=== PATIENT | male | born 1965 | race Caucasian/White ===

== ENCOUNTER 2021-07-19 23:22 | Inpatient (IN) | payer MEDICARE, MEDICAID, SELFPAY ==
--- NOTE | ~2021-07-19 | XR_ITS ---
XR chest 1V portable DATE: 07/23/2021 05:45 INDICATION: Acute respiratory failure TECHNIQUE: Portable AP chest on 07/23/2021 at 0501 hours COMPARISON: 07/22/2021 portable AP chest at 0512 hours FINDINGS: ET tube tip in satisfactory position approximately 3 cm above svitlana. NG tube in gastric fu ndus. Pacemaker lead from inferior vena cava overlies right ventricle. Left internal jugular central venous catheter tip overlies the left brachiocephalic vein near the iris ction with the superior vena cava. No evidence of pneumothorax. There are mild patchy infiltrates and/or atelectasis in the lower lung zones primarily. No pleural effusion or pulmonary vascular congestion is detected. Vascular stent overlies the left subclavian artery. IMPRESSION: ET and NG tubes in satisfactory position Mild patchy infiltrates and/or atelectasis in the lower lung zones primarily; little interval change Reviewed, dictated and finalized at location A. IMPRESSION: ET and NG tubes in satisfactory position Mild patchy infiltrates and/or atelectasis in the lower lung zones primarily; l ittle interval change
--- NOTE | ~2021-07-19 | XR_ITS ---
EXAMINATION: XR abdomen obstructive series DATE: 07/22/2021 10:42 INDICATION: Abnormal distention TECHNIQUE: Supine and upright views of the abdomen. FINDINGS: 07/20/2021 The visualized lung parenchyma is normal.. There is a nonobstructive bowel gas pattern. Moderate colo iggy fecal loading. Gas and stool are seen throughout the colon to the level of the rectum. There is no free air. There is a cardiac lead extending from the right pelvis. IMPRESSION: 1. No acute abdominal abnormality. Reviewed, dictated and finalized at location A.
--- NOTE | ~2021-07-19 | CT_ITS ---
EXAMINATION: CT brain wo con DATE: 07/20/2021 04:39 INDICATION: Altered mental status TECHNIQUE: Computed tomography (CT) of the head was performed without intravenous contrast. Sagittal and coronal reconstructions were performed. The mA was adjusted according to patient size. Iterative reconstruction technique was employed. The dose-length product was 605.33 mGy-cm. COMPARISON: None FINDINGS: No acute intracranial hemorrhage, acute infarction or abnormal extra axial fluid collection. Ventricl es are normal and symmetric. No mass/mass effect. Mild mucosal thickening the bilateral ethmoid sinus es. Changes of bilateral intraocular lens replacement. The orbits and mastoid air cells are normal. Intracranial calcified cerebral atherosclerosis is noted. IMPRESSION: 1. Normal brain. No acute intracranial process. Reviewed, dictated and finalized at location A.
--- NOTE | ~2021-07-19 | XR_ITS ---
XR chest 1V portable 07/21/2021 05:35 Indication: Acute respiratory failure Procedure: AP portable chest Comparison: Comparison to multiple prior studies sequentially, with oldest reviewed study dated 07/03. Findings: Borderline heart size. Endotracheal tube 5 cm above the svitlana. NG tube in the stomach. Imp roving bilateral airspace disease. Possible small left effusion. No pneumothorax. Left IJ central apurva e tip in the brachiocephalic vein. Impression: 1: Improving patchy bilateral airspace disease which may represent resolving pneumonia or edema. Reviewed, dictated and finalized at location A. Impression: 1: Improving patchy bilateral airspace disease which may represent resolving pn eumonia or edema.
--- NOTE | ~2021-07-19 | XR_ITS ---
XR chest 1V portable 07/22/2021 05:45 Indication: Acute respiratory failure Procedure: AP portable chest Comparison: Comparison to multiple prior studies sequentially, with oldest reviewed study dated 01/2018. Findings: Left IJ central line tip in the SVC. NG tube in the stomach. Endotracheal tube tip approxim ately 4 cm above the svitlana. Persistent bilateral airspace disease which may represent pneumonia or e sarahy. No significant effusion. No pneumothorax. Impression: 1: Persistent diffuse bilateral airspace disease, pneumonia versus edema. No significant change. Reviewed, dictated and finalized at location A. Impression: 1: Persistent diffuse bilateral airspace disease, pneumonia versus edema. No si gnificant change.
--- NOTE | ~2021-07-19 | XR_ITS ---
XR chest 1V portable DATE: 07/25/2021 05:31 INDICATION: Acute respiratory failure TECHNIQUE: Portable AP chest on 07/25/2021 at 0524 hours COMPARISON: 07/24/2021 portable AP chest at 0511 hours 07/2021 portable AP chest 08/08/2021 portable AP chest 07/21/2021 portable AP chest FINDINGS: ET tube in satisfactory position 3.5 cm above svitlana. NG tube in gastric fundus. Left internal jugular central venous catheter tip overlies proximal superior vena cava. Heart size is within normal range. Vascular stent overlies left subclavian artery. There are persistent mild patchy infiltrates involving the mid and lower lung zones. IMPRESSION: Persistent relatively stable mild patchy bilateral mid and lower lung infiltrates Reviewed, dictated and finalized at location A. IMPRESSION: Persistent relatively stable mild patchy bilateral mid and lower sierra ng infiltrates
--- NOTE | ~2021-07-19 | XR_ITS ---
EXAMINATION: XR abdomen NG/feed tube insert DATE: 07/20/2021 05:52 INDICATION: Nasogastric tube placement TECHNIQUE: A supine view of the abdomen and lower chest was obtained for evaluation of feeding tube placement. COMPARISON: None. FINDINGS: Nasogastric tube tip in proximal side port in the body of the stomach. Endotracheal tube tip 2.5 cm a eben the svitlana. Left internal jugular central venous port catheter with distal tip at the left brach iocephalic vein. Mild streaky discoid atelectasis/scarring at left lung base and the lateral right mi dlung zone. No dilated gas-filled bowel in the visualized upper abdomen. IMPRESSION: 1. Nasogastric tube tip in the stomach. Reviewed, dictated and finalized at location A.
--- NOTE | ~2021-07-19 | CT_ITS ---
EXAMINATION: CT diagnostic chest wo con EXAM DATE: 08/01/2021 14:34 INDICATION: right lung mass . TECHNIQUE: Spiral CT of the chest without contrast. Axial, coronal and sagittal images of the chest were reviewed. Coronal maximum intensity pixel images of chest reviewed. The dose-length product ( DLP) for this examination was 583.39 mGy-cm. The exposure was tailored according to patient size (au to mA exposure control), and iterative reconstruction (ASIR) was used as additional dose reduction te chnique. Correlation is made to chest x-ray from yesterday. FINDINGS: Scattered bibasilar subsegmental atelectasis, likely accounts for the x-ray findings. No s uspicion of superimposed pneumonia or underlying cancer. Trace pericardial and bilateral pleural flu id. There is small amount of endotracheal debris. There is no mediastinal, hilar or axillary lymphadenopathy. There is no pneumothorax. Heart beto l in size. There is moderate coronary arterial calcification, arterial sclerosis. Upper abdomen is unremarkable. There is thoracic spondylosis without osteoblastic or osteolytic lesions identified. Mild gynecomastia. IMPRESSION: 1. Scattered bibasilar atelectasis. 2. No suspicion of cancer or pneumonia. 3. Trace effusions. Reviewed, dictated and finalized at location A.
--- NOTE | ~2021-07-19 | CT_ITS ---
EXAMINATION: CT brain wo con DATE: 07/26/2021 08:22 INDICATION: Altered mental state TECHNIQUE: Computed tomography (CT) of the head was performed without intravenous contrast. The mA wa s adjusted according to patient size. Iterative reconstruction technique was employed. Exam dose: 60 5.33 mGy-cm total exam DLP. COMPARISON: 07/20/2021 CT brain FINDINGS: Bilateral carotid siphon internal carotid artery calcifications. No intracranial mass lesion or hemorrhage or cerebrovascular accident. No midline shift or mass effec t effect. No subdural or epidural hematoma. No orbital mass lesion. No fracture or bone destruction of the cranial vault. Mild mucosal thickening of right maxillary and bilateral sphenoid sinuses. The mastoid air cells are normally developed and aerated. IMPRESSION: Cerebral atherosclerosis No acute intracranial finding Reviewed, dictated and finalized at Location A. Reviewed, dictated and finalized at location A.
--- NOTE | ~2021-07-19 | XR_ITS ---
XR chest 1V portable DATE: 07/29/2021 08:58 INDICATION: Hypoxia TECHNIQUE: Portable AP chest on 07/29/2021 at 0827 hours COMPARISON: 07/25/2021 portable AP chest at 0524 hours FINDINGS: Endotracheal tube and nasogastric tube have been removed since 07/25/2021. Left internal jugular central venous catheter remains, distal tip at proximal superior vena cava. There is opacification of the lower third of the right thorax which may be due to moderately large ri ght pleural effusion and/or middle lobe and probable right lower lung atelectasis. There is mild patc hy infiltrate or atelectasis in the left lung base. A vascular stent is noted overlying the left subclavian vessels. Diffuse osteopenia. IMPRESSION: Interval opacification of lower third of right thorax and loss of right cardiac margin, c onsistent with middle lobe atelectasis and/or consolidation, possible pleural effusion, likely associ ated right lower lung atelectasis Patchy left basilar infiltrate or atelectasis Reviewed, dictated and finalized at location A. IMPRESSION: Interval opacification of lower third of right thorax and loss of r ight cardiac margin, consistent with middle lobe atelectasis and/or consolidati on, possible pleural effusion, likely associated right lower lung atelectasis Patchy left basilar infiltrate or atelectasis
--- NOTE | ~2021-07-19 | US_ITS ---
US abdomen limited INDICATION: Elevated liver function tests. PROCEDURE: Realtime right upper abdominal ultrasound. COMPARISON: No prior studies for comparison. FINDINGS: The pancreas is normal without focal mass or pancreatic ductal dilation. Liver echotexture is normal without focal mass or intrahepatic biliary dilatation. There is normal directional flow i n the portal vein. Gallbladder wall is thickened measuring 5 mm. There is gallbladder sludge. Common bile duct measures mm. No sonographic Madden's sign. IMPRESSION: 1: Gallbladder sludge with gallbladder wall thickening. Consider a calculus cholecystitis in the appr opriate clinical setting. Reviewed, dictated and finalized at location A. IMPRESSION: 1: Gallbladder sludge with gallbladder wall thickening. Consider a calculus cho lecystitis in the appropriate clinical setting.
--- NOTE | ~2021-07-19 | XR_ITS ---
EXAMINATION: XR chest 1V portable EXAM DATE: 07/30/2021 08:03 INDICATION: Atelectasis. TECHNIQUE: Portable AP frontal chest x-ray was obtained. Comparison is made to prior examination from 07/29/2021, 07/25/2021. FINDINGS: Persistent silhouetting of the right hemidiaphragm and blunting of the costophrenic recess, right middle lobe and at least partial right lower lobe collapse. There is indistinct left-sided reticulation which could be pneumonia or edema without confluent conso lidation. Probable small right pleural effusion. No pneumothorax. Cardiomediastinal silhouette is nor mal. There is a left IJ venous line. IMPRESSION: 1. Persistent right middle lobe and possible right lower lobe collapse. 2. Left-sided indistinct reticulation which could be pneumonia or edema. Reviewed, dictated and finalized at location A.
--- NOTE | ~2021-07-19 | XR_ITS ---
XR chest 1V portable DATE: 07/24/2021 05:39 INDICATION: Acute respiratory failure TECHNIQUE: Portable AP chest on 07/24/2021 at 0511 hours COMPARISON: Portable AP chest on 07/23/2021 at 0501 hours FINDINGS: ET tube 5 x 5 cm above svitlana; ideal range is 2-5 cm. NG tube in gastric fundus. Left internal jugular central venous catheter tip overlies proximal superior vena cava. No evidence o f pneumothorax. There is a vascular stent overlying the left subclavian artery. Heart size is within normal range. There are rather diffuse interstitial infiltrates primarily in the mid and lower lung zones, with kenzie e patchy consolidation in the left lower lobe. No pleural effusion or pneumothorax. IMPRESSION: No significant change of bilateral pulmonary infiltrates Reviewed, dictated and finalized at location A.
--- NOTE | ~2021-07-19 | XR_ITS ---
EXAMINATION: XR chest ET placement DATE: 07/20/2021 03:13 INDICATION: Endotracheal tube placement TECHNIQUE: frontal view of the chest was obtained. COMPARISON: Chest radiograph dated 07/20/2021 FINDINGS: Endotracheal tube tip 4.7 cm above the svitlana. Left internal jugular central venous catheter with dis noel tip at the left brachiocephalic vein. Left subclavian vascular stenting, unclear whether arterial or venous. Mild linear discoid atelectasis at the lateral right midlung zone. No other airspace opacities, pulmo nary edema, pleural effusion or pneumothorax. The cardiomediastinal silhouette is normal. Mild mid to upper thoracic levocurvature. IMPRESSION: 1. Endotracheal tube tip 4.7 cm above the svitlana. 2. Mild discoid atelectasis at the lateral right midlung zone. Reviewed, dictated and finalized at location A.
--- NOTE | ~2021-07-19 | XR_ITS ---
EXAMINATION: XR abdomen obstructive series DATE: 07/23/2021 11:55 INDICATION: High residuals TECHNIQUE: Frontal supine and upright views of the abdomen were obtained. COMPARISON: 07/22/2021 FINDINGS: Is a gastric tube tip in proximal side port in the body of the stomach. Moderate amount of gas and st ool scattered throughout the colon. No dilated loops of gas-filled small bowel to suggest obstruction . No free intraperitoneal gas. Visualized lung bases are clear. Heart size is normal. IMPRESSION: 1. No free intraperitoneal gas or dilated gas-filled loops of bowel to suggest obstruction. Reviewed, dictated and finalized at location B.
--- NOTE | ~2021-07-19 | XR_ITS ---
EXAMINATION: XR chest 1V portable EXAM DATE: 08/01/2021 05:57 INDICATION: Resp failure. TECHNIQUE: Portable AP frontal chest x-ray was obtained. Comparison is made to prior examination from 07/31/2021, 07/30/2021, 07/29/2021. FINDINGS: Right lower and middle lobes remain inflated compared to 07/30. There is more focal right i nfrahilar rounded opacity along with linear opacities radiating from the hilum. No pneumothorax or pl eural effusion. Cardiomediastinal silhouette is normal. There are no osseous abnormalities identified . Compared to prior study, the more rounded opacity is more well-defined today. Continued follow-up to resolution to exclude underlying cancer. IMPRESSION: Right infrahilar airspace disease could be atelectasis and/or pneumonia. Underlying cance r not excludable. Reviewed, dictated and finalized at location A. IMPRESSION: Right infrahilar airspace disease could be atelectasis and/or pneum onia. Underlying cancer not excludable.
--- NOTE | ~2021-07-19 | XR_ITS ---
EXAMINATION: XR chest port-a-cath/central DATE: 07/20/2021 01:44 INDICATION: Central line placement. TECHNIQUE: frontal view of the chest was obtained. COMPARISON: Chest radiograph dated 07/03/2018 FINDINGS: Left internal jugular central venous catheter with distal tip at the left brachiocephalic vein. Mild opacity at the lateral right midlung zone. No other airspace opacities, pulmonary edema, pleural effu ayden or pneumothorax. The cardiomediastinal silhouette is normal. Mild mid thoracic levocurvature. IMPRESSION: 1. Left internal jugular central venous catheter tip in the left brachiocephalic vein. 2. Mild opacity lateral right midlung zone which could represent atelectasis or pneumonia. Reviewed, dictated and finalized at location A. IMPRESSION: 1. Left internal jugular central venous catheter tip in the left brachiocephali c vein. 2. Mild opacity lateral right midlung zone which could represent atelectasis or pneumonia.
--- NOTE | ~2021-07-19 | XR_ITS ---
EXAMINATION: XR chest 1V portable EXAM DATE: 07/31/2021 05:42 INDICATION: Respiratory failure. TECHNIQUE: Portable AP frontal chest x-ray was obtained. Comparison is made to prior examination from 07/30/2021. FINDINGS: There is a left IJ venous line, tip projecting over the upper aspect of the SVC. There has been interval reexpansion of the right middle and lower lobes with some residual atelectasis present. Patient could have had mucous plugging causing this. No pneumothorax or pleural effusion. Cardiomedi astinal silhouette is normal. There is mild to moderate thoracic scoliosis. IMPRESSION: 1. Interval partial reexpansion of the right middle, lower lobes. 2. Pneumonia not excludable. Reviewed, dictated and finalized at location A.
[2021-07-19 23:27] VITALS: BP 153/125; PULSE 87; RESP 18; TEMP 36.2; O2SAT 100
[2021-07-20] VITALS (53 sets, daily range): BP systolic 62–156; BP diastolic 21–123; PULSE 20–149; RESP 14–22; TEMP 36.2–37.4; O2SAT 94–100; BMI 41.8
--- NOTE | 2021-07-20 | ECHO_ITS ---
Patient Info Name: Tonio Barajas Age: 55 years : 1965 Gender: Male Ht: 70 in Wt: 291 lbs BSA: 2.61 m2 HR: 81 bpm BP: 91 / 79 mmHg Technical Quality: Fair Exam Date: 07/20/2021 12:07 PM Exam Location: [facility] Pulmonary Exam Room: ICU6 Patient Status: Inpatient Admit Date: 07/20/2021 Staff Ordering Physician: Daniel Domingo DO Mounting Inspector: Elizabeth Bowles RDCS Attending Provider: Uyen Angelo MD Referring Physician: Jose L MICHAEL; Exam Type: CA echo doppler color flow Study Info Indications - ESRD CARDIAC ARREST Complete two-dimensional, color flow and Doppler transthoracic echocardiogram is performed. Summary 1. Complete two-dimensional, color flow and Doppler transthoracic echocardiogram is performed. 2. Left ventricular chamber dimension is normal. 3. Left ventricular systolic function is hyperdynamic, estimated at >70%. 4. The left ventricular diastolic function is grade I diastolic dysfunction. 5. E/e' 15 is elevated. 6. There is moderate aortic valve sclerosis. 7. There is mild aortic valve stenosis with a peak velocity of 315 cm/s, mean gradient of 22 mmHg, and aortic valve area of 1.6 cm2. 8. There is mild aortic valve regurgitation. Left Ventricle E/e' 15 is elevated. Left ventricular chamber dimension is normal. Left ventricular systolic function is hyperdynamic, estimated at >70%. The left ventricular diastolic function is grade I diastolic dysfunction. Right Ventricle Right ventricular chamber dimension is normal. Right ventricular systolic function is normal. Left Atria Left atrial chamber dimension is normal. Right Atria Right atrial chamber dimension is normal. Aortic Valve The aortic valve is trileaflet. There is moderate aortic valve sclerosis. There is mild aortic valve stenosis with a peak velocity of 315 cm/s, mean gradient of 22 mmHg, and aortic valve area of 1.6 cm2. There is mild aortic valve regurgitation. Pulmonic Valve There is no pulmonic regurgitation. Mitral Valve There is no mitral valve stenosis. There is no mitral valve regurgitation. Tricuspid Valve There is no tricuspid valve regurgitation. Pericardium/Pleural There is no pericardial effusion. Inferior Vena Cava Inferior vena cava is not well visualized. Aorta The aortic root size at the sinus of Valsalva is normal. Left Ventricular Outflow Tract Name Value Normal LVOT 2D LVOT Diameter 2.2 cm LVOT Doppler LVOT Peak Gradient 6 mmHg LVOT Mean Gradient 4 mmHg LVOT VTI 21 cm LVOT VTI/AV VTI Ratio 0.4 LVOT Stroke Volume 82 ml LVOT CO 21.8 l/min LVOT CI 8.3 l/min/m2 Mitral Valve Name Value Normal MV Doppler
--- NOTE | 2021-07-20 00:11 | ECG_ITS ---
Measurements Intervals [place] Rate: 22 P: 78 MN: 241 QRS: -60 QRSD: 165 T: 35 QT: 615 QTc: 377 Interpretive Statements SINUS TACHYCARDIA WITH SLOW VENTRICULAR RESPONSE DUE TO 5:1 AV BLOCK RIGHT BUNDLE BRANCH BLOCK LEFT ANTERIOR FASCICULAR BLOCK LEFT VENTRICULAR HYPERTROPHY AND ST-T CHANGE WIDENED P WAVES AND PEAKED T WAVES- CONSIDR HYPERKALEMIA BASELINE ARTIFACT- II, III, AVF, V3-V6 ABNORMAL ECG Electronically Signed On 07-20-2021 6:26:58 CDT by Daniel Domingo D.O.
--- NOTE | 2021-07-20 00:42 | ED.GENADULT ---
HPI - General Adult General Chief complaint: Unspecified Stated complaint: sick case-numb leg Time Seen by Provider: 07/20/21 00:04 Source: patient History of Present Illness HPI narrative: Patient with a history of chronic kidney disease dialysis dependent as well as a spot on his spine. Presents with generally not feeling well. Patient was not feeling well for the past couple days took a nap today and ever since then has been waking up intermittently with nausea and dry heaves. Symptoms were not resolving so he came to the ER for evaluation. He reports when he called the ambulance he was unable to walk and is concerned about the spot on his spine is causing him to be paralyzed. He has previously had MRI and evaluation by spine surgeon. Reports a history of bladder incontinence as he is unable to make it to the restroom that has been present for a long time . Denies any bowel incontinence reports a history of polyneuropathy and he is always numb in his lower extremities. He denies fevers, chills, chest pain. Does report right-sided abdominal pain is crampy, intermittent, no clear aggravating or alleviating factors, no radiation Related Data Home Medications Medication Instructions Recorded Confirmed Unable to Obtain Home Medications 07/19/21 07/19/21 Allergies Allergy/AdvReac Type Severity Reaction Status Date / Time No Known Allergies Allergy Verified 07/19/21 23:38 Review of Systems Review of Systems: CONSTITUTIONAL: Denies fever, chills, or sweats. EYES: Denies visual changes, redness, or discharge. ENT: Denies rhinorrhea, congestion, sore throat, or otalgia. CARDIOVASCULAR: Denies chest pain, palpitations, or edema. RESPIRATORY: Denies cough or dyspnea. GASTROINTESTINAL: Reports right-sided abdominal pain, nausea, vomiting GENITOURINARY: Denies dysuria or hematuria. SKIN: Denies rash or itching. MUSCULOSKELETAL: Denies joint pain, or myalgia. NEUROLOGIC: Denies headache, numbness, dizziness PSYCHIATRIC: Denies anxiety or depression. Exam Narrative: GENERAL: Well-appearing, well-nourished, and in no acute distress. HEAD: Normocephalic, atraumatic. EYES: PERRLA and EOMI. ENT: Nares clear, no rhinorrhea or epistaxis. Mucous membranes moist. NECK: Supple. No masses. No JVD CHEST: Clear to auscultation. No respiratory distress. No wheezes rales or rhonchi HEART: Regular rate and rhythm. No murmur heard. Normal peripheral pulses. ABDOMEN: Minimal pain with deep palpation soft, nondistended, normal active bowel sounds. EXTREMITIES: Normal range of motion. No edema. SKIN: Warm, dry, no rash. NEURO: No focal deficits. O5 out of 5 strength with dorsi and plantar flexion in the bilateral lower extremities alert and oriented x3. PSYCH: Normal mood and affect. Course Vital Signs Vital signs: Vital Signs Temperature 36.2 C L 07/19/21 23:27 Pulse Rate 87 07/19/21 23:27 Respiratory Rate 18 07/19/21 23:27 Blood Pressure 153/125 H 07/19/21 23:27 Pulse Oximetry 100 07/19/21 23:27 Temperature 36.2 C L 07/19/21 23:27 Pulse Rate 95 07/20/21 05:00 Respiratory Rate 18 07/20/21 04:27 Blood Pressure 100/38 L 07/20/21 04:10 Pulse Oximetry 97 07/20/21 05:00 Procedures Central Line Placement Right IJ: Central Line Date: 07/20/21 Central Line Time: 01:20 Discussed w/ the patient/family/POA,the placement of a central venous catheter, including its clinical necessity/indication & associated potential risks, benifits and alternatives.: Yes The patient/family/POA understand(s) and acknowledge(s) the need to proceed with central venous catheter insertion as an important element of the patient's clinical management.: Yes Performed Emergently - Given emergent patient condition, temporal constraints may have precluded informed consent.: Yes Time Out Performed: No Patient Placed on Monitor/Pulse Ox: Yes Max. Sterile Barrier Technique: Caps and hand hygiene
--- NOTE | 2021-07-20 00:52 | PC.NURSE ---
EDP at bedside.
[2021-07-20] MEDS: ATROPINE SULFATE 1 MG/10 ML SYRINGE IV PUSH ×2 (01:23→02:17)
[2021-07-20] MEDS: ONDANSETRON INJ 4 MG/2 ML VIAL IV PUSH (01:27)
[2021-07-20] MEDS: LIDOCAINE HCL 1% LOCAL INJ 20 ML VIAL (01:29)
[2021-07-20] MEDS: DEXTROSE 5%/0.9% SOD CHL 1,000 ML 100 ML (01:32)
[2021-07-20] MEDS: CALCIUM CHLORIDE 1,000 MG/10 ML SYRINGE 1000 MG IV PUSH (01:33)
[2021-07-20] MEDS: METOCLOPRAMIDE HCL INJ 10 MG/2 ML VIAL (01:41)
[2021-07-20 01:52] LABS: Hematocrit 43.4 % (42.0-52.0); Hemoglobin 14.1 g/dL (14.0-18.0); Mean Corpuscular HGB Conc 32.5 g/dl (32-36); Mean Corpuscular Hemoglobin 35.7 pg (26-34); Mean Corpuscular Volume 109.9 fl (80-100); Mean Platelet Volume 10.7 fl (7.4-10.4); Platelet Count Result 262 k/mm3 (150-375); Red Blood Count 3.95 M/mm3 (4.6-6.20); Red Cell Distribution Width 14.6 % (11.5-14.5); White Blood Count 35.7 K/mm3 (4.5-10.0)
[2021-07-20] MEDS: ATROPINE SULFATE 1 MG/ML VIAL IV PUSH (01:57)
[2021-07-20 02:07] LABS: Band Neutrophils Percent 7 % (0-6); Lymphocytes Absolute Manual 5.71 K/mm3 (1.1-4.5); Monocytes Absolute Manual 4.28 K/mm3 (0.1-0.90); Monocytes Percent Manual 12 % (3-9); Neutrophils Percent Manual 65 % (46-73); Total Cells Counted 100
[2021-07-20 02:08] LABS: Platelet Estimate Adequate (Adequate)
[2021-07-20 02:10] LABS: Add Urine Microscopic? YES; Appearance Urine Cloudy (Clear); Bilirubin Urine Negative (Negative); Blood Urine 1+ (Negative); Color Urine Yellow (Yellow); Glucose Urine UA 1+ mg/dL (Negative); Ketones Urine Negative (Negative); Leukocyte Esterase Ur 3+ LEU/UL (Negative); Nitrate Urine Negative (Negative); Protein Urine 2+ mg/dL (Negative); RBC Urine 21-50 /hpf (0-2); Squamous Epithelial Cell Urine Rare /hpf (Few); Urobilinogen Urine Negative mg/dL (<2.0); WBC Urine >75 /hpf
[2021-07-20 02:16] LABS: Alveolar/Arterial O2 Gradient 50.3 mmHg; Base Excess ABG -5.2 mEq/l (+/-2.0); Device ROOM AIR; Fractional Inspired Oxygen 21 %; HCO3 ABG 17.4 mEq/l (22.0-26.0); Oxygen Saturation ABG 94.2 % (95.0-100.0); PCO2 ABG 26.9 mmHg (35.0-45.0); PO2 ABG 67.2 mmHg (80.0-100.0); Site Drawn RIGHT BRACHIAL; pH ABG 7.428 (7.350-7.450)
[2021-07-20 02:16] LABS: Alanine Aminotransferase 128 U/L (4-50); Albumin Level 4.5 g/dL (3.5-5.1); Alkaline Phosphatase 92 U/L (38-126); Anion Gap 16 mmol/L (8-16); Aspartate Amino Transferase 187 U/L (17-59); Bilirubin,Total 0.8 mg/dL (0.2-1.3); Blood Urea Nitrogen 43 mg/dL (9-20); Calcium 12.1 mg/dL (8.4-10.2); Carbon Dioxide 21 mmol/L (22-30); Chloride 99 mmol/L (98-107); Estimated CRCL calculation 11 ml/min; Estimated Glomerular Filt Rate 6; Glucose 152 mg/dL (65-110); Lipase 290 U/L (23-300); Potassium 7.6 mmol/L (3.4-5.0); Sodium 136 mmol/L (137-145)
[2021-07-20 02:18] LABS: Lactic Acid Reflex 6.3 mmol/L (0.7-2.1)
[2021-07-20] MEDS: SODIUM BICARBONATE 8.4% 50 MEQ/50 ML SYRINGE IV PUSH (02:28)
[2021-07-20] MEDS: INSULIN HUMAN REGULAR (*BKC) 100 UNITS/ML 10 UNITS IV PUSH (02:30)
[2021-07-20] MEDS: PROMETHAZINE HCL 25 MG/ML AMPUL IM (02:37)
[2021-07-20] MEDS: ALBUTEROL SULFATE NEB 2.5 MG/0.5 ML INH 5 MG INHALATION (02:42)
[2021-07-20] MEDS: DOPamine 400 MG/D5W 250 ML 400 MG/250 ML BAG 12.39 MG IV CONT (02:46)
[2021-07-20] MEDS: RAPID SEQUENCE INTUBATION KIT 1 EACH (02:55)
[2021-07-20 03:24] LABS: Glucose Point of Care 116 mg/dl (65-105)
[2021-07-20] MEDS: PROPOFOL IV EMULSION 100 ML 3.97 MG IV CONT (03:25)
[2021-07-20 03:42] LABS: INR 1.2; Prothrombin Time 15.4 Seconds (11.1-14.7)
[2021-07-20 03:53] LABS: Alveolar/Arterial O2 Gradient 287.8 mmHg; Base Excess ABG -4.2 mEq/l (+/-2.0); Fractional Inspired Oxygen 60 %; HCO3 ABG 19.7 mEq/l (22.0-26.0); Oxygen Content ABG 19.6 %vol (16.0-22.0); Oxygen Saturation ABG 97.8 % (95.0-100.0); Oxyhemoglobin 95.1 % THb (90.0-100.0); PCO2 ABG 32.8 mmHg (35.0-45.0); PO2 ABG 103.9 mmHg (80.0-100.0); PO2 FiO2 Ratio Arterial Blood 1.73 %; Site Drawn RIGHT BRACHIAL; Total Hemoglobin 14.6 g/dL (12.0-18.0); pH ABG 7.396 (7.350-7.450)
[2021-07-20 03:54] LABS: Arterial Blood Gas PEEP 5 cmH2O; Arterial Blood Gas Tidal Volume 500 ml; Arterial Blood Gas Vent Mode CMV; Arterial Blood Gas Ventilator rate 12 /MIN; Device VENTILATOR
--- NOTE | 2021-07-20 04:11 | PC.NURSE ---
RN to updated pt. family members. one member states So he is not stable enough to go to [facility]? RN informed pt. beds have limited space available along with the risk of being transported over there. Pt. family member states When I was transfered to [facility] ICU they had beds for me, That is bullshit. Other family member states That was a different time.
--- NOTE | 2021-07-20 04:27 | PC.NURSE ---
This RN transported pt from CT to ICU with assistance from respiratory and instructional design technologist Keyla. When walking onto the unit, pts central line tubing got wrapped around IV pole. Eligio RN came over to pt and discontinued all medication drips running in to central line, stating it would be easier this way. In addition to disconnecting tubing, the pacing pads were removed upon arriving to room. Eligio GEE and a second LEGAL INTER[employer] took ED monitor and set it on floor to move pt over to stretcher. This RN and instructional design technologist Keyla assisted in repositioning pt and left pt in care of ICU.
[2021-07-20 04:50] LABS: Reflex Lactic Acid Yes or No Add Lactic
--- NOTE | 2021-07-20 04:54 | PC.NURSE ---
call or contact centre coach Keyla Hartley witnessed Male ICU Charge Nurse aggressively unhook all IV Meds as soon as we walked through the ICU Door. Then as Missy GEE and I got into the ICU Room, the Male ICU Charge Nurse aggressively removed all Pacer Leads and Window Display Designer Leads. ICU Charge had me pull all wires off bed and they were put on the floor. Patient was then moved to the bed. Missy GEE and I stayed to remove clothes and adjust patient in bed. Missy GEE and I were released and went back to ED. Moments later a Code Blue was called in the ICU and was confirmed to be Mr. Barajas.- Keyla Hartley
[2021-07-20] MEDS: LORazepam INJ (*CRX) 2 MG/ML VIAL IV PUSH (05:10)
--- NOTE | 2021-07-20 05:14 | PM.IMHP ---
H&P: HPI History of Present Illness Date/Time: 07/20/21 05:14 Chief Complaint: Nausea and vomiting Narrative: This is a 55-year-old male with past medical history significant for end-stage renal disease on hemodialysis, patient usually gets his care somewhere else. He presented to emergency room via EMS stating that he had not been feeling well he dialyzes Wednesdays and Fridays he spent most of the day today in bed and was having nausea and dry heaving fell very weak. Upon arrival to the emergency room patient with complaints that he was feeling unwell. He progressively decompensated while in the emergency room had heart rate go down to the 20 a triple-lumen was placed as well as an intraosseous line patient received some atropine on pacer pads were placed on. Labs returned a potassium of 7.6 and Nephrology was immediately called for emergent dialysis. Patient's mental status continued to decline and required intubation for airway protection currently on ventilator support. Upon arrival to intensive care unit patient went in to bradycardia and asystole requiring a round of epinephrine and chest compressions with achievement of ROSC. Pacer pads on, rhythm is paced. Review of Systems Review of Systems: ROS unobtainable: Yes unobtainable due to medical condition (Patient is on ventilator support) Meds Home Medications and Allergies Home Medications Medication Instructions Recorded Confirmed Type Unable to Obtain Home Medications 07/19/21 07/19/21 History Allergies Allergy/AdvReac Type Severity Reaction Status Date / Time No Known Allergies Allergy Verified 07/19/21 23:38 Vital Signs Vital Signs - 24 hr 07/19/21 23:27 07/20/21 00:04 07/20/21 00:45 Temperature 97.2 F L Pulse Rate 87 80 25 L Respiratory Rate 18 16 16 Blood Pressure 153/125 H 151/66 H Pulse Oximetry 100 97 07/20/21 01:54 07/20/21 02:28 07/20/21 02:42 Temperature Pulse Rate 23 L 62 53 L Respiratory Rate 15 21 H 19 Blood Pressure 79/62 L 114/94 H Pulse Oximetry 95 07/20/21 02:46 07/20/21 02:49 07/20/21 02:55 Temperature Pulse Rate 58 L 60 60 Respiratory Rate 16 21 H Blood Pressure 114/93 H Pulse Oximetry 100 07/20/21 03:08 07/20/21 03:17 07/20/21 03:25 Temperature Pulse Rate 60 60 60 Respiratory Rate 16 16 17 Blood Pressure 119/95 H Pulse Oximetry 100 100 07/20/21 03:32 Temperature Pulse Rate 60 Respiratory Rate 18 Blood Pressure 106/56 L Pulse Oximetry 99 Exam Narrative: Patient is in bed on ventilator support unresponsive. Const: General: comfortable, no acute distress, well developed, ill appearing chronically and other (Under sedation) Nutritional Appearance: average body habitus Orientation/consciousness: Other orientation findings (Under sedation) Other: Patient on ventilator support HENMT: Head: normal to inspection, normocephalic and atraumatic Face and sinus: normal facial exam and other (Endotracheal tube in mouth) Eyes: General: appearance normal, both eyes and all related structures Pupils: Equal, round and reactive pupils present Neck: Neck: full ROM, no lymphadenopathy and no JVD Thyroid: thyroid normal Lymphatic: no lymphadenopathy noted Resp: Effort & Inspection: other (On ventilator support) Auscultation: clear to auscultation bilaterally Cardio: Jugular venous distension: no JVD Rate: bradycardic and other Rhythm: other (Paced rhythm) Heart sounds: S1 normal heart sound present and S2 normal heart sound present GI: Inspection: normal to inspection GI Palp: Yes Soft to palpation, No Guarding due to palpation present (GI) and Yes No hepatosplenomegaly present : General: Yes deferred Urinary Catheter: Urinary Catheter: patent and draining Skin: General skin exam: lichenification and pallor Rashes: no rashes Wounds: no wounds Neuro: General: other (Under sedation) Cranial nerves: Yes Equal, round and reactive pupils present Cognition (Neuro):
[2021-07-20] MEDS: NOREPINEPHRINE 8 MG/D5W 250 ML 8 MG/250 ML BAG 18.75 MG IV CONT (05:20)
--- NOTE | 2021-07-20 05:24 | PC.NURSE ---
0045: This RN entered pts room to start IV for medications and obtain ordered EKG. Pt upright and A&Ox4 on stretcher, with cool/clammy skin and c/o nausea. Pt denies other s/s at this time. Pt then vomited large amount green emesis. Pts HR on monitor 25 bpm. Pulse palpated to be accurate. ERICAP Marco notified and at bedside. EKG obtained, crash cart at bedside with defibrillator pads in place. 0101: Verbal consent for central line obtained. EDP at bedside for insertion. 0116: Pt alert and able to follow commands. Attempts to place central line unsuccessful. Verbal consent for IO placement obtained. 0122: IO placed in left lower extremity at this time by Brigid GEE. 0123: 1mg atropine administered. 0127: 4mg zofran administered. Pt A&Ox4 at this time with c/o dizziness and nausea. 0129: Central line paced in left EJ by DAGO Lara. 0133: Calcium Chloride given at this time. X-ray at bedside for central line placement verification. 0136: Per VORB by DAGO Lara, central line okay to use. 0141: Reglan administered and 1L D5 NS at 100 mls/hr initiated. Multiple attempts made by this RN and by ED charger to obtain BP on pts lower arm, thigh, and calf using appropriate cuff. Unsuccessful. 0151: Capellan catheter placed. Pt alert and upright on stretcher with c/o fatigue and lower lack pain. Pt denied other s/s at this time. 0157: 1mg atropine administered. 0217: 1mg atropine administered. Pt continues to maintain mental status with c/o nausea and fatigue. 0224: Pt paced at this time to 60 bpm at 30 ma. 0227: Pt states he feels dizzy, but reports he feels a little better . 0228: Sodium bicarbonate administered. Other medications administered at this time (see MAR) 0249: Pt A&Ox1 with slurred speech. Pt reaching for things that cannot be seen by this RN, pulling at monitor wires. EDP notified, at bedside. 0257: Verbal consent for intubation attempted to be obtained by EDP, unsuccessful. Implied consent utilized. Respiratory at bedside. Pt intubated by DAGO Lara. 30 Etomidate given IVP and 100 Succinylcholine IVP as sedative, achieved without difficulty. Positive color change with equal chest rise and fall. Size 7, 25 marked at lip. Bilateral soft wrist restraints initiated at this time. Pt lifting arms, reaching at monitor wires. 0302: X-ray at bedside for ET tube placement verification. 0332: Family at bedside, updated on pt condition by this RN, transformer molder, and EDP Marco. Pt belongings sent with daughter. Clover GEE attempted to place OG/NG x2, attempts unsuccessful. 0416: Report called to MACHINE ETCHERHilario. States it is okay to send pt to unit without NG/OG in place. Pt taken to CT via stretcher on monitor and ED respiratory at bedside. 0427: Pt taken to ICU via stretcher on monitor, paced per EDP orders. (see additional note)
[2021-07-20 05:46] LABS: Lactic Acid 5.4 mmol/L (0.7-2.1)
--- NOTE | 2021-07-20 05:48 | ADMGEN ---
This patient, Tonio Barajas, was admitted to Intensive Care Unit-6. Patient/family oriented to hospital policies and general routines including ID bracelet, bed and alarms, visiting hours, pain management, procedures, bathroom and other care routines, personal items, smoking policy, room service/diet, and visiting hours. Information on how to activate the Rapid Response Team has been discussed. Patient/Family are encouraged to report perceived risks to care and to ask questions if they do not understand what they are told or what they should do. pt with pacer pads in place not pacing. pacer pads came off during transition to bed when monitor leads and pacer leads placed heart rate 20 no pulse code started paced set to 60 bpm with 30ma
[2021-07-20 05:51] LABS: Anion Gap 16 mmol/L (8-16); Blood Urea Nitrogen 47 mg/dL (9-20); Calcium 9.6 mg/dL (8.4-10.2); Carbon Dioxide 28 mmol/L (22-30); Chloride 98 mmol/L (98-107); Estimated CRCL calculation 11 ml/min; Estimated Glomerular Filt Rate 6; Glucose 146 mg/dL (65-110); Potassium 4.9 mmol/L (3.4-5.0); Sodium 142 mmol/L (137-145)
[2021-07-20 05:56] LABS: Troponin I 0.032 ng/mL (0.000-0.034)
[2021-07-20 05:59] LABS: Alveolar/Arterial O2 Gradient 247.9 mmHg; Carboxyhemoglobin 0.6 % THb (0-2.0); Fractional Inspired Oxygen 60 %; HCO3 ABG 22.1 mEq/l (22.0-26.0); Methemoglobin ABG 0.1 %THb (0-1.5); Oxygen Content ABG 19.3 %vol (16.0-22.0); Oxygen Saturation ABG 98.6 % (95.0-100.0); PCO2 ABG 39.7 mmHg (35.0-45.0); PO2 ABG 136.2 mmHg (80.0-100.0); PO2 FiO2 Ratio Arterial Blood 2.27 %; Reduced Hemoglobin 2.3 %THb (0-5.0); pH ABG 7.363 (7.350-7.450)
[2021-07-20 06:00] LABS: Arterial Blood Gas PEEP 5 cmH2O; Arterial Blood Gas Vent Mode CMV; Arterial Blood Gas Ventilator rate 12 /MIN; Device VENTILATOR; Site Drawn RIGHT BRACHIAL
[2021-07-20 06:01] LABS: Arterial Blood Gas Tidal Volume 500 ml
[2021-07-20 06:39] LABS: Hepatitis B Surface Antigen Negative (Negative)
[2021-07-20 07:19] LABS: Hepatitis B Surface Anti Res Positive
--- NOTE | 2021-07-20 08:09 | PM.CNCAR ---
Assessment and Plan Assessment and plan (1) Hyperkalemia: Code(s): E87.5 - Hyperkalemia Status: Acute Assessment and Plan: Currently on hemodialysis. (2) Cardiac arrest: Code(s): I46.9 - Cardiac arrest, cause unspecified Status: Acute Assessment and Plan: Due to hyperkalemia, sepsis. ROSC with CPR and Epinephrine. Obtain echo. (3) End-stage renal disease on hemodialysis: Code(s): N18.6 - End stage renal disease; Z99.2 - Dependence on renal dialysis Status: Acute (4) Acute respiratory failure with hypoxia: Code(s): J96.01 - Acute respiratory failure with hypoxia Status: Acute Assessment and Plan: Due to hyperkalemia, sepsis. (5) Acute UTI: Code(s): N39.0 - Urinary tract infection, site not specified Status: Acute Assessment and Plan: On antibiotics per hospitalist. (6) Bradycardia: Code(s): R00.1 - Bradycardia, unspecified Status: Acute Assessment and Plan: HR currently up to 90 bpm. Due to hyperkalemia. Transcutaneous pacer on standby. Wean off Levophed as tolerated for BP and HR. History of Present Illness History of Present Illness Consult date/time: 07/20/21 08:09 Reason for consult: Bradycardia. This is a 55-year-old male presented to ED via EMS with nausea. He has a history of end-stage renal disease on hemodialysis, dyslipidemia, hypertension. Reports all day yesterday he had nausea and dry heaves and felt very weak. In ED he progressively decompensated with heart rate go down to the 20 bpm and hyperkalemia was suspected. Atropine was given but HR did not respond, transcutaneous pacer placed and did capture and his HR recovered. Patient was given calcium bicarbonate, insulin, glucose, a triple-lumen was placed. Labs returned a potassium of 7.6 and Nephrology was immediately called for emergent dialysis. Patient's mental status continued to decline and required intubation for airway protection currently on ventilator support. Upon arrival to intensive care unit patient went in to bradycardia and asystole requiring a round of epinephrine and chest compressions with achievement of ROSC. Currently patient is being dialyzed, on ventilator. Was on Dopamine drip, but now he is on Levophed drip. EKG showed sinus tachycardia with 5:1 conduction with V rate 20 bpm. Troponin 0 x 2 sets. Cr 9.3/GFR 11. WBC 35. Reason For Visit: hyperkalemia Review of Systems Review of Systems: ROS unobtainable: Yes unobtainable due to endotracheal tube and unobtainable due to medical condition [facility] Social History Social History Smoking packs per day: 1 Smoking cigarettes per day: 20.0 Years smoked: 30 Smoking pack-years: 30.00 Smoking status: Current every day smoker Alcohol intake: former Substance use: never Spiritual care concerns: No Meds Home Medications and Allergies Home Medications Medication Instructions Recorded Confirmed Type B complex-vitamin C-folic acid 1 tablet PO DAILY 07/20/21 07/20/21 History [Hue-Nano] allopurinol 100 mg PO DAILY 07/20/21 07/20/21 History calcium acetate(phosphat bind) 667 mg PO DAILY 07/20/21 07/20/21 History ergocalciferol (vitamin D2) 1,250 mcg PO DAILY 07/20/21 07/20/21 History gabapentin 200 mg PO BID 07/20/21 07/20/21 History metoprolol tartrate 25 mg PO BID 07/20/21 07/20/21 History simvastatin 40 mg PO DAILY 07/20/21 07/20/21 History sodium bicarbonate 650 mg PO BID 07/20/21 07/20/21 History tramadol 50 mg PO Q8H PRN 07/20/21 07/20/21 History Allergies Allergy/AdvReac Type Severity Reaction Status Date / Time No Known Allergies Allergy Verified 07/19/21 23:38 Vital Signs Vital Signs - 24 hr 07/19/21 23:27 07/20/21 00:04 07/20/21 00:45 Temperature 97.2 F L Pulse Rate 87 80 25 L Respiratory Rate 18 16 16 Blood Pressure 153/125 H 151/66 H Pulse Oximetry 100 97 07/20/21 01:5
--- NOTE | 2021-07-20 09:01 | WPDCNINT ---
Assessment and Plan Assessment and plan (1) Shock: Code(s): R57.9 - Shock, unspecified Status: Acute Assessment and Plan: Shock could be multifactorial, infection, cardiac arrest, hypovolemia from fluid removed post dialysis -currently on Levophed through central line and left IJ -maintain mean arterial pressures greater than 65 mmHg -cultures have been obtained -UA reflective of UTI, -started on ceftriaxone, Levaquin and vancomycin on 07/20/2021. Discontinue Levaquin -elevated lactic acid, will repeat lactic acid (2) Acute respiratory failure with hypoxia: Code(s): J96.01 - Acute respiratory failure with hypoxia Status: Acute Assessment and Plan: Acute respiratory failure likely related to altered mental status due to bradycardia and airway protection -patient currently on CMV mode, peep of 5 and 60% FiO2 with good O2 sats, wean FiO2 maintain O2 sats greater than 92% -chest x-ray showed mild discoid atelectasis at the lateral right mid lung zone -ABGs reviewed, -propofol for sedation (3) Cardiac arrest: Code(s): I46.9 - Cardiac arrest, cause unspecified Status: Acute Assessment and Plan: Brief cardiac arrest after he you had bradycardia and went into asystole with ROSC with 1 round of epinephrine -could be related to hyperkalemia, bradyarrhythmia, septic shock -cardiology following the patient -will obtain echocardiogram -troponins negative x2 (4) Hyperkalemia: Code(s): E87.5 - Hyperkalemia Status: Acute Assessment and Plan: Hyperkalemia resolved before dialysis after being treated in the ER with albuterol nebulizer, insulin and D50, sodium bicarbonate and calcium -patient being dialyzed at this time will repeat post dialysis labs (5) End-stage renal disease on hemodialysis: Code(s): N18.6 - End stage renal disease; Z99.2 - Dependence on renal dialysis Status: Acute Assessment and Plan: History of end-stage renal disease on dialysis, Mondays, Wednesdays, Fridays -unknown if he had dialysis on Friday -completed dialysis with removal of 2000 mL of fluid this morning on 07/20/2021: Will obtain post dialysis labs. -nephrology following the patient -dialysis per Nephrology (6) Acute UTI: Code(s): N39.0 - Urinary tract infection, site not specified Status: Acute Assessment and Plan: UA reflective of a UTI, patient started on ceftriaxone (7) Leukocytosis (leucocytosis): Qualifiers: Leukocytosis type: unspecified Qualified Code(s): D72.829 - Elevated white blood cell count, unspecified Code(s): D72.829 - Elevated white blood cell count, unspecified Status: Acute Assessment and Plan: Leukocytosis likely related to stress response, septic shock, infection Patient on antibiotics as above, continue to monitor (8) DVT prophylaxis: Code(s): Z29.9 - Encounter for prophylactic measures, unspecified Status: Acute Assessment and Plan: DVT prophylaxis: Heparin subQ has been added Additional Plan Stress ulcer prophylaxis: Protonix Nutrition: Will start tube feeds Code status: Full code Critical care time spent: 48 minutes This dictation may have been done utilizing a voice recognition system. Attempts have been made to correct errors. However, there may be uncorrected grammatical, spelling, and recognition errors present. Due to a high probability of clinically significant, life threatening deterioration, the patient required my highest level of preparedness to intervene emergently and I personally spent this critical care time directly and personally managing the patient. This critical care time included obtaining a history; examining the patient; pulse oximetry; ordering and review of studies; arranging urgent treatment with development of a management plan; evaluation of patient's response to treatment; frequent reassessment; and discussions with other providers. It
[2021-07-20 10:41] LABS: Basophils Absolute Auto 0.1 K/mm3 (0.0-0.1); Basophils Percent Auto 0.6 % (0.2-1.2); Hematocrit 42.4 % (42.0-52.0); Immature Granulocyte Absolute 0.42 K/mm3 (0.00-0.031); Immature Granulocyte Percent A 1.7 % (0-0.5); Lymphocytes Absolute Auto 3.09 K/mm3 (0.9-3.2); Lymphocytes Percent Auto 12.3 % (18.3-44.2); Mean Corpuscular Hemoglobin 35.4 pg (26-34); Mean Corpuscular Volume 107.3 fl (80-100); Mean Platelet Volume 10.5 fl (7.4-10.4); Monocytes Absolute Auto 1.1 K/mm3 (0.1-0.6); Monocytes Percent Auto 4.5 % (2.6-8.5); Neutrophils Absolute Auto 20.3 K/mm3 (1.3-6.7); Neutrophils Percent Auto 80.9 % (45.5-73.1); Platelet Count Result 218 k/mm3 (150-375); Red Blood Count 3.95 M/mm3 (4.6-6.20); Red Cell Distribution Width 14.5 % (11.5-14.5); White Blood Count 25.1 K/mm3 (4.5-10.0)
[2021-07-20] MEDS: PANTOPRAZOLE SODIUM IV 40 MG VIAL IV PUSH (10:45)
[2021-07-20 10:56] LABS: Lactic Acid Reflex 3.6 mmol/L (0.7-2.1)
[2021-07-20 10:57] LABS: Magnesium 1.6 mg/dL (1.6-2.3); Phosphorus 4.2 mg/dL (2.5-4.5)
[2021-07-20 11:11] LABS: Albumin Level 4.4 g/dL (3.5-5.1); Alkaline Phosphatase 109 U/L (38-126); Anion Gap 12 mmol/L (8-16); Bilirubin,Total 0.8 mg/dL (0.2-1.3); Blood Urea Nitrogen 23 mg/dL (9-20); Calcium 9.4 mg/dL (8.4-10.2); Carbon Dioxide 32 mmol/L (22-30); Chloride 95 mmol/L (98-107); Estimated CRCL calculation 18 ml/min; Estimated Glomerular Filt Rate 10; Glucose 120 mg/dL (65-110); Potassium 3.9 mmol/L (3.4-5.0); Sodium 139 mmol/L (137-145)
[2021-07-20 11:20] LABS: Alanine Aminotransferase 774 U/L (4-50); Aspartate Amino Transferase 1039 U/L (17-59)
--- NOTE | 2021-07-20 12:35 | PC.NURSE ---
Updated daughter, Stefany, on plan of care and patient condition.
[2021-07-20] MEDS: PROPOFOL IV EMULSION 100 ML 11.9 MG IV CONT (13:06)
--- NOTE | 2021-07-20 13:41 | PC.NURSE ---
Addendum entered by Jose David Plasencia RN 07/20/21 18:43: plus silver band watch. Original Note: Valuables placed in ICU#6 locked closet. Wallet with 2 [employer] cards, 2 [employer] bank cards, [employer] Credit card, Drivers License, $13 guerin (1- $5 bill, 8-$1 bills) and [employer] with two keys and a fuentes fob.
[2021-07-20] MEDS: HEPARIN SODIUM 5,000 UNITS/ML VIAL 5000 UNITS SUB-Q ×2 (14:20→21:42)
[2021-07-20] MEDS: NOREPINEPHRINE 8 MG/D5W 250 ML 8 MG/250 ML BAG 26.25 MG IV CONT (15:34)
--- NOTE | 2021-07-20 17:27 | PM.CNNEP ---
Assessment and Plan Additional Plan # ESRD on HD MWF - we will continue to electrolytes and arrange hemodialysis treatment if needed donor did bases. Otherwise will continue him on hemodialysis treatment Friday. Patient has left upper extremity AV fistula. # hyperkalemia critically high. Most likely caused cardiac arrest. Potassium was treated in the emergency room in 10 with the dialysis treatment it has been corrected. We will continue to monitor potassium level. # hypertension. Blood pressure has been stable will continue to monitor closely and continue current medications. # acute respiratory failure status post cardiac arrest. Patient is on the ventilator and sedated. Management per ICU critical care team. # sepsis most likely secondary UTI. Patient is on Rocephin 1 g 24 hours. # GI prophylaxis on Protonix IV. # DVT prophylaxis on heparin 5000 units subcutaneously q.8 hours. Sina Mancia MD Nephrology History of Present Illness Reason for Consult Consult date: 07/20/21 Chief Complaint Chief complaint: hyperkalemia History of Present Illness Narrative: Narrative: This is a 55-year-old male with past medical history significant for end-stage renal disease on hemodialysis MWF. He presented to emergency room via EMS stating that he had not been feeling well he dialyzes Wednesdays and Fridays he spent most of the day today in bed and was having nausea and dry heaving felt very weak. Upon arrival to the emergency room, patient with complaints that he was feeling unwell. He progressively decompensated while in the emergency room had heart rate go down to the 20's a triple-lumen was placed as well as an intraosseous line patient received some atropine on pacer pads were placed on. Labs returned a potassium of 7.6 and Nephrology was immediately called for emergent dialysis. Patient's mental status continued to decline and required intubation for airway protection currently on ventilator support. Upon arrival to intensive care unit patient went in to bradycardia and asystole requiring a round of epinephrine and chest compressions with achievement of ROSC. Pacer pads on, rhythm is paced. Patient got emergent hemodialysis and potassium was corrected with the dialysis treatment. Review of Systems Review of Systems: Unable to obtain ROS. Patient is intubated and sedated. [facility] Social History Social History Smoking packs per day: 1 Smoking cigarettes per day: 20.0 Years smoked: 30 Smoking pack-years: 30.00 Smoking status: Current every day smoker Alcohol intake: former Substance use: never Spiritual care concerns: No Meds Home Medications and Allergies Home Medications Medication Instructions Recorded Confirmed Type B complex-vitamin C-folic acid 1 tablet PO DAILY 07/20/21 07/20/21 History [Hue-Nano] allopurinol 100 mg PO DAILY 07/20/21 07/20/21 History calcium acetate(phosphat bind) 667 mg PO DAILY 07/20/21 07/20/21 History ergocalciferol (vitamin D2) 1,250 mcg PO DAILY 07/20/21 07/20/21 History gabapentin 200 mg PO BID 07/20/21 07/20/21 History metoprolol tartrate 25 mg PO BID 07/20/21 07/20/21 History simvastatin 40 mg PO DAILY 07/20/21 07/20/21 History sodium bicarbonate 650 mg PO BID 07/20/21 07/20/21 History tramadol 50 mg PO Q8H PRN 07/20/21 07/20/21 History Allergies Allergy/AdvReac Type Severity Reaction Status Date / Time No Known Allergies Allergy Verified 07/19/21 23:38 Vital Signs Vital Signs - 24 hr 07/19/21 23:27 07/20/21 00:04 07/20/21 00:45 Temperature 36.2 C L Pulse Rate 87 80 25 L Respiratory Rate 18 16 16 Blood Pressure 153/125 H 151/66 H Pulse Oximetry 100 97 07/20/21 01:54 07/20/21 02:18 07/20/21 02:28 Temperature Pulse Rate 23 L 60 62 Respiratory Rate 15 22 H 21 H Blood Pressure 79/62 L 111/97 H 114/94 H Pulse Oximetry 95 94 07/20/21 02:42 1
--- NOTE | 2021-07-20 17:55 | PM.IMPN ---
Progress Note: A&P Assessment and Plan (1) Cardiac arrest: Code(s): I46.9 - Cardiac arrest, cause unspecified Status: Acute (2) Shock: Code(s): R57.9 - Shock, unspecified Status: Acute (3) Bradycardia: Code(s): R00.1 - Bradycardia, unspecified Status: Acute (4) Acute respiratory failure with hypoxia: Code(s): J96.01 - Acute respiratory failure with hypoxia Status: Acute (5) Hyperkalemia: Code(s): E87.5 - Hyperkalemia Status: Acute (6) Acute UTI: Code(s): N39.0 - Urinary tract infection, site not specified Status: Acute (7) End-stage renal disease on hemodialysis: Code(s): N18.6 - End stage renal disease; Z99.2 - Dependence on renal dialysis Status: Acute (8) Leukocytosis (leucocytosis): Qualifiers: Leukocytosis type: unspecified Qualified Code(s): D72.829 - Elevated white blood cell count, unspecified Code(s): D72.829 - Elevated white blood cell count, unspecified Status: Acute (9) DVT prophylaxis: Code(s): Z29.9 - Encounter for prophylactic measures, unspecified Status: Acute Additional Plan Patient has been admitted to the ICU. He remains intubated. Remains on IV antibiotics. Cultures are pending. [place] the bradycardia related to the hyperkalemia. Remains on Levophed. Dopamine has been weaned off. Heparin for DVT prophylaxis. Protonix for gastric prophylaxis. Continue current care plan. Appreciate pizza chef input. Appreciate cardiology and Nephrology input. Subjective Date/time seen: 07/20/21 17:55 Interval history: 55yo male with ESRD here for n/v and found to have hyperkalemia, shock with respiratory failure. Patietn intubated and sedated. he had emergency dialysis and potasium normal now. Review of Systems Review of Systems: ROS unobtainable: Yes unobtainable due to endotracheal tube Exam Narrative: AF 99.1 108/63 88 14 100% MV 500, PEEP 5, 40% FiO2. Gen - intubated, sedated HEENT - NGT secured. ETT secured. Chest - clear anteriorly CV - RRR S1/S2; Tele showing NSR Abd - Soft, obese Ext - thrill and bruit in the LUE. feet are cold to touch. Neuro - sedated Skin - dry, scaly skin bilateral LE, minor tines right groun infection Objective Data Vital Signs Vital Signs: Vital Signs - 24 hr 07/19/21 23:27 07/20/21 00:04 07/20/21 00:45 Temperature 97.2 F L Pulse Rate 87 80 25 L Respiratory Rate 18 16 16 Blood Pressure 153/125 H 151/66 H Pulse Oximetry 100 97 07/20/21 01:54 07/20/21 02:18 07/20/21 02:28 Temperature Pulse Rate 23 L 60 62 Respiratory Rate 15 22 H 21 H Blood Pressure 79/62 L 111/97 H 114/94 H Pulse Oximetry 95 94 07/20/21 02:42 07/20/21 02:46 07/20/21 02:49 Temperature Pulse Rate 53 L 58 L 60 Respiratory Rate 19 16 Blood Pressure 114/93 H Pulse Oximetry 100 07/20/21 02:55 07/20/21 03:00 07/20/21 03:08 Temperature Pulse Rate 60 60 60 Respiratory Rate 21 H 16 Blood Pressure Pulse Oximetry 100 100 07/20/21 03:17 07/20/21 03:25 07/20/21 03:32 Temperature Pulse Rate 60 60 60 Respiratory Rate 16 17 18 Blood Pressure 119/95 H 106/56 L Pulse Oximetry 100 99 07/20/21 04:10 07/20/21 04:27 07/20/21 04:51 Temperature Pulse Rate 60 60 20 L Respiratory Rate 18 Blood Pressure 100/38 L Pulse Oximetry 97 97 07/20/21 05:00 07/20/21 05:15 07/20/21 05:20 Temperature Pulse Rate 88 74 148 H Respiratory Rate 14 14 Blood Pressure 134/45 L 87/43 L 87/43 L Pulse Oximetry 98 99 07/20/21 05:30 07/20/21 05:45 07/20/21 06:00 Temperature 98.7 F 97.2 F L Pulse Rate 148 H 60 116 H Respiratory Rate 16 16 15 Blood Pressure 83/21 L 88/31 L 142/70 H Pulse Oximetry 100 99 99 07/20/21 06:15 07/20/21 06:30 07/20/21 06:45 Temperature Pulse Rate 96 87 91 Respiratory Rate 14 16 Blood Pressure 66/46 L 127/62 148/76 H Pulse Oximetry 99 99 07/20/21 07:15 07/20/21 07
[2021-07-20 20:22] LABS: Anion Gap 10 mmol/L (8-16); Blood Urea Nitrogen 32 mg/dL (9-20); Calcium 9.1 mg/dL (8.4-10.2); Carbon Dioxide 34 mmol/L (22-30); Chloride 91 mmol/L (98-107); Estimated CRCL calculation 15 ml/min; Estimated Glomerular Filt Rate 8; Glucose 124 mg/dL (65-110); Sodium 135 mmol/L (137-145)
[2021-07-20] MEDS: PROPOFOL IV EMULSION 100 ML 15.86 MG IV CONT (21:43)
[2021-07-20] MEDS: MIDAZOLAM 100MG/NS 100ML(*CRX) 100 MG/100 ML BAG IV CONT (22:11)
--- NOTE | 2021-07-20 23:50 | ECG_ITS ---
Measurements Intervals [place] Rate: 45 P: VT: 0 QRS: -57 QRSD: 135 T: 12 QT: 534 QTc: 463 Interpretive Statements SINUS RHYTHM WITH COMPLETE HEART BLOCK JUNCTIONAL ESCAPE RHYTHM RIGHT BUNDLE BRANCH BLOCK LEFT ANTERIOR FASCICULAR BLOCK ABNORMAL ECG Electronically Signed On 07-21-2021 8:37:07 CDT by Daniel Domingo D.O.
[2021-07-21] VITALS (42 sets, daily range): BP systolic 48–189; BP diastolic 12–89; PULSE 42–88; RESP 13–23; TEMP 36.7–37.9; O2SAT 96–100
[2021-07-21] MEDS: NOREPINEPHRINE 8 MG/D5W 250 ML 8 MG/250 ML BAG 46.88 MG IV CONT (00:18)
[2021-07-21] MEDS: FENTANYL 2,500MCG/NS250ML(*CRX 2,500 MCG/250 ML BAG IV CONT (00:55)
[2021-07-21] MEDS: VASOPRESSIN INJ 100 UNITS in DEXTROSE 5% 95 ML IV CONT (01:15)
[2021-07-21] MEDS: hetaSTARCH 6%/NACL 500 ML 250 ML IV CONT (01:44)
[2021-07-21 03:59] LABS: Basophils Absolute Auto 0.1 K/mm3 (0.0-0.1); Basophils Percent Auto 0.5 % (0.2-1.2); Hematocrit 37.6 % (42.0-52.0); Hemoglobin 12.6 g/dL (14.0-18.0); Immature Granulocyte Percent A 1.9 % (0-0.5); Lymphocytes Absolute Auto 1.88 K/mm3 (0.9-3.2); Lymphocytes Percent Auto 8.7 % (18.3-44.2); Mean Corpuscular HGB Conc 33.5 g/dl (32-36); Mean Corpuscular Hemoglobin 35.2 pg (26-34); Monocytes Absolute Auto 1.2 K/mm3 (0.1-0.6); Monocytes Percent Auto 5.7 % (2.6-8.5); Neutrophils Percent Auto 83.2 % (45.5-73.1); Nucleated Red Blood Cells Absolute Auto 0.1 K/mm3 (0.0-0.012); Nucleated Red Blood Cells Perc 0.2 % (0.0-0.2); Platelet Count Result 198 k/mm3 (150-375); Red Blood Count 3.58 M/mm3 (4.6-6.20); Red Cell Distribution Width 14.4 % (11.5-14.5); White Blood Count 21.6 K/mm3 (4.5-10.0)
--- NOTE | 2021-07-21 04:09 | WPDMODSED ---
Moderate Sedation Note-Pt Data Patient Data Diagnosis: Shock, complete heart block Present Complaint: Shock, complete heart block Procedure to be performed/Plan: Insertion of a temporary transvenous pacemaker Allergies Allergy/AdvReac Type Severity Reaction Status Date / Time No Known Allergies Allergy Verified 07/19/21 23:38 Home Medications Medication Instructions Recorded Confirmed Type B complex-vitamin C-folic acid 1 tablet PO DAILY 07/20/21 07/20/21 History [Hue-Nano] allopurinol 100 mg PO DAILY 07/20/21 07/20/21 History calcium acetate(phosphat bind) 667 mg PO DAILY 07/20/21 07/20/21 History ergocalciferol (vitamin D2) 1,250 mcg PO DAILY 07/20/21 07/20/21 History gabapentin 200 mg PO BID 07/20/21 07/20/21 History metoprolol tartrate 25 mg PO BID 07/20/21 07/20/21 History simvastatin 40 mg PO DAILY 07/20/21 07/20/21 History sodium bicarbonate 650 mg PO BID 07/20/21 07/20/21 History tramadol 50 mg PO Q8H PRN 07/20/21 07/20/21 History Current Medications: Active Medications Dextrose (Dextrose 50% 25 Gm/50 Ml Syringe) 12.5 gm IV PUSH PRN PRN; Protocol PRN Reason: Hypoglycemia Glucagon (Glucagon For Inj 1 Mg Vial) 1 mg IM PRN PRN; Protocol PRN Reason: Hypoglycemia Glucose (Glucose Oral Gel 15 Gm Of Glucse In 37.5 Gm Tube) 15 gm PO PRN PRN; Protocol PRN Reason: Hypoglycemia Heparin Sodium (Porcine) (Heparin Sodium 5,000 Units/Ml Vial) 5,000 units SUB-Q Q8HR [facility] Last Admin: 07/20/21 21:42 Dose: 5,000 units Documented by: Ceftriaxone Sodium/Dextrose (Rocephin 1 Gm/D5w 50 Ml) 1 gm in 50 mls @ 100 mls/hr IVPB Q24H [facility] Last Infusion: 07/20/21 22:10 Dose: Infused Documented by: Dopamine HCl/Dextrose (Dopamine 400 Mg/D5w 250 Ml) 400 mg in 250 mls @ 24.788 mls/hr IV CONT .Q10H6M [facility] Last Infusion: 07/21/21 01:45 Dose: 0 mcg/kg/min, 0 mls/hr Documented by: Propofol (Diprivan) 100 mls @ 0 mls/hr IV CONT .Q0M [facility] Last Infusion: 07/21/21 00:55 Dose: 0 mcg/kg/min, 0 mls/hr Documented by: Dextrose (Dextrose 5% 1,000 Ml) 1,000 mls @ 100 mls/hr IVPB PRN PRN; Protocol PRN Reason: Hypoglycemia Norepinephrine Bitartrate (Levophed 8 Mg/D5w 250 Ml) 8 mg in 250 mls @ 56.25 mls/hr IV CONT .Q4H27M [facility]; Protocol Last Titration: 07/21/21 00:20 Dose: 30 mcg/min, 56.25 mls/hr Documented by: Vancomycin HCl (Vancomycin 1,500 Mg/D5w 500 Ml) 1,500 mg in 500 mls @ 333.333 mls/hr IVPB PRN PRN PRN Reason: vancomycin protocol Midazolam HCl (Versed 100 Mg/Ns 100 Ml) 100 mg in 100 mls @ 0 mls/hr IV CONT .Q0M [facility]; Protocol Last Titration: 07/21/21 01:00 Dose: 0 mg/hr, 0 mls/hr Documented by: Fentanyl Citrate (Fentanyl 2,500 Mcg/Ns 250 Ml) 2,500 mcg in 250 mls @ 0 mls/hr IV CONT .Q0M [facility]; Protocol Last Titration: 07/21/21 01:00 Dose: 0 mcg/hr, 0 mls/hr Documented by: Vasopressin 100 units/ (Dextrose) 100 mls @ 1.2 mls/hr IV CONT .Q72H [facility]; Protocol Last Admin: 07/21/21 01:15 Dose: 0.04 units/min, 2.4 mls/hr Documented by: Ondansetron HCl (Ondansetron Inj 4 Mg/2 Ml Vial) 4 mg IV PUSH Q4H PRN PRN Reason: Nausea Pantoprazole Sodium (Pantoprazole Sodium Iv 40 Mg Vial) 40 mg IV PUSH QAM [facility] Last Admin: 07/20/21 10:45 Dose: 40 mg Documented by: Sedation/Anesthesia: No previous sedation/anesthesia problems (including family history). [facility] Past Medical History Medical History (Updated 07/21/21 @ 04:10 by Reshma Meadows MD) End stage renal disease Social History Social History Smoking packs per day: 1 Smoking cigarettes per day: 20.0 Years smoked: 30 Smoking pack-years: 30.00 Smoking status: Current every day smoker Alcohol intake: former Substance use: never Spiritual care concerns: No Mod Sed Physical Exam Physical Exam Pre Procedural Exam: Normal: Eyes, Ears, Neck, Throat, Lungs, Heart Rate, Heart Rhythm (Using external pacing pads) and Abdomen and Variation: Appearance (Very ill-appearing morbidly obese male on multiple
[2021-07-21 04:10] LABS: Lactic Acid Reflex 2.7 mmol/L (0.7-2.1)
[2021-07-21 04:13] LABS: Albumin Level 3.8 g/dL (3.5-5.1); Alkaline Phosphatase 100 U/L (38-126); Anion Gap 11 mmol/L (8-16); Bilirubin,Total 0.9 mg/dL (0.2-1.3); Blood Urea Nitrogen 37 mg/dL (9-20); Calcium 8.4 mg/dL (8.4-10.2); Carbon Dioxide 30 mmol/L (22-30); Chloride 91 mmol/L (98-107); Estimated CRCL calculation 13 ml/min; Estimated Glomerular Filt Rate 7; Glucose 201 mg/dL (65-110); Magnesium 1.6 mg/dL (1.6-2.3); Phosphorus 4.3 mg/dL (2.5-4.5); Sodium 132 mmol/L (137-145)
[2021-07-21 04:14] LABS: INR 1.4; Prothrombin Time 16.5 Seconds (11.1-14.7)
[2021-07-21 04:15] LABS: Partial Thromboplastin Time 35.4 SECONDS (22.3-36.8)
--- NOTE | 2021-07-21 04:15 | PM.CNCAR ---
Assessment and Plan Assessment and plan (1) Complete heart block: Code(s): I44.2 - Atrioventricular block, complete Status: Acute Assessment and Plan: patient presents with complete heart block, sometimes with a very bradycardic ventricular escape rhythm. This is not resolved despite normalization of potassium and improvement of acidosis. Temporary external pacing pads capture intermittently. Patient is in shock, and very unstable, requiring multiple pressors. Will place temporary transvenous pacemaker to help stabilize the patient's underlying heart rate. The patient is critically ill, unstable, and has a high risk of poor outcome. Whether the patient may require a permanent pacemaker is yet to be determined, depending on the patient's course etc.. Since he is probably septic we cannot consider a permanent pacemaker at this time (2) Cardiac arrest: Code(s): I46.9 - Cardiac arrest, cause unspecified Status: Acute (3) Shock: Code(s): R57.9 - Shock, unspecified Status: Acute Assessment and Plan: Shock, probably septic, with a component of shock due to bradycardia. (4) End stage renal disease: Code(s): N18.6 - End stage renal disease Status: Acute Assessment and Plan: had severe hyperkalemia today and dialysis today. History of Present Illness History of Present Illness Consult date/time: 07/21/21 04:15 Requesting physician: Daniel Domingo DO Consult reason: Other (Complete heart block) Reason For Visit: hyperkalemia Narrative: Tonio Fernandes is a 55 y.o. WM with end-stage renal disease who was admitted with shock, probably septic shock, and complete heart block. He has required external pacing throughout the day off and on, and through the night the external pacing is not capturing consistently. I have been asked to see the patient in consultation for my advice and opinion regarding possible temporary transvenous pacemaker. Patient was admitted with nausea and vomiting, shock and respiratory failure. heart rate would drop to the 20s in the emergency room due to complete heart block. He was intubated and has been sedated. He had transient cardiac arrest this morning in the ICU. He had emergency dialysis With normalization of his potassium. Through the night he has required intermittent transcutaneous pacing, and at times the transcutaneous pacemaker has not captured. He is in shock, on Levophed at 40 mics, dopamine at 10 mice, and vasopressin. Temporary transvenous pacing has been requested to help stabilize the patient's heart rate. Review of Systems Review of Systems: History was obtained from ICU nurses and EMR. ROS unobtainable: Yes unobtainable due to endotracheal tube, unobtainable due to medical condition and unobtainable due to mental status PMFSH Past Medical History Medical History (Updated 07/21/21 @ 05:06 by Reshma Meadows MD) End stage renal disease Social History Social History (Updated 07/21/21 @ 05:02 by Reshma Meadows MD) Social History: has a daughter, Stefany Barajas Smoking packs per day: 1 Smoking cigarettes per day: 20.0 Years smoked: 30 Smoking pack-years: 30.00 Smoking status: Current every day smoker Alcohol intake: former Substance use: never Spiritual care concerns: No Meds Home Medications and Allergies Home Medications Medication Instructions Recorded Confirmed Type B complex-vitamin C-folic acid 1 tablet PO DAILY 07/20/21 07/20/21 History [Hue-Nano] allopurinol 100 mg PO DAILY 07/20/21 07/20/21 History calcium acetate(phosphat bind) 667 mg PO DAILY 07/20/21 07/20/21 History ergocalciferol (vitamin D2) 1,250 mcg PO DAILY 07/20/21 07/20/21 History gabapentin 200 mg PO BID 07/20/21 07/20/21 History metoprolol tartrate 25 mg PO BID 07/20/21 07/20/21 History simvastatin 40 mg PO DAILY 07/20/21 07/20/21 History sodium bicarbonate 650 mg PO BID 07/20/21
[2021-07-21 04:41] LABS: Alanine Aminotransferase 1226 U/L (4-50); Aspartate Amino Transferase 1135 U/L (17-59)
--- NOTE | 2021-07-21 05:13 | PM.OP ---
Procedure Note - Brief Procedure Note - Brief Date of procedure: 07/21/21 Pre-op diagnosis: hyperkalemia complete heart block with severe bradycardia, external pacing pads not capturing consistently. Post-op diagnosis: same Procedure performed: Placement of a temporary transvenous pacemaker Description of procedure: temporary transvenous pacemaker to place through the right femoral vein with good thresholds Anesthesia: local Surgeon: Reshma Meadows MD Complications: No immediate complications Condition: critical Disposition: ICU
--- NOTE | 2021-07-21 05:14 | W.PM.PROC2 ---
Procedure Note - Detailed Date of Procedure 07/21/21 Pre-op Diagnosis complete heart block, shock Post-op Diagnosis same Procedure Performed temporary transvenous pacemaker Surgeon Reshma Meadows MD Anesthesia local Indications patient admitted with shock, status post cardiac arrest, with complete heart block, ventricular escape rhythm sometimes in the 20s, external pacing not consistently capturing. Complete heart block persists after correction of severe hyperkalemia and lactic acidosis. Findings complete heart block with intermittent ventricular capture via external pacing pads Description of Procedure patient was brought to the cathode maker emergently. After prep and drape of the right femoral area, the right femoral vein was punctured and cannulated with a 6 [place] sheath. A balloon tipped temporary pacing wire was advanced into the right ventricle. Threshold was less than 0.4 mV. The sheath was sutured in place and a sterile dressing applied. The patient left the cathode maker pacing with a ventricular pacing rate set at 80 paces per minute Estimated Blood Loss 2 Complications No immediate complications Condition critical Disposition ICU
[2021-07-21 05:47] LABS: Alveolar/Arterial O2 Gradient 459.1 mmHg; Base Excess ABG 3.6 mEq/l (+/-2.0); Carboxyhemoglobin 0.2 % THb (0-2.0); Fractional Inspired Oxygen 100 %; Methemoglobin ABG 0.3 %THb (0-1.5); Oxygen Content ABG 18.9 %vol (16.0-22.0); Oxygen Saturation ABG 99.4 % (95.0-100.0); PCO2 ABG 47.2 mmHg (35.0-45.0); PO2 ABG 206.7 mmHg (80.0-100.0); PO2 FiO2 Ratio Arterial Blood 2.07 %; Reduced Hemoglobin 1.5 %THb (0-5.0); Total Hemoglobin 13.4 g/dL (12.0-18.0); pH ABG 7.407 (7.350-7.450)
[2021-07-21 05:51] LABS: Modified Allen's Test Pass; Site Drawn LEFT RADIAL
[2021-07-21 05:52] LABS: Arterial Blood Gas Ventilator rate 12 /MIN; Device VENTILATOR
[2021-07-21 05:53] LABS: Arterial Blood Gas PEEP 5 cmH2O; Arterial Blood Gas Tidal Volume 500 ml; Arterial Blood Gas Vent Mode CMV
[2021-07-21] MEDS: HEPARIN SODIUM 5,000 UNITS/ML VIAL 5000 UNITS SUB-Q ×3 (06:18→21:00)
[2021-07-21] MEDS: NOREPINEPHRINE 8 MG/D5W 250 ML 8 MG/250 ML BAG 56.25 MG IV CONT ×2 (06:19→08:25)
[2021-07-21 06:56] LABS: Reflex Lactic Acid Yes or No Add Lactic
--- NOTE | 2021-07-21 06:59 | PC.NURSE ---
PATIENT HAD TRANSVENOUS PACEMAKER PLACED OVERNIGHT BY DR EMANUEL. THIS PATIENT WAS PACING TRANSCUTANEOUSLY WITH CAPTURING INTERMITTENTLY SINCE 1899 ON 07/20/2021. THIS PATIENT WAS ALSO HYPOTENSIVE OVERNIGHT AND ORDERS FOR ADDITIONAL VASOPRESSORS WERE GIVEN REFLECTED BY THE EMAR. BUSINESS UNIT CONTROLLER AND OTHER SPORTS COACH OR INSTRUCTOR AWARE. FAMILY NOTIFIED AND CONSENT SIGNED FOR TRANSVENOUS PACER. MANY CONVERSATIONS WERE HAD WITH BOTH THE APPLICATION SOFTWARE DEVELOPER AND RESIDENT CARE MANAGER REGARDING UPDATES ON PATIENT CONDITION THROUGHOUT THE SHIFT.
[2021-07-21] MEDS: PANTOPRAZOLE SODIUM IV 40 MG VIAL IV PUSH (08:20)
--- NOTE | 2021-07-21 08:57 | PM.PNCARD ---
Progress Note: A&P Assessment and Plan (1) Hyperkalemia: Code(s): E87.5 - Hyperkalemia Status: Acute Assessment and Plan: Resolved with hemodialysis. (2) Cardiac arrest: Code(s): I46.9 - Cardiac arrest, cause unspecified Status: Acute Assessment and Plan: Critically ill with septic shock. Had hyperkalemia and sudden cardiac arrest with ROSC with CPR and Epinephrine on day 1. Complete heart block returned and was in shock. Dr. Meadows placed transvenous pacemaker and paced at 80 bpm. Will probably need permanent pacemaker once sepsis cleared. Developed shock liver. Echo shows EF >70%, grade I diastolic dysfunction (E/e' 15), mild /AI. (3) End-stage renal disease on hemodialysis: Code(s): N18.6 - End stage renal disease; Z99.2 - Dependence on renal dialysis Status: Acute (4) Acute respiratory failure with hypoxia: Code(s): J96.01 - Acute respiratory failure with hypoxia Status: Acute Assessment and Plan: Due to hyperkalemia, sepsis. (5) Acute UTI: Code(s): N39.0 - Urinary tract infection, site not specified Status: Acute Assessment and Plan: Urosepsis. On antibiotics per hospitalist. (6) Bradycardia: Code(s): R00.1 - Bradycardia, unspecified Status: Acute Assessment and Plan: HR currently paced at 80 bpm. No longer due to hyperkalemia. Wean off Levophed as tolerated for BP and HR. Subjective Date/time seen: 07/21/21 08:57 Patient went back into complete heart block last night and had difficulty capturing with transcutaneous pacer overnight with low BP. He was on Vasopressin, Levophed and Dopamine. I had nurse call for transvenous pacer to be placed emergently. Dr. Meadows came in to place it. He is currently sedated on ventilator. Dopamine is turned off. Pacing at 80 bpm. BP 115/70 mmHg. Exam Const: Other: On ventilator, sedated Resp: Auscultation: clear to auscultation bilaterally, no crackles, no rales, no rhonchi and no wheezes Cardio: Jugular venous distension: no JVD Rate: regular rate Rhythm: regular rhythm Heart sounds: no murmurs Peripheral pulses: dorsalis pedis present GI: GI Palp: Yes Soft to palpation Extrem: Right lower extremity: no edema Left lower extremity: no edema Objective Data Vital Signs Vital Signs: Vital Signs - 24 hr 07/20/21 09:15 07/20/21 09:35 07/20/21 09:45 Temperature 98.6 F Pulse Rate 91 90 93 Respiratory Rate 20 Blood Pressure 76/53 L 99/48 L 117/95 H Pulse Oximetry 07/20/21 10:00 07/20/21 11:35 07/20/21 12:00 Temperature 98.3 F Pulse Rate 91 83 93 Respiratory Rate 18 18 Blood Pressure 112/54 L 132/88 Pulse Oximetry 99 98 99 07/20/21 12:55 07/20/21 13:06 07/20/21 13:15 Temperature Pulse Rate 88 87 87 Respiratory Rate 15 Blood Pressure 80/52 L 90/54 L Pulse Oximetry 07/20/21 14:00 07/20/21 14:33 07/20/21 15:34 Temperature Pulse Rate 85 87 92 Respiratory Rate 16 Blood Pressure 107/59 L 76/59 L Pulse Oximetry 99 99 07/20/21 16:00 07/20/21 17:25 07/20/21 18:00 Temperature 99.1 F Pulse Rate 89 88 94 Respiratory Rate 14 18 Blood Pressure 108/63 107/60 Pulse Oximetry 100 100 98 07/20/21 20:00 07/20/21 20:55 07/20/21 21:36 Temperature 99.3 F Pulse Rate 57 L 85 56 L Respiratory Rate 20 21 H Blood Pressure 136/91 H Pulse Oximetry 97 100 07/20/21 21:37 07/20/21 21:43 07/20/21 22:00 Temperature Pulse Rate 63 63 75 Respiratory Rate 19 19 21 H Blood Pressure 139/123 H Pulse Oximetry 97 07/20/21 22:11 07/21/21 00:00 07/21/21 00:16 Temperature 100.3 F H Pulse Rate 84 45 L 47 L Respiratory Rate 22 H 21 H Blood Pressure 96/40 L Pulse Oximetry 97 97 07/21/21 00:18 07/21/21 00:55 07/21/21 01:00 Temperature Pulse Rate 47 L 67 61 Respiratory Rate 20 21 H Blood Pressure 91/41 L Pulse Oximetry 07/21/21 01:15 07/21/21 01:30 07/21/21 02:00 Temperature
[2021-07-21 09:54] LABS: Hepatitis B Surface Antigen Negative (Negative)
[2021-07-21 10:00] LABS: HAV RESULT Negative (Negative); Hepatitis B Core IgM Result Negative (Negative)
[2021-07-21 10:12] LABS: Hepatitis C Virus Antibody Negative (Negative)
[2021-07-21 11:25] LABS: Glucose Point of Care 144 mg/dl (65-105)
--- NOTE | 2021-07-21 12:19 | WPDINTPN ---
Progress Note: A&P Assessment and Plan (1) Complete heart block: Code(s): I44.2 - Atrioventricular block, complete Status: Acute Assessment and Plan: Overnight on 07/21/2021 patient went into complete heart block and was being paced by the pacemaker pads, Cardiology was consulted who came and placed a transvenous pacemaker given patient's recent cardiac arrest on admission, bradycardia, shock -patient currently being 100% paced, -appreciate cardiology evaluation recommendation, patient may require permanent pacemaker which will be decided will patient's medical condition and improvement (2) Shock: Code(s): R57.9 - Shock, unspecified Status: Acute Assessment and Plan: Shock could be multifactorial, infection, cardiac arrest, hypovolemia from fluid removed post dialysis -currently on Levophed and vasopressin through central line and left IJ -maintain mean arterial pressures greater than 65 mmHg -cultures have been obtained -UA reflective of UTI, -started on ceftriaxone, Levaquin and vancomycin on 07/20/2021. Discontinue Levaquin -lactic acid trending down (3) Acute respiratory failure with hypoxia: Code(s): J96.01 - Acute respiratory failure with hypoxia Status: Acute Assessment and Plan: Acute respiratory failure likely related to altered mental status due to bradycardia and airway protection -patient currently on CMV mode, peep of 5 and 100% FiO2 with good O2 sats, wean FiO2 maintain O2 sats greater than 92% -chest x-ray showed mild discoid atelectasis at the lateral right mid lung zone -ABGs reviewed, -propofol for sedation (4) Cardiac arrest: Code(s): I46.9 - Cardiac arrest, cause unspecified Status: Acute Assessment and Plan: Brief cardiac arrest after he you had bradycardia and went into asystole with ROSC with 1 round of epinephrine -could be related to hyperkalemia, bradyarrhythmia, septic shock -cardiology following the patient -will obtain echocardiogram -troponins negative x2 (5) Hyperkalemia: Code(s): E87.5 - Hyperkalemia Status: Acute Assessment and Plan: Hyperkalemia resolved before dialysis after being treated in the ER with albuterol nebulizer, insulin and D50, sodium bicarbonate and calcium -repeat potassium has been within normal limits (6) End-stage renal disease on hemodialysis: Code(s): N18.6 - End stage renal disease; Z99.2 - Dependence on renal dialysis Status: Acute Assessment and Plan: History of end-stage renal disease on dialysis, Mondays, Wednesdays, Fridays -unknown if he had dialysis on Friday -completed dialysis with removal of 2000 mL of fluid this morning on 07/20/2021: Will obtain post dialysis labs. -nephrology following the patient -dialysis per Nephrology (7) Acute UTI: Code(s): N39.0 - Urinary tract infection, site not specified Status: Acute Assessment and Plan: UA reflective of a UTI, patient started on ceftriaxone (8) Leukocytosis (leucocytosis): Qualifiers: Leukocytosis type: unspecified Qualified Code(s): D72.829 - Elevated white blood cell count, unspecified Code(s): D72.829 - Elevated white blood cell count, unspecified Status: Acute Assessment and Plan: Leukocytosis likely related to stress response, septic shock, infection Patient on antibiotics as above, continue to monitor (9) DVT prophylaxis: Code(s): Z29.9 - Encounter for prophylactic measures, unspecified Status: Acute Assessment and Plan: DVT prophylaxis: Heparin subQ has been added Additional Plan Stress ulcer prophylaxis: Protonix Nutrition: Start tube feeds at half the rate Code status: Full code Critical care time spent: 48 minutes This dictation may have been done utilizing a voice recognition system. Attempts have been made to correct errors. However, there may be uncorrected grammatical, spelling, and recognition errors pr
[2021-07-21] MEDS: NOREPINEPHRINE 8 MG/D5W 250 ML 8 MG/250 ML BAG 48.75 MG IV CONT (13:39)
[2021-07-21] MEDS: NOREPINEPHRINE 8 MG/D5W 250 ML 8 MG/250 ML BAG 31.88 MG IV CONT (20:03)
[2021-07-21] MEDS: MIDAZOLAM 100MG/NS 100ML(*CRX) 100 MG/100 ML BAG IV CONT (20:04)
[2021-07-22] VITALS (32 sets, daily range): BP systolic 92–157; BP diastolic 47–80; PULSE 72–93; RESP 9–18; TEMP 36.2–36.8; O2SAT 92–99
[2021-07-22] MEDS: FENTANYL 2,500MCG/NS250ML(*CRX 2,500 MCG/250 ML BAG 10 MCG IV CONT (03:58)
[2021-07-22] MEDS: NOREPINEPHRINE 8 MG/D5W 250 ML 8 MG/250 ML BAG 31.88 MG IV CONT (04:04)
[2021-07-22 05:11] LABS: Alveolar/Arterial O2 Gradient 133.9 mmHg; Base Excess ABG 2.8 mEq/l (+/-2.0); Carboxyhemoglobin 0.5 % THb (0-2.0); Fractional Inspired Oxygen 40 %; Methemoglobin ABG 0.1 %THb (0-1.5); Oxygen Content ABG 16.8 %vol (16.0-22.0); Oxygen Saturation ABG 95.4 % (95.0-100.0); Oxyhemoglobin 93.9 % THb (90.0-100.0); PCO2 ABG 58.7 mmHg (35.0-45.0); PO2 ABG 83.8 mmHg (80.0-100.0); Reduced Hemoglobin 5.5 %THb (0-5.0); Total Hemoglobin 12.7 g/dL (12.0-18.0); pH ABG 7.327 (7.350-7.450)
[2021-07-22 05:13] LABS: Device VENTILATOR; Modified Allen's Test Pass; Site Drawn RIGHT RADIAL
[2021-07-22 05:14] LABS: Arterial Blood Gas PEEP 5 cmH2O; Arterial Blood Gas Vent Mode CMV; Arterial Blood Gas Ventilator rate 12 /MIN
[2021-07-22 05:15] LABS: Arterial Blood Gas Tidal Volume 500 ml
[2021-07-22] MEDS: HEPARIN SODIUM 5,000 UNITS/ML VIAL 5000 UNITS SUB-Q ×3 (05:22→21:03)
[2021-07-22 05:53] LABS: Hematocrit 35.2 % (42.0-52.0); Hemoglobin 11.6 g/dL (14.0-18.0); Mean Corpuscular Hemoglobin 34.9 pg (26-34); Mean Platelet Volume 10.9 fl (7.4-10.4); Platelet Count Result 151 k/mm3 (150-375); Red Blood Count 3.32 M/mm3 (4.6-6.20); Red Cell Distribution Width 14.3 % (11.5-14.5); White Blood Count 16.1 K/mm3 (4.5-10.0)
[2021-07-22 06:13] LABS: Albumin Level 3.7 g/dL (3.5-5.1); Alkaline Phosphatase 97 U/L (38-126); Anion Gap 14 mmol/L (8-16); Aspartate Amino Transferase 343 U/L (17-59); Blood Urea Nitrogen 49 mg/dL (9-20); Calcium 8.8 mg/dL (8.4-10.2); Carbon Dioxide 28 mmol/L (22-30); Chloride 90 mmol/L (98-107); Estimated CRCL calculation 11 ml/min; Estimated Glomerular Filt Rate 6; Glucose 142 mg/dL (65-110); Magnesium 1.7 mg/dL (1.6-2.3); Phosphorus 7.4 mg/dL (2.5-4.5); Potassium 5.2 mmol/L (3.4-5.0); Sodium 132 mmol/L (137-145)
[2021-07-22 07:28] LABS: Alanine Aminotransferase 940 U/L (4-50)
[2021-07-22] MEDS: PANTOPRAZOLE SODIUM IV 40 MG VIAL IV PUSH (07:59)
--- NOTE | 2021-07-22 09:23 | PM.PNCARD ---
Progress Note: A&P Assessment and Plan (1) Hyperkalemia: Code(s): E87.5 - Hyperkalemia Status: Acute Assessment and Plan: Resolved with hemodialysis. (2) Cardiac arrest: Code(s): I46.9 - Cardiac arrest, cause unspecified Status: Acute Assessment and Plan: Critically ill with septic shock. Had hyperkalemia and sudden cardiac arrest with ROSC with CPR and Epinephrine on day 1. Complete heart block returned and was in shock. Dr. Meadows placed transvenous pacemaker and paced at 80 bpm. Will probably need permanent pacemaker once sepsis cleared and extubated and able to communicate this with patient. Developed shock liver that is improving. Echo shows EF >70%, grade I diastolic dysfunction (E/e' 15), mild /AI. (3) End-stage renal disease on hemodialysis: Code(s): N18.6 - End stage renal disease; Z99.2 - Dependence on renal dialysis Status: Acute (4) Acute respiratory failure with hypoxia: Code(s): J96.01 - Acute respiratory failure with hypoxia Status: Acute Assessment and Plan: Due to hyperkalemia, sepsis. (5) Acute UTI: Code(s): N39.0 - Urinary tract infection, site not specified Status: Acute Assessment and Plan: Urosepsis. On antibiotics per hospitalist. (6) Bradycardia: Code(s): R00.1 - Bradycardia, unspecified Status: Acute Assessment and Plan: HR currently paced at 80 bpm. No longer due to hyperkalemia. Wean off Levophed as tolerated for BP and HR. Subjective Date/time seen: 07/22/21 09:23 Patient sedated on ventilator. Exam Const: Other: On ventilator, sedated Resp: Auscultation: clear to auscultation bilaterally, no crackles, no rales, no rhonchi and no wheezes Cardio: Jugular venous distension: no JVD Rate: regular rate Rhythm: regular rhythm Heart sounds: no murmurs Peripheral pulses: dorsalis pedis present GI: GI Palp: Yes Soft to palpation Extrem: Right lower extremity: no edema Left lower extremity: no edema Objective Data Vital Signs Vital Signs: Vital Signs - 24 hr 07/21/21 10:00 07/21/21 11:30 07/21/21 11:48 Temperature Pulse Rate 80 80 Respiratory Rate 13 Blood Pressure 107/63 100/70 Pulse Oximetry 97 98 07/21/21 12:00 07/21/21 12:45 07/21/21 13:00 Temperature 98.7 F Pulse Rate 80 80 80 Respiratory Rate 14 Blood Pressure 107/45 L 121/50 L Pulse Oximetry 98 99 07/21/21 13:02 07/21/21 13:59 07/21/21 15:01 Temperature Pulse Rate 80 80 80 Respiratory Rate 14 Blood Pressure 131/72 124/71 124/64 Pulse Oximetry 98 07/21/21 15:32 07/21/21 15:52 07/21/21 16:00 Temperature 98.1 F Pulse Rate 80 80 Respiratory Rate 14 Blood Pressure 103/89 113/72 Pulse Oximetry 98 99 07/21/21 16:39 07/21/21 17:00 07/21/21 17:13 Temperature Pulse Rate 80 80 80 Respiratory Rate Blood Pressure 106/79 119/75 Pulse Oximetry 100 07/21/21 17:48 07/21/21 18:00 07/21/21 18:46 Temperature Pulse Rate 80 80 80 Respiratory Rate 13 Blood Pressure 122/63 114/66 106/65 Pulse Oximetry 100 07/21/21 19:58 07/21/21 20:00 07/21/21 20:03 Temperature 98.2 F Pulse Rate 80 Respiratory Rate 14 Blood Pressure 129/59 L 129/59 L 129/59 L Pulse Oximetry 99 07/21/21 20:11 07/21/21 22:00 07/21/21 23:21 Temperature Pulse Rate 80 80 80 Respiratory Rate 13 Blood Pressure 124/65 Pulse Oximetry 98 96 98 07/22/21 00:00 07/22/21 02:00 07/22/21 02:14 Temperature 98.0 F Pulse Rate 80 80 80 Respiratory Rate 16 16 Blood Pressure 133/65 132/54 L Pulse Oximetry 97 98 07/22/21 03:58 07/22/21 04:00 07/22/21 04:04 Temperature Pulse Rate 80 80 80 Respiratory Rate 17 Blood Pressure 138/68 Pulse Oximetry 07/22/21 04:34 07/22/21 05:00 07/22/21 06:00 Temperature Pulse Rate 80 80 80 Respiratory Rate 12 Blood Pressure 137/69 Pulse Oximetry 97 96 07/22/21 07:15 07/22/21 08:00 07/22/21 0
--- NOTE | 2021-07-22 09:49 | WPDPN ---
Progress Note: A&P Assessment and Plan (1) Complete heart block: Code(s): I44.2 - Atrioventricular block, complete Status: Acute Assessment and Plan: Patient admitted with complete heart block, requiring a temporary pacemaker 07/21/2021. Pacer tip pad change position and was not capturing consistently, advanced, now has good pacing thresholds. Will keep the pacer rate at 40 beats per minute as a backup since he is in sinus rhythm most of the time now. Continue to follow to see if he will need a permanent pacemaker after recovery. (2) Shock: Code(s): R57.9 - Shock, unspecified Status: Acute Assessment and Plan: Septic shock, improving. Remains on ventilator for respiratory failure and on lower dose of Levophed. Subjective Date/time seen: 07/22/21 09:49 Interval history: [facility] Progress Note: Follow-up for complete heart block Date of service 07/22/2021: Patient remains intubated and sedated. His Levophed has been decreased. Telemetry shows that he had some 2-1 AV block last night around 7:00 p.m. but has been in sinus rhythm through the night and this morning heart rate in the 70s to 80s. The temporary pacemaker is not capturing consistently and the threshold has increased. Chest x-ray showed that the lead had changed position (personally reviewed). I advanced the pacemaker lead 2 cm and now the threshold is less than 0.5. Review of Systems Review of Systems: Obtained from EMR, patient's nurse, stator connector ROS unobtainable: Yes unobtainable due to endotracheal tube, unobtainable due to medical condition and unobtainable due to mental status Exam Narrative: Ill-appearing and responsive male in no distress, intubated. The temporary pacer site is with no hematoma and cleanly dressed. Const: Nutritional Appearance: obese Limitations: altered mental status Eyes: General: appearance normal, both eyes and all related structures Resp: Effort & Inspection: audible wheezes Cardio: Rate: regular rate Rhythm: regular rhythm Heart sounds: Murmur heart sound present (2/6 LEE upper sternal border) GI: GI Palp: No abdominal tenderness Extrem: General: no clubbing, cyanosis or edema Psych: Appearance: poorly kempt Objective Data Vital Signs Vital Signs: Vital Signs - 24 hr 07/21/21 10:00 07/21/21 11:30 07/21/21 11:48 Temperature Pulse Rate 80 80 Respiratory Rate 13 Blood Pressure 107/63 100/70 Pulse Oximetry 97 98 07/21/21 12:00 07/21/21 12:45 07/21/21 13:00 Temperature 98.7 F Pulse Rate 80 80 80 Respiratory Rate 14 Blood Pressure 107/45 L 121/50 L Pulse Oximetry 98 99 07/21/21 13:02 07/21/21 13:59 07/21/21 15:01 Temperature Pulse Rate 80 80 80 Respiratory Rate 14 Blood Pressure 131/72 124/71 124/64 Pulse Oximetry 98 07/21/21 15:32 07/21/21 15:52 07/21/21 16:00 Temperature 98.1 F Pulse Rate 80 80 Respiratory Rate 14 Blood Pressure 103/89 113/72 Pulse Oximetry 98 99 07/21/21 16:39 07/21/21 17:00 07/21/21 17:13 Temperature Pulse Rate 80 80 80 Respiratory Rate Blood Pressure 106/79 119/75 Pulse Oximetry 100 07/21/21 17:48 07/21/21 18:00 07/21/21 18:46 Temperature Pulse Rate 80 80 80 Respiratory Rate 13 Blood Pressure 122/63 114/66 106/65 Pulse Oximetry 100 07/21/21 19:58 07/21/21 20:00 07/21/21 20:03 Temperature 98.2 F Pulse Rate 80 Respiratory Rate 14 Blood Pressure 129/59 L 129/59 L 129/59 L Pulse Oximetry 99 07/21/21 20:11 07/21/21 22:00 07/21/21 23:21 Temperature Pulse Rate 80 80 80 Respiratory Rate 13 Blood Pressure 124/65 Pulse Oximetry 98 96 98 07/22/21 00:00 07/22/21 02:00 07/22/21 02:14 Temperature 98.0 F Pulse Rate 80 80 80 Respiratory Rate 16 16 Blood Pressure 133/65 132/54 L Pulse Oximetry 97 98 07/22/21 03:58 07/22/21 04:00 07/22/21 04:04 Temperature Pulse Rate 80 80 80 Respiratory Rate 17 Blood Pre
--- NOTE | 2021-07-22 13:10 | WPDINTPN ---
Progress Note: A&P Assessment and Plan (1) Complete heart block: Code(s): I44.2 - Atrioventricular block, complete Status: Acute Assessment and Plan: Overnight on 07/21/2021 patient went into complete heart block and was being paced by the pacemaker pads, Cardiology was consulted who came and placed a transvenous pacemaker given patient's recent cardiac arrest on admission, bradycardia, shock -Not being paced all the time, pacer rate to 40 beats per minute. Pacer tip position was adjusted advanced and now has good pacing threshold -appreciate cardiology evaluation recommendation, patient may require permanent pacemaker which will be decided will patient's medical condition and improvement (2) Shock: Code(s): R57.9 - Shock, unspecified Status: Acute Assessment and Plan: Shock could be multifactorial, infection, cardiac arrest, hypovolemia from fluid removed post dialysis -currently on Levophed and vasopressin through central line and left IJ, vasopressors are being weaned -maintain mean arterial pressures greater than 65 mmHg -cultures have been obtained -UA reflective of UTI, -started on ceftriaxone, Levaquin and vancomycin on 07/20/2021. Discontinue Levaquin -lactic acid normalized -LFTs trending down likely related to shock liver (3) Acute respiratory failure with hypoxia: Code(s): J96.01 - Acute respiratory failure with hypoxia Status: Acute Assessment and Plan: Acute respiratory failure likely related to altered mental status due to bradycardia and airway protection -patient currently on CMV mode, peep of 5 and 100% FiO2 with good O2 sats, wean FiO2 maintain O2 sats greater than 92% -chest x-ray: Persistent diffuse bilateral airspace disease, pneumonia versus edema. No significant change -ABGs reviewed, vent adjusted -propofol for sedation (4) Cardiac arrest: Code(s): I46.9 - Cardiac arrest, cause unspecified Status: Acute Assessment and Plan: Brief cardiac arrest after he you had bradycardia and went into asystole with ROSC with 1 round of epinephrine -could be related to hyperkalemia, bradyarrhythmia, septic shock -cardiology following the patient - echocardiogram pending -troponins negative x2 (5) Hyperkalemia: Code(s): E87.5 - Hyperkalemia Status: Acute Assessment and Plan: Hyperkalemia resolved before dialysis after being treated in the ER with albuterol nebulizer, insulin and D50, sodium bicarbonate and calcium - potassium 5.2, will treat with insulin D50, Kayexalate, bicarb (6) End-stage renal disease on hemodialysis: Code(s): N18.6 - End stage renal disease; Z99.2 - Dependence on renal dialysis Status: Acute Assessment and Plan: History of end-stage renal disease on dialysis, Mondays, Wednesdays, Fridays -unknown if he had dialysis on Friday -completed dialysis with removal of 2000 mL of fluid this morning on 07/20/2021: Will obtain post dialysis labs. -nephrology following the patient -dialysis per Nephrology (7) Acute UTI: Code(s): N39.0 - Urinary tract infection, site not specified Status: Acute Assessment and Plan: UA reflective of a UTI, patient started on ceftriaxone (8) Leukocytosis (leucocytosis): Qualifiers: Leukocytosis type: unspecified Qualified Code(s): D72.829 - Elevated white blood cell count, unspecified Code(s): D72.829 - Elevated white blood cell count, unspecified Status: Acute Assessment and Plan: Leukocytosis likely related to stress response, septic shock, infection Patient on antibiotics as above, continue to monitor -bring down (9) DVT prophylaxis: Code(s): Z29.9 - Encounter for prophylactic measures, unspecified Status: Acute Assessment and Plan: DVT prophylaxis: Heparin subQ has been added Additional Plan Stress ulcer prophylaxis: Protonix Nutrition: Start tube feeds at half the rate Code status: Full
--- NOTE | 2021-07-22 14:00 | PM.IMPN ---
Progress Note: A&P Assessment and Plan (1) Complete heart block: Code(s): I44.2 - Atrioventricular block, complete Status: Acute Assessment and Plan: Overnight on 07/21/2021 patient went into complete heart block and was being paced by the pacemaker pads. Cardiology was consulted who placed a transvenous pacemaker given patient's recent cardiac arrest on admission, bradycardia, shock -Not being paced all the time, pacer rate to 40 beats per minute. Pacer tip position was adjusted advanced and now has good pacing threshold. -appreciate cardiology evaluation recommendation, patient may require permanent pacemaker which will be decided will patient's medical condition and improvement. (2) Shock: Code(s): R57.9 - Shock, unspecified Status: Acute Assessment and Plan: Shock could be multifactorial, infection, cardiac arrest, hypovolemia from fluid removed post dialysis -currently on Levophed and vasopressin. Wean pressors if tolerated. Continue to monitor hemodynamics closely. Follow cultures. -started on ceftriaxone, Levaquin and vancomycin on 07/20/2021. D Levaquin has been discontinued later. -lactic acid normalized (3) Acute respiratory failure with hypoxia: Code(s): J96.01 - Acute respiratory failure with hypoxia Status: Acute Assessment and Plan: Acute respiratory failure likely related to altered mental status due to bradycardia and airway compromise -patient currently on CMV mode, peep of 5 and 100% FiO2 with good O2 sats, wean FiO2 maintain O2 sats greater than 92%. SBT trial in a.m. for potential extubation if his hemodynamics are stable and off pressors. -chest x-ray: Persistent diffuse bilateral airspace disease, pneumonia versus edema. No significant change -follow chest x-ray and ABG. Currently sedated with fentanyl and Versed. Daily sedation vacation trial P (4) Cardiac arrest: Code(s): I46.9 - Cardiac arrest, cause unspecified Status: Acute Assessment and Plan: Brief cardiac arrest after he you had bradycardia and went into asystole with ROSC with 1 round of epinephrine -could be related to hyperkalemia, bradyarrhythmia, septic shock -cardiology following the patient. May need pacemaker down the road once he is stable. - echocardiogram pending -troponins negative x2 (5) Hyperkalemia: Code(s): E87.5 - Hyperkalemia Status: Acute Assessment and Plan: Hyperkalemia resolved before dialysis after being treated in the ER with albuterol nebulizer, insulin and D50, sodium bicarbonate and calcium. -repeat potassium has been within normal limits. (6) End-stage renal disease on hemodialysis: Code(s): N18.6 - End stage renal disease; Z99.2 - Dependence on renal dialysis Status: Acute Assessment and Plan: History of end-stage renal disease on dialysis, Mondays, Wednesdays, Fridays -unknown if he had dialysis on Friday -nephrology following the patient. Continue dialysis as per nephrology service. (7) Acute UTI: Code(s): N39.0 - Urinary tract infection, site not specified Status: Acute Assessment and Plan: UA reflective of a UTI. patient started on ceftriaxone (8) Leukocytosis (leucocytosis): Qualifiers: Leukocytosis type: unspecified Qualified Code(s): D72.829 - Elevated white blood cell count, unspecified Code(s): D72.829 - Elevated white blood cell count, unspecified Status: Acute Assessment and Plan: Leukocytosis likely related to stress response, septic shock, infection Patient on antibiotics as above, continue to monitor (9) DVT prophylaxis: Code(s): Z29.9 - Encounter for prophylactic measures, unspecified Status: Acute Assessment and Plan: DVT prophylaxis: Heparin subQ has been added Additional Plan Stress ulcer prophylaxis: Protonix Nutrition: Start tube feeds at half the rate Code stat
[2021-07-22] MEDS: ALBUTEROL SULFATE NEB 2.5 MG/0.5 ML INH 10 MG INHALATION (14:43)
[2021-07-22] MEDS: DEXTROSE 50% 25 GM/50 ML SYRINGE IV PUSH (14:44)
[2021-07-22] MEDS: SODIUM POLYSTYRENE SULFONONATE 15 GM/60 ML BTL 30 GM PO (14:44)
[2021-07-22] MEDS: INSULIN HUMAN REGULAR (*BKC) 100 UNITS/ML 10 UNITS IV PUSH (14:44)
[2021-07-22] MEDS: SODIUM BICARBONATE 8.4% 50 MEQ/50 ML SYRINGE IV PUSH (14:44)
[2021-07-22 15:35] LABS: Glucose Point of Care 97 mg/dl (65-105)
[2021-07-22 15:35] LABS: Glucose Point of Care 80 mg/dl (65-105)
[2021-07-22 16:24] LABS: Anion Gap 10 mmol/L (8-16); Blood Urea Nitrogen 54 mg/dL (9-20); Calcium 8.8 mg/dL (8.4-10.2); Carbon Dioxide 33 mmol/L (22-30); Chloride 90 mmol/L (98-107); Estimated CRCL calculation 11 ml/min; Estimated Glomerular Filt Rate 5; Glucose 110 mg/dL (65-110); Potassium 4.3 mmol/L (3.4-5.0); Sodium 133 mmol/L (137-145)
--- NOTE | 2021-07-22 18:24 | PM.PNNEP ---
Progress Note: A&P Assessment and Plan (1) End stage renal disease: Code(s): N18.6 - End stage renal disease Status: Acute Assessment and Plan: # ESRD on HD MWF - we will continue to monitor electrolytes and arrange hemodialysis treatment if needed on urgent basis. Otherwise will continue him on hemodialysis treatment Friday. Patient has left upper extremity AV fistula. Plan to arrange HD in AM. Possibly, after HD , Patient will be extubated, # hyperkalemia critically high. corrected. Most likely caused cardiac arrest. Potassium was treated in the emergency room in 10 with the dialysis treatment it has been corrected. We will continue to monitor potassium level. # hypertension. Blood pressure has been stable will continue to monitor closely and continue current medications. off pressors. # acute respiratory failure status post cardiac arrest. Patient is on the ventilator and sedated. Management per ICU critical care team. # sepsis most likely secondary UTI. Patient is on Rocephin 1 g 24 hours. # GI prophylaxis on Protonix IV. # DVT prophylaxis on heparin 5000 units subcutaneously q.8 hours. Sina Mancia MD Nephrology Subjective Date/time seen: 07/22/21 18:24 Patient is seen and examined. Patient is still on the vent but off pressors. Stable on the vent. No acute events overnight. Interval history: General: Patient is lying in the bed comfortably not in acute distress. on the vent HEENT: no scleral icterus, atraumatic, normocephalic. Neck: Supple, no JVD, no thyromegaly. Lungs: Diminished air entry. No rhonchi, no wheezing. Heart: Regular rate and rhythm, S1-S2 audible Abdomen: Soft, positive bowel sounds, no rebound or rigidity, no abdominal distention. Extremities: No extremity edema. Pulses palpable in upper lower extremities. QUANTITATIVE MANAGER: unable to assess. Skin: No rash, dry Objective Data Vital Signs Vital Signs: Vital Signs - 24 hr 07/21/21 18:46 07/21/21 19:58 07/21/21 20:00 Temperature 36.8 C Pulse Rate 80 80 Respiratory Rate 14 Blood Pressure 106/65 129/59 L 129/59 L Pulse Oximetry 99 07/21/21 20:03 07/21/21 20:11 07/21/21 22:00 Temperature Pulse Rate 80 80 Respiratory Rate 13 Blood Pressure 129/59 L 124/65 Pulse Oximetry 98 96 07/21/21 23:21 07/22/21 00:00 07/22/21 02:00 Temperature 36.7 C Pulse Rate 80 80 80 Respiratory Rate 16 16 Blood Pressure 133/65 132/54 L Pulse Oximetry 98 97 07/22/21 02:14 07/22/21 03:58 07/22/21 04:00 Temperature Pulse Rate 80 80 80 Respiratory Rate 17 Blood Pressure Pulse Oximetry 98 07/22/21 04:04 07/22/21 04:34 07/22/21 05:00 Temperature Pulse Rate 80 80 80 Respiratory Rate 12 Blood Pressure 138/68 137/69 Pulse Oximetry 97 96 07/22/21 06:00 07/22/21 07:15 07/22/21 08:00 Temperature 36.8 C Pulse Rate 80 74 76 Respiratory Rate 14 Blood Pressure 157/80 H 117/47 L Pulse Oximetry 96 07/22/21 08:30 07/22/21 08:57 07/22/21 09:36 Temperature Pulse Rate 76 75 Respiratory Rate Blood Pressure 131/66 111/57 L Pulse Oximetry 94 07/22/21 10:00 07/22/21 11:30 07/22/21 11:33 Temperature Pulse Rate 72 Respiratory Rate 14 Blood Pressure 115/59 L 110/62 Pulse Oximetry 96 99 07/22/21 12:00 07/22/21 12:03 07/22/21 13:00 Temperature Pulse Rate 74 74 Respiratory Rate 14 Blood Pressure 102/56 L 114/63 Pulse Oximetry 95 97 07/22/21 14:00 07/22/21 14:44 07/22/21 14:51 Temperature Pulse Rate 80 80 85 Respiratory Rate 14 18 Blood Pressure 116/60 Pulse Oximetry 95 93 07/22/21 15:28 07/22/21 16:00 07/22/21 17:37 Temperature 36.3 C L Pulse Rate 92 93 87 Respiratory Rate 14 14 Blood Pressure 103/57 L Pulse Oximetry 92 94 Intake/Output Intake/Output: Intake & Output 07/19/21 07/20/21 07/21/21 07/22/21 23:59 23:59 23:59 23:59 Intake Total 1190 2510 860 Output Total 4446 955
[2021-07-22] MEDS: MIDAZOLAM 100MG/NS 100ML(*CRX) 100 MG/100 ML BAG IV CONT (20:09)
[2021-07-23] VITALS (38 sets, daily range): BP systolic 84–118; BP diastolic 44–98; PULSE 71–88; RESP 11–18; TEMP 35.5–36.9; O2SAT 91–100
[2021-07-23] MEDS: FENTANYL 2,500MCG/NS250ML(*CRX 2,500 MCG/250 ML BAG 10 MCG IV CONT (04:45)
[2021-07-23] MEDS: HEPARIN SODIUM 5,000 UNITS/ML VIAL 5000 UNITS SUB-Q ×3 (05:00→21:06)
[2021-07-23 05:34] LABS: Hematocrit 32.5 % (42.0-52.0); Hemoglobin 10.8 g/dL (14.0-18.0); Immature Platelet Fraction Pct 6.7 % (0.9-11.2); Mean Corpuscular HGB Conc 33.2 g/dl (32-36); Mean Corpuscular Hemoglobin 35.9 pg (26-34); Mean Platelet Volume 10.4 fl (7.4-10.4); Platelet Count Result 137 k/mm3 (150-375); Red Blood Count 3.01 M/mm3 (4.6-6.20); Red Cell Distribution Width 14.4 % (11.5-14.5); White Blood Count 8.3 K/mm3 (4.5-10.0)
[2021-07-23 05:46] LABS: Lactic Acid Reflex 0.8 mmol/L (0.7-2.1)
[2021-07-23 05:47] LABS: Alanine Aminotransferase 573 U/L (4-50); Albumin Level 3.3 g/dL (3.5-5.1); Alkaline Phosphatase 94 U/L (38-126); Anion Gap 10 mmol/L (8-16); Aspartate Amino Transferase 123 U/L (17-59); Bilirubin,Total 0.6 mg/dL (0.2-1.3); Blood Urea Nitrogen 59 mg/dL (9-20); Carbon Dioxide 32 mmol/L (22-30); Chloride 90 mmol/L (98-107); Estimated CRCL calculation 9 ml/min; Estimated Glomerular Filt Rate 5; Glucose 107 mg/dL (65-110); Magnesium 1.9 mg/dL (1.6-2.3); Phosphorus 8.5 mg/dL (2.5-4.5); Potassium 4.7 mmol/L (3.4-5.0); Sodium 132 mmol/L (137-145)
--- NOTE | 2021-07-23 06:51 | PM.PNCARD ---
Progress Note: A&P Assessment and Plan (1) Hyperkalemia: Code(s): E87.5 - Hyperkalemia Status: Acute Assessment and Plan: Resolved with hemodialysis. (2) Cardiac arrest: Code(s): I46.9 - Cardiac arrest, cause unspecified Status: Acute Assessment and Plan: Critically ill with septic shock. Had hyperkalemia and sudden cardiac arrest with ROSC with CPR and Epinephrine on day 1. Complete heart block returned and was in shock. Dr. Meadows placed transvenous pacemaker. Pacing rate decreased to 40 bpm as he is sinus at 76 bpm currently. Will assess need for permanent pacemaker once sepsis cleared and extubated and able to communicate this with patient. Developed shock liver that is improving. Echo shows EF >70%, grade I diastolic dysfunction (E/e' 15), mild /AI. (3) End-stage renal disease on hemodialysis: Code(s): N18.6 - End stage renal disease; Z99.2 - Dependence on renal dialysis Status: Acute (4) Acute respiratory failure with hypoxia: Code(s): J96.01 - Acute respiratory failure with hypoxia Status: Acute Assessment and Plan: Due to hyperkalemia, sepsis. (5) Acute UTI: Code(s): N39.0 - Urinary tract infection, site not specified Status: Acute Assessment and Plan: Urosepsis. On antibiotics per hospitalist. (6) Bradycardia: Code(s): R00.1 - Bradycardia, unspecified Status: Acute Assessment and Plan: Currently in sinus rhythm at 76 bpm. On Levophed drip at 6 mcg with BP 89/60 mmHg. Wean off Levophed as tolerated. Subjective Date/time seen: 07/23/21 06:51 On ventilator and sedated. Exam Const: Other: On ventilator, sedated Resp: Auscultation: clear to auscultation bilaterally, no crackles, no rales, no rhonchi and no wheezes Cardio: Jugular venous distension: no JVD Rate: regular rate Rhythm: regular rhythm Heart sounds: no murmurs Peripheral pulses: dorsalis pedis present GI: GI Palp: Yes Soft to palpation Extrem: Right lower extremity: no edema Left lower extremity: no edema Objective Data Vital Signs Vital Signs: Vital Signs - 24 hr 07/22/21 07:15 07/22/21 08:00 07/22/21 08:30 Temperature 98.2 F Pulse Rate 74 76 76 Respiratory Rate 14 Blood Pressure 157/80 H 117/47 L 131/66 Pulse Oximetry 96 07/22/21 08:57 07/22/21 09:36 07/22/21 10:00 Temperature Pulse Rate 75 72 Respiratory Rate 14 Blood Pressure 111/57 L 115/59 L Pulse Oximetry 94 96 07/22/21 11:30 07/22/21 11:33 07/22/21 12:00 Temperature Pulse Rate 74 Respiratory Rate 14 Blood Pressure 110/62 102/56 L Pulse Oximetry 99 95 07/22/21 12:03 07/22/21 13:00 07/22/21 14:00 Temperature Pulse Rate 74 80 Respiratory Rate 14 Blood Pressure 114/63 116/60 Pulse Oximetry 97 95 07/22/21 14:44 07/22/21 14:51 07/22/21 15:28 Temperature Pulse Rate 80 85 92 Respiratory Rate 18 14 Blood Pressure Pulse Oximetry 93 07/22/21 16:00 07/22/21 17:37 07/22/21 18:00 Temperature 97.4 F L Pulse Rate 93 87 88 Respiratory Rate 14 14 Blood Pressure 103/57 L 102/55 L Pulse Oximetry 92 94 96 07/22/21 20:00 07/22/21 20:09 07/22/21 20:31 Temperature 97.2 F L Pulse Rate 82 82 82 Respiratory Rate 12 15 Blood Pressure 94/56 L Pulse Oximetry 97 94 07/22/21 22:00 07/22/21 23:27 07/23/21 00:00 Temperature Pulse Rate 83 85 88 Respiratory Rate 9 L 16 Blood Pressure 92/49 L 118/66 Pulse Oximetry 94 95 100 07/23/21 02:00 07/23/21 02:22 07/23/21 04:00 Temperature 98.3 F Pulse Rate 83 81 79 Respiratory Rate 13 13 Blood Pressure 103/47 L 87/48 L Pulse Oximetry 100 96 96 07/23/21 04:01 07/23/21 04:45 07/23/21 05:13 Temperature Pulse Rate 76 77 Respiratory Rate 12 Blood Pressure 87/48 L Pulse Oximetry 98 07/23/21 06:00 Temperature Pulse Rate 77 Respiratory Rate Blood Pressure Pulse Oximetry Intake/Output Intake/Output: Intake
[2021-07-23] MEDS: PANTOPRAZOLE SODIUM IV 40 MG VIAL IV PUSH (10:22)
--- NOTE | 2021-07-23 10:49 | PM.PNCARD ---
Progress Note: A&P Assessment and Plan (1) Complete heart block: Code(s): I44.2 - Atrioventricular block, complete Status: Acute Assessment and Plan: Patient admitted with complete heart block, requiring a temporary pacemaker 07/21/2021. Pacer tip pad change position and was not capturing consistently, advanced, now has good pacing thresholds. Will keep the pacer rate at 40 beats per minute as a backup since he is in sinus rhythm most of the time now. Continue to follow to see if he will need a permanent pacemaker after recovery. No changes for invasive cardiology. Will keep temporary wire in another 24 hours. Will DC tomorrow if no pacing seen. (2) Shock: Code(s): R57.9 - Shock, unspecified Status: Acute Assessment and Plan: Septic shock, improving. Remains on ventilator for respiratory failure and on lower dose of Levophed. Subjective Date/time seen: 07/23/21 10:49 Interval history: [facility] Progress Note: Follow-up for complete heart block Date of service 07/22/2021: Patient remains intubated and sedated. His Levophed has been decreased. Telemetry shows that he had some 2-1 AV block last night around 7:00 p.m. but has been in sinus rhythm through the night and this morning heart rate in the 70s to 80s. The temporary pacemaker is not capturing consistently and the threshold has increased. Chest x-ray showed that the lead had changed position (personally reviewed). I advanced the pacemaker lead 2 cm and now the threshold is less than 0.5. Date of service 07/23/2021: No pacing noted overnight. Still intubated and sedated. No arrhythmia Review of Systems Review of Systems: ROS unobtainable: Yes unobtainable due to endotracheal tube, unobtainable due to medical condition and unobtainable due to mental status Exam Narrative: Ill-appearing and responsive male in no distress, intubated. The temporary pacer site is with no hematoma and cleanly dressed. Const: Nutritional Appearance: obese Limitations: altered mental status HENMT: General nose exam: no epistaxis Eyes: General: appearance normal, both eyes and all related structures Sclera: sclerae normal Neck: Thyroid: thyroid normal Resp: Effort & Inspection: audible wheezes Auscultation: rales Other: Intubated Cardio: Rate: regular rate Rhythm: regular rhythm Heart sounds: Murmur heart sound present (2/6 LEE upper sternal border) GI: Inspection: non-distended : Male General Exam: Yes normal external exam Skin: General skin exam: No normal color Other: scaly skin, poorly groomed Neuro: Cognition (Neuro): normal cognition Extrem: General: no clubbing, cyanosis or edema and no edema Psych: Appearance: poorly kempt Mental Status: mental status grossly abnormal Objective Data Vital Signs Vital Signs: Vital Signs - 24 hr 07/22/21 11:30 07/22/21 11:33 07/22/21 12:00 Temperature Pulse Rate 74 Respiratory Rate 14 Blood Pressure 110/62 102/56 L Pulse Oximetry 99 95 07/22/21 12:03 07/22/21 13:00 07/22/21 14:00 Temperature Pulse Rate 74 80 Respiratory Rate 14 Blood Pressure 114/63 116/60 Pulse Oximetry 97 95 07/22/21 14:44 07/22/21 14:51 07/22/21 15:28 Temperature Pulse Rate 80 85 92 Respiratory Rate 18 14 Blood Pressure Pulse Oximetry 93 07/22/21 16:00 07/22/21 17:37 07/22/21 18:00 Temperature 36.3 C L Pulse Rate 93 87 88 Respiratory Rate 14 14 Blood Pressure 103/57 L 102/55 L Pulse Oximetry 92 94 96 07/22/21 20:00 07/22/21 20:09 07/22/21 20:31 Temperature 36.2 C L Pulse Rate 82 82 82 Respiratory Rate 12 15 Blood Pressure 94/56 L Pulse Oximetry 97 94 07/22/21 22:00 07/22/21 23:27 07/23/21 00:00 Temperature Pulse Rate 83 85 88 Respiratory Rate 9 L 16 Blood Pressure 92/49 L 118/66 Pulse Oximetry 94 95 100 07/23/21 02:00 07/23/21 02:22 07/23/21 04:00 Temperature 36.8 C Pulse Rate 83 81 79
--- NOTE | 2021-07-23 11:00 | PCDIET ---
ICU Rounding Note: Nepro infusing at 10mL/hr due to elevated residuals (~400mL range). Discussed during rounds. MD ordered to advance feedings gradually, as tolerated. Last recorded weight is 134.5kg which is increased from last review. +I/O. Bowel Motility: Last documented BM on 07/22/21 x 1. Labs Reviewed: RBC (3.01), Hgb (10.8), Hct (32.5), BUN (59), Cr (11.2), Na (132), Alb (3.3), PO4 (8.5) Meds Noted: Rocephin, Fentanyl, Protonix, Versed, Levophed, Vancomycin, Vasopressin. Additional Notes: Patient had 2L UF on 07/21/21. No documented skin breakdown. Following daily in ICU rounds. Assessing/reassessing every Friday/Friday.
[2021-07-23] MEDS: NOREPINEPHRINE 8 MG/D5W 250 ML 8 MG/250 ML BAG 15 MG IV CONT (11:29)
--- NOTE | 2021-07-23 12:31 | WPDINTPN ---
Progress Note: A&P Assessment and Plan (1) Complete heart block: Code(s): I44.2 - Atrioventricular block, complete Status: Acute Assessment and Plan: Overnight on 07/21/2021 patient went into complete heart block and was being paced by the pacemaker pads, Cardiology was consulted who came and placed a transvenous pacemaker given patient's recent cardiac arrest on admission, bradycardia, shock -07/22/2021: Not being paced all the time, pacer rate to 40 beats per minute. Pacer tip position was adjusted advanced and now has good pacing threshold -appreciate cardiology evaluation recommendation, patient may require permanent pacemaker which will be decided will patient's medical condition and improvement -07/23/2021: Not being paced in the last 24 hours no he has the temporary pacemaker. Backup rate is at 40 beats per minute. Clean sinus rhythm rate controlled. Discussed with Cardiology, will keep temporary pacemaker for another 24 hours and if no pacing is seen, transvenous pacemaker will be removed (2) Shock: Code(s): R57.9 - Shock, unspecified Status: Acute Assessment and Plan: Shock could be multifactorial, infection, cardiac arrest, hypovolemia from fluid removed post dialysis -currently on Levophed and vasopressin through central line and left IJ, vasopressors are being weaned -maintain mean arterial pressures greater than 65 mmHg -cultures have been obtained -UA reflective of UTI, -started on ceftriaxone, vancomycin on 07/20/2021. -lactic acid normalized -LFTs trending down likely related to shock liver (3) Acute respiratory failure with hypoxia: Code(s): J96.01 - Acute respiratory failure with hypoxia Status: Acute Assessment and Plan: Acute respiratory failure likely related to altered mental status due to bradycardia and airway protection -patient currently on CMV mode, peep of 5 and 100% FiO2 with good O2 sats, wean FiO2 maintain O2 sats greater than 92% -chest x-ray: Persistent diffuse bilateral airspace disease, pneumonia versus edema. No significant change -ABGs reviewed, vent adjusted -fentanyl and Versed for sedation -patient to be dialyzed today with removal of fluids, will evaluate for extubation in a.m. since patient is going to be laying flat as he has the pacerr wires (4) Cardiac arrest: Code(s): I46.9 - Cardiac arrest, cause unspecified Status: Acute Assessment and Plan: Brief cardiac arrest after he you had bradycardia and went into asystole with ROSC with 1 round of epinephrine -could be related to hyperkalemia, bradyarrhythmia, septic shock -cardiology following the patient - echocardiogram pending -troponins negative x2 (5) Hyperkalemia: Code(s): E87.5 - Hyperkalemia Status: Acute Assessment and Plan: Hyperkalemia resolved before dialysis after being treated in the ER with albuterol nebulizer, insulin and D50, sodium bicarbonate and calcium - potassium 5.2, will treat with insulin D50, Kayexalate, bicarb (6) End-stage renal disease on hemodialysis: Code(s): N18.6 - End stage renal disease; Z99.2 - Dependence on renal dialysis Status: Acute Assessment and Plan: History of end-stage renal disease on dialysis, Mondays, Wednesdays, Fridays -unknown if he had dialysis on Friday -completed dialysis with removal of 2000 mL of fluid this morning on 07/20/2021: Will obtain post dialysis labs. -nephrology following the patient -dialysis per Nephrology (7) Acute UTI: Code(s): N39.0 - Urinary tract infection, site not specified Status: Acute Assessment and Plan: UA reflective of a UTI, patient started on ceftriaxone (8) Leukocytosis (leucocytosis): Qualifiers: Leukocytosis type: unspecified Qualified Code(s): D72.829 - Elevated white blood cell count, unspecified Code(s): D72.829 - Elevated white blood cell count, unspecified Status: Acute Assessment and Plan
--- NOTE | 2021-07-23 15:36 | PM.PNNEP ---
Progress Note: A&P Assessment and Plan (1) End-stage renal disease on hemodialysis: Code(s): N18.6 - End stage renal disease; Z99.2 - Dependence on renal dialysis Status: Acute Assessment and Plan: # ESRD on HD MWF - we will continue to monitor electrolytes and arrange hemodialysis treatment if needed on urgent basis. Otherwise will continue him on hemodialysis treatment Friday. Patient has left upper extremity AV fistula. Plan for hemodialysis today see orders # hyperkalemia critically high. corrected. Most likely caused cardiac arrest. Potassium was treated in the emergency room in 10 with the dialysis treatment it has been corrected. We will continue to monitor potassium level. Potassium level is better today at 4.7 # hypotension: Will not tolerate fluid removal. Chest x -ray: Mild patchy infiltrates and/or atelectasis in the lower lung zones primarily; little interval change continue to follow. Hopefully extubation soon # acute respiratory failure status post cardiac arrest. Patient is on the ventilator and sedated. Management per ICU critical care team. # sepsis most likely secondary UTI. Patient is on Rocephin 1 g 24 hours. Blood and urine cultures negative # GI prophylaxis on Protonix IV. # DVT prophylaxis on heparin 5000 units subcutaneously q.8 hours. Subjective Date/time seen: patient is seen and examined, intubated, winces a bit when stimulated with the name and with tactile stimulation. Exam Const: Nutritional Appearance: obese HENMT: Head: no acral cyanosis Ears: external ears normal Eyes: Direct Ophthalmoscopy: other Other: Limited exam due to patient's condition Neck: Other: JVD is not seen, patient is intubated Chest: Other: Decreased breath sounds, and Neurology obvious Cardio: Jugular venous distension: no JVD Heart sounds: S1 normal heart sound present and S2 normal heart sound present GI: Other: Soft obese nontender abdomen Skin: Other: Normal turgor, no obvious rashes Extrem: Other: Unable to examine, barely responds Objective Data Vital Signs Vital Signs: Vital Signs - 24 hr 07/22/21 16:00 07/22/21 17:37 07/22/21 18:00 Temperature 36.3 C L Pulse Rate 93 87 88 Respiratory Rate 14 14 Blood Pressure 103/57 L 102/55 L Pulse Oximetry 92 94 96 07/22/21 20:00 07/22/21 20:09 07/22/21 20:31 Temperature 36.2 C L Pulse Rate 82 82 82 Respiratory Rate 12 15 Blood Pressure 94/56 L Pulse Oximetry 97 94 07/22/21 22:00 07/22/21 23:27 07/23/21 00:00 Temperature Pulse Rate 83 85 88 Respiratory Rate 9 L 16 Blood Pressure 92/49 L 118/66 Pulse Oximetry 94 95 100 07/23/21 02:00 07/23/21 02:22 07/23/21 04:00 Temperature 36.8 C Pulse Rate 83 81 79 Respiratory Rate 13 13 Blood Pressure 103/47 L 87/48 L Pulse Oximetry 100 96 96 07/23/21 04:01 07/23/21 04:45 07/23/21 05:13 Temperature Pulse Rate 76 77 Respiratory Rate 12 Blood Pressure 87/48 L Pulse Oximetry 98 07/23/21 06:00 07/23/21 08:29 07/23/21 10:22 Temperature Pulse Rate 78 75 76 Respiratory Rate 12 Blood Pressure 97/51 L 90/48 L Pulse Oximetry 97 98 07/23/21 10:25 07/23/21 11:07 07/23/21 11:29 Temperature Pulse Rate 75 74 73 Respiratory Rate 11 L Blood Pressure 84/44 L Pulse Oximetry 95 07/23/21 13:31 07/23/21 14:37 Temperature Pulse Rate 72 74 Respiratory Rate Blood Pressure 92/45 L Pulse Oximetry 93 Intake/Output Intake/Output: Intake & Output 07/20/21 07/21/21 07/22/21 07/23/21 23:59 23:59 23:59 23:59 Intake Total 1194 2350 1010 745 Output Total 2525 550 350 50 Balance -1331 1800 660 695 Meds/Results Medications: Active Medications Generic Name Dose Route Start Last Admin Trade Name Freq PRN Reason Stop Dose Admin Dextrose 12.5 gm 07/20/21 03:38 Dextrose 50% 25 Gm/50 Ml Syringe IV PUSH PRN PRN Hypoglycemia Protocol Glucagon 1 mg 07/20/21 03:
[2021-07-23] MEDS: MIDAZOLAM 100MG/NS 100ML(*CRX) 100 MG/100 ML BAG IV CONT (19:01)
--- NOTE | 2021-07-23 20:11 | PM.IMPN ---
Progress Note: A&P Assessment and Plan (1) Complete heart block: Code(s): I44.2 - Atrioventricular block, complete Status: Acute Assessment and Plan: Patient went into complete heart block on 07/21 requiring a transvenous pacemaker to be placed. Backup rate set at 40bpm. Not being paced at this time. (2) Shock: Code(s): R57.9 - Shock, unspecified Status: Acute Assessment and Plan: Patient has developed shock with etiology unclear. Consider infectious etiology vs cardiac arrest/cardiogenic vs. hypovolemia from fluid removed post dialysis vs multifactorial. BCx NGTD; UCx negative. Patient remains on Levophed and vasopressin. Continue IV abx for now. Wean pressors as toerlated. (3) Acute respiratory failure with hypoxia: Code(s): J96.01 - Acute respiratory failure with hypoxia Status: Acute Assessment and Plan: Patient presented to the ED for not feeling well but decompensated quickly requiring intubation for airway protection. CXR on admission (07/20) showing mild opacity lateral right midlung zone. Acute respiratory failure related to acute decompensation with altered mental status from bradycardia. Patient remains intubated and sedated. Appreciate intensvist input. (4) Cardiac arrest: Code(s): I46.9 - Cardiac arrest, cause unspecified Status: Acute Assessment and Plan: Patient had a brief cardiac arrest due to bradycardia that transitioned into asystole with ROSC with 1 round of epinephrine felt related to the hyperkalemia. Echo 07/20 showing EF>70%, Grade I diastolic dysfunction and mild /AI. Appreciate Cardiology input (5) Hyperkalemia: Code(s): E87.5 - Hyperkalemia Status: Acute Assessment and Plan: Patient presents with hyperkalemia (7.6). EKG showing sinus tachycardia with slow ventricular response in a 5:1 AV block, Rt BBB, LAFB, widened P waves and peaked T waves. Potassium normalized in the ED after being treated with appropriate medications. He did received HD later that day as well. (6) End-stage renal disease on hemodialysis: Code(s): N18.6 - End stage renal disease; Z99.2 - Dependence on renal dialysis Status: Acute Assessment and Plan: Patient ESRD on HD M//. He has had HD 07/20 and 07/23. Nephrology consulted and appreciate their input (7) Acute UTI: Code(s): N39.0 - Urinary tract infection, site not specified Status: Acute Assessment and Plan: UA noted and concerning for UTI but UCx negative. Patient remains on ceftriaxone (8) Leukocytosis (leucocytosis): Qualifiers: Leukocytosis type: unspecified Qualified Code(s): D72.829 - Elevated white blood cell count, unspecified Code(s): D72.829 - Elevated white blood cell count, unspecified Status: Acute Assessment and Plan: WBC 35.7K on admission. Leukocytosis likely related to heart block/cardiac arrest, septic shock, and/or infection. Patient's WBC trending down and now normal today. (9) DVT prophylaxis: Code(s): Z29.9 - Encounter for prophylactic measures, unspecified Status: Acute Assessment and Plan: Heparin subQ Subjective Date/time seen: 07/23/21 20:11 Interval history: 55yo male with ESRD here for n/v and found to have hyperkalemia, shock with respiratory failure. Resuming care. Chart reviewed. Patient intubated and sedated. He is about to undergo HD this afternoon. He is having high residual. Temporary pacer in place but HR maintained in the 70's and pacer not had to pace patient. Review of Systems Review of Systems: ROS unobtainable: Yes unobtainable due to endotracheal tube Exam Narrative: AF 98.0 102/51 86 14 92% PEEP 5, 30% FiO2. Gen - intubated, sedated Neck - left IJ TLC HEENT - NGT and ETT secured. Chest - lungs clear anteriorly CV - RRR S1/S2; Tele showing PVCs Abd - Soft, obese Ext - thrill and bruit in the LUE. 2+ DP
[2021-07-23 22:11] LABS: Vancomycin Random 7.6 ug/mL (10-20)
[2021-07-24] VITALS (26 sets, daily range): BP systolic 97–152; BP diastolic 55–81; PULSE 68–98; RESP 11–20; TEMP 36.4–36.9; O2SAT 91–99
[2021-07-24] MEDS: NOREPINEPHRINE 8 MG/D5W 250 ML 8 MG/250 ML BAG 15 MG IV CONT (01:42)
[2021-07-24 04:02] LABS: Basophils Percent Auto 0.5 % (0.2-1.2); Eosinophils Absolute Auto 0.2 K/mm3 (0-0.3); Eosinophils Percent Auto 2.1 % (0-4.4); Hemoglobin 10.6 g/dL (14.0-18.0); Immature Granulocyte Absolute 0.18 K/mm3 (0.00-0.031); Lymphocytes Absolute Auto 0.75 K/mm3 (0.9-3.2); Lymphocytes Percent Auto 8.5 % (18.3-44.2); Mean Corpuscular HGB Conc 32.1 g/dl (32-36); Mean Corpuscular Hemoglobin 35.3 pg (26-34); Mean Platelet Volume 10.5 fl (7.4-10.4); Monocytes Absolute Auto 0.9 K/mm3 (0.1-0.6); Monocytes Percent Auto 10.3 % (2.6-8.5); Neutrophils Absolute Auto 6.8 K/mm3 (1.3-6.7); Neutrophils Percent Auto 76.6 % (45.5-73.1); Nucleated Red Blood Cells Perc 0.2 % (0.0-0.2); Platelet Count Result 144 k/mm3 (150-375); Red Cell Distribution Width 14.5 % (11.5-14.5); White Blood Count 8.9 K/mm3 (4.5-10.0)
[2021-07-24 04:13] LABS: Lactic Acid Reflex 0.8 mmol/L (0.7-2.1)
[2021-07-24 04:17] LABS: Alanine Aminotransferase 394 U/L (4-50); Albumin Level 3.3 g/dL (3.5-5.1); Alkaline Phosphatase 110 U/L (38-126); Anion Gap 10 mmol/L (8-16); Aspartate Amino Transferase 63 U/L (17-59); Bilirubin,Total 0.7 mg/dL (0.2-1.3); Blood Urea Nitrogen 33 mg/dL (9-20); Calcium 9.5 mg/dL (8.4-10.2); Carbon Dioxide 27 mmol/L (22-30); Chloride 98 mmol/L (98-107); Estimated CRCL calculation 15 ml/min; Estimated Glomerular Filt Rate 8; Glucose 130 mg/dL (65-110); Magnesium 1.9 mg/dL (1.6-2.3); Phosphorus 5.2 mg/dL (2.5-4.5); Potassium 4.2 mmol/L (3.4-5.0); Sodium 135 mmol/L (137-145)
[2021-07-24 05:19] LABS: Alveolar/Arterial O2 Gradient 299.9 mmHg; Base Excess ABG 1.8 mEq/l (+/-2.0); Carboxyhemoglobin 0.3 % THb (0-2.0); Fractional Inspired Oxygen 60 %; HCO3 ABG 27.7 mEq/l (22.0-26.0); Methemoglobin ABG 0.3 %THb (0-1.5); Oxygen Saturation ABG 94.5 % (95.0-100.0); Oxyhemoglobin 93.4 % THb (90.0-100.0); PCO2 ABG 48.5 mmHg (35.0-45.0); PO2 ABG 74.6 mmHg (80.0-100.0); PO2 FiO2 Ratio Arterial Blood 1.24 %; Total Hemoglobin 12.9 g/dL (12.0-18.0); pH ABG 7.374 (7.350-7.450)
[2021-07-24 05:22] LABS: Arterial Blood Gas PEEP 5 cmH2O; Arterial Blood Gas Tidal Volume 500 ml; Arterial Blood Gas Vent Mode CMV; Arterial Blood Gas Ventilator rate 14 /MIN; Device VENTILATOR; Modified Allen's Test Pass; Site Drawn RIGHT RADIAL
[2021-07-24] MEDS: FENTANYL 2,500MCG/NS250ML(*CRX 2,500 MCG/250 ML BAG 10 MCG IV CONT (07:02)
[2021-07-24] MEDS: HEPARIN SODIUM 5,000 UNITS/ML VIAL 5000 UNITS SUB-Q ×3 (07:02→20:12)
--- NOTE | 2021-07-24 07:44 | PM.PNCARD ---
Progress Note: A&P Assessment and Plan (1) Hyperkalemia: Code(s): E87.5 - Hyperkalemia Status: Acute Assessment and Plan: Resolved with hemodialysis. (2) Cardiac arrest: Code(s): I46.9 - Cardiac arrest, cause unspecified Status: Acute Assessment and Plan: Critically ill with septic shock. Had hyperkalemia and sudden cardiac arrest with ROSC with CPR and Epinephrine on day 1. Complete heart block returned and was in shock. Dr. Meadows placed transvenous pacemaker. Pacing rate decreased to 40 bpm as he is sinus at 70's bpm currently. He is on Levophed 5 mcg, which helps support his HR also. Would hold off on discontinuing transvenous pacer until Levophed is off for 24 hours and no longer requiring pacing during that time. Will assess need for permanent pacemaker once sepsis cleared and extubated and able to communicate this with patient. Developed shock liver that is improving. Echo shows EF >70%, grade I diastolic dysfunction (E/e' 15), mild /AI. (3) End-stage renal disease on hemodialysis: Code(s): N18.6 - End stage renal disease; Z99.2 - Dependence on renal dialysis Status: Acute (4) Acute respiratory failure with hypoxia: Code(s): J96.01 - Acute respiratory failure with hypoxia Status: Acute Assessment and Plan: Due to hyperkalemia, sepsis. (5) Acute UTI: Code(s): N39.0 - Urinary tract infection, site not specified Status: Acute Assessment and Plan: Urosepsis. On antibiotics per hospitalist. (6) Bradycardia: Code(s): R00.1 - Bradycardia, unspecified Status: Acute Assessment and Plan: Currently in sinus rhythm at 70's bpm. On Levophed drip at 5 mcg with BP 105/70 mmHg. Wean off Levophed as tolerated. Subjective Date/time seen: 07/24/21 07:44 On ventilator, sedated. Exam Const: Other: On ventilator, sedated Resp: Auscultation: clear to auscultation bilaterally, no crackles, no rales, no rhonchi and no wheezes Cardio: Jugular venous distension: no JVD Rate: regular rate Rhythm: regular rhythm Heart sounds: no murmurs Peripheral pulses: dorsalis pedis present GI: GI Palp: Yes Soft to palpation Extrem: Right lower extremity: no edema Left lower extremity: no edema Objective Data Vital Signs Vital Signs: Vital Signs - 24 hr 07/23/21 08:00 07/23/21 08:29 07/23/21 10:00 Temperature 98.4 F Pulse Rate 75 75 75 Respiratory Rate 18 18 Blood Pressure 95/51 L 107/56 L Pulse Oximetry 92 98 93 07/23/21 10:22 07/23/21 10:25 07/23/21 11:07 Temperature Pulse Rate 76 75 74 Respiratory Rate 11 L Blood Pressure 90/48 L Pulse Oximetry 95 07/23/21 11:29 07/23/21 12:00 07/23/21 13:31 Temperature 98.4 F Pulse Rate 73 73 72 Respiratory Rate 18 Blood Pressure 84/44 L 101/49 L 92/45 L Pulse Oximetry 95 07/23/21 14:00 07/23/21 14:37 07/23/21 16:00 Temperature 98 F Pulse Rate 72 74 71 Respiratory Rate 18 18 Blood Pressure 107/56 L 104/55 L Pulse Oximetry 93 93 95 07/23/21 16:15 07/23/21 16:30 07/23/21 17:00 Temperature 98.0 F Pulse Rate 76 75 76 Respiratory Rate 14 Blood Pressure 102/56 L 114/61 110/52 L Pulse Oximetry 07/23/21 17:09 07/23/21 17:15 07/23/21 17:45 Temperature Pulse Rate 75 75 79 Respiratory Rate 12 Blood Pressure 104/51 L 100/52 L Pulse Oximetry 91 07/23/21 17:46 07/23/21 18:00 07/23/21 18:30 Temperature Pulse Rate 77 81 82 Respiratory Rate 12 Blood Pressure 100/52 L 99/48 L 94/49 L Pulse Oximetry 92 07/23/21 19:00 07/23/21 19:01 07/23/21 19:30 Temperature Pulse Rate 82 80 82 Respiratory Rate 14 Blood Pressure 98/51 L 101/98 H Pulse Oximetry 07/23/21 19:45 07/23/21 20:00 07/23/21 20:15 Temperature 98.2 F 97.6 F Pulse Rate 86 85 83 Respiratory Rate 12 17 Blood Pressure 102/51 L 99/52 L 110/51 L Pulse Oximetry 93 07/23/21 20:20 07/23/21 22:00 07/23/21 23:13 Temperature P
--- NOTE | 2021-07-24 09:16 | WPDINTPN ---
Progress Note: A&P Assessment and Plan (1) Complete heart block: Code(s): I44.2 - Atrioventricular block, complete Status: Acute Assessment and Plan: Overnight on 07/21/2021 patient went into complete heart block and was being paced by the pacemaker pads, Cardiology was consulted who came and placed a transvenous pacemaker given patient's recent cardiac arrest on admission, bradycardia, shock -07/24/2021: Discussed with Cardiology. since patient has not required any pacing for last few days, transvenous pacemaker was removed by Cardiology (2) Shock: Code(s): R57.9 - Shock, unspecified Status: Acute Assessment and Plan: Shock could be multifactorial, infection, cardiac arrest, hypovolemia from fluid removed post dialysis -currently on Levophed. off of vasopressin -maintain mean arterial pressures greater than 65 mmHg -cultures or negatives in now -UA reflective of UTI, - currently on ceftriaxone, vancomycin on 07/20/2021. -lactic acid normalized -LFTs trending down likely related to shock liver (3) Acute respiratory failure with hypoxia: Code(s): J96.01 - Acute respiratory failure with hypoxia Status: Acute Assessment and Plan: Acute respiratory failure likely related to altered mental status due to bradycardia and airway protection -patient currently on CMV mode, peep of 5 and 40% FiO2 with good O2 sats, -chest x-ray: Persistent diffuse bilateral airspace disease, pneumonia versus edema. No significant change -ABGs reviewed, vent adjusted -fentanyl and Versed for sedation - patient was dialyzed yesterday and 3 L of fluids were removed - will plan sedation vacation and weaning trial today if patient following commands of sedation (4) Cardiac arrest: Code(s): I46.9 - Cardiac arrest, cause unspecified Status: Acute Assessment and Plan: Brief cardiac arrest after he you had bradycardia and went into asystole with ROSC with 1 round of epinephrine -could be related to hyperkalemia, bradyarrhythmia, septic shock -cardiology following the patient - echocardiogram pending -troponins negative x2 (5) Hyperkalemia: Code(s): E87.5 - Hyperkalemia Status: Acute Assessment and Plan: Hyperkalemia resolved before dialysis after being treated in the ER with albuterol nebulizer, insulin and D50, sodium bicarbonate and calcium - potassium 5.2, will treat with insulin D50, Kayexalate, bicarb (6) End-stage renal disease on hemodialysis: Code(s): N18.6 - End stage renal disease; Z99.2 - Dependence on renal dialysis Status: Acute Assessment and Plan: History of end-stage renal disease on dialysis, Mondays, Wednesdays, Fridays - he received dialysis yesterday. Continue dialysis per Nephrology -nephrology following the patient (7) Acute UTI: Code(s): N39.0 - Urinary tract infection, site not specified Status: Acute Assessment and Plan: UA reflective of a UTI, patient is on ceftriaxone (8) DVT prophylaxis: Code(s): Z29.9 - Encounter for prophylactic measures, unspecified Status: Acute Assessment and Plan: DVT prophylaxis: Heparin subQ Additional Plan Stress ulcer prophylaxis: Protonix Nutrition: Patient not tolerating tube feeds, obstructive series but no free intraperitoneal gas or dilated gas-filled loops or bowels to suggest obstruction, continue tube feeds. Add Reglan Code status: Full code Critical care time spent: 30 minutes This dictation may have been done utilizing a voice recognition system. Attempts have been made to correct errors. However, there may be uncorrected grammatical, spelling, and recognition errors present. Due to a high probability of clinically significant, life threatening deterioration, the patient required my highest level of preparedness to intervene emergently and I personally spent this critical care time directly and personally managing the patient. Th
--- NOTE | 2021-07-24 09:28 | PM.PNCARD ---
Progress Note: A&P Assessment and Plan (1) Complete heart block: Code(s): I44.2 - Atrioventricular block, complete Status: Acute Assessment and Plan: Patient admitted with complete heart block, requiring a temporary pacemaker 07/21/2021. At this point he has had the temporary pacemaker in for several days. No pacing is seen also for several days. At this point I think it is reasonable to DC the temporary wire which I will do. No changes for invasive cardiology. Will defer general cardiology care to Dr. Domingo (2) Shock: Code(s): R57.9 - Shock, unspecified Status: Acute Assessment and Plan: Septic shock, improving. Remains on ventilator for respiratory failure and on lower dose of Levophed. Subjective Date/time seen: 07/24/21 09:28 Interval history: [facility] Card[facility] Progress Note: Follow-up for complete heart block Date of service 07/22/2021: Patient remains intubated and sedated. His Levophed has been decreased. Telemetry shows that he had some 2-1 AV block last night around 7:00 p.m. but has been in sinus rhythm through the night and this morning heart rate in the 70s to 80s. The temporary pacemaker is not capturing consistently and the threshold has increased. Chest x-ray showed that the lead had changed position (personally reviewed). I advanced the pacemaker lead 2 cm and now the threshold is less than 0.5. Date of service 07/23/2021: No pacing noted overnight. Still intubated and sedated. No arrhythmia Date of service 07/24/2021: Withdrawal to pain. Still intubated sedated. Still no pacing seen. Review of Systems Review of Systems: ROS unobtainable: Yes unobtainable due to endotracheal tube, unobtainable due to medical condition and unobtainable due to mental status Exam Narrative: Ill-appearing and responsive male in no distress, intubated. The temporary pacer site is with no hematoma and cleanly dressed. Const: Nutritional Appearance: obese Limitations: altered mental status HENMT: General nose exam: no epistaxis Eyes: General: appearance normal, both eyes and all related structures Sclera: sclerae normal Resp: Auscultation: diminished lung sounds Other: Intubated Cardio: Rate: regular rate Rhythm: regular rhythm Heart sounds: Murmur heart sound present (2/6 LEE upper sternal border) GI: Inspection: non-distended : Male General Exam: Yes normal external exam Skin: General skin exam: No normal color Other: scaly skin, poorly groomed Neuro: Cognition (Neuro): normal cognition Extrem: General: no clubbing, cyanosis or edema and no edema Psych: Appearance: poorly kempt Mental Status: mental status grossly abnormal Objective Data Vital Signs Vital Signs: Vital Signs - 24 hr 07/23/21 10:00 07/23/21 10:22 07/23/21 10:25 Temperature Pulse Rate 75 76 75 Respiratory Rate 18 11 L Blood Pressure 107/56 L 90/48 L Pulse Oximetry 93 07/23/21 11:07 07/23/21 11:29 07/23/21 12:00 Temperature 36.9 C Pulse Rate 74 73 73 Respiratory Rate 18 Blood Pressure 84/44 L 101/49 L Pulse Oximetry 95 95 07/23/21 13:31 07/23/21 14:00 07/23/21 14:37 Temperature Pulse Rate 72 72 74 Respiratory Rate 18 Blood Pressure 92/45 L 107/56 L Pulse Oximetry 93 93 07/23/21 16:00 07/23/21 16:15 07/23/21 16:30 Temperature 36.6 C 36.7 C Pulse Rate 71 76 75 Respiratory Rate 18 14 Blood Pressure 104/55 L 102/56 L 114/61 Pulse Oximetry 95 07/23/21 17:00 07/23/21 17:09 07/23/21 17:15 Temperature Pulse Rate 76 75 75 Respiratory Rate Blood Pressure 110/52 L 104/51 L Pulse Oximetry 91 07/23/21 17:45 07/23/21 17:46 07/23/21 18:00 Temperature Pulse Rate 79 77 81 Respiratory Rate 12 12 Blood Pressure 100/52 L 100/52 L 99/48 L Pulse Oximetry 92 07/23/21 18:30 07/23/21 19:00 07/23/21 19:01 Temperature Pulse Rate 82 82 80 Respiratory Rate 14 Blood Pressure 94/49 L 98/51 L Pulse Oxime
[2021-07-24] MEDS: PANTOPRAZOLE SODIUM IV 40 MG VIAL IV PUSH (09:39)
[2021-07-24] MEDS: METOCLOPRAMIDE HCL 10 MG/10 ML SOLN UDC PO ×2 (09:39→23:44)
[2021-07-24] MEDS: NEOMYCIN/POLYMYXIN/BACITRACIN OINTMENT PACKET 1 PACKET (11:00)
--- NOTE | 2021-07-24 11:34 | PCDIET ---
Nutrition Follow-Up Complete: Nutrition Diagnosis: Inadequate oral intake related to oral intubation as evidenced by NPO status. Nutrition Goal: Patient to meet estimated nutritional needs. Goal in progress. Nepro infusing at 10mL/hr with 30mL water flush every 4 hours. MD added Reglan today. Plan for breathing trial. If unable to extubate, recommend advancing Nepro to goal of 50mL/hr. Last recorded weight is 134.5 kg which is increased from last review, despite -I/O. Patient had 3L UF on 07/23/21. Bowel Motility: Last documented BM on 07/22/21 x 1. Gastric residuals 250mL and below. Labs Reviewed: RBC (3.00), Hgb (10.6), Hct (33.0), Glu (130), BUN (33), Cr (7.10), Na (135), Alb (3.3), PO4 (5.2) Meds Noted: Rocephin, Fentanyl, Reglan, Versed, Levophed, Protonix, Vancomycin Additional Notes: No documented skin breakdown. Will continue to monitor with same goal. Nutrition Monitoring and Evaluation: Follow up every Friday/Friday.
[2021-07-24 13:46] LABS: Alveolar/Arterial O2 Gradient 138.5 mmHg; Base Excess ABG 0.6 mEq/l (+/-2.0); Fractional Inspired Oxygen 36 %; HCO3 ABG 25.9 mEq/l (22.0-26.0); Oxygen Content ABG 17.3 %vol (16.0-22.0); Oxygen Saturation ABG 93.1 % (95.0-100.0); PCO2 ABG 44.1 mmHg (35.0-45.0); PO2 FiO2 Ratio Arterial Blood 1.86 %; Total Hemoglobin 13.4 g/dL (12.0-18.0); pH ABG 7.387 (7.350-7.450)
[2021-07-24 13:47] LABS: Device VENTILATOR; Site Drawn RIGHT RADIAL
[2021-07-24 13:49] LABS: Arterial Blood Gas Vent Mode SPONTANEOUS
[2021-07-24 13:50] LABS: Arterial Blood Gas PEEP 5 cmH2O; Arterial Blood Gas Pressure Support 5 cmH2O
--- NOTE | 2021-07-24 16:40 | PC.NURSE ---
Updated daughter Stefany, on plan of care and patient condition.
--- NOTE | 2021-07-24 18:11 | PM.IMPN ---
Progress Note: A&P Assessment and Plan (1) Complete heart block: Code(s): I44.2 - Atrioventricular block, complete Status: Acute Assessment and Plan: Patient went into complete heart block on 07/21 requiring a transvenous pacemaker to be placed. Backup rate set at 40bpm. Remained stable and not requiring pacer so this was removed. Continue to monitor on tele. (2) Shock: Code(s): R57.9 - Shock, unspecified Status: Acute Assessment and Plan: Patient has developed shock with etiology unclear. Consider infectious etiology vs cardiac arrest/cardiogenic vs. hypovolemia from fluid removed post dialysis vs multifactorial. BCx NGTD; UCx negative. Patient being weaned off pressors. Continue IV abx. (3) Acute respiratory failure with hypoxia: Code(s): J96.01 - Acute respiratory failure with hypoxia Status: Acute Assessment and Plan: Patient presented to the ED for not feeling well but decompensated quickly requiring intubation for airway protection. CXR on admission (07/20) showing mild opacity lateral right midlung zone. Acute respiratory failure related to acute decompensation with altered mental status from bradycardia. Patient remains intubated and sedated. Appreciate intensvist input. (4) Cardiac arrest: Code(s): I46.9 - Cardiac arrest, cause unspecified Status: Acute Assessment and Plan: Patient had a brief cardiac arrest due to bradycardia that transitioned into asystole with ROSC with 1 round of epinephrine felt related to the hyperkalemia. Echo 07/20 showing EF>70%, Grade I diastolic dysfunction and mild /AI. Appreciate Cardiology input (5) Hyperkalemia: Code(s): E87.5 - Hyperkalemia Status: Acute Assessment and Plan: Patient presents with hyperkalemia (7.6). EKG showing sinus tachycardia with slow ventricular response in a 5:1 AV block, Rt BBB, LAFB, widened P waves and peaked T waves. Potassium normalized in the ED after being treated with appropriate medications. He did received HD later that day as well. Potassium remaining normal (6) End-stage renal disease on hemodialysis: Code(s): N18.6 - End stage renal disease; Z99.2 - Dependence on renal dialysis Status: Acute Assessment and Plan: Patient ESRD on HD M//. He has had HD 07/20 and 07/23. Nephrology consulted and appreciate their input (7) Acute UTI: Code(s): N39.0 - Urinary tract infection, site not specified Status: Acute Assessment and Plan: UA noted and concerning for UTI but UCx negative. Patient remains on ceftriaxone (8) Leukocytosis (leucocytosis): Qualifiers: Leukocytosis type: unspecified Qualified Code(s): D72.829 - Elevated white blood cell count, unspecified Code(s): D72.829 - Elevated white blood cell count, unspecified Status: Acute Assessment and Plan: WBC 35.7K on admission. Leukocytosis likely related to heart block/cardiac arrest, septic shock, and/or infection. Patient's WBC trending down and now normal. (9) DVT prophylaxis: Code(s): Z29.9 - Encounter for prophylactic measures, unspecified Status: Acute Assessment and Plan: Heparin subQ Subjective Date/time seen: 07/24/21 18:11 Interval history: 55yo male with ESRD here for n/v and found to have hyperkalemia, shock with respiratory failure. Patient intubated and sedated. Temporary pacer has been removed. Levophed attempting to be weaned off. Review of Systems Review of Systems: ROS unobtainable: Yes unobtainable due to endotracheal tube Exam Narrative: AF 98.3 152/65 95 16 98% mv Gen - intubated, sedated HEENT - NGT and ETT secured. Neck - left IJ TLC Chest - coarse BS anteriorly CV - RRR S1/S2; Tele showing probably artifact and not NSVT Abd - Soft, obese Ext - thrill and bruit in the LUE. right groin dressing clean, dry and intact. trace edema Neuro - sedated Skin - d
--- NOTE | 2021-07-24 20:19 | PC.NURSE ---
Unclear if 1800 metoclopramide given. Pt not on tube feedings. will administer midnight dose as ordered.
[2021-07-24 20:44] LABS: Glucose Point of Care 79 mg/dl (65-105)
[2021-07-24 22:08] LABS: Glucose Point of Care 84 mg/dl (65-105)
[2021-07-25] VITALS (40 sets, daily range): BP systolic 87–138; BP diastolic 48–73; PULSE 82–103; RESP 12–21; TEMP 35.5–37; O2SAT 93–98
--- NOTE | 2021-07-25 03:20 | PC.NURSE ---
Pt moved to new bed per ceiling lift due to surface malfunction .
[2021-07-25 03:50] LABS: Glucose Point of Care 93 mg/dl (65-105)
[2021-07-25] MEDS: HEPARIN SODIUM 5,000 UNITS/ML VIAL 5000 UNITS SUB-Q ×3 (05:15→22:11)
[2021-07-25] MEDS: METOCLOPRAMIDE HCL 10 MG/10 ML SOLN UDC PO ×3 (05:15→18:01)
[2021-07-25 05:17] LABS: Hematocrit 32.8 % (42.0-52.0); Hemoglobin 10.8 g/dL (14.0-18.0); Mean Corpuscular HGB Conc 32.9 g/dl (32-36); Mean Corpuscular Hemoglobin 35.4 pg (26-34); Mean Corpuscular Volume 107.5 fl (80-100); Mean Platelet Volume 10.2 fl (7.4-10.4); Platelet Count Result 133 k/mm3 (150-375); Red Blood Count 3.05 M/mm3 (4.6-6.20); Red Cell Distribution Width 14.4 % (11.5-14.5); White Blood Count 10.2 K/mm3 (4.5-10.0)
[2021-07-25 05:32] LABS: Lactic Acid Reflex 0.8 mmol/L (0.7-2.1)
[2021-07-25 05:32] LABS: Alveolar/Arterial O2 Gradient 90.6 mmHg; Base Excess ABG -0.5 mEq/l (+/-2.0); Carboxyhemoglobin 0.1 % THb (0-2.0); Fractional Inspired Oxygen 30 %; HCO3 ABG 23.3 mEq/l (22.0-26.0); Methemoglobin ABG 0.1 %THb (0-1.5); Oxygen Content ABG 15.9 %vol (16.0-22.0); Oxygen Saturation ABG 96.5 % (95.0-100.0); Oxyhemoglobin 95.2 % THb (90.0-100.0); PCO2 ABG 35.1 mmHg (35.0-45.0); PO2 ABG 82.1 mmHg (80.0-100.0); PO2 FiO2 Ratio Arterial Blood 2.74 %; Reduced Hemoglobin 4.6 %THb (0-5.0); Total Hemoglobin 11.8 g/dL (12.0-18.0); pH ABG 7.439 (7.350-7.450)
[2021-07-25 05:34] LABS: Arterial Blood Gas PEEP 5 cmH2O; Arterial Blood Gas Vent Mode SPONTANEOUS; Device VENTILATOR; Modified Allen's Test Pass; Site Drawn RIGHT RADIAL
[2021-07-25 05:35] LABS: Arterial Blood Gas Pressure Support 5 cmH2O
[2021-07-25 05:43] LABS: Alanine Aminotransferase 268 U/L (4-50); Albumin Level 3.6 g/dL (3.5-5.1); Alkaline Phosphatase 138 U/L (38-126); Anion Gap 13 mmol/L (8-16); Aspartate Amino Transferase 49 U/L (17-59); Bilirubin,Total 0.8 mg/dL (0.2-1.3); Blood Urea Nitrogen 50 mg/dL (9-20); Calcium 9.7 mg/dL (8.4-10.2); Carbon Dioxide 26 mmol/L (22-30); Chloride 97 mmol/L (98-107); Estimated CRCL calculation 12 ml/min; Estimated Glomerular Filt Rate 6; Glucose 110 mg/dL (65-110); Phosphorus 6.8 mg/dL (2.5-4.5); Potassium 4.8 mmol/L (3.4-5.0); Sodium 136 mmol/L (137-145)
--- NOTE | 2021-07-25 07:47 | PM.PNCARD ---
Progress Note: A&P Assessment and Plan (1) Hyperkalemia: Code(s): E87.5 - Hyperkalemia Status: Acute Assessment and Plan: Resolved with hemodialysis. (2) Cardiac arrest: Code(s): I46.9 - Cardiac arrest, cause unspecified Status: Acute Assessment and Plan: Was critically ill with septic shock. Had hyperkalemia and sudden cardiac arrest with ROSC with CPR and Epinephrine on day 1. Complete heart block returned and was in shock. Dr. Meadows emergently placed transvenous pacemaker. Pacing leads removed on 07/24/21 as he was not requiring any pacing for over 24 hours. No longer on Levophed drip and BP 125/70 mmHg and HR 76 bpm. Will assess need for permanent pacemaker once sepsis cleared and extubated and able to communicate this with patient. Developed shock liver that is resolving. Echo shows EF >70%, grade I diastolic dysfunction (E/e' 15), mild /AI. (3) End-stage renal disease on hemodialysis: Code(s): N18.6 - End stage renal disease; Z99.2 - Dependence on renal dialysis Status: Acute (4) Acute respiratory failure with hypoxia: Code(s): J96.01 - Acute respiratory failure with hypoxia Status: Acute Assessment and Plan: Due to hyperkalemia, sepsis, bradycardia. Potential extubation later today. (5) Acute UTI: Code(s): N39.0 - Urinary tract infection, site not specified Status: Acute Assessment and Plan: Urosepsis. On antibiotics per hospitalist. (6) Bradycardia: Code(s): R00.1 - Bradycardia, unspecified Status: Acute Assessment and Plan: Currently in sinus rhythm at 70's bpm. Off levophed drip. Subjective Date/time seen: 07/25/21 07:47 He is on ventilator, off sedation. Exam Const: Other: On ventilator. Resp: Auscultation: clear to auscultation bilaterally, no crackles, no rales, no rhonchi and no wheezes Cardio: Jugular venous distension: no JVD Rate: regular rate Rhythm: regular rhythm Heart sounds: no murmurs Peripheral pulses: dorsalis pedis present GI: GI Palp: Yes Soft to palpation Extrem: Right lower extremity: no edema Left lower extremity: no edema Objective Data Vital Signs Vital Signs: Vital Signs - 24 hr 07/24/21 08:00 07/24/21 09:48 07/24/21 10:00 Temperature 98.1 F Pulse Rate 73 68 70 Respiratory Rate 16 14 Blood Pressure 120/61 114/56 L Pulse Oximetry 96 96 96 07/24/21 11:10 07/24/21 11:42 07/24/21 12:00 Temperature 97.8 F Pulse Rate 98 76 72 Respiratory Rate 14 14 Blood Pressure 130/60 Pulse Oximetry 92 91 07/24/21 14:00 07/24/21 15:15 07/24/21 16:00 Temperature 98.3 F Pulse Rate 82 78 90 Respiratory Rate 11 L 20 Blood Pressure 135/61 130/79 Pulse Oximetry 93 94 96 07/24/21 18:00 07/24/21 18:27 07/24/21 19:45 Temperature 97.6 F Pulse Rate 95 97 94 Respiratory Rate 16 20 Blood Pressure 152/65 H 123/64 Pulse Oximetry 98 95 99 07/24/21 20:00 07/24/21 20:15 07/24/21 22:00 Temperature Pulse Rate 93 93 90 Respiratory Rate 12 Blood Pressure 137/81 Pulse Oximetry 99 99 07/24/21 22:24 07/24/21 23:15 07/25/21 00:00 Temperature 98.4 F Pulse Rate 88 93 92 Respiratory Rate 12 Blood Pressure 117/55 L 138/59 L Pulse Oximetry 95 95 07/25/21 01:12 07/25/21 01:45 07/25/21 02:00 Temperature Pulse Rate 95 92 96 Respiratory Rate 16 Blood Pressure 125/60 123/62 Pulse Oximetry 96 96 07/25/21 03:21 07/25/21 03:24 07/25/21 03:25 Temperature Pulse Rate 100 100 100 Respiratory Rate 15 15 Blood Pressure 138/73 Pulse Oximetry 07/25/21 04:00 07/25/21 05:14 07/25/21 06:00 Temperature 98.6 F Pulse Rate 94 98 94 Respiratory Rate 14 13 Blood Pressure 123/66 133/67 Pulse Oximetry 96 96 95 Intake/Output Intake/Output: Intake & Output 07/22/21 07/23/21 07/24/21 07/25/21 23:59 23:59 23:59 23:59 Intake Total 1010 1321 1062 564 Output Total 350 3325 400 200 Balance 660 -2003 506
[2021-07-25] MEDS: PANTOPRAZOLE SODIUM IV 40 MG VIAL IV PUSH (09:36)
--- NOTE | 2021-07-25 09:36 | WPDINTPN ---
Progress Note: A&P Assessment and Plan (1) Complete heart block: Code(s): I44.2 - Atrioventricular block, complete Status: Acute Assessment and Plan: Overnight on 07/21/2021 patient went into complete heart block and was being paced by the pacemaker pads, Cardiology was consulted who came and placed a transvenous pacemaker given patient's recent cardiac arrest on admission, bradycardia, shock -07/24/2021: transvenous pacemaker was removed by Cardiology Monitor (2) Shock: Code(s): R57.9 - Shock, unspecified Status: Acute Assessment and Plan: Shock could be multifactorial, infection, cardiac arrest, hypovolemia from fluid removed post dialysis -vasopressors have been weaned off -maintain mean arterial pressures greater than 65 mmHg -cultures or negatives in now -UA reflective of UTI, - currently on ceftriaxone, will discontinue vancomycin -lactic acid normalized -LFTs trending down likely related to shock liver (3) Acute respiratory failure with hypoxia: Code(s): J96.01 - Acute respiratory failure with hypoxia Status: Acute Assessment and Plan: Acute respiratory failure likely related to altered mental status due to bradycardia and airway protection -patient was placed on pressure support ventilation of 5/5 yesterday and had adequate RSBI and ABG per is not extubated as he was not fully awake. -plan to extubate today once patient is more awake -chest x-ray: Persistent diffuse bilateral airspace disease, pneumonia versus edema. No significant change -ABGs reviewed -Off sedation - patient was dialyzed yesterday and plan to dialyze him again today (4) Cardiac arrest: Code(s): I46.9 - Cardiac arrest, cause unspecified Status: Acute Assessment and Plan: Brief cardiac arrest after he you had bradycardia and went into asystole with ROSC with 1 round of epinephrine -could be related to hyperkalemia, bradyarrhythmia, septic shock -cardiology following the patient - echocardiogram pending -troponins negative x2 (5) Hyperkalemia: Code(s): E87.5 - Hyperkalemia Status: Acute Assessment and Plan: Hyperkalemia resolved before dialysis after being treated in the ER with albuterol nebulizer, insulin and D50, sodium bicarbonate and calcium (6) End-stage renal disease on hemodialysis: Code(s): N18.6 - End stage renal disease; Z99.2 - Dependence on renal dialysis Status: Acute Assessment and Plan: History of end-stage renal disease on dialysis, Mondays, Wednesdays, Fridays - he received dialysis yesterday in plan to dialyze today -nephrology following the patient (7) Acute UTI: Code(s): N39.0 - Urinary tract infection, site not specified Status: Acute Assessment and Plan: UA reflective of a UTI, patient is on ceftriaxone (8) DVT prophylaxis: Code(s): Z29.9 - Encounter for prophylactic measures, unspecified Status: Acute Assessment and Plan: DVT prophylaxis: Heparin subQ (9) Encephalopathy: Code(s): G93.40 - Encephalopathy, unspecified Status: Acute Assessment and Plan: Likely toxic metabolic encephalopathy as patient was on sedation earlier and has renal failure. Head CT on presentation was unremarkable Anticipate improvement after hemodialysis today. Check ammonia and TSH Additional Plan Stress ulcer prophylaxis: Protonix Nutrition: Tube feeds are currently on hold Code status: Full code Critical care time spent: 31 minutes This dictation may have been done utilizing a voice recognition system. Attempts have been made to correct errors. However, there may be uncorrected grammatical, spelling, and recognition errors present. Due to a high probability of clinically significant, life threatening deterioration, the patient required my highest level of preparedness to intervene emergently and I personally spent this critical care time directly and personally m
--- NOTE | 2021-07-25 09:39 | PM.PNNEP ---
Progress Note: A&P Assessment and Plan (1) End-stage renal disease on hemodialysis: Code(s): N18.6 - End stage renal disease; Z99.2 - Dependence on renal dialysis Status: Acute Assessment and Plan: # ESRD on HD MWF -trending down off any plans for extubation, D/w Dr Smith # hyperkalemia critically high. corrected. Most likely caused cardiac arrest. Potassium was treated in the emergency room and with the dialysis treatment it has been corrected. We will continue to monitor potassium level. # hypotension: BP is better # acute respiratory failure status post cardiac arrest. Patient is on the ventilator and sedated. Management per ICU critical care team. # sepsis most likely secondary UTI. Patient is on Rocephin 1 g 24 hours. Blood and urine cultures negative # GI prophylaxis on Protonix IV. # DVT prophylaxis on heparin 5000 units subcutaneously q.8 hours. Subjective Date/time seen: 07/25/21 09:39 Follow-up of ESRD Remains intubated Off sedation Reportedly more responsive Stirs a bit when knee with tactile stimuli Exam Const: General: no acute distress Nutritional Appearance: obese HENMT: Head: normal to inspection Eyes: Direct Ophthalmoscopy: other (keeps eyes shut) Neck: Neck: normal visual inspection Resp: Effort & Inspection: normal respiratory effort tactile fremitus present: other Other: Few coarse lung sounds Cardio: Rate: regular rate Rhythm: regular rhythm GI: Other: Seems to have some hepatomegaly Skin: General skin exam: normal color Rashes: no rashes Neuro: Other: Unable to evaluate Psych: Other: unable to evaluate Objective Data Vital Signs Vital Signs: Vital Signs - 24 hr 07/24/21 09:48 07/24/21 10:00 07/24/21 11:10 Temperature Pulse Rate 68 70 98 Respiratory Rate 14 14 Blood Pressure 114/56 L Pulse Oximetry 96 96 07/24/21 11:42 07/24/21 12:00 07/24/21 14:00 Temperature 36.6 C Pulse Rate 76 72 82 Respiratory Rate 14 11 L Blood Pressure 130/60 135/61 Pulse Oximetry 92 91 93 07/24/21 15:15 07/24/21 16:00 07/24/21 18:00 Temperature 36.8 C Pulse Rate 78 90 95 Respiratory Rate 20 16 Blood Pressure 130/79 152/65 H Pulse Oximetry 94 96 98 07/24/21 18:27 07/24/21 19:45 07/24/21 20:00 Temperature 36.4 C Pulse Rate 97 94 93 Respiratory Rate 20 Blood Pressure 123/64 Pulse Oximetry 95 99 07/24/21 20:15 07/24/21 22:00 07/24/21 22:24 Temperature Pulse Rate 93 90 88 Respiratory Rate 12 Blood Pressure 137/81 117/55 L Pulse Oximetry 99 99 07/24/21 23:15 07/25/21 00:00 07/25/21 01:12 Temperature 36.9 C Pulse Rate 93 92 95 Respiratory Rate 12 Blood Pressure 138/59 L 125/60 Pulse Oximetry 95 95 07/25/21 01:45 07/25/21 02:00 07/25/21 03:21 Temperature Pulse Rate 92 96 100 Respiratory Rate 16 15 Blood Pressure 123/62 Pulse Oximetry 96 96 07/25/21 03:24 07/25/21 03:25 07/25/21 04:00 Temperature 37.0 C Pulse Rate 100 100 94 Respiratory Rate 15 14 Blood Pressure 138/73 123/66 Pulse Oximetry 96 07/25/21 05:14 07/25/21 06:00 07/25/21 07:57 Temperature Pulse Rate 98 94 85 Respiratory Rate 13 Blood Pressure 133/67 Pulse Oximetry 96 95 96 07/25/21 08:00 Temperature 36.8 C Pulse Rate 86 Respiratory Rate 16 Blood Pressure 116/63 Pulse Oximetry 96 Intake/Output Intake/Output: Intake & Output 07/22/21 07/23/21 07/24/21 07/25/21 23:59 23:59 23:59 23:59 Intake Total 1010 1321 1062 564 Output Total 350 3325 400 200 Balance 660 2003 662 364 Meds/Results Medications: Active Medications Generic Name Dose Route Start Last Admin Trade Name Freq PRN Reason Stop Dose Admin Dextrose 12.5 gm 07/20/21 03:38 Dextrose 50% 25 Gm/50 Ml Syringe IV PUSH PRN PRN Hypoglycemia Protocol Glucagon 1 mg 07/20/21 03:38 Glucagon For Inj 1 Mg Vial IM PRN PRN Hypoglycemia Protocol Glucose 15 gm 07/20/21 03:38 Gl
[2021-07-25 10:39] LABS: Ammonia < 9 umol/L (9-30)
--- NOTE | 2021-07-25 11:41 | PCDIET ---
ICU Rounding Note: Tube feedings on hold for anticipated extubation. Recommend resuming Nepro at 20mL/hr and advancing toward goal of 50mL/hr if unable to extubate. Last recorded weight is 133.9kg which is increased from last review. Plan for dialysis today. Bowel Motility: Last documented BM on 07/22/21 x 1. Labs Reviewed: WBC (10.2), RBC (3.05), Hgb (10.8), Hct (32.8), BUN (50), Cr (9.0), Na (136), PO4 (6.8) Meds Noted: Rocephin, Protonix, Vancomycin, Fentanyl, Reglan, Versed, Levophed Additional Notes: Right groin incision documented; no pressure sores. Following daily in ICU rounds. Assessing/reassessing every Friday/Friday.
[2021-07-25] MEDS: EUCERIN CREAM 120 GM JAR 1 APPLIC TOPICAL (13:00)
--- NOTE | 2021-07-25 13:38 | PC.NURSE ---
spoke with daughter Stefany - patient condition update provided. Daughter requests to speak with carpenter general when he is available.
--- NOTE | 2021-07-25 18:15 | PM.IMPN ---
Progress Note: A&P Assessment and Plan (1) Complete heart block: Code(s): I44.2 - Atrioventricular block, complete Status: Acute Assessment and Plan: Patient went into complete heart block on 07/21 requiring a transvenous pacemaker to be placed. Backup rate set at 40bpm. Remained stable and not requiring pacer so this was removed. Continue to monitor on tele. (2) Shock: Code(s): R57.9 - Shock, unspecified Status: Acute Assessment and Plan: Patient has developed shock with etiology unclear. Consider infectious etiology vs cardiac arrest/cardiogenic vs. hypovolemia from fluid removed post dialysis vs multifactorial. BCx NGTD; UCx negative. Patient weaned off pressors 07/24. Continue IV abx. (3) Acute respiratory failure with hypoxia: Code(s): J96.01 - Acute respiratory failure with hypoxia Status: Acute Assessment and Plan: Patient presented to the ED for not feeling well but decompensated quickly requiring intubation for airway protection. CXR on admission (07/20) showing mild opacity lateral right midlung zone. Acute respiratory failure related to acute decompensation with altered mental status from bradycardia. Patient remains intubated and sedated. Appreciate brush machine setter input. (4) Cardiac arrest: Code(s): I46.9 - Cardiac arrest, cause unspecified Status: Acute Assessment and Plan: Patient had a brief cardiac arrest from bradycardia that transitioned into asystole with ROSC with 1 round of epinephrine felt related to the hyperkalemia. Echo 07/20 showing EF>70%, Grade I diastolic dysfunction and mild /AI. Appreciate Cardiology input (5) Hyperkalemia: Code(s): E87.5 - Hyperkalemia Status: Acute Assessment and Plan: Patient presents with hyperkalemia (7.6). EKG showing sinus tachycardia with slow ventricular response in a 5:1 AV block, Rt BBB, LAFB, widened P waves and peaked T waves. Potassium normalized in the ED after being treated with appropriate medications. He did received HD later that day as well. Potassium remaining normal (6) End-stage renal disease on hemodialysis: Code(s): N18.6 - End stage renal disease; Z99.2 - Dependence on renal dialysis Status: Acute Assessment and Plan: Patient ESRD on HD M/W/F. He has had HD 07/20, 07/23 and today. Nephrology consulted and appreciate their input (7) Acute UTI: Code(s): N39.0 - Urinary tract infection, site not specified Status: Acute Assessment and Plan: UA noted and concerning for UTI but UCx negative. Patient remains on ceftriaxone (8) Leukocytosis (leucocytosis): Qualifiers: Leukocytosis type: unspecified Qualified Code(s): D72.829 - Elevated white blood cell count, unspecified Code(s): D72.829 - Elevated white blood cell count, unspecified Status: Acute Assessment and Plan: WBC 35.7K on admission. Leukocytosis likely related to heart block/cardiac arrest, septic shock, and/or infection. Patient's WBC trending down and close to normal. (9) DVT prophylaxis: Code(s): Z29.9 - Encounter for prophylactic measures, unspecified Status: Acute Assessment and Plan: Heparin subQ Subjective Date/time seen: 07/25/21 18:15 Interval history: 55yo male with ESRD here for n/v and found to have hyperkalemia, shock with respiratory failure. Patient intubated but off sedation. Finishing up with HD today. 1L removed due to soft BP. Patient is waking up but does not follow commands. Dtr stated patient has bad neuropathy in the left hand/arm. Pressors weaned off 07/24 Review of Systems Review of Systems: ROS unobtainable: Yes unobtainable due to endotracheal tube Exam Narrative: AF 97.4 105/54 98 16 96% mv Gen - intubated HEENT - NGT and ETT secured. Neck - left IJ TLC Chest - lungs clear anteriorly CV - RRR S1/S2; Tele showing no significant dysrhythmias Abd - Soft, ob
[2021-07-25 21:36] LABS: Vancomycin Random 15.7 ug/mL (10-20)
[2021-07-26] VITALS (22 sets, daily range): BP systolic 103–149; BP diastolic 51–85; PULSE 87–107; RESP 17–29; TEMP 36.4–37.3; O2SAT 94–99
[2021-07-26] MEDS: METOCLOPRAMIDE HCL 10 MG/10 ML SOLN UDC PO ×4 (00:11→16:46)
[2021-07-26 05:36] LABS: Alveolar/Arterial O2 Gradient 98.2 mmHg; Base Excess ABG 2.2 mEq/l (+/-2.0); Fractional Inspired Oxygen 30 %; Methemoglobin ABG 0.1 %THb (0-1.5); Oxygen Content ABG 15.3 %vol (16.0-22.0); Oxygen Saturation ABG 95.3 % (95.0-100.0); Oxyhemoglobin 93.4 % THb (90.0-100.0); PCO2 ABG 37.4 mmHg (35.0-45.0); PO2 ABG 71.8 mmHg (80.0-100.0); PO2 FiO2 Ratio Arterial Blood 2.39 %; Reduced Hemoglobin 6.5 %THb (0-5.0); Total Hemoglobin 11.6 g/dL (12.0-18.0)
[2021-07-26 05:37] LABS: Device VENTILATOR; Site Drawn RIGHT RADIAL
[2021-07-26 05:39] LABS: Arterial Blood Gas Minute Volume 11.7 LPM; Arterial Blood Gas PEEP 5 cmH2O; Arterial Blood Gas Vent Mode SPONTANEOUS
[2021-07-26] MEDS: HEPARIN SODIUM 5,000 UNITS/ML VIAL 5000 UNITS SUB-Q ×3 (05:42→21:01)
[2021-07-26 05:55] LABS: Hematocrit 32.2 % (42.0-52.0); Hemoglobin 10.5 g/dL (14.0-18.0); Mean Corpuscular HGB Conc 32.6 g/dl (32-36); Mean Corpuscular Volume 107.3 fl (80-100); Mean Platelet Volume 10.1 fl (7.4-10.4); Platelet Count Result 142 k/mm3 (150-375); Red Cell Distribution Width 14.5 % (11.5-14.5); White Blood Count 10.4 K/mm3 (4.5-10.0)
[2021-07-26 06:11] LABS: Alanine Aminotransferase 178 U/L (4-50); Albumin Level 3.5 g/dL (3.5-5.1); Alkaline Phosphatase 141 U/L (38-126); Anion Gap 10 mmol/L (8-16); Aspartate Amino Transferase 40 U/L (17-59); Bilirubin,Total 0.7 mg/dL (0.2-1.3); Blood Urea Nitrogen 39 mg/dL (9-20); Calcium 9.6 mg/dL (8.4-10.2); Carbon Dioxide 29 mmol/L (22-30); Chloride 98 mmol/L (98-107); Estimated CRCL calculation 15 ml/min; Estimated Glomerular Filt Rate 8; Glucose 109 mg/dL (65-110); Potassium 3.7 mmol/L (3.4-5.0); Sodium 137 mmol/L (137-145)
--- NOTE | 2021-07-26 08:24 | PM.PNCARD ---
Progress Note: A&P Assessment and Plan (1) Hyperkalemia: Code(s): E87.5 - Hyperkalemia Status: Acute Assessment and Plan: Resolved with hemodialysis. (2) Cardiac arrest: Code(s): I46.9 - Cardiac arrest, cause unspecified Status: Acute Assessment and Plan: Was critically ill with septic shock. Had hyperkalemia and sudden cardiac arrest with ROSC with CPR and Epinephrine on day 1. Complete heart block returned and was in shock. Dr. Meadows emergently placed transvenous pacemaker. Pacing leads removed on 07/24/21 as he was not requiring any pacing for over 24 hours. No longer on Levophed drip and BP 105/73 mmHg and HR 103 bpm. Will assess need for permanent pacemaker once sepsis cleared and extubated and able to communicate this with patient. Developed shock liver that is resolving. Echo shows EF >70%, grade I diastolic dysfunction (E/e' 15), mild /AI. (3) End-stage renal disease on hemodialysis: Code(s): N18.6 - End stage renal disease; Z99.2 - Dependence on renal dialysis Status: Acute (4) Acute respiratory failure with hypoxia: Code(s): J96.01 - Acute respiratory failure with hypoxia Status: Acute Assessment and Plan: Due to hyperkalemia, sepsis, bradycardia. Potential extubation later today. (5) Acute UTI: Code(s): N39.0 - Urinary tract infection, site not specified Status: Acute Assessment and Plan: Urosepsis. On antibiotics per hospitalist. (6) Bradycardia: Code(s): R00.1 - Bradycardia, unspecified Status: Acute Assessment and Plan: Currently in sinus rhythm at 103 bpm. Off levophed drip. Going for CT head this morning. Subjective Date/time seen: 07/26/21 08:24 Patient is on ventilator. Off sedation. Exam Const: Other: On ventilator. Resp: Auscultation: clear to auscultation bilaterally, no crackles, no rales, no rhonchi and no wheezes Cardio: Jugular venous distension: no JVD Rate: tachycardic Rhythm: regular rhythm Heart sounds: no murmurs Peripheral pulses: dorsalis pedis present GI: GI Palp: Yes Soft to palpation Extrem: Right lower extremity: no edema Left lower extremity: no edema Objective Data Vital Signs Vital Signs: Vital Signs - 24 hr 07/25/21 10:00 07/25/21 11:24 07/25/21 12:00 Temperature 98.2 F Pulse Rate 88 89 90 Respiratory Rate 17 19 Blood Pressure 120/61 115/66 Pulse Oximetry 96 96 96 07/25/21 14:00 07/25/21 14:05 07/25/21 14:23 Temperature 97.3 F L Pulse Rate 85 86 83 Respiratory Rate 15 16 Blood Pressure 100/51 L 103/50 L 108/51 L Pulse Oximetry 94 95 07/25/21 14:30 07/25/21 14:40 07/25/21 14:45 Temperature Pulse Rate 82 85 91 Respiratory Rate Blood Pressure 104/51 L 102/50 L Pulse Oximetry 95 07/25/21 15:00 07/25/21 15:15 07/25/21 15:20 Temperature Pulse Rate 87 87 91 Respiratory Rate Blood Pressure 106/55 L 87/55 L 109/60 Pulse Oximetry 07/25/21 15:30 07/25/21 15:45 07/25/21 16:00 Temperature 98.2 F Pulse Rate 87 89 98 Respiratory Rate 16 Blood Pressure 100/53 L 104/48 L 104/53 L Pulse Oximetry 96 07/25/21 16:15 07/25/21 16:30 07/25/21 16:45 Temperature Pulse Rate 89 93 94 Respiratory Rate Blood Pressure 104/53 L 114/56 L 102/56 L Pulse Oximetry 07/25/21 17:00 07/25/21 17:15 07/25/21 17:30 Temperature Pulse Rate 95 94 97 Respiratory Rate Blood Pressure 113/52 L 103/56 L Pulse Oximetry 95 07/25/21 17:32 07/25/21 17:45 07/25/21 18:00 Temperature 97.4 F L Pulse Rate 98 98 99 Respiratory Rate 16 16 Blood Pressure 112/57 L 105/54 L 119/51 L Pulse Oximetry 96 95 07/25/21 20:00 07/25/21 20:06 07/25/21 22:00 Temperature 98.3 F Pulse Rate 103 H 102 H 95 Respiratory Rate 20 18 Blood Pressure 121/70 132/64 Pulse Oximetry 98 94 98 07/25/21 22:48 07/26/21 00:00 10/07/21 02:00 Temperature 98.6 F Pulse Rate 96 100 97 Respiratory Rate 18 17
--- NOTE | 2021-07-26 08:28 | ECG_ITS ---
Measurements Intervals [place] Rate: 93 P: 50 AL: 166 QRS: -49 QRSD: 192 T: 75 QT: 395 QTc: 492 Interpretive Statements SINUS RHYTHM RIGHT BUNDLE BRANCH BLOCK LEFT ANTERIOR FASCICULAR BLOCK ABNORMAL ECG Electronically Signed On 07-27-2021 7:32:07 CDT by Daniel Domingo D.O.
--- NOTE | 2021-07-26 08:32 | PC.NURSE ---
Returned from CT of head, RN with patient throughout transfer.
--- NOTE | 2021-07-26 08:44 | WPDINTPN ---
Progress Note: A&P Assessment and Plan (1) Acute respiratory failure with hypoxia: Code(s): J96.01 - Acute respiratory failure with hypoxia Status: Acute Assessment and Plan: Acute respiratory failure likely related to altered mental status due to bradycardia and airway protection -patient was placed on pressure support ventilation of 5/5 yesterday and had adequate RSBI and ABG per is not extubated as he was not fully awake. -plan to extubate today once patient is more awakeContinue fluid removal with dialysis -ABGs reviewed -Off sedation - patient was dialyzed yesterday. -chest x-ray: Persistent diffuse bilateral airspace disease, pneumonia versus edema. No significant change. (2) Encephalopathy: Code(s): G93.40 - Encephalopathy, unspecified Status: Acute Assessment and Plan: Likely toxic metabolic encephalopathy as patient was on sedation earlier and has renal failure but patient has been off of sedation for now 2 days and has not woken up consistently Head CT on presentation was unremarkable and I repeated head CT this morning and again it was negative acute changes Ammonia and TSH were normal ? Anoxic injury I will also order EEG and Neurology consult Continue to hold sedation (3) Shock: Code(s): R57.9 - Shock, unspecified Status: Acute Assessment and Plan: Shock could be multifactorial, infection, cardiac arrest, hypovolemia from fluid removed post dialysis -vasopressors have been weaned off -maintain mean arterial pressures greater than 65 mmHg -cultures or negatives in now -UA reflective of UTI, - currently on ceftriaxone, Off vancomycin -lactic acid normalized -LFTs trending down likely related to shock liver (4) Cardiac arrest: Code(s): I46.9 - Cardiac arrest, cause unspecified Status: Acute Assessment and Plan: Brief cardiac arrest after he you had bradycardia and went into asystole with ROSC with 1 round of epinephrine -could be related to hyperkalemia, bradyarrhythmia, septic shock -troponins negative x2 -cardiology following the patient - echocardiogram Summary 1. Complete two-dimensional, color flow and Doppler transthoracic echocardiogram is performed. 2. Left ventricular chamber dimension is normal. 3. Left ventricular systolic function is hyperdynamic, estimated at >70%. 4. The left ventricular diastolic function is grade I diastolic dysfunction. 5. E/e' 15 is elevated. 6. There is moderate aortic valve sclerosis. 7. There is mild aortic valve stenosis with a peak velocity of 315 cm/s, mean gradient of 22 mmHg, and aortic valve area of 1.6 cm2. 8. There is mild aortic valve regurgitation. (5) End-stage renal disease on hemodialysis: Code(s): N18.6 - End stage renal disease; Z99.2 - Dependence on renal dialysis Status: Acute Assessment and Plan: History of end-stage renal disease on dialysis, Mondays, Wednesdays, Fridays - he received dialysis yesterday -nephrology following the patient (6) Hyperkalemia: Code(s): E87.5 - Hyperkalemia Status: Acute Assessment and Plan: Hyperkalemia resolved before dialysis after being treated in the ER with albuterol nebulizer, insulin and D50, sodium bicarbonate and calcium (7) Acute UTI: Code(s): N39.0 - Urinary tract infection, site not specified Status: Acute Assessment and Plan: UA reflective of a UTI, patient is on ceftriaxone (8) Complete heart block: Code(s): I44.2 - Atrioventricular block, complete Status: Acute Assessment and Plan: Overnight on 07/21/2021 patient went into complete heart block and was being paced by the pacemaker pads, Cardiology was consulted who came and placed a transvenous pacemaker given patient's recent cardiac arrest on admission, bradycardia, shock -07/24/2021: transvenous pacemaker was removed by Cardiology Monitor (9) DVT prophylaxis: Code(s): Z29.9 - Encoun
--- NOTE | 2021-07-26 09:49 | PM.IMPN ---
Progress Note: A&P Assessment and Plan (1) Complete heart block: Code(s): I44.2 - Atrioventricular block, complete Status: Acute Assessment and Plan: Patient went into complete heart block on 07/21 requiring a transvenous pacemaker to be placed. Backup rate set at 40bpm. Remained stable and not requiring pacer so this was removed. Continue to monitor on tele. (2) Shock: Code(s): R57.9 - Shock, unspecified Status: Acute Assessment and Plan: Patient has developed shock with etiology unclear. Consider infectious etiology vs cardiac arrest/cardiogenic vs. hypovolemia from fluid removed post dialysis vs multifactorial. BCx and UCx negative. Patient weaned off pressors 07/24. Stop IV abx? (3) Acute respiratory failure with hypoxia: Code(s): J96.01 - Acute respiratory failure with hypoxia Status: Acute Assessment and Plan: Patient presented to the ED for not feeling well but decompensated quickly requiring intubation for airway protection. CXR on admission (07/20) showing mild opacity lateral right midlung zone. Acute respiratory failure related to acute decompensation with altered mental status from bradycardia. Patient remains intubated and unresponsive but not on sedation. May take some time for the sedation to breakdown in his system. CT brain okay. Monitor neurologic changes. Consider EEG if no improvement. Appreciate diesel inspector input. (4) Cardiac arrest: Code(s): I46.9 - Cardiac arrest, cause unspecified Status: Acute Assessment and Plan: Patient had a brief cardiac arrest from bradycardia that transitioned into asystole with ROSC with 1 round of epinephrine felt related to the hyperkalemia. Echo 07/20 showing EF>70%, Grade I diastolic dysfunction and mild /AI. Appreciate Cardiology input (5) Hyperkalemia: Code(s): E87.5 - Hyperkalemia Status: Acute Assessment and Plan: Patient presents with hyperkalemia (7.6). EKG showing sinus tachycardia with slow ventricular response in a 5:1 AV block, Rt BBB, LAFB, widened P waves and peaked T waves. Potassium normalized in the ED after being treated with appropriate medications. He did received HD later that day as well. Potassium remaining normal (6) End-stage renal disease on hemodialysis: Code(s): N18.6 - End stage renal disease; Z99.2 - Dependence on renal dialysis Status: Acute Assessment and Plan: Patient ESRD on HD M/W/F. He has had HD 07/20, 07/23 and 07/25. Nephrology consulted and appreciate their input (7) Acute UTI: Code(s): N39.0 - Urinary tract infection, site not specified Status: Acute Assessment and Plan: UA noted and concerning for UTI but UCx negative. Patient remains on ceftriaxone (8) Leukocytosis (leucocytosis): Qualifiers: Leukocytosis type: unspecified Qualified Code(s): D72.829 - Elevated white blood cell count, unspecified Code(s): D72.829 - Elevated white blood cell count, unspecified Status: Acute Assessment and Plan: WBC 35.7K on admission. Leukocytosis likely related to heart block/cardiac arrest, septic shock, and/or infection. Patient's WBC trending down and close to normal. (9) DVT prophylaxis: Code(s): Z29.9 - Encounter for prophylactic measures, unspecified Status: Acute Assessment and Plan: Heparin subQ Subjective Date/time seen: 07/26/21 09:49 Interval history: 55yo male with ESRD here for n/v and found to have hyperkalemia, shock with respiratory failure. Patient intubated but off sedation. Patient had HD yesterday and 1L removed. Patient appeared to become more obtunded overnight but CT brain showing no acute findings. Patietn stirs now to voice but does not open eyes or follow commands. Pressors weaned off 07/24. Toelrating TF Review of Systems Review of Systems: ROS unobtainable: Yes unobtainable due to endotracheal tube Exam [place]
--- NOTE | 2021-07-26 10:50 | PCDIET ---
ICU Rounding Note: Patient tolerating Nepro at 20mL/hr with 30mL water flush every 4 hours. MD ordered to leave Nepro at 20mL/hr for possible extubation. Recommend advancing toward goal of 50mL/hr if unable to extubate. Last recorded weight is 132kg which is down from last review. -I/O. Patient had 1L UF on 07/25/21. Bowel Motility: Last documented BM on 07/22/21 x 1. Labs Reviewed: WBC (10.4), RBC (3.00), Hgb (10.5), Hct (32.2), BUN (39), Cr (6.9) Meds Noted: Rocephin, Reglan, Levophed, Protonix Additional Notes: Blister to right buttock documented. Following daily in ICU rounds. Assessing/reassessing every Friday/Friday.
[2021-07-26] MEDS: PANTOPRAZOLE SODIUM IV 40 MG VIAL IV PUSH (11:31)
[2021-07-26] MEDS: EUCERIN CREAM 120 GM JAR 1 APPLIC TOPICAL (11:31)
--- NOTE | 2021-07-26 17:36 | PM.PNNEP ---
Progress Note: A&P Assessment and Plan (1) End-stage renal disease on hemodialysis: Code(s): N18.6 - End stage renal disease; Z99.2 - Dependence on renal dialysis Status: Acute Assessment and Plan: # ESRD on HD MWF -plan dialysis tomorrow # hyperkalemia: Correct. # hypotension: BP is better # acute respiratory failure status post cardiac arrest. Patient is on the ventilator and sedated. Management per ICU critical care team. # sepsis most likely secondary UTI. Patient is on Rocephin 1 g 24 hours. Blood and urine cultures negative # GI prophylaxis on Protonix IV. # DVT prophylaxis on heparin 5000 units subcutaneously q.8 hours # respiratory failure. Not fully awake to be extubated. Subjective Date/time seen: 07/26/21 17:36 Remains intubated Exam Narrative: Comfortable with breathing at rest, no significant injury ascitic follow-up regular rate rhythm, lungs clear all soft abdomen, edema negative, left upper arm AV fistula patent. Essentially unchanged exam Objective Data Vital Signs Vital Signs: Vital Signs - 24 hr 07/25/21 17:45 07/25/21 18:00 07/25/21 20:00 Temperature 36.3 C L 36.8 C Pulse Rate 98 99 103 H Respiratory Rate 16 16 20 Blood Pressure 105/54 L 119/51 L 121/70 Pulse Oximetry 96 95 98 07/25/21 20:06 07/25/21 22:00 07/25/21 22:48 Temperature Pulse Rate 102 H 95 96 Respiratory Rate 18 Blood Pressure 132/64 Pulse Oximetry 94 98 97 07/26/21 00:00 07/26/21 02:00 07/26/21 02:12 Temperature 37.0 C Pulse Rate 100 97 103 H Respiratory Rate 18 17 Blood Pressure 149/76 H 127/72 Pulse Oximetry 97 97 97 07/26/21 04:00 07/26/21 05:20 07/26/21 05:49 Temperature 37.3 C Pulse Rate 106 H 101 H 100 Respiratory Rate 28 H Blood Pressure 130/65 Pulse Oximetry 98 98 07/26/21 05:50 07/26/21 08:00 07/26/21 09:02 Temperature 36.4 C L Pulse Rate 100 101 H 95 Respiratory Rate 22 H 20 Blood Pressure 108/64 103/52 L Pulse Oximetry 98 97 98 07/26/21 10:00 07/26/21 11:50 07/26/21 12:00 Temperature 36.9 C Pulse Rate 93 90 99 Respiratory Rate 21 H 26 H Blood Pressure 110/55 L 140/85 Pulse Oximetry 98 98 94 07/26/21 12:28 07/26/21 14:00 07/26/21 15:25 Temperature Pulse Rate 92 95 88 Respiratory Rate 23 H Blood Pressure 146/71 H Pulse Oximetry 98 96 96 07/26/21 16:00 Temperature 37.0 C Pulse Rate 87 Respiratory Rate 20 Blood Pressure 127/70 Pulse Oximetry 97 Intake/Output Intake/Output: Intake & Output 07/23/21 07/24/21 07/25/21 07/26/21 23:59 23:59 23:59 23:59 Intake Total 1321 1062 704 302 Output Total 3325 400 1450 200 [facility] -2003 100 -685 102 Meds/Results Medications: Active Medications Generic Name Dose Route Start Last Admin Trade Name Freq PRN Reason Stop Dose Admin Dextrose 12.5 gm 07/20/21 03:38 Dextrose 50% 25 Gm/50 Ml Syringe IV PUSH PRN PRN Hypoglycemia Protocol Glucagon 1 mg 07/20/21 03:38 Glucagon For Inj 1 Mg Vial IM PRN PRN Hypoglycemia Protocol Glucose 15 gm 07/20/21 03:38 Glucose Oral Gel 15 Gm Of Glucse In 37.5 Gm Tube PO PRN PRN Hypoglycemia Protocol Heparin Sodium (Porcine) 5,000 units 07/20/21 14:00 07/26/21 16:46 Heparin Sodium 5,000 Units/Ml Vial SUB-Q 5,000 units Q8HR GRAEME Administration Ceftriaxone Sodium/Dextrose 1 gm in 50 mls @ 100 mls/hr 07/20/21 22:00 07/25/21 22:45 Rocephin 1 Gm/D5w 50 Ml IVPB Infused Q24H GRAEME Infusion Dextrose 1,000 mls @ 100 mls/hr 07/20/21 03:38 Dextrose 5% 1,000 Ml IVPB PRN PRN Hypoglycemia Protocol Norepinephrine Bitartrate 8 mg in 250 mls @ 0 mls/hr 07/20/21 06:50 07/25/21 03:25 Levophed 8 Mg/D5w 250 Ml IV CONT Infused .Q0M GRAEME Titration Protocol 0 MCG/MIN Metoclopramide HCl 10 mg 07/24/21 08:00 10/07/21 16:46 Metoclopramide Hcl 10 Mg/10 Ml Soln Udc PO 10 mg Q6HR GRAEME Administration Multi-Ingred Cream
[2021-07-27] VITALS (37 sets, daily range): BP systolic 107–149; BP diastolic 54–79; PULSE 85–118; RESP 14–29; TEMP 35.5–37.6; O2SAT 89–100
[2021-07-27] MEDS: METOCLOPRAMIDE HCL 10 MG/10 ML SOLN UDC PO ×4 (00:57→18:44)
[2021-07-27 04:38] LABS: Hematocrit 32.5 % (42.0-52.0); Hemoglobin 10.5 g/dL (14.0-18.0); Mean Corpuscular HGB Conc 32.3 g/dl (32-36); Mean Corpuscular Hemoglobin 35.1 pg (26-34); Mean Corpuscular Volume 108.7 fl (80-100); Mean Platelet Volume 9.8 fl (7.4-10.4); Platelet Count Result 138 k/mm3 (150-375); Red Blood Count 2.99 M/mm3 (4.6-6.20); Red Cell Distribution Width 14.4 % (11.5-14.5)
[2021-07-27 05:01] LABS: Alanine Aminotransferase 121 U/L (4-50); Albumin Level 3.5 g/dL (3.5-5.1); Alkaline Phosphatase 133 U/L (38-126); Anion Gap 11 mmol/L (8-16); Aspartate Amino Transferase 37 U/L (17-59); Bilirubin,Total 0.6 mg/dL (0.2-1.3); Blood Urea Nitrogen 59 mg/dL (9-20); Calcium 10.2 mg/dL (8.4-10.2); Carbon Dioxide 28 mmol/L (22-30); Chloride 98 mmol/L (98-107); Estimated CRCL calculation 12 ml/min; Estimated Glomerular Filt Rate 7; Glucose 102 mg/dL (65-110); Magnesium 2.2 mg/dL (1.6-2.3); Potassium 3.9 mmol/L (3.4-5.0); Sodium 137 mmol/L (137-145)
[2021-07-27] MEDS: HEPARIN SODIUM 5,000 UNITS/ML VIAL 5000 UNITS SUB-Q ×2 (05:58→22:41)
--- NOTE | 2021-07-27 07:21 | PM.PNCARD ---
Progress Note: A&P Assessment and Plan (1) Hyperkalemia: Code(s): E87.5 - Hyperkalemia Status: Acute Assessment and Plan: Resolved with hemodialysis. (2) Cardiac arrest: Code(s): I46.9 - Cardiac arrest, cause unspecified Status: Acute Assessment and Plan: Was critically ill with septic shock. Had hyperkalemia and sudden cardiac arrest with ROSC with CPR and Epinephrine on day 1. Complete heart block returned and was in shock. Dr. Meadows emergently placed transvenous pacemaker. Pacing leads removed on 07/24/21 as he was not requiring any pacing for over 24 hours. No longer on Levophed drip and BP 90/46 mmHg and HR 80 bpm. Monitor BP and keep mean BP at least 60 mmHg. Will assess need for permanent pacemaker once sepsis cleared and extubated and able to communicate this with patient. Developed shock liver that is resolving. Echo shows EF >70%, grade I diastolic dysfunction (E/e' 15), mild /AI. (3) End-stage renal disease on hemodialysis: Code(s): N18.6 - End stage renal disease; Z99.2 - Dependence on renal dialysis Status: Acute (4) Acute respiratory failure with hypoxia: Code(s): J96.01 - Acute respiratory failure with hypoxia Status: Acute Assessment and Plan: Due to hyperkalemia, sepsis, bradycardia. Potential extubation later today. (5) Acute UTI: Code(s): N39.0 - Urinary tract infection, site not specified Status: Acute Assessment and Plan: Urosepsis. On antibiotics per hospitalist. (6) Bradycardia: Code(s): R00.1 - Bradycardia, unspecified Status: Acute Assessment and Plan: Currently in sinus rhythm at 80 bpm. Off levophed drip. Subjective Date/time seen: 07/27/21 07:21 He is on ventilator but not waking up, off sedation. Exam Const: Other: On ventilator. Resp: Auscultation: clear to auscultation bilaterally, no crackles, no rales, no rhonchi and no wheezes Cardio: Jugular venous distension: no JVD Rate: tachycardic Rhythm: regular rhythm Heart sounds: no murmurs Peripheral pulses: dorsalis pedis present GI: GI Palp: Yes Soft to palpation Extrem: Right lower extremity: no edema Left lower extremity: no edema Objective Data Vital Signs Vital Signs: Vital Signs - 24 hr 07/26/21 08:00 07/26/21 09:02 07/26/21 10:00 Temperature 97.5 F L Pulse Rate 94 95 93 Respiratory Rate 21 H 21 H Blood Pressure 103/52 L 110/55 L Pulse Oximetry 96 98 98 07/26/21 11:50 07/26/21 12:00 07/26/21 12:28 Temperature 98.4 F Pulse Rate 90 99 92 Respiratory Rate 29 H Blood Pressure 140/85 Pulse Oximetry 98 96 98 07/26/21 14:00 07/26/21 15:25 07/26/21 16:00 Temperature 98.6 F Pulse Rate 95 88 90 Respiratory Rate 23 H 29 H Blood Pressure 146/71 H 127/70 Pulse Oximetry 96 96 98 07/26/21 17:40 07/26/21 18:00 07/26/21 20:00 Temperature 98.4 F Pulse Rate 93 94 90 Respiratory Rate 21 H 21 H Blood Pressure 116/58 L 121/53 L Pulse Oximetry 96 96 96 07/26/21 20:42 07/26/21 22:00 07/26/21 23:46 Temperature Pulse Rate 89 90 92 Respiratory Rate 22 H Blood Pressure 116/51 L Pulse Oximetry 99 96 96 07/27/21 00:00 07/27/21 02:00 07/27/21 02:42 Temperature 98.8 F Pulse Rate 93 93 94 Respiratory Rate 22 H 20 Blood Pressure 130/63 116/62 Pulse Oximetry 95 97 97 07/27/21 04:00 07/27/21 05:58 07/27/21 05:59 Temperature 99.7 F H Pulse Rate 95 93 93 Respiratory Rate 23 H 22 H Blood Pressure 117/67 113/59 L Pulse Oximetry 96 95 Intake/Output Intake/Output: Intake & Output 07/24/21 07/25/21 07/26/21 07/27/21 23:59 23:59 23:59 23:59 Intake Total 1062 704 731 359 Output Total 400 1450 400 325 Balance 469 -390 331 34 Meds/Results Medications: Active Medications Generic Name Dose Route Start Last Admin Trade Name Freq PRN Reason Stop Dose Admin Dextrose 12.5 gm 07/20/21 03:38 Dextrose 50% 25 Gm/50 Ml Syringe IV PUSH PRN P
[2021-07-27] MEDS: PANTOPRAZOLE SODIUM IV 40 MG VIAL IV PUSH (09:20)
[2021-07-27] MEDS: EUCERIN CREAM 120 GM JAR 1 APPLIC TOPICAL (09:21)
--- NOTE | 2021-07-27 09:43 | WPDNEUROLOGY ---
Neurology EEG Report General Information Date of Study: 07/26/21 TEST eeg DIAGNOSIS unrespnsive CONDITION OF RECORDING Unresponsive EEG NUMBER [id number] CLINICAL HISTORY unresponsive EEG DESCRIPTION whole record consists of medium to high voltage 1 to 3 hertz per 2nd delta activity admixed with intermittent decrement in the amplitude for 1 to 2 seconds throughout the tracing. Bihemispheric sleep activity seen. Hyperventilation not done. Photic stimulation not done. Non paroxysmal. Nonlateralizing. Nonfocal. IMPRESSION abnormal record due to presence of bihemispheric delta and theta activity admixed with intermittent low cortical activity for 1 to 2 seconds. These abnormalities are consistent with diffuse organic or metabolic encephalopathy. There is no evidence of seizure throughout the tracing but activities could be suggestive of underlying hypoxic dysfunction
--- NOTE | 2021-07-27 09:50 | WPDINTPN ---
Progress Note: A&P Assessment and Plan (1) Acute respiratory failure with hypoxia: Code(s): J96.01 - Acute respiratory failure with hypoxia Status: Acute Assessment and Plan: Acute respiratory failure likely related to altered mental status due to bradycardia and airway protection -patient was placed on pressure support ventilation of 5/5 yesterday and had adequate RSBI and ABG per is not extubated as he was not fully awake. -plan to extubate today once patient is more awake -Continue fluid removal with dialysis -ABGs reviewed -Off sedation - patient was dialyzed yesterday. -chest x-ray: Persistent diffuse bilateral airspace disease, pneumonia versus edema. No significant change. (2) Encephalopathy: Code(s): G93.40 - Encephalopathy, unspecified Status: Acute Assessment and Plan: Likely toxic metabolic encephalopathy as patient was on sedation earlier and has renal failure but patient has been off of sedation for now 2 days and is waking up slowly. His neuro exam peers to be better today as compared to yesterday and exam is nonfocal Head CT on presentation was unremarkable and repeated head CT 10/26 showed no change Ammonia and TSH were normal 07/26 EEG - abnormal record due to presence of bihemispheric delta and theta activity admixed with intermittent low cortical activity for 1 to 2 seconds. These abnormalities are consistent with diffuse organic or metabolic encephalopathy. There is no evidence of seizure throughout the tracing but activities could be suggestive of underlying hypoxic dysfunction Neurology consult is pending Continue to hold sedation (3) Shock: Code(s): R57.9 - Shock, unspecified Status: Acute Assessment and Plan: Shock could be multifactorial, infection, cardiac arrest, hypovolemia from fluid removed post dialysis -vasopressors have been weaned off -maintain mean arterial pressures greater than 65 mmHg -cultures or negatives in now -UA reflective of UTI, - currently on ceftriaxone, Off vancomycin -lactic acid normalized -LFTs trending down likely related to shock liver (4) Cardiac arrest: Code(s): I46.9 - Cardiac arrest, cause unspecified Status: Acute Assessment and Plan: Brief cardiac arrest after he you had bradycardia and went into asystole with ROSC with 1 round of epinephrine -could be related to hyperkalemia, bradyarrhythmia, septic shock -troponins negative x2 -cardiology following the patient - echocardiogram Summary 1. Complete two-dimensional, color flow and Doppler transthoracic echocardiogram is performed. 2. Left ventricular chamber dimension is normal. 3. Left ventricular systolic function is hyperdynamic, estimated at >70%. 4. The left ventricular diastolic function is grade I diastolic dysfunction. 5. E/e' 15 is elevated. 6. There is moderate aortic valve sclerosis. 7. There is mild aortic valve stenosis with a peak velocity of 315 cm/s, mean gradient of 22 mmHg, and aortic valve area of 1.6 cm2. 8. There is mild aortic valve regurgitation. (5) End-stage renal disease on hemodialysis: Code(s): N18.6 - End stage renal disease; Z99.2 - Dependence on renal dialysis Status: Acute Assessment and Plan: History of end-stage renal disease on dialysis, Mondays, Wednesdays, Fridays -he should be getting dialyzed today -nephrology following the patient (6) Hyperkalemia: Code(s): E87.5 - Hyperkalemia Status: Acute Assessment and Plan: Hyperkalemia resolved before dialysis after being treated in the ER with albuterol nebulizer, insulin and D50, sodium bicarbonate and calcium (7) Acute UTI: Code(s): N39.0 - Urinary tract infection, site not specified Status: Acute Assessment and Plan: UA reflective of a UTI, patient is on ceftriaxone (8) Complete heart block: Code(s): I44.2 - Atrioventricular block, complete Status: Acute Assessment a
--- NOTE | 2021-07-27 10:48 | WPDNEURCNPN ---
Assessment and Plan Additional Plan severe anoxic encephalopathy with no focal neuro deficit because of his comatose status but the EEG is significantly abnormal for the planned according to the second cutter Consult date: 07/27/21 Time Seen: 09:00 HPI: Tonio Barajas is a 56 year old male admitted to the hospital for the complaints of nausea and vomiting with ongoing history of end-stage renal disease for which he is on hemodialysis he was not feeling well was dilated Friday and Friday spent most of her day in bed along with the nausea and a right emergency room was again feeling unwell was progressively getting decompensated heart rate was fluctuating and potassium was 7.6 nephrologists were consulted for the emergent dialysis, subsequently cardiology consultation was obtained because of cardiac arrest along with the ongoing history of acute respiratory failure with hypoxia underlying end-stage renal disease, subsequently critical care personnel were involved because the cardiac arrest with respiratory failure, cardiology team has been involved because the complete heart block, and has had insertion of her temporary transvenous pacemaker, neuro consultation has been obtained to evaluate the neurological status EEG has been done on July 26, 2021 at 1:18 p.m. and is significantly abnormal because of the bihemispheric theta and delta slow activity along with years of no cortical activity for at least 1 to 2 seconds intermittently Review of Systems Review of Systems: All systems reviewed & are unremarkable except as noted in HPI and below PMFSH Past Medical History Medical History End stage renal disease Social History Social History Social History: has a daughter, Stefany Barajas Smoking packs per day: 1 Smoking cigarettes per day: 20.0 Years smoked: 30 Smoking pack-years: 30.00 Smoking status: Current every day smoker Alcohol intake: former Substance use: never Spiritual care concerns: No Meds Home Medications and Allergies Home Medications Medication Instructions Recorded Confirmed Type B complex-vitamin C-folic acid 1 tablet PO DAILY 07/20/21 07/20/21 History [H[facility]] allopurinol 100 mg PO DAILY 07/20/21 07/20/21 History calcium acetate(phosphat bind) 667 mg PO DAILY 07/20/21 07/20/21 History ergocalciferol (vitamin D2) 1,250 mcg PO DAILY 07/20/21 07/20/21 History gabapentin 200 mg PO BID 07/20/21 07/20/21 History metoprolol tartrate 25 mg PO BID 07/20/21 07/20/21 History simvastatin 40 mg PO DAILY 07/20/21 07/20/21 History sodium bicarbonate 650 mg PO BID 07/20/21 07/20/21 History tramadol 50 mg PO Q8H PRN 07/20/21 07/20/21 History Allergies Allergy/AdvReac Type Severity Reaction Status Date / Time No Known Allergies Allergy Verified 07/19/21 23:38 Vital Signs Vital Signs - 24 hr 07/26/21 11:50 07/26/21 12:00 07/26/21 12:28 Temperature 36.9 C Pulse Rate 90 99 92 Respiratory Rate 29 H Blood Pressure 140/85 Pulse Oximetry 98 96 98 07/26/21 14:00 07/26/21 15:25 07/26/21 16:00 Temperature 37.0 C Pulse Rate 95 88 90 Respiratory Rate 23 H 29 H Blood Pressure 146/71 H 127/70 Pulse Oximetry 96 96 98 07/26/21 17:40 07/26/21 18:00 07/26/21 20:00 Temperature 36.9 C Pulse Rate 93 94 90 Respiratory Rate 21 H 21 H Blood Pressure 116/58 L 121/53 L Pulse Oximetry 96 96 96 07/26/21 20:42 07/26/21 22:00 07/26/21 23:46 Temperature Pulse Rate 89 90 92 Respiratory Rate 22 H Blood Pressure 116/51 L Pulse Oximetry 99 96 96 07/27/21 00:00 07/27/21 02:00 07/27/21 02:42 Temperature 37.1 C Pulse Rate 93 93 94 Respiratory Rate 22 H 20 Blood Pressure 130/63 116/62 Pulse Oximetry 95 97 97 07/27/21 04:00 07/27/21 05:58 07/27/21 05:59 Temperature 37.6 C H Pulse Rate 95 93 93 Respiratory Rate 23 H 22 H Blood Pressure 117/67 113/59
--- NOTE | 2021-07-27 11:29 | PM.IMPN ---
Progress Note: A&P Assessment and Plan (1) Complete heart block: Code(s): I44.2 - Atrioventricular block, complete Status: Acute Assessment and Plan: Patient went into complete heart block on 07/21 requiring a transvenous pacemaker to be placed. Backup rate set at 40bpm. Remained stable and not requiring pacer so this was removed. [place] related to electrolyte abnormalities. Continue to monitor on tele. (2) Shock: Code(s): R57.9 - Shock, unspecified Status: Acute Assessment and Plan: Patient has developed shock with etiology unclear. Consider infectious etiology vs cardiac arrest/cardiogenic vs. hypovolemia from fluid removed post dialysis vs multifactorial. BCx and UCx negative. Patient weaned off pressors 07/24. Stop IV abx? (3) Acute respiratory failure with hypoxia: Code(s): J96.01 - Acute respiratory failure with hypoxia Status: Acute Assessment and Plan: Patient presented to the ED for not feeling well but decompensated quickly requiring intubation for airway protection. CXR on admission (07/20) showing mild opacity lateral right midlung zone. Acute respiratory failure related to acute decompensation with altered mental status from bradycardia. Patient remains intubated and unresponsive but not on sedation. May take some time for the sedation to breakdown in his system but is showing signs of improvement. CT brain okay. Monitor neurologic changes. Appreciate proposal writer input. (4) Cardiac arrest: Code(s): I46.9 - Cardiac arrest, cause unspecified Status: Acute Assessment and Plan: Patient had a brief cardiac arrest from bradycardia that transitioned into asystole with ROSC with 1 round of epinephrine felt related to the hyperkalemia. Echo 07/20 showing EF>70%, Grade I diastolic dysfunction and mild /AI. Appreciate Cardiology input. (5) Hyperkalemia: Code(s): E87.5 - Hyperkalemia Status: Acute Assessment and Plan: Patient presents with hyperkalemia (7.6). EKG showing sinus tachycardia with slow ventricular response in a 5:1 AV block, Rt BBB, LAFB, widened P waves and peaked T waves. Potassium normalized in the ED after being treated with appropriate medications. He did received HD later that day as well. Potassium remaining normal. (6) End-stage renal disease on hemodialysis: Code(s): N18.6 - End stage renal disease; Z99.2 - Dependence on renal dialysis Status: Acute Assessment and Plan: Patient ESRD on HD M/W/F. He has had HD 07/20, 07/23 and 07/25. Nephrology consulted and appreciate their input (7) Acute UTI: Code(s): N39.0 - Urinary tract infection, site not specified Status: Acute Assessment and Plan: UA noted and concerning for UTI but UCx negative. Patient remains on ceftriaxone. (8) Leukocytosis (leucocytosis): Qualifiers: Leukocytosis type: unspecified Qualified Code(s): D72.829 - Elevated white blood cell count, unspecified Code(s): D72.829 - Elevated white blood cell count, unspecified Status: Acute Assessment and Plan: WBC 35.7K on admission. Leukocytosis likely related to heart block/cardiac arrest, septic shock, and/or infection. Patient's WBC trending down and close to normal. (9) DVT prophylaxis: Code(s): Z29.9 - Encounter for prophylactic measures, unspecified Status: Acute Assessment and Plan: Heparin subQ Subjective Date/time seen: 07/27/21 11:29 Interval history: 55yo male with ESRD here for n/v and found to have hyperkalemia, shock with respiratory failure. Patient intubated but off sedation. Pressors weaned off 07/24. He does arouse and follows commands at times. No issues overnight Review of Systems Review of Systems: ROS unobtainable: Yes unobtainable due to endotracheal tube Exam Narrative: AF 98.1 147/69 88 19 95% mv Gen - intubated HEENT - NGT and ETT secured. Neck - left I
--- NOTE | 2021-07-27 11:36 | PCDIET ---
Nutrition Follow-Up Complete: Nutrition Diagnosis: Inadequate oral intake related to oral intubation as evidenced by NPO status. Nutrition Goal: Patient to meet estimated nutritional needs. Goal in progress. Patient tolerating Nepro at 20mL/hr with 30mL water flush every 4 hours. Continue to recommend increase toward 50mL/hr Nepro if unable to extubate. Last recorded weight is 134.8 kg which is increased from last review. Plan for dialysis today. Bowel Motility: Last documented BM on 07/22/21. Labs Reviewed: RBC (2.99), Hgb (10.5), Hct (32.5), BUN (59), Cr (8.4), Alb (3.5) Meds Noted: Albumin, Rocephin, Reglan, Levophed, Protonix Additional Notes: Right groin incision. Right buttock blister. Will continue to monitor with same goal. Nutrition Monitoring and Evaluation: Follow up every Friday/Friday.
--- NOTE | 2021-07-27 14:20 | PC.NURSE ---
Updated daughter, Stefany, on patient condition and plan of care.
--- NOTE | 2021-07-27 16:32 | PM.PNNEP ---
Progress Note: A&P Assessment and Plan (1) End-stage renal disease on hemodialysis: Code(s): N18.6 - End stage renal disease; Z99.2 - Dependence on renal dialysis Status: Acute Assessment and Plan: # ESRD on HD MWF -hemodialysis supervised # hyperkalemia: Corrected. # hypotension: BP is better # acute respiratory failure status post cardiac arrest. Patient is on the ventilator and sedated. Management per ICU critical care team. # sepsis most likely secondary UTI. Off antibiotics now # GI prophylaxis on Protonix IV. # DVT prophylaxis on heparin 5000 units subcutaneously q.8 hours # respiratory failure. Hopefully can be extubated soon Subjective Date/time seen: 07/27/21 16:32 Seen and examined on hemodialysis hemodialysis supervised Intubated Exam Narrative: Hemodialysis supervised, more arousable it seems, eyes remain shut, remains on a ventilator, JVD negative, regular rhythm, lungs clear no soft abdomen, edema negative Objective Data Vital Signs Vital Signs: Vital Signs - 24 hr 07/26/21 17:40 07/26/21 18:00 07/26/21 20:00 Temperature 36.9 C Pulse Rate 93 94 90 Respiratory Rate 21 H 21 H Blood Pressure 116/58 L 121/53 L Pulse Oximetry 96 96 96 07/26/21 20:42 07/26/21 22:00 07/26/21 23:46 Temperature Pulse Rate 89 90 92 Respiratory Rate 22 H Blood Pressure 116/51 L Pulse Oximetry 99 96 96 07/27/21 00:00 07/27/21 02:00 07/27/21 02:42 Temperature 37.1 C Pulse Rate 93 93 94 Respiratory Rate 22 H 20 Blood Pressure 130/63 116/62 Pulse Oximetry 95 97 97 07/27/21 04:00 07/27/21 05:58 07/27/21 05:59 Temperature 37.6 C H Pulse Rate 95 93 93 Respiratory Rate 23 H 22 H Blood Pressure 117/67 113/59 L Pulse Oximetry 96 95 07/27/21 08:00 07/27/21 08:37 07/27/21 10:00 Temperature 36.7 C Pulse Rate 87 88 88 Respiratory Rate 21 H 19 Blood Pressure 132/71 147/69 H Pulse Oximetry 95 95 95 07/27/21 11:44 07/27/21 12:00 07/27/21 14:00 Temperature 36.9 C Pulse Rate 88 86 85 Respiratory Rate 14 14 Blood Pressure 124/54 L 130/67 Pulse Oximetry 95 95 100 07/27/21 14:46 07/27/21 15:20 07/27/21 15:34 Temperature 35.9 C L Pulse Rate 87 85 85 Respiratory Rate 21 H Blood Pressure 149/61 H 139/71 Pulse Oximetry 95 95 07/27/21 15:45 07/27/21 16:01 07/27/21 16:15 Temperature Pulse Rate 88 88 90 Respiratory Rate Blood Pressure 147/78 H 143/68 H 140/68 Pulse Oximetry 07/27/21 16:30 Temperature Pulse Rate 96 Respiratory Rate Blood Pressure 136/63 Pulse Oximetry Intake/Output Intake/Output: Intake & Output 07/24/21 07/25/21 07/26/21 07/27/21 23:59 23:59 23:59 23:59 Intake Total 1062 704 731 359 Output Total 400 1450 400 325 Balance 392 -364 331 34 Meds/Results Medications: Active Medications Generic Name Dose Route Start Last Admin Trade Name Freq PRN Reason Stop Dose Admin Dextrose 12.5 gm 07/20/21 03:38 Dextrose 50% 25 Gm/50 Ml Syringe IV PUSH PRN PRN Hypoglycemia Protocol Glucagon 1 mg 07/20/21 03:38 Glucagon For Inj 1 Mg Vial IM PRN PRN Hypoglycemia Protocol Glucose 15 gm 07/20/21 03:38 Glucose Oral Gel 15 Gm Of Glucse In 37.5 Gm Tube PO PRN PRN Hypoglycemia Protocol Heparin Sodium (Porcine) 5,000 units 07/20/21 14:00 07/27/21 05:58 Heparin Sodium 5,000 Units/Ml Vial SUB-Q 5,000 units Q8HR GRAEME Administration Heparin Sodium (Porcine) 500 units 07/27/21 17:45 Heparin Sodium 1,000 Units/Ml Vial IV PUSH 07/27/21 18:46 Q1H GRAEME Dextrose 1,000 mls @ 100 mls/hr 07/20/21 03:38 Dextrose 5% 1,000 Ml IVPB PRN PRN Hypoglycemia Protocol Norepinephrine Bitartrate 8 mg in 250 mls @ 0 mls/hr 07/20/21 06:50 07/27/21 09:10 Levophed 8 Mg/D5w 250 Ml IV CONT Not Given .Q0M GRAEME Protocol 0 MCG/MIN Albumin Human 100 mls @ 60 mls/hr 07/27/21 17:41 Albutein IVPB 07/27/21 19:20
[2021-07-27] MEDS: SODIUM CHLORIDE 0.9% IV 1,000 ML 999 ML IV CONT (18:15)
[2021-07-28] VITALS (24 sets, daily range): BP systolic 106–146; BP diastolic 45–87; PULSE 88–124; RESP 20–38; TEMP 36.3–37.6; O2SAT 87–96
[2021-07-28] MEDS: METOCLOPRAMIDE HCL 10 MG/10 ML SOLN UDC PO ×3 (00:27→12:30)
[2021-07-28 04:58] LABS: Alveolar/Arterial O2 Gradient 239.9 mmHg; Arterial Blood Gas PEEP 5 cmH2O; Arterial Blood Gas Vent Mode SPONTANEOUS; Base Excess ABG 5.6 mEq/l (+/-2.0); Carboxyhemoglobin 0.4 % THb (0-2.0); Device VENTILATOR; Fractional Inspired Oxygen 50 %; HCO3 ABG 29.5 mEq/l (22.0-26.0); Methemoglobin ABG 0.2 %THb (0-1.5); Modified Allen's Test Pass; Oxygen Saturation ABG 95.4 % (95.0-100.0); Oxyhemoglobin 93.4 % THb (90.0-100.0); PCO2 ABG 40.2 mmHg (35.0-45.0); PO2 ABG 71.4 mmHg (80.0-100.0); PO2 FiO2 Ratio Arterial Blood 1.43 %; Site Drawn RIGHT RADIAL; Total Hemoglobin 13.7 g/dL (12.0-18.0); pH ABG 7.483 (7.350-7.450)
[2021-07-28 04:59] LABS: Arterial Blood Gas Pressure Support 5 cmH2O
[2021-07-28 05:43] LABS: Hematocrit 37.7 % (42.0-52.0); Hemoglobin 12.3 g/dL (14.0-18.0); Mean Corpuscular HGB Conc 32.6 g/dl (32-36); Mean Corpuscular Volume 107.4 fl (80-100); Mean Platelet Volume 10.2 fl (7.4-10.4); Platelet Count Result 179 k/mm3 (150-375); Red Blood Count 3.51 M/mm3 (4.6-6.20); Red Cell Distribution Width 14.3 % (11.5-14.5)
[2021-07-28 05:49] LABS: Alanine Aminotransferase 105 U/L (4-50); Alkaline Phosphatase 157 U/L (38-126); Anion Gap 9 mmol/L (8-16); Aspartate Amino Transferase 39 U/L (17-59); Bilirubin,Total 0.6 mg/dL (0.2-1.3); Blood Urea Nitrogen 40 mg/dL (9-20); Calcium 10.8 mg/dL (8.4-10.2); Carbon Dioxide 32 mmol/L (22-30); Chloride 95 mmol/L (98-107); Estimated CRCL calculation 17 ml/min; Estimated Glomerular Filt Rate 9; Glucose 124 mg/dL (65-110); Magnesium 2.3 mg/dL (1.6-2.3); Phosphorus 5.5 mg/dL (2.5-4.5); Potassium 3.6 mmol/L (3.4-5.0); Sodium 136 mmol/L (137-145)
[2021-07-28] MEDS: HEPARIN SODIUM 5,000 UNITS/ML VIAL 5000 UNITS SUB-Q ×3 (06:35→20:59)
--- NOTE | 2021-07-28 08:33 | PM.PNCARD ---
Progress Note: A&P Assessment and Plan (1) Hyperkalemia: Code(s): E87.5 - Hyperkalemia Status: Acute Assessment and Plan: Resolved with hemodialysis. (2) Cardiac arrest: Code(s): I46.9 - Cardiac arrest, cause unspecified Status: Acute Assessment and Plan: Was critically ill with septic shock. Had hyperkalemia and sudden cardiac arrest with ROSC with CPR and Epinephrine on day 1. Complete heart block returned and was in shock. Dr. Meadows emergently placed transvenous pacemaker. Pacing leads removed on 07/24/21 as he was not requiring any pacing for over 24 hours. No longer on Levophed drip and BP 123/85 mmHg and HR 113 bpm. Monitor BP and keep mean BP at least 60 mmHg. Will assess need for permanent pacemaker once sepsis cleared and extubated and able to communicate this with patient. It appears in last several days, he no longer has need for pacemaker, and heart block/bradycardia was probably related to hyperkalemia on admission. Developed shock liver that is resolving. Echo shows EF >70%, grade I diastolic dysfunction (E/e' 15), mild /AI. (3) End-stage renal disease on hemodialysis: Code(s): N18.6 - End stage renal disease; Z99.2 - Dependence on renal dialysis Status: Acute (4) Acute respiratory failure with hypoxia: Code(s): J96.01 - Acute respiratory failure with hypoxia Status: Acute Assessment and Plan: Due to hyperkalemia, sepsis, bradycardia. Potential extubation later today. (5) Acute UTI: Code(s): N39.0 - Urinary tract infection, site not specified Status: Acute Assessment and Plan: Urosepsis. On antibiotics per hospitalist. (6) Bradycardia: Code(s): R00.1 - Bradycardia, unspecified Status: Acute Assessment and Plan: Currently in sinus rhythm at 113 bpm. Off levophed drip. Subjective Date/time seen: 07/28/21 08:33 On Ventilator, off sedation. Exam Const: Other: On ventilator. Resp: Auscultation: clear to auscultation bilaterally, no crackles, no rales, no rhonchi and no wheezes Cardio: Jugular venous distension: no JVD Rate: tachycardic Rhythm: regular rhythm Heart sounds: no murmurs Peripheral pulses: dorsalis pedis present GI: GI Palp: Yes Soft to palpation Extrem: Right lower extremity: no edema Left lower extremity: no edema Objective Data Vital Signs Vital Signs: Vital Signs - 24 hr 07/27/21 08:37 07/27/21 10:00 07/27/21 11:44 Temperature Pulse Rate 88 88 88 Respiratory Rate 19 Blood Pressure 147/69 H Pulse Oximetry 95 95 95 07/27/21 12:00 07/27/21 14:00 07/27/21 14:46 Temperature 98.5 F Pulse Rate 86 85 87 Respiratory Rate 14 14 Blood Pressure 124/54 L 130/67 Pulse Oximetry 95 100 95 07/27/21 15:20 07/27/21 15:34 07/27/21 15:45 Temperature 96.7 F L Pulse Rate 85 85 88 Respiratory Rate 21 H Blood Pressure 149/61 H 139/71 147/78 H Pulse Oximetry 95 07/27/21 16:00 07/27/21 16:01 07/27/21 16:15 Temperature 98.1 F Pulse Rate 89 88 90 Respiratory Rate 22 H Blood Pressure 143/68 H 143/68 H 140/68 Pulse Oximetry 95 07/27/21 16:30 07/27/21 16:45 07/27/21 16:53 Temperature Pulse Rate 96 94 94 Respiratory Rate Blood Pressure 136/63 137/79 Pulse Oximetry 95 07/27/21 17:00 07/27/21 17:15 07/27/21 17:30 Temperature Pulse Rate 95 96 98 Respiratory Rate Blood Pressure 126/67 121/65 141/68 H Pulse Oximetry 07/27/21 17:45 07/27/21 18:00 07/27/21 18:02 Temperature Pulse Rate 100 111 H 106 H Respiratory Rate 24 H Blood Pressure 132/74 122/79 115/62 Pulse Oximetry 89 L 07/27/21 18:15 07/27/21 18:31 07/27/21 18:46 Temperature Pulse Rate 111 H 113 H 115 H Respiratory Rate Blood Pressure 122/79 136/74 121/62 Pulse Oximetry 07/27/21 19:04 07/27/21 19:18 07/27/21 20:00 Temperature 98.1 F 98.7 F Pulse Rate 118 H 113 H 110 H Respiratory Rate 29 H 26 H Blood Pressure 107/65
--- NOTE | 2021-07-28 09:09 | WPDINTPN ---
Progress Note: A&P Assessment and Plan (1) Acute respiratory failure with hypoxia: Code(s): J96.01 - Acute respiratory failure with hypoxia Status: Acute Assessment and Plan: Acute respiratory failure likely related to altered mental status due to bradycardia and airway protection -patient has been on pressure support ventilation for last few days with adequate RSBI in ABG -extubation was delayed due to his mental status which has now improved -I will extubate patient and monitor -supplemental oxygen and incentive spirometry NPO for now (2) Encephalopathy: Code(s): G93.40 - Encephalopathy, unspecified Status: Acute Assessment and Plan: Likely toxic metabolic encephalopathy as patient was on sedation earlier and has renal failure but patient has been off of sedation for now 2 days and is waking up slowly. His neuro exam peers to be better today as compared to yesterday and exam is nonfocal Head CT on presentation was unremarkable and repeated head CT 10/26 showed no change Ammonia and TSH were normal 07/26 EEG - abnormal record due to presence of bihemispheric delta and theta activity admixed with intermittent low cortical activity for 1 to 2 seconds. These abnormalities are consistent with diffuse organic or metabolic encephalopathy. There is no evidence of seizure throughout the tracing but activities could be suggestive of underlying hypoxic dysfunction Sineff improved after yesterday's dialysis the patient is now awake and following commands (3) Shock: Code(s): R57.9 - Shock, unspecified Status: Acute Assessment and Plan: Shock could be multifactorial, infection, cardiac arrest, hypovolemia from fluid removed post dialysis -vasopressors have been weaned off -cultures or negatives in now -UA reflective of UTI and completed a course of ceftriaxone -lactic acid normalized -LFTs trending down likely related to shock liver (4) Cardiac arrest: Code(s): I46.9 - Cardiac arrest, cause unspecified Status: Acute Assessment and Plan: Brief cardiac arrest after he you had bradycardia and went into asystole with ROSC with 1 round of epinephrine -could be related to hyperkalemia, bradyarrhythmia, septic shock -troponins negative x2 -cardiology following the patient - echocardiogram Summary 1. Complete two-dimensional, color flow and Doppler transthoracic echocardiogram is performed. 2. Left ventricular chamber dimension is normal. 3. Left ventricular systolic function is hyperdynamic, estimated at >70%. 4. The left ventricular diastolic function is grade I diastolic dysfunction. 5. E/e' 15 is elevated. 6. There is moderate aortic valve sclerosis. 7. There is mild aortic valve stenosis with a peak velocity of 315 cm/s, mean gradient of 22 mmHg, and aortic valve area of 1.6 cm2. 8. There is mild aortic valve regurgitation. (5) End-stage renal disease on hemodialysis: Code(s): N18.6 - End stage renal disease; Z99.2 - Dependence on renal dialysis Status: Acute Assessment and Plan: History of end-stage renal disease on dialysis, Mondays, Wednesdays, Fridays -he should be getting dialyzed today -nephrology following the patient (6) Acute UTI: Code(s): N39.0 - Urinary tract infection, site not specified Status: Acute Assessment and Plan: UA reflective of a UTI, patient has completed a course of ceftriaxone (7) Complete heart block: Code(s): I44.2 - Atrioventricular block, complete Status: Acute Assessment and Plan: Overnight on 07/21/2021 patient went into complete heart block and was being paced by the pacemaker pads, Cardiology was consulted who came and placed a transvenous pacemaker given patient's recent cardiac arrest on admission, bradycardia, shock -07/24/2021: transvenous pacemaker was removed by Cardiology Monitor (8) DVT prophylaxis: Code(s): Z29.9 - Encounter for prophylactic measur
[2021-07-28] MEDS: racEPINEPHrine 2.25% NEBU SOLN 0.5 ML VIAL.NEB INHALATION (10:24)
[2021-07-28] MEDS: TOLNAFTATE 1% POWDER 45 GM BTL 1 APPLIC TOPICAL ×2 (10:36→20:59)
[2021-07-28] MEDS: PANTOPRAZOLE SODIUM IV 40 MG VIAL IV PUSH (10:36)
[2021-07-28] MEDS: methylPREDNISolone SOD SUCC 125 MG VIAL 40 MG IV PUSH ×3 (10:44→23:53)
--- NOTE | 2021-07-28 15:08 | PM.PNNEP ---
Progress Note: A&P Assessment and Plan (1) End stage renal disease: Code(s): N18.6 - End stage renal disease Status: Acute Assessment and Plan: The patient has been extubated. Status post cardiac arrest due to hyperkalemia in a situation with ESRD. Dialyzed yesterday. Currently extubated, we will see how he does. If needed tomorrow if fluid is thought to be a problem, we will get him dialyzed. Will follow. Subjective Date/time seen: 07/28/21 15:08 Patient has been extubated since about 8 this morning Exam Narrative: Apparently reported left tibia oriented earlier is on the somnolent side. Some effort with breathing, diminished breath sounds, regular rhythm, soft abdomen, edema negative does try to answer questions. Limited exam due to current patient condition Objective Data Vital Signs Vital Signs: Vital Signs - 24 hr 07/27/21 15:20 07/27/21 15:34 07/27/21 15:45 Temperature 35.9 C L Pulse Rate 85 85 88 Respiratory Rate 21 H Blood Pressure 149/61 H 139/71 147/78 H Pulse Oximetry 95 07/27/21 16:00 07/27/21 16:01 07/27/21 16:15 Temperature 36.7 C Pulse Rate 89 88 90 Respiratory Rate 22 H Blood Pressure 143/68 H 143/68 H 140/68 Pulse Oximetry 95 07/27/21 16:30 07/27/21 16:45 07/27/21 16:53 Temperature Pulse Rate 96 94 94 Respiratory Rate Blood Pressure 136/63 137/79 Pulse Oximetry 95 07/27/21 17:00 07/27/21 17:15 07/27/21 17:30 Temperature Pulse Rate 95 96 98 Respiratory Rate Blood Pressure 126/67 121/65 141/68 H Pulse Oximetry 07/27/21 17:45 07/27/21 18:00 07/27/21 18:02 Temperature Pulse Rate 100 111 H 106 H Respiratory Rate 24 H Blood Pressure 132/74 122/79 115/62 Pulse Oximetry 89 L 07/27/21 18:15 07/27/21 18:31 07/27/21 18:46 Temperature Pulse Rate 111 H 113 H 115 H Respiratory Rate Blood Pressure 122/79 136/74 121/62 Pulse Oximetry 07/27/21 19:04 07/27/21 19:18 07/27/21 20:00 Temperature 36.7 C 37.1 C Pulse Rate 118 H 113 H 110 H Respiratory Rate 29 H 26 H Blood Pressure 107/65 113/67 111/61 Pulse Oximetry 90 95 07/27/21 20:30 07/27/21 22:00 07/27/21 23:42 Temperature Pulse Rate 112 H 109 H 106 H Respiratory Rate 27 H Blood Pressure 111/68 Pulse Oximetry 98 95 95 07/28/21 00:00 07/28/21 02:00 07/28/21 02:36 Temperature 37.6 C H Pulse Rate 105 H 106 H 105 H Respiratory Rate 25 H 25 H Blood Pressure 119/69 129/64 Pulse Oximetry 96 95 95 07/28/21 04:00 07/28/21 05:05 07/28/21 06:00 Temperature 37.3 C Pulse Rate 109 H 107 H 112 H Respiratory Rate 26 H 26 H Blood Pressure 137/73 144/57 H Pulse Oximetry 93 95 95 07/28/21 08:00 07/28/21 08:25 07/28/21 10:00 Temperature 36.7 C Pulse Rate 112 H 122 H Respiratory Rate 24 H 26 H Blood Pressure 123/69 140/68 Pulse Oximetry 92 93 92 07/28/21 10:24 07/28/21 10:30 07/28/21 10:32 Temperature Pulse Rate 123 H 124 H Respiratory Rate 24 H 24 H Blood Pressure Pulse Oximetry 92 07/28/21 10:50 07/28/21 12:00 07/28/21 14:00 Temperature 36.8 C Pulse Rate 120 H 115 H Respiratory Rate 28 H 20 Blood Pressure 106/87 128/45 L Pulse Oximetry 90 90 89 L Intake/Output Intake/Output: Intake & Output 07/25/21 07/26/21 07/27/21 07/28/21 23:59 23:59 23:59 23:59 Intake Total 704 731 735 419 Output Total 8178 019 6508 50 Brzwdfq -626 277 -1448 369 Meds/Results Medications: Active Medications Generic Name Dose Route Start Last Admin Trade Name Freq PRN Reason Stop Dose Admin Dextrose 12.5 gm 07/20/21 03:38 Dextrose 50% 25 Gm/50 Ml Syringe IV PUSH PRN PRN Hypoglycemia Protocol Glucagon 1 mg 07/20/21 03:38 Glucagon For Inj 1 Mg Vial IM PRN PRN Hypoglycemia Protocol Glucose 15 gm 07/20/21 03:38 Glucose Oral Gel 15 Gm Of Glucse In 37.5 Gm Tube PO PRN PRN Hypoglycemia Protocol Heparin Sodium (Porcine) 5,000 units
--- NOTE | 2021-07-28 16:04 | PM.IMPN ---
Progress Note: A&P Assessment and Plan (1) Acute respiratory failure with hypoxia: Code(s): J96.01 - Acute respiratory failure with hypoxia Status: Acute Assessment and Plan: Patient presented to the ED for not feeling well but decompensated quickly requiring intubation for airway protection. CXR on admission (07/20) showing mild opacity lateral right midlung zone. Acute respiratory failure related to acute decompensation with altered mental status from bradycardia. Patient remains intubated and unresponsive but not on sedation. May take some time for the sedation to breakdown in his system but is showing signs of improvement. CT brain okay. Monitor neurologic changes. Appreciate operating room technologist input. He was extubated today after he did well on SBT trial. He was awake and was following commands intermittently but not conversant. He had some upper airway stridor post extubation. He was given racemic epinephrine. He was started on IV Solu-Medrol. High risk for re-intubation because of stridor and mental status issues. Continue to keep him NPO. Speech evaluation in the a.m.. PT OT follow-up in the a.m. if he remained extubated. Sedatives have been stopped. (2) Encephalopathy: Code(s): G93.40 - Encephalopathy, unspecified Status: Acute Assessment and Plan: Likely toxic metabolic encephalopathy as patient was on sedation earlier and has renal failure but patient has been off of sedation for now 2 days and is waking up slowly. He was more awake today and following some command intermittently. Head CT on presentation was unremarkable and repeated head CT 10/26 showed no change Ammonia and TSH were normal 07/26 EEG - abnormal record due to presence of bihemispheric delta and theta activity admixed with intermittent low cortical activity for 1 to 2 seconds. These abnormalities are consistent with diffuse organic or metabolic encephalopathy. There is no evidence of seizure throughout the tracing but activities could be suggestive of underlying hypoxic dysfunction. (3) Shock: Code(s): R57.9 - Shock, unspecified Status: Acute Assessment and Plan: Shock could be multifactorial, infection, cardiac arrest, hypovolemia from fluid removed post dialysis -vasopressors have been weaned off -cultures remain negative. -UA reflective of UTI and completed a course of ceftriaxone -lactic acid normalized -LFTs trending down likely related to shock liver (4) Cardiac arrest: Code(s): I46.9 - Cardiac arrest, cause unspecified Status: Acute Assessment and Plan: Brief cardiac arrest after he you had bradycardia and went into asystole with ROSC with 1 round of epinephrine -could be related to hyperkalemia, bradyarrhythmia, septic shock -troponins negative x2 -cardiology following the patient and their inputs appreciated. - echocardiogram with ejection fraction of more than 70%. Mild aortic stenosis with regurg. Grade 1 diastolic dysfunction noticed. (5) End-stage renal disease on hemodialysis: Code(s): N18.6 - End stage renal disease; Z99.2 - Dependence on renal dialysis Status: Acute Assessment and Plan: History of end-stage renal disease on dialysis, Mondays, Wednesdays, Fridays Dialysis as per nephrology service recommendations. (6) Acute UTI: Code(s): N39.0 - Urinary tract infection, site not specified Status: Acute Assessment and Plan: UA reflective of a UTI, patient has completed a course of ceftriaxone Follow off antibiotics with monitoring temperature curve and WBC count trend. (7) Complete heart block: Code(s): I44.2 - Atrioventricular block, complete Status: Acute Assessment and Plan: Overnight on 07/21/2021 patient went into complete heart block and was being paced by the pacemaker pads, Cardiology was consulted who came and placed a transvenous pacemaker given patient's recent cardiac arrest on a
[2021-07-29] VITALS (35 sets, daily range): BP systolic 82–133; BP diastolic 44–73; PULSE 81–102; RESP 18–33; TEMP 35.5–37.1; O2SAT 90–99
[2021-07-29 05:05] LABS: Hematocrit 35.3 % (42.0-52.0); Hemoglobin 11.6 g/dL (14.0-18.0); Mean Corpuscular HGB Conc 32.9 g/dl (32-36); Mean Corpuscular Hemoglobin 34.9 pg (26-34); Mean Corpuscular Volume 106.3 fl (80-100); Mean Platelet Volume 10.2 fl (7.4-10.4); Platelet Count Result 195 k/mm3 (150-375); Red Blood Count 3.32 M/mm3 (4.6-6.20); White Blood Count 16.8 K/mm3 (4.5-10.0)
[2021-07-29] MEDS: HEPARIN SODIUM 5,000 UNITS/ML VIAL 5000 UNITS SUB-Q ×3 (06:34→20:34)
[2021-07-29] MEDS: methylPREDNISolone SOD SUCC 125 MG VIAL 40 MG IV PUSH (06:34)
[2021-07-29] MEDS: PANTOPRAZOLE SODIUM IV 40 MG VIAL IV PUSH (08:33)
[2021-07-29] MEDS: TOLNAFTATE 1% POWDER 45 GM BTL 1 APPLIC TOPICAL ×2 (08:33→20:34)
--- NOTE | 2021-07-29 09:30 | PM.PNCARD ---
Progress Note: A&P Assessment and Plan (1) Hyperkalemia: Code(s): E87.5 - Hyperkalemia Status: Acute Assessment and Plan: Resolved with hemodialysis. (2) Cardiac arrest: Code(s): I46.9 - Cardiac arrest, cause unspecified Status: Acute Assessment and Plan: Was critically ill with septic shock. Had hyperkalemia and sudden cardiac arrest with ROSC with CPR and Epinephrine on day 1. Complete heart block returned and was in shock. Dr. Meadows emergently placed transvenous pacemaker. Pacing leads removed on 07/24/21 as he was not requiring any pacing for over 24 hours. It appears in last several days, he no longer has need for pacemaker, and heart block/bradycardia was probably related to hyperkalemia on admission. Developed shock liver that is resolving. Echo shows EF >70%, grade I diastolic dysfunction (E/e' 15), mild /AI. Will sign off. Please call with any questions or concerns. (3) End-stage renal disease on hemodialysis: Code(s): N18.6 - End stage renal disease; Z99.2 - Dependence on renal dialysis Status: Acute (4) Acute respiratory failure with hypoxia: Code(s): J96.01 - Acute respiratory failure with hypoxia Status: Acute Assessment and Plan: Resolved. Due to hyperkalemia, sepsis, bradycardia. (5) Acute UTI: Code(s): N39.0 - Urinary tract infection, site not specified Status: Acute Assessment and Plan: Urosepsis. On antibiotics per hospitalist. (6) Bradycardia: Code(s): R00.1 - Bradycardia, unspecified Status: Acute Assessment and Plan: Resolved. Currently in sinus rhythm at 80 bpm. Subjective Date/time seen: 07/29/21 09:30 Patient is extubated on 07/28/21. He is on ventimask. He is alert and oriented x 3. No chest pain or dizziness. Exam Const: Other: On ventilator. Resp: Auscultation: clear to auscultation bilaterally, no crackles, no rales, no rhonchi and no wheezes Cardio: Jugular venous distension: no JVD Rate: tachycardic Rhythm: regular rhythm Heart sounds: no murmurs Peripheral pulses: dorsalis pedis present GI: GI Palp: Yes Soft to palpation Extrem: Right lower extremity: no edema Left lower extremity: no edema Objective Data Vital Signs Vital Signs: Vital Signs - 24 hr 07/28/21 10:00 07/28/21 10:24 07/28/21 10:30 Temperature Pulse Rate 122 H 123 H Respiratory Rate 26 H 24 H Blood Pressure 140/68 Pulse Oximetry 92 92 07/28/21 10:32 07/28/21 10:50 07/28/21 12:00 Temperature 98.3 F Pulse Rate 124 H 120 H Respiratory Rate 24 H 28 H Blood Pressure 106/87 Pulse Oximetry 90 90 07/28/21 14:00 07/28/21 16:00 07/28/21 17:00 Temperature 97.8 F Pulse Rate 115 H 115 H 116 H Respiratory Rate 20 38 H 21 H Blood Pressure 128/45 L 146/65 H Pulse Oximetry 89 L 88 L 95 07/28/21 17:11 07/28/21 17:43 07/28/21 18:00 Temperature Pulse Rate 107 H Respiratory Rate 23 H Blood Pressure 131/57 L Pulse Oximetry 87 L 92 92 07/28/21 20:00 07/28/21 21:09 07/28/21 22:00 Temperature 97.4 F L Pulse Rate 95 98 89 Respiratory Rate 22 H 25 H 21 H Blood Pressure 137/60 115/67 Pulse Oximetry 94 95 93 07/28/21 22:49 07/29/21 00:00 07/29/21 01:56 Temperature 97.4 F L Pulse Rate 88 88 90 Respiratory Rate 21 H 20 20 Blood Pressure 116/68 Pulse Oximetry 95 97 97 07/29/21 02:00 07/29/21 04:00 07/29/21 05:25 Temperature 97.4 F L Pulse Rate 90 87 86 Respiratory Rate 20 20 33 H Blood Pressure 115/64 108/50 L Pulse Oximetry 97 95 98 07/29/21 05:46 07/29/21 06:00 07/29/21 08:00 Temperature 97.8 F Pulse Rate 86 86 86 Respiratory Rate 19 21 H Blood Pressure 121/58 L 125/44 L Pulse Oximetry 96 96 97 07/29/21 08:58 Temperature Pulse Rate 86 Respiratory Rate 18 Blood Pressure Pulse Oximetry 99 Intake/Output Intake/Output: Intake & Output 07/26/21 07/27/21 07/28/21 07/29/21 23:59 23:59 23:59 23:59 Intake To
--- NOTE | 2021-07-29 10:42 | WPDINTPN ---
Progress Note: A&P Assessment and Plan (1) Acute respiratory failure with hypoxia: Code(s): J96.01 - Acute respiratory failure with hypoxia Status: Acute Assessment and Plan: Acute respiratory failure likely related to altered mental status due to bradycardia and airway protection He was extubated yesterday after his mental status improved and he was on pressure support for couple of days He was placed on BiPAP last night. I will try to stop transition into cannula or mask this morning and see if he tolerates Chest x-ray shows atelectasis of right lower lobe -incentive spirometry, up in chair, PEP therapy -supplemental oxygen and incentive spirometry NPO for now (2) Atelectasis of right lung: Code(s): J98.11 - Atelectasis Status: Acute Assessment and Plan: See above (3) Stridor: Code(s): R06.1 - Stridor Status: Acute Assessment and Plan: Improved with racemic epi nebulization and IV Solu-Medrol (4) Encephalopathy: Code(s): G93.40 - Encephalopathy, unspecified Status: Acute Assessment and Plan: Likely toxic metabolic encephalopathy as patient was on sedation earlier and has renal failure but patient has been off of sedation for now 2 days and is waking up slowly. His neuro exam peers to be better today as compared to yesterday and exam is nonfocal Head CT on presentation was unremarkable and repeated head CT 10/26 showed no change Ammonia and TSH were normal 07/26 EEG - abnormal record due to presence of bihemispheric delta and theta activity admixed with intermittent low cortical activity for 1 to 2 seconds. These abnormalities are consistent with diffuse organic or metabolic encephalopathy. There is no evidence of seizure throughout the tracing but activities could be suggestive of underlying hypoxic dysfunction Improved as patient is now awake and following commands (5) Shock: Code(s): R57.9 - Shock, unspecified Status: Acute Assessment and Plan: Shock could be multifactorial, infection, cardiac arrest, hypovolemia from fluid removed post dialysis -vasopressors have been weaned off -cultures or negatives in now -UA reflective of UTI and completed a course of ceftriaxone -lactic acid normalized -LFTs trending down likely related to shock liver (6) Cardiac arrest: Code(s): I46.9 - Cardiac arrest, cause unspecified Status: Acute Assessment and Plan: Brief cardiac arrest after he you had bradycardia and went into asystole with ROSC with 1 round of epinephrine -could be related to hyperkalemia, bradyarrhythmia, septic shock -troponins negative x2 -cardiology following the patient - echocardiogram Summary 1. Complete two-dimensional, color flow and Doppler transthoracic echocardiogram is performed. 2. Left ventricular chamber dimension is normal. 3. Left ventricular systolic function is hyperdynamic, estimated at >70%. 4. The left ventricular diastolic function is grade I diastolic dysfunction. 5. E/e' 15 is elevated. 6. There is moderate aortic valve sclerosis. 7. There is mild aortic valve stenosis with a peak velocity of 315 cm/s, mean gradient of 22 mmHg, and aortic valve area of 1.6 cm2. 8. There is mild aortic valve regurgitation. (7) End-stage renal disease on hemodialysis: Code(s): N18.6 - End stage renal disease; Z99.2 - Dependence on renal dialysis Status: Acute Assessment and Plan: History of end-stage renal disease on dialysis, Mondays, Wednesdays, Fridays -he should be getting dialyzed today -nephrology following the patient -I discussed case with yesterday and requested him to dialyze patient today (8) Acute UTI: Code(s): N39.0 - Urinary tract infection, site not specified Status: Acute Assessment and Plan: UA reflective of a UTI, patient has completed a course of ceftriaxone (9) Complete heart block: Code(s): I44.2 - Atrioventri
[2021-07-29 13:47] LABS: Alanine Aminotransferase 68 U/L (4-50); Albumin Level 3.6 g/dL (3.5-5.1); Alkaline Phosphatase 120 U/L (38-126); Anion Gap 14 mmol/L (8-16); Aspartate Amino Transferase 29 U/L (17-59); Bilirubin,Total 0.5 mg/dL (0.2-1.3); Blood Urea Nitrogen 74 mg/dL (9-20); Calcium 10.9 mg/dL (8.4-10.2); Carbon Dioxide 26 mmol/L (22-30); Chloride 96 mmol/L (98-107); Estimated CRCL calculation 12 ml/min; Estimated Glomerular Filt Rate 7; Glucose 143 mg/dL (65-110); Magnesium 2.7 mg/dL (1.6-2.3); Phosphorus 8.2 mg/dL (2.5-4.5); Potassium 4.7 mmol/L (3.4-5.0); Sodium 136 mmol/L (137-145)
--- NOTE | 2021-07-29 14:42 | PM.IMPN ---
Progress Note: A&P Assessment and Plan (1) Acute respiratory failure with hypoxia: Code(s): J96.01 - Acute respiratory failure with hypoxia Status: Acute Assessment and Plan: Patient presented to the ED for not feeling well but decompensated quickly requiring intubation for airway protection. CXR on admission (07/20) showing mild opacity lateral right midlung zone. Acute respiratory failure related to acute decompensation with altered mental status from bradycardia. Patient remains intubated and unresponsive but not on sedation. May take some time for the sedation to breakdown in his system but is showing signs of improvement. CT brain okay. Monitor neurologic changes. Appreciate shooter helper input. He was extubated on 07/28. He was on BiPAP overnight. He was on 15 L of oxygen through non-rebreather mask at the time of my evaluation with his oxygen saturation 100%. He will be weaned down to nasal cannula later today. Keep oxygenation above 90%. He was much more awake. He had some upper airway stridor post extubation. He was given racemic epinephrine. He was given IV Solu-Medrol with improvement in his stridor. Continue to keep him NPO. Speech evaluation in the a.m.. PT OT follow-up. Deep cough was encouraged. Chest physiotherapy will be started considering atelectasis of right middle lobe and right lower lobe. (2) Encephalopathy: Code(s): G93.40 - Encephalopathy, unspecified Status: Acute Assessment and Plan: Likely toxic metabolic encephalopathy as a result of sedatives and electrolytes abnormality. He was much more awake today. Head CT on presentation was unremarkable and repeated head CT 10/26 showed no change Ammonia and TSH were normal 07/26 EEG - abnormal record due to presence of bihemispheric delta and theta activity admixed with intermittent low cortical activity for 1 to 2 seconds. These abnormalities are consistent with diffuse organic or metabolic encephalopathy. There is no evidence of seizure throughout the tracing but activities could be suggestive of underlying hypoxic dysfunction. (3) Shock: Code(s): R57.9 - Shock, unspecified Status: Acute Assessment and Plan: Shock could be multifactorial, infection, cardiac arrest, hypovolemia from fluid removed post dialysis -vasopressors have been weaned off -cultures remain negative. -UA reflective of UTI and completed a course of ceftriaxone -lactic acid normalized -LFTs trending down likely related to shock liver (4) Cardiac arrest: Code(s): I46.9 - Cardiac arrest, cause unspecified Status: Acute Assessment and Plan: Brief cardiac arrest after he you had bradycardia and went into asystole with ROSC with 1 round of epinephrine -could be related to hyperkalemia, bradyarrhythmia, septic shock -troponins negative x2 -cardiology following the patient and their inputs appreciated. - echocardiogram with ejection fraction of more than 70%. Mild aortic stenosis with regurg. Grade 1 diastolic dysfunction noticed. (5) End-stage renal disease on hemodialysis: Code(s): N18.6 - End stage renal disease; Z99.2 - Dependence on renal dialysis Status: Acute Assessment and Plan: History of end-stage renal disease on dialysis, Mondays, Wednesdays, Fridays Dialysis as per nephrology service recommendations. (6) Acute UTI: Code(s): N39.0 - Urinary tract infection, site not specified Status: Acute Assessment and Plan: UA was reflective of a UTI, patient has completed a course of ceftriaxone Follow off antibiotics with monitoring temperature curve and WBC count trend. (7) Complete heart block: Code(s): I44.2 - Atrioventricular block, complete Status: Acute Assessment and Plan: Overnight on 07/21/2021 patient went into complete heart block and was paced by the pacemaker pads. Cardiology was consulted who placed a transvenous p
[2021-07-29] MEDS: CENTRAL LINE FLUSH 10 ML IV PUSH ×2 (16:57→20:36)
[2021-07-29] MEDS: ALBUMIN HUMAN 5% 25 GM/500 ML BTL IV CONT (23:07)
[2021-07-30] VITALS (27 sets, daily range): BP systolic 96–131; BP diastolic 40–86; PULSE 85–103; RESP 14–22; TEMP 36.1–37.1; O2SAT 93–100; BMI 10.0
[2021-07-30 05:01] LABS: Hematocrit 32.8 % (42.0-52.0); Mean Corpuscular HGB Conc 33.5 g/dl (32-36); Mean Corpuscular Hemoglobin 35.4 pg (26-34); Mean Corpuscular Volume 105.5 fl (80-100); Mean Platelet Volume 10.5 fl (7.4-10.4); Platelet Count Result 221 k/mm3 (150-375); Red Blood Count 3.11 M/mm3 (4.6-6.20); White Blood Count 16.2 K/mm3 (4.5-10.0)
[2021-07-30 05:15] LABS: Alanine Aminotransferase 61 U/L (4-50); Albumin Level 4.1 g/dL (3.5-5.1); Alkaline Phosphatase 109 U/L (38-126); Anion Gap 13 mmol/L (8-16); Aspartate Amino Transferase 37 U/L (17-59); Bilirubin,Total 0.6 mg/dL (0.2-1.3); Blood Urea Nitrogen 70 mg/dL (9-20); Calcium 10.9 mg/dL (8.4-10.2); Carbon Dioxide 30 mmol/L (22-30); Chloride 95 mmol/L (98-107); Estimated CRCL calculation 14 ml/min; Estimated Glomerular Filt Rate 8; Glucose 99 mg/dL (65-110); Magnesium 2.6 mg/dL (1.6-2.3); Phosphorus 7.6 mg/dL (2.5-4.5); Potassium 3.4 mmol/L (3.4-5.0); Sodium 138 mmol/L (137-145)
[2021-07-30] MEDS: CENTRAL LINE FLUSH 10 ML IV PUSH ×3 (06:09→19:59)
[2021-07-30] MEDS: HEPARIN SODIUM 5,000 UNITS/ML VIAL 5000 UNITS SUB-Q ×3 (06:09→19:59)
--- NOTE | 2021-07-30 09:55 | WPDINTPN ---
Progress Note: A&P Assessment and Plan (1) Acute respiratory failure with hypoxia: Code(s): J96.01 - Acute respiratory failure with hypoxia Status: Acute Assessment and Plan: Acute respiratory failure likely related to altered mental status due to bradycardia and airway protection He was [id number] after his mental status improved and he was on pressure support for couple of days He was placed on BiPAP 07/29 but now has been on nasal cannula for close to 24 hours His chest x-ray showed right to lobe atelectasis yesterday. Patient was started on PEP therapy and incentive spirometry Chest x-ray shows persistent atelectasis of right lower lobe although he is not very symptomatic on hypoxic Continue aggressive Incentive spirometry, and PEP therapy Will consult physical therapy and occupational therapy and patient get out of bed into chair today Will also request RT for progression therapy If these wishes to not lead to resolution of atelectasis on the right lower lobe in next 24 hours, will consult Pulmonary for bronchoscopy. (2) Atelectasis of right lung: Code(s): J98.11 - Atelectasis Status: Acute Assessment and Plan: See above (3) Stridor: Code(s): R06.1 - Stridor Status: Acute Assessment and Plan: Resolved with racemic epi nebulization and IV Solu-Medrol (4) Encephalopathy: Code(s): G93.40 - Encephalopathy, unspecified Status: Acute Assessment and Plan: Likely toxic metabolic encephalopathy as patient was on sedation earlier and has renal failure but patient has been off of sedation for now 2 days and is waking up slowly. His neuro exam peers to be better today as compared to yesterday and exam is nonfocal Head CT on presentation was unremarkable and repeated head CT 10/26 showed no change Ammonia and TSH were normal 07/26 EEG - abnormal record due to presence of bihemispheric delta and theta activity admixed with intermittent low cortical activity for 1 to 2 seconds. These abnormalities are consistent with diffuse organic or metabolic encephalopathy. There is no evidence of seizure throughout the tracing but activities could be suggestive of underlying hypoxic dysfunction Improved as patient is now awake and following commands (5) Shock: Code(s): R57.9 - Shock, unspecified Status: Acute Assessment and Plan: Shock could be multifactorial, infection, cardiac arrest, hypovolemia from fluid removed post dialysis -vasopressors have been weaned off -cultures or negatives in now -UA reflective of UTI and completed a course of ceftriaxone -lactic acid normalized -LFTs trending down likely related to shock liver (6) Cardiac arrest: Code(s): I46.9 - Cardiac arrest, cause unspecified Status: Acute Assessment and Plan: Brief cardiac arrest after he you had bradycardia and went into asystole with ROSC with 1 round of epinephrine -could be related to hyperkalemia, bradyarrhythmia, septic shock -troponins negative x2 -cardiology following the patient - echocardiogram Summary 1. Complete two-dimensional, color flow and Doppler transthoracic echocardiogram is performed. 2. Left ventricular chamber dimension is normal. 3. Left ventricular systolic function is hyperdynamic, estimated at >70%. 4. The left ventricular diastolic function is grade I diastolic dysfunction. 5. E/e' 15 is elevated. 6. There is moderate aortic valve sclerosis. 7. There is mild aortic valve stenosis with a peak velocity of 315 cm/s, mean gradient of 22 mmHg, and aortic valve area of 1.6 cm2. 8. There is mild aortic valve regurgitation. (7) End-stage renal disease on hemodialysis: Code(s): N18.6 - End stage renal disease; Z99.2 - Dependence on renal dialysis Status: Acute Assessment and Plan: History of end-stage renal disease on dialysis, Mondays, Wednesdays, Fridays -nephrology following the patient. He was dialyzed yesterday
[2021-07-30] MEDS: TOLNAFTATE 1% POWDER 45 GM BTL 1 APPLIC TOPICAL ×2 (10:00→19:59)
--- NOTE | 2021-07-30 11:16 | PCDIET ---
Nutrition Follow-Up Complete: Nutrition Diagnosis: Inadequate oral intake related to oral intubation as evidenced by NPO status. Nutrition Goal: Patient to meet estimated nutritional needs. Goal in progress. Patient extubated and advanced to renal dialysis diet. Patient reports tolerating well; reports eating entire breakfast, other than hebrew muffin which was too tough . Recommend addition of non-calcium based phosphorus binder with meals/snacks. Last recorded weight is 126.6 kg which is down from last review. -I/O. Patient had 2400mL UF on 07/29/21. Undergoing dialysis again today. Bowel Motility: Last documented BM on 07/22/21. Labs Reviewed: WBC (16.2), RBC (3.11), Hgb (11.0), Hct (32.8), BUN (70), Cr (7.2), Ca (10.9), PO4 (7.6), Mg (2.6) Meds Noted: Heparin Additional Notes: Right buttock with blister. No documented pressure sores. Will continue to monitor with same goal. Nutrition Monitoring and Evaluation: Follow up every Friday/Friday.
--- NOTE | 2021-07-30 11:35 | WPDNEUROLOGY ---
Neurology EEG Report General Information Date of Study: 07/26/21 TEST eeg DIAGNOSIS change in the mental status CONDITION OF RECORDING awake drowsy and sleep EEG NUMBER [id number] CLINICAL HISTORY unable to respond with intermittent involuntary movements of left upper extremity EEG DESCRIPTION basic resting occipital frequency consists of large amount of low-voltage 15 to 21 hertz per 2nd beta activity. Bilateral symmetrical sleep activity seen during sleep. Hyperventilation not done. Photic stimulation not done. Non paroxysmal. Nonfocal. Nonlateralizing. IMPRESSION No significant abnormalities noted
--- NOTE | 2021-07-30 12:35 | PM.IMPN ---
Progress Note: A&P Assessment and Plan (1) Acute respiratory failure with hypoxia: Code(s): J96.01 - Acute respiratory failure with hypoxia Status: Acute Assessment and Plan: Patient presented to the ED for not feeling well but decompensated quickly requiring intubation for airway protection. CXR on admission (07/20) showing mild opacity lateral right midlung zone. Acute respiratory failure related to acute decompensation with altered mental status from bradycardia. Patient did well and wa able to be extubated on 07/28. Repeat CXR today showing RLL collapse probably from a mucous plug. Encourage flutter valve and IS use. Increase activity. Appreciate dressmaker helper input. Okay to transfer out. Wean O2 as toelrate. (2) Complete heart block: Code(s): I44.2 - Atrioventricular block, complete Status: Acute Assessment and Plan: Patient went into complete heart block on 07/21 requiring a transvenous pacemaker to be placed. Backup rate set at 40bpm. Remained stable and not requiring pacer so this was removed. [place] related to electrolyte abnormalities. Continue to monitor on tele. (3) Encephalopathy: Code(s): G93.40 - Encephalopathy, unspecified Status: Acute Assessment and Plan: Likely toxic metabolic encephalopathy as patient was on sedation earlier and has renal failure probably delayed clearance. Head CT on presentation was unremarkable and repeated head CT 07/26 showing no change. Ammonia and TSH levels were normal. EEG 07/26 showing abnormal record due to presence of bihemispheric delta and theta activity admixed with intermittent low cortical activity for 1 to 2 seconds. These abnormalities are consistent with diffuse organic or metabolic encephalopathy. There is no evidence of seizure throughout the tracing but activities could be suggestive of underlying hypoxic dysfunction. Off sedation, patient became more awake and alert. (4) Shock: Code(s): R57.9 - Shock, unspecified Status: Acute Assessment and Plan: Patient has developed shock with etiology unclear. Consider infectious etiology vs cardiac arrest/cardiogenic vs. hypovolemia from fluid removed post dialysis vs multifactorial. BCx and UCx negative. Patient weaned off pressors 07/24. (5) Cardiac arrest: Code(s): I46.9 - Cardiac arrest, cause unspecified Status: Acute Assessment and Plan: Patient had a brief cardiac arrest from bradycardia that transitioned into asystole with ROSC with 1 round of epinephrine felt related to the hyperkalemia. Echo 07/20 showing EF>70%, Grade I diastolic dysfunction and mild /AI. Appreciate Cardiology input. (6) Hyperkalemia: Code(s): E87.5 - Hyperkalemia Status: Acute Assessment and Plan: Patient presents with hyperkalemia (7.6). EKG showing sinus tachycardia with slow ventricular response in a 5:1 AV block, Rt BBB, LAFB, widened P waves and peaked T waves. Potassium normalized in the ED after being treated with appropriate medications. He did received HD later that day as well. Potassium remaining normal. (7) End-stage renal disease on hemodialysis: Code(s): N18.6 - End stage renal disease; Z99.2 - Dependence on renal dialysis Status: Acute Assessment and Plan: Patient ESRD on HD M//. Nephrology consulted and appreciate their input. Patient now back on regular cycle. (8) Acute UTI: Code(s): N39.0 - Urinary tract infection, site not specified Status: Acute Assessment and Plan: UA noted and concerning for UTI but UCx negative. Patient completed a course of ceftriaxone. Will remove [place]. He does now make much urine. (9) Leukocytosis (leucocytosis): Qualifiers: Leukocytosis type: unspecified Qualified Code(s): D72.829 - Elevated white blood cell count, unspecified Code(s): D72.829 - Elevated white blood cell count, unspecified Status: Acute Assessme
--- NOTE | 2021-07-30 13:45 | PM.PNNEP ---
Progress Note: A&P Assessment and Plan (1) End-stage renal disease on hemodialysis: Code(s): N18.6 - End stage renal disease; Z99.2 - Dependence on renal dialysis Status: Acute Assessment and Plan: # ESRD on HD MWF -hemodialysis supervised 07/30/21 # hyperkalemia: Corrected. # hypotension: BP is better # acute respiratory failure status post cardiac arrest. Patient is off the ventilator and sedated. Management per ICU critical care team. # sepsis most likely secondary UTI. Off antibiotics now # GI prophylaxis on Protonix # DVT prophylaxis on heparin 5000 units subcutaneously q.8 hours # respiratory failure. HExtubated # hyperphosphatemia: add calcium acetate, renal MVI added Subjective Date/time seen: 07/30/21 13:45 Seen and examined on HD 07/30/21 Extubated Feels better Globally weak Exam Narrative: HD supervised 07/30/21. JVD is not seen, RRR, lungs clear, soft abdomen, no edema, alert and with it Objective Data Vital Signs Vital Signs: Vital Signs - 24 hr 07/29/21 14:00 07/29/21 14:15 07/29/21 14:30 Temperature Pulse Rate 96 95 96 Respiratory Rate 21 H Blood Pressure 107/57 L 93/61 L 102/59 L Pulse Oximetry 92 07/29/21 14:46 07/29/21 15:22 07/29/21 16:00 Temperature 36.6 C 36.6 C Pulse Rate 98 99 99 Respiratory Rate 21 H 24 H Blood Pressure 86/67 L 133/56 L 96/60 L Pulse Oximetry 92 91 07/29/21 18:00 07/29/21 20:00 07/29/21 20:33 Temperature 36.9 C Pulse Rate 102 H 87 94 Respiratory Rate 24 H 23 H Blood Pressure 106/52 L 117/61 Pulse Oximetry 90 91 95 07/29/21 21:00 07/29/21 22:00 07/29/21 22:29 Temperature Pulse Rate 91 89 86 Respiratory Rate 28 H 20 Blood Pressure 82/46 L Pulse Oximetry 97 93 07/29/21 23:42 07/29/21 23:46 07/30/21 00:00 Temperature 36.9 C Pulse Rate 87 86 Respiratory Rate 24 H 20 Blood Pressure 105/61 Pulse Oximetry 98 98 98 07/30/21 01:47 07/30/21 02:00 07/30/21 04:00 Temperature 37.1 C Pulse Rate 89 89 Respiratory Rate 18 14 Blood Pressure 115/66 131/64 Pulse Oximetry 98 97 99 07/30/21 06:00 07/30/21 08:00 07/30/21 08:46 Temperature 36.7 C Pulse Rate 86 89 Respiratory Rate 16 20 Blood Pressure 111/66 121/81 Pulse Oximetry 97 95 95 07/30/21 10:00 07/30/21 10:15 07/30/21 10:45 Temperature 36.8 C Pulse Rate 95 91 92 Respiratory Rate 18 Blood Pressure 127/65 126/62 99/40 L Pulse Oximetry 93 07/30/21 11:15 07/30/21 11:45 07/30/21 12:15 Temperature Pulse Rate 93 98 98 Respiratory Rate Blood Pressure 108/65 103/58 L 96/66 L Pulse Oximetry 07/30/21 12:45 07/30/21 13:15 Temperature Pulse Rate 92 102 H Respiratory Rate Blood Pressure 110/52 L 108/59 L Pulse Oximetry Intake/Output Intake/Output: Intake & Output 07/27/21 07/28/21 07/29/21 07/30/21 23:59 23:59 23:59 23:59 Intake Total 735 545 500 Output Total 3700 100 2510 0 Balance -2965 445 -2510 500 Meds/Results Medications: Active Medications Generic Name Dose Route Start Last Admin Trade Name Freq PRN Reason Stop Dose Admin Hydrocodone Bitart/Acetaminophen 1 tab 07/30/21 07:55 Hydrocodone/Acetaminophen (*Crx) 5-325 Mg Tablet PO Q4H PRN Pain Rated 6 or Greater Dextrose 12.5 gm 07/20/21 03:38 Dextrose 50% 25 Gm/50 Ml Syringe IV PUSH PRN PRN Hypoglycemia Protocol Glucagon 1 mg 07/20/21 03:38 Glucagon For Inj 1 Mg Vial IM PRN PRN Hypoglycemia Protocol Glucose 15 gm 07/20/21 03:38 Glucose Oral Gel 15 Gm Of Glucse In 37.5 Gm Tube PO PRN PRN Hypoglycemia Protocol Heparin Sodium (Porcine) 5,000 units 07/20/21 14:00 07/30/21 06:09 Heparin Sodium 5,000 Units/Ml Vial SUB-Q 5,000 units Q8HR GRAEME Administration Dextrose 1,000 mls @ 100 mls/hr 07/20/21 03:38 Dextrose 5% 1,000 Ml IVPB PRN PRN Hypoglycemia Protocol Ondansetron HCl 4 mg 07/20/21 03:23 Ondan
--- NOTE | 2021-07-30 16:57 | PC.NURSE ---
This patient, Tonio Barajas, was transferred to [facility] on 07/30/21 at 1635 via bed without issue. Personal belongings sent with patient. Report given to [ ]. Appropriate documentation sent with patient.
[2021-07-30] MEDS: CALCIUM ACETATE 667 MG TABLET 1334 MG PO (17:47)
[2021-07-30] MEDS: SODIUM BICARBONATE TAB 650 MG TABLET PO (18:15)
[2021-07-30] MEDS: GABAPENTIN 100 MG CAPSULE 200 MG PO (18:16)
[2021-07-31] VITALS (18 sets, daily range): BP systolic 103–135; BP diastolic 53–77; PULSE 87–98; RESP 18–22; TEMP 36.1–36.6; O2SAT 92–98
[2021-07-31] MEDS: HEPARIN SODIUM 5,000 UNITS/ML VIAL 5000 UNITS SUB-Q ×3 (04:46→20:51)
[2021-07-31 04:55] LABS: Hematocrit 37.5 % (42.0-52.0); Hemoglobin 12.3 g/dL (14.0-18.0); Mean Corpuscular HGB Conc 32.8 g/dl (32-36); Mean Corpuscular Hemoglobin 35.1 pg (26-34); Mean Corpuscular Volume 107.1 fl (80-100); Platelet Count Result 211 k/mm3 (150-375); Red Cell Distribution Width 14.4 % (11.5-14.5); White Blood Count 13.7 K/mm3 (4.5-10.0)
[2021-07-31 05:10] LABS: Alanine Aminotransferase 70 U/L (4-50); Albumin Level 4.2 g/dL (3.5-5.1); Alkaline Phosphatase 120 U/L (38-126); Anion Gap 12 mmol/L (8-16); Aspartate Amino Transferase 58 U/L (17-59); Bilirubin,Total 0.7 mg/dL (0.2-1.3); Blood Urea Nitrogen 62 mg/dL (9-20); Calcium 11.3 mg/dL (8.4-10.2); Carbon Dioxide 34 mmol/L (22-30); Chloride 94 mmol/L (98-107); Estimated CRCL calculation 16 ml/min; Estimated Glomerular Filt Rate 9; Glucose 108 mg/dL (65-110); Magnesium 2.4 mg/dL (1.6-2.3); Potassium 3.7 mmol/L (3.4-5.0); Sodium 140 mmol/L (137-145)
[2021-07-31] MEDS: CENTRAL LINE FLUSH 10 ML IV PUSH ×2 (05:22→16:02)
--- NOTE | 2021-07-31 09:05 | PM.PNNEP ---
Progress Note: A&P Assessment and Plan (1) End-stage renal disease on hemodialysis: Code(s): N18.6 - End stage renal disease; Z99.2 - Dependence on renal dialysis Status: Acute Assessment and Plan: # ESRD on HD MWF -hemodialysis planned for 08/01 # hyperkalemia: Corrected. # hypotension: BP is better, remains n the lower side # acute respiratory failure status post cardiac arrest. Patient is off the ventilator and sedated. Management per ICU critical care team. # sepsis most likely secondary UTI. Off antibiotics now # GI prophylaxis on Protonix # DVT prophylaxis on heparin 5000 units subcutaneously q.8 hours # respiratory failure. HExtubated # hyperphosphatemia: add calcium acetate, renal MVI added Subjective Date/time seen: 07/31/21 09:05 Follow-up of ESRD Moved out of the ICU Feels better Eating Globally weak, cannot stand up, will need rehab Exam Narrative: Middle-aged, comfortable at rest, eating with the left hand, left upper arm AV fistula, regular rate rhythm: JVD negative [place] lungs little soft abdomen, edema negative, alert oriented x3, no tremor, breast benign Objective Data Vital Signs Vital Signs: Vital Signs - 24 hr 07/30/21 10:00 07/30/21 10:15 07/30/21 10:45 Temperature 36.8 C Pulse Rate 95 91 92 Respiratory Rate 18 Blood Pressure 127/65 126/62 99/40 L Pulse Oximetry 93 07/30/21 11:15 07/30/21 11:45 07/30/21 12:00 Temperature 36.8 C Pulse Rate 93 98 95 Respiratory Rate 20 Blood Pressure 108/65 103/58 L 100/50 L Pulse Oximetry 97 07/30/21 12:15 07/30/21 12:45 07/30/21 13:15 Temperature Pulse Rate 98 92 102 H Respiratory Rate Blood Pressure 96/66 L 110/52 L 108/59 L Pulse Oximetry 07/30/21 13:45 07/30/21 14:00 07/30/21 16:00 Temperature 36.7 C 36.9 C Pulse Rate 103 H 98 92 Respiratory Rate 20 18 Blood Pressure 110/65 108/66 101/86 Pulse Oximetry 94 100 07/30/21 16:17 07/30/21 18:00 07/30/21 18:09 Temperature 36.1 C L 36.1 C L Pulse Rate 93 94 93 Respiratory Rate 22 H 22 H Blood Pressure 109/49 L Pulse Oximetry 100 07/30/21 20:00 07/30/21 20:28 07/30/21 22:00 Temperature 36.6 C Pulse Rate 97 90 Respiratory Rate 22 H Blood Pressure 116/67 Pulse Oximetry 95 99 07/30/21 23:39 07/30/21 23:42 07/31/21 00:00 Temperature 36.1 C L Pulse Rate 90 90 Respiratory Rate 22 H Blood Pressure 106/43 L Pulse Oximetry 98 99 07/31/21 02:00 07/31/21 03:57 07/31/21 04:00 Temperature 36.6 C Pulse Rate 88 94 Respiratory Rate 20 Blood Pressure 113/62 Pulse Oximetry 94 97 07/31/21 06:00 07/31/21 08:00 Temperature 36.3 C L Pulse Rate 98 97 Respiratory Rate 20 Blood Pressure 111/77 Pulse Oximetry 93 Intake/Output Intake/Output: Intake & Output 07/28/21 07/29/21 07/30/21 07/31/21 23:59 23:59 23:59 23:59 Intake Total 545 740 Output Total 100 2510 1000 50 Balance 445 -2510 -260 -50 Meds/Results Medications: Active Medications Generic Name Dose Route Start Last Admin Trade Name Freq PRN Reason Stop Dose Admin Hydrocodone Bitart/Acetaminophen 1 tab 07/30/21 07:55 Hydrocodone/Acetaminophen (*Crx) 5-325 Mg Tablet PO Q4H PRN Pain Rated 6 or Greater Calcium Acetate 1,334 mg 07/30/21 17:00 07/30/21 17:47 Calcium Acetate 667 Mg Tablet PO 1,334 mg TID GRAEME Administration Dextrose 12.5 gm 07/20/21 03:38 Dextrose 50% 25 Gm/50 Ml Syringe IV PUSH PRN PRN Hypoglycemia Protocol Ergocalciferol 50,000 unit 07/31/21 09:00 Ergocalciferol 50,000 Unit Capsule PO DAILY GRAEME Gabapentin 200 mg 07/30/21 17:58 07/30/21 18:16 Gabapentin 100 Mg Capsule PO 200 mg BID GRAEME Administration Glucagon 1 mg 07/20/21 03:38 Glucagon For Inj 1 Mg Vial IM PRN PRN Hypoglycemia Protocol Glucose 15 gm 07/20/21 03:38 Glucose Oral Gel 15 Gm Of Glucse In 37.5 Gm Tube PO PRN PRN Hypoglyce
[2021-07-31] MEDS: GABAPENTIN 100 MG CAPSULE 200 MG PO ×2 (09:19→16:01)
[2021-07-31] MEDS: SODIUM BICARBONATE TAB 650 MG TABLET PO ×2 (09:19→16:01)
[2021-07-31] MEDS: CALCIUM ACETATE 667 MG TABLET 1334 MG PO (09:19)
[2021-07-31] MEDS: VITAMIN B CMPLX/VIT C/FOLIC AC 1 CAPSULE 1 CAP PO (09:20)
[2021-07-31] MEDS: TOLNAFTATE 1% POWDER 45 GM BTL 1 APPLIC TOPICAL ×2 (09:21→20:52)
[2021-07-31] MEDS: traMADol HCL (*CRX) 50 MG TABLET 100 MG PO ×2 (09:38→20:51)
--- NOTE | 2021-07-31 11:58 | PM.IMPN ---
Progress Note: A&P Assessment and Plan (1) Hypercalcemia: Code(s): E83.52 - Hypercalcemia Status: Acute Assessment and Plan: Calcium 11.3 today. Calcium acetate dose was increased which may probably is the etiology of his high calcium levels now. Will hold oral calcium and monitor for now. Consider further workup if levels not improved as expected. (2) Acute respiratory failure with hypoxia: Code(s): J96.01 - Acute respiratory failure with hypoxia Status: Acute Assessment and Plan: Patient presented to the ED for not feeling well but decompensated quickly requiring intubation for airway protection. CXR on admission (07/20) showing mild opacity lateral right midlung zone. Acute respiratory failure related to acute decompensation with altered mental status from bradycardia. Patient did well and wa able to be extubated on 07/28. Repeat CXR showing RLL collapse probably from a mucous plug. We have encouraged him continue flutter valve and IS. Increase activity with PT and OT as tolerated. Continue to wean oxygen as tolerated. (3) Complete heart block: Code(s): I44.2 - Atrioventricular block, complete Status: Acute Assessment and Plan: Patient went into complete heart block on 07/21 requiring a transvenous pacemaker to be placed. Backup rate set at 40bpm. Remained stable and not requiring pacer so this was removed. [place] related to electrolyte abnormalities. Continue to monitor on tele. (4) Encephalopathy: Code(s): G93.40 - Encephalopathy, unspecified Status: Acute Assessment and Plan: Likely toxic metabolic encephalopathy as patient was on sedation earlier and has renal failure probably delayed clearance. Head CT on presentation was unremarkable and repeated head CT 07/26 showing no change. Ammonia and TSH levels were normal. EEG 07/26 showing abnormal record due to presence of bihemispheric delta and theta activity admixed with intermittent low cortical activity for 1 to 2 seconds. These abnormalities are consistent with diffuse organic or metabolic encephalopathy. There is no evidence of seizure throughout the tracing but activities could be suggestive of underlying hypoxic dysfunction. Patient was weaned off of sedation and the became more awake and alert. Resolved. (5) Shock: Code(s): R57.9 - Shock, unspecified Status: Acute Assessment and Plan: Patient has developed shock with etiology unclear. Consider infectious etiology vs cardiac arrest/cardiogenic vs. hypovolemia from fluid removed post dialysis vs multifactorial. BCx and UCx negative. Patient weaned off pressors 07/24. Okay to remove central line. (6) Cardiac arrest: Code(s): I46.9 - Cardiac arrest, cause unspecified Status: Acute Assessment and Plan: Patient had a brief cardiac arrest from bradycardia that transitioned into asystole with ROSC with 1 round of epinephrine felt related to the hyperkalemia. Echo 07/20 showing EF>70%, Grade I diastolic dysfunction and mild /AI. Appreciate Cardiology input. (7) Hyperkalemia: Code(s): E87.5 - Hyperkalemia Status: Acute Assessment and Plan: Patient presents with hyperkalemia (7.6). EKG showing sinus tachycardia with slow ventricular response in a 5:1 AV block, Rt BBB, LAFB, widened P waves and peaked T waves. Potassium normalized in the ED after being treated with appropriate medications. He did received HD later that day as well. Potassium remaining normal on his routine dialysis schedule. (8) End-stage renal disease on hemodialysis: Code(s): N18.6 - End stage renal disease; Z99.2 - Dependence on renal dialysis Status: Acute Assessment and Plan: Patient ESRD on HD M/W/. Nephrology consulted and appreciate their input. Patient now back on regular cycle. (9) Acute UTI: Code(s): N39.0 - Urinary tract infection, site not specified Status: Acute
[2021-07-31] MEDS: SIMVASTATIN 20 MG TABLET 40 MG PO (20:51)
[2021-08-01] VITALS (28 sets, daily range): BP systolic 79–147; BP diastolic 41–99; PULSE 80–94; RESP 16–22; TEMP 36–36.8; O2SAT 91–95
[2021-08-01 04:58] LABS: Hematocrit 36.5 % (42.0-52.0); Mean Corpuscular HGB Conc 32.9 g/dl (32-36); Mean Corpuscular Hemoglobin 35.1 pg (26-34); Mean Corpuscular Volume 106.7 fl (80-100); Mean Platelet Volume 10.6 fl (7.4-10.4); Platelet Count Result 201 k/mm3 (150-375); Red Blood Count 3.42 M/mm3 (4.6-6.20); Red Cell Distribution Width 13.8 % (11.5-14.5); White Blood Count 12.3 K/mm3 (4.5-10.0)
[2021-08-01 05:15] LABS: Alanine Aminotransferase 74 U/L (4-50); Albumin Level 3.9 g/dL (3.5-5.1); Alkaline Phosphatase 109 U/L (38-126); Anion Gap 13 mmol/L (8-16); Aspartate Amino Transferase 112 U/L (17-59); Bilirubin,Total 0.6 mg/dL (0.2-1.3); Blood Urea Nitrogen 85 mg/dL (9-20); Calcium 10.6 mg/dL (8.4-10.2); Carbon Dioxide 31 mmol/L (22-30); Chloride 91 mmol/L (98-107); Glucose 101 mg/dL (65-110); Magnesium 2.4 mg/dL (1.6-2.3); Phosphorus 8.1 mg/dL (2.5-4.5); Potassium 3.9 mmol/L (3.4-5.0); Sodium 135 mmol/L (137-145)
[2021-08-01 05:30] LABS: Estimated CRCL calculation 12 ml/min; Estimated Glomerular Filt Rate 7
[2021-08-01] MEDS: HEPARIN SODIUM 5,000 UNITS/ML VIAL 5000 UNITS SUB-Q ×2 (05:53→15:00)
[2021-08-01] MEDS: GABAPENTIN 100 MG CAPSULE 200 MG PO ×2 (08:56→16:32)
[2021-08-01] MEDS: TOLNAFTATE 1% POWDER 45 GM BTL 1 APPLIC TOPICAL (08:56)
[2021-08-01] MEDS: SODIUM BICARBONATE TAB 650 MG TABLET PO ×2 (08:56→16:32)
[2021-08-01] MEDS: VITAMIN B CMPLX/VIT C/FOLIC AC 1 CAPSULE 1 CAP PO (08:57)
[2021-08-01] MEDS: traMADol HCL (*CRX) 50 MG TABLET 100 MG PO (09:02)
--- NOTE | 2021-08-01 10:43 | PCPTNOTE ---
Attempted to see pt for PT session but pt is currently out of the room for dialysis. Will check back as schedule allows and pt is available.
[2021-08-01 11:57] LABS: Folic Acid > 20.0 ng/mL (2.76->20)
--- NOTE | 2021-08-01 13:24 | PCPTNOTE ---
Attempted to see pt for PT session again this afternoon. Pt is still in dialysis and N/A for PT. Will check back later as schedule allows.
--- NOTE | 2021-08-01 14:36 | PCPTNOTE ---
Made a 3rd attempt to see pt for PT session. RN states pt is leaving the room for a CT scan. Will continue PT POC tomorrow.
--- NOTE | 2021-08-01 15:03 | PM.DS ---
DS: Admitting Diagnosis Discharge Date 08/01/21 Admitting Diagnosis Feeling unwell DS: Discharge Diagnosis Discharge Diagnosis (1) Hypercalcemia: Code(s): E83.52 - Hypercalcemia Status: Acute Assessment and Plan: Calcium jumped to 11.3 felt related to his binders. Calcium acetate dose was increased which may probably is the etiology of his high calcium levels now. We held oral calcium and level trended down. (2) Acute respiratory failure with hypoxia: Code(s): J96.01 - Acute respiratory failure with hypoxia Status: Acute Assessment and Plan: Patient presented to the ED for not feeling well but decompensated quickly requiring intubation for airway protection. CXR on admission (07/20) showing mild opacity lateral right midlung zone. Acute respiratory failure related to acute decompensation with altered mental status from bradycardia. Patient did well and was able to be extubated on 07/28. Repeat CXR showing RLL collapse probably from a mucous plug. He was diligent using the flutter valve and IS with near resolution fo the RLL collapse. CT chest today showing scattered bibasilar atelectasis. (3) Complete heart block: Code(s): I44.2 - Atrioventricular block, complete Status: Acute Assessment and Plan: Patient went into complete heart block on 07/21 requiring a transvenous pacemaker to be placed. Backup rate set at 40bpm. Remained stable and not requiring pacer so this was removed. [place] related to electrolyte abnormalities. (4) Encephalopathy: Code(s): G93.40 - Encephalopathy, unspecified Status: Acute Assessment and Plan: Likely toxic metabolic encephalopathy as patient was on sedation earlier and has renal failure probably delayed clearance. Head CT on presentation was unremarkable and repeat head CT 07/26 showing no change. Ammonia and TSH levels were normal. EEG 07/26 showing abnormal record due to presence of bihemispheric delta and theta activity admixed with intermittent low cortical activity for 1 to 2 seconds. These abnormalities are consistent with diffuse organic or metabolic encephalopathy. There was no evidence of seizure throughout the tracing but activities could be suggestive of underlying hypoxic dysfunction. Patient was weaned off of sedation and he became more awake and alert. Resolved. (5) Shock: Code(s): R57.9 - Shock, unspecified Status: Acute Assessment and Plan: Patient developed shock with etiology unclear. Consider infectious etiology vs cardiac arrest/cardiogenic vs. hypovolemia from fluid removed post dialysis vs multifactorial. BCx and UCx negative. Patient weaned off pressors 07/24 and BP remaining stable (6) Cardiac arrest: Code(s): I46.9 - Cardiac arrest, cause unspecified Status: Acute Assessment and Plan: Patient had a brief cardiac arrest from bradycardia that transitioned into asystole with ROSC with 1 round of epinephrine felt related to the hyperkalemia. Echo 07/20 showing EF>70%, Grade I diastolic dysfunction and mild /AI. Cardiology was following along (7) Hyperkalemia: Code(s): E87.5 - Hyperkalemia Status: Acute Assessment and Plan: Patient presents with hyperkalemia (7.6). EKG showing sinus tachycardia with slow ventricular response in a 5:1 AV block, Rt BBB, LAFB, widened P waves and peaked T waves. Potassium normalized in the ED after being treated with appropriate medications. He did received HD later that day as well. Potassium remained normal on his routine dialysis schedule. (8) End-stage renal disease on hemodialysis: Code(s): N18.6 - End stage renal disease; Z99.2 - Dependence on renal dialysis Status: Acute Assessment and Plan: Patient ESRD on HD M/W/. Nephrology consulted and appreciate their input. Patient now back on regular HD cycle. (9) Acute UTI: Code(s): N39.0 - Urinary tract infection, sit
[2021-08-01] MEDS: EUCERIN CREAM 120 GM JAR 1 APPLIC TOPICAL (16:39)
== END 2021-08-01 17:15 | DRG 870 ==
LOC: ANHED 07-20 03:31 → ANHICU 07-20 03:49 → ANHIMU 07-31 17:01 → ANHICU 08-02 12:19
PROVIDERS: Internal Medicine; Internal Medicine Cardiovascular Disease; Internal Medicine Nephrology; Admitting Provider Internal Medicine; Emergency Provider Emergency Medicine; PCP Internal Medicine Infectious Disease; Visit Provider Internal Medicine
PROC: 5A1223Z Performance of Cardiac Pacing, Continuous (ICD-10-PCS; CPT 33210; principal; 2021-07-21 03:45)
DX: A41.9 Sepsis, unspecified organism (principal); I46.9 Cardiac arrest, cause unspecified; J96.01 Acute respiratory failure with hypoxia; N18.6 End stage renal disease; R65.21 Severe sepsis with septic shock; G92.8 Other toxic encephalopathy; K72.00 Acute and subacute hepatic failure without coma; N39.0 Urinary tract infection, site not specified; I12.0 Hypertensive chronic kidney disease with stage 5 chronic kidney disease or end stage renal disease; I44.2 Atrioventricular block, complete; E87.2 Acidosis; N18.9 Chronic kidney disease, unspecified; Z99.2 Dependence on renal dialysis; E87.5 Hyperkalemia; G62.9 Polyneuropathy, unspecified; E78.5 Hyperlipidemia, unspecified; M10.9 Gout, unspecified; R32 Unspecified urinary incontinence; F17.210 Nicotine dependence, cigarettes, uncomplicated; E66.01 Morbid (severe) obesity due to excess calories; E83.39 Other disorders of phosphorus metabolism; E83.52 Hypercalcemia
CPT/HCPCS: 31500; 33210; 36415; 36556; 36600; 51701; 70450; 71045; 71250; 74019; 76705; 80048; 80053; 80074; 80202; 81001; 82140; 82375; 82607; 82746; 82805; 82948; 83050; 83605; 83690; 83735; 84100; 84443; 84484; 85025; 85027; 85055; 85610; 85730; 86706; 87040; 87086; 87340; 92950; 93005; 93306; 94002; 94003; 94640; 94667; 95816; 96365; 96368; 96372; 96375; 97110; 97162; 97165; 99291; A9270; C1751; C1894; C9113; G0257; J0171; J0330; J0461; J0696; J1265; J1644; J1815; J2060; J2250; J2405; J2550; J2704; J2765; J2930; J3010; J3370; J7030; J7042; P9045

== ENCOUNTER 2022-04-10 08:59 | Inpatient (IN) | payer MEDICARE, MEDICAID, SELFPAY ==
[2022-04-10] VITALS (34 sets, daily range): BP systolic 137–171; BP diastolic 51–80; PULSE 0–98; RESP 8–25; TEMP 36.3–36.7; O2SAT 94–100; BMI 36.3
--- NOTE | ~2022-04-10 | XR_ITS ---
EXAMINATION: XR chest 2V DATE: 04/10/2022 10:20 INDICATION: Heartburn. Bilateral lower limb edema. TECHNIQUE: frontal and lateral views of the chest were obtained. COMPARISON: Chest radiograph and CT dated 08/01/2021 and 02/09/2016 FINDINGS: Mild opacities along the bilateral lung bases which could represent atelectasis and/or pneumonia. No pneumothorax or definitive pleural effusion. The cardiomediastinal silhouette is normal. Bilateral ol d rib fractures. Chronic mixed lytic and sclerotic lesion at the anteroinferior left glenoid likely b enign given that it can be seen dating back over 6 years. Lower thoracic dextroscoliosis. IMPRESSION: 1. Mild bibasilar opacities most likely atelectasis although differential would include pneumonia. Reviewed, dictated and finalized at location B.
--- NOTE | ~2022-04-10 | CT_ITS ---
EXAMINATION: CT abdomen pelvis wo con DATE: 04/10/2022 12:46 INDICATION: Abdominal pain and cramping TECHNIQUE: Computed tomography (CT) of the abdomen and pelvis was performed without intravenous contr ast. Automated exposure control and iterative reconstruction technique were employed. The dose-length product was 1185.92 mGy-cm. COMPARISON: None FINDINGS: Mild discoid atelectasis in the bilateral lower lobes. Very small left pleural effusion. Heart size i s normal. Small pericardial effusion. Mitral annular calcification. Small calcification right hepatic lobe consistent with old granulomatous disease. Spleen, pancreas and bilateral adrenal glands are no rmal. Moderate bilateral renal atrophy. Moderate left hydroureteronephrosis extending to the bladder. There is also mild right hydroureteronephrosis. No evident obstructing stone or mass. A couple subce ntimeter right renal cyst. Bladder is normal. Moderate-sized bilateral fat-containing inguinal hernia s. 7 cm ball of stool at the rectum with mild rectal wall thickening consistent with distal colitis. Small amount of perihepatic ascites. No abscess or free intraperitoneal gas. No pathologically enlarg ed abdominal or pelvic lymphadenopathy. Partially visualized mild lower thoracic dextroscoliosis with moderate to severe spondylosis. IMPRESSION: 1. Moderate left and mild right hydroureteronephrosis which extends to the bladder with no evident ob structing stone or mass suggesting either bladder outlet obstruction or neurogenic bladder. 2. Small pericardial effusion. 3. Small amount of perihepatic ascites. 4. Small left pleural effusion. 5. Mild wall thickening at the rectum which is filled with a 7 cm stool ball consistent with a distal colitis most likely stercoral colitis with differential including less likely infectious, inflammato ry or ischemic colitis. 6. Moderate bilateral fat-containing inguinal hernias. Reviewed, dictated and finalized at location B. IMPRESSION: 1. Moderate left and mild right hydroureteronephrosis which extends to the blad jay with no evident obstructing stone or mass suggesting either bladder outlet obstruction or neurogenic bladder. 2. Small pericardial effusion. 3. Small amount of perihepatic ascites. 4. Small left pleural effusion. 5. Mild wall thickening at the rectum which is filled with a 7 cm stool ball co nsistent with a distal colitis most likely stercoral colitis with differential including less likely infectious, inflammatory or ischemic colitis. 6. Moderate bilateral fat-containing inguinal hernias.
--- NOTE | 2022-04-10 09:02 | ECG_ITS ---
Measurements Intervals [place] Rate: 94 P: 80 CT: 159 QRS: -43 QRSD: 194 T: 134 QT: 451 QTc: 565 Interpretive Statements SINUS RHYTHM LEFT AXIS DEVIATION RIGHT BUNDLE BRANCH BLOCK LEFT VENTRICULAR HYPERTROPHY AND ST-T CHANGE ABNORMAL ECG COMPARED TO ECG 07/26/2021 16:44:50 NO SIGNIFICANT CHANGE Electronically Signed On 04-10-2022 14:49:16 CDT by Tristen Fleming M.D.
--- NOTE | 2022-04-10 09:10 | ED.EXTPRO ---
HPI - Extremity Problem General Chief complaint: Extremity Problem,Nontraumatic Stated complaint: worsening edema Time Seen by Provider: 04/10/22 09:02 History of Present Illness HPI Narrative: The patient is a 56-year-old male with a history of hypertension, end-stage renal disease, on M//, primary Dr. Monson, presenting to the emergency department for evaluation of numerous symptoms. Patient was reportedly at dialysis this morning, noted to have bilateral lower extremity edema, abrasion to his right leg, also reporting intermittent chest pain, abdominal pain, dark and tarry stools over the past 3 weeks the dialysis nurse had reported that this patient does not usually have any medical complaints, and due to the numerous complaints wanted him evaluated today. Patient did attend his entire dialysis session, but apparently only received 3/4 treatment although the dialysis nurse assured me he would receive the entire treatment. Patient denies any current chest pain at the time of assessment. He denies cough, shortness of breath. He reports colicky, intermittent lower abdominal pain in the right lower quadrant over the past 3 weeks. He denies nausea, vomiting or appetite change. He reports dark stools without bright red blood. He denies mucus present or diarrhea. At times, patient also reports central chest pain that is intermittent in nature and sometimes not associated with other symptoms. No associated diaphoresis, nausea, radiation of the pain to the neck, shoulder, jaw. Patient reports he has a draining wound below his right knee which is mildly red. He has been dressing it with a Band-Aid. He denies any antibiotic use. Patient reports he sustained the wound after a ground-level fall approximately 3 weeks ago. Patient states that he tripped over something in his house. Per my review of the patient's chart, apparently he had a cardiac arrest secondary to heart block in July 2021 for which she required temporary transvenous pacemaker but this was ultimately removed. Related Data Home Medications Medication Instructions Recorded Confirmed allopurinol 100 mg tablet 100 mg PO DAILY 07/20/21 07/20/21 calcium acetate(phosphat bind) 667 667 mg PO DAILY 07/20/21 07/20/21 mg capsule ergocalciferol (vitamin D2) 1,250 1,250 mcg PO DAILY 07/20/21 07/20/21 mcg (50,000 unit) capsule gabapentin 100 mg capsule 200 mg PO BID 07/20/21 07/20/21 simvastatin 40 mg tablet 40 mg PO DAILY 07/20/21 07/20/21 sodium bicarbonate 650 mg tablet 650 mg PO BID 07/20/21 07/20/21 tramadol 50 mg tablet 100 mg PO Q8H PRN Moderate Pain 07/20/21 07/31/21 (Scale Score 5-6) vitamin B complex-vitamin C-folic 1 tablet PO DAILY 07/20/21 07/20/21 acid 0.8 mg tablet (Hue-Nano) Allergies Allergy/AdvReac Type Severity Reaction Status Date / Time No Known Allergies Allergy Verified 04/10/22 09:17 Review of Systems Review of Systems: CONSTITUTIONAL: Denies fever, chills, or sweats. EYES: Denies visual changes, redness, or discharge. ENT: Denies rhinorrhea, congestion, sore throat, or otalgia. CARDIOVASCULAR: Reports intermittent chest pain without palpitations, reports bilateral lower extremity edema RESPIRATORY: Denies cough or dyspnea. GASTROINTESTINAL: Reports lower abdominal pain, reports dark and tarry stools GENITOURINARY: Denies dysuria or hematuria. SKIN: Reports lesion to right lower extremity, draining yellow discharge MUSCULOSKELETAL: Reports chronic back pain without other joint pain NEUROLOGIC: Denies headache, numbness, or weakness. [facility] Past Medical History Medical History End stage renal disease Social History Social History Social History: has a daughter, Stefany Barajas Smoking packs per day: 1 Smoking cigarettes per day: 20.0 Years smoked: 30 Smoking pack-years: 30.00 Smoking status: Current every day smoker
[2022-04-10 09:36] LABS: Basophils Absolute Auto 0.1 K/mm3 (0.0-0.1); Basophils Percent Auto 0.7 % (0.2-1.2); Eosinophils Absolute Auto 0.2 K/mm3 (0-0.3); Eosinophils Percent Auto 2.4 % (0-4.4); Hematocrit 31.5 % (42.0-52.0); Hemoglobin 9.9 g/dL (14.0-18.0); Immature Granulocyte Absolute 0.03 K/mm3 (0.00-0.031); Immature Granulocyte Percent A 0.3 % (0-0.5); Lymphocytes Absolute Auto 2.08 K/mm3 (0.9-3.2); Lymphocytes Percent Auto 22.3 % (18.3-44.2); Mean Corpuscular HGB Conc 31.4 g/dl (32-36); Mean Corpuscular Hemoglobin 33.3 pg (26-34); Mean Corpuscular Volume 106.1 fl (80-100); Mean Platelet Volume 10.4 fl (7.4-10.4); Monocytes Absolute Auto 0.7 K/mm3 (0.1-0.6); Monocytes Percent Auto 7.7 % (2.6-8.5); Neutrophils Absolute Auto 6.2 K/mm3 (1.3-6.7); Neutrophils Percent Auto 66.6 % (45.5-73.1); Platelet Count Result 252 k/mm3 (150-375); Red Blood Count 2.97 M/mm3 (4.6-6.20); Red Cell Distribution Width 16.4 % (11.5-14.5); White Blood Count 9.3 K/mm3 (4.5-10.0)
[2022-04-10 09:46] LABS: Alanine Aminotransferase 16 U/L (6-50); Albumin Level 3.4 g/dL (3.5-5.1); Alkaline Phosphatase 108 U/L (38-126); Aspartate Amino Transferase 30 U/L (17-59); Bilirubin,Total 0.5 mg/dL (0.2-1.3); Blood Urea Nitrogen 18 mg/dL (9-20); Calcium 9.3 mg/dL (8.4-10.2); Carbon Dioxide > 40 mmol/L (22-30); Chloride 96 mmol/L (98-107); Estimated CRCL calculation 35 ml/min; Estimated Glomerular Filt Rate 24; Glucose 76 mg/dL (65-110); Potassium 3.6 mmol/L (3.4-5.0); Sodium 139 mmol/L (137-145)
[2022-04-10 10:11] LABS: NT Pro B Type Natriuretic Pept > 35000 pg/mL (5-100); Troponin I 0.848 ng/mL (0.000-0.034)
[2022-04-10 10:24] LABS: Lipase 195 U/L (23-300)
[2022-04-10] MEDS: ACETAMINOPHEN 500 MG TABLET 1000 MG PO (11:03)
[2022-04-10 13:14] LABS: Troponin I 0.839 ng/mL (0.000-0.034)
[2022-04-10 14:13] LABS: Hematocrit 30.4 % (42.0-52.0); Hemoglobin 9.6 g/dL (14.0-18.0)
[2022-04-10] MEDS: MORPHINE SULFATE (*CRX) 4 MG/ML INJ IV PUSH ×2 (15:48→22:37)
[2022-04-10] MEDS: ceFAZolin SODIUM 1 GM VIAL IV PUSH (15:49)
--- NOTE | 2022-04-10 16:02 | PC.NURSE ---
Pt incontinent of urine and bm.
[2022-04-10 16:28] LABS: SARS-CoV-2 RNA PCR Negative
[2022-04-10 16:31] LABS: Troponin I 0.727 ng/mL (0.000-0.034)
[2022-04-10] MEDS: WATER, STERILE FOR INJECTION 10 ML VIAL XX (16:40)
--- NOTE | 2022-04-10 16:55 | PM.IMHP ---
H&P: HPI History of Present Illness Date/Time: Patient requires inpatient monitoring with expected length of stay to exceed 2 midnights for management of care. 04/10/22 16:55 Chief Complaint: Increasing edema Narrative: Mr. Barajas is a 56-year-old gentleman who presented emergency room with complaints of increasing edema and heartburn. Patient was at dialysis today and was speaking with the nurse and stated that he has had increasing edema and over the last few weeks he has had heartburn after eating and at night. Patient states that he has tried Tums and [id number] Maalox without any relief of his heartburn. Patient denies any associated shortness of breath, dyspnea exertion, lightheadedness, dizziness, radiation of pain, diaphoresis, nausea, vomiting, or syncope. Patient states that nothing typically makes the pain worse. Patient states that when he does get this ?heartburn? pain it is in his midsternal area. Patient states he has also recently had abdominal cramping with soft stools. Patient states that he has not had any diarrhea or fever that he is aware of. Patient states that he will just occasionally have abdominal cramping. Upon evaluation in emergency room patient was noted to have a mildly elevated troponin at 0.848. Patient also underwent CT of the abdomen pelvis secondary to his abdominal cramping Mild wall thickening at the rectum which is filled with a 7 cm stool ball consistent with a distal colitis most likely stercoral colitis with differential including less likely infectious, inflammatory or ischemic colitis. Patient has a known history end-stage renal disease and is on hemodialysis on Friday, Friday, and Friday. Patient states he also has a known history of lower extremity edema that has worsened over the last month. Last year patient was admitted to the hospital for a complete heart block and had a transvenous pacemaker placed. Patient was septic at that time and he did recover and did not need a permanent pacemaker. At that time patient also did have cardiac arrest. Patient did undergo echo Doppler during that hospitalization that showed ejection fraction greater than 70% with left ventricular diastolic dysfunction. Patient states he does have a known history of hypertension, dyslipidemia, and chronic back pain. Review of Systems Review of Systems: A 12 point review of systems was completed patient all pertinent positive and negative per HPI the remainder are unremarkable. [facility] Past Medical History Medical History (Updated 06/22/22 @ 17:06 by Jaylyn Ely APRN) Chronic back pain Dyslipidemia End stage renal disease Hypertension Lower extremity edema Surgical History Surgical History (Updated 04/10/22 @ 17:08 by Jaylyn Ely APRN) AV fistula Left upper extremity Social History Social History Social History: has a daughter, Stefany Barajas Smoking packs per day: 1 Smoking cigarettes per day: 20.0 Years smoked: 30 Smoking pack-years: 30.00 Smoking status: Current every day smoker Alcohol intake: former Substance use: never Spiritual care concerns: No Meds Home Medications and Allergies Home Medications Medication Instructions Recorded Confirmed Type allopurinol 100 mg tablet 100 mg PO DAILY 07/20/21 07/20/21 History calcium acetate(phosphat bind) 667 667 mg PO DAILY 07/20/21 07/20/21 History mg capsule ergocalciferol (vitamin D2) 1,250 1,250 mcg PO DAILY 07/20/21 07/20/21 History mcg (50,000 unit) capsule gabapentin 100 mg capsule 200 mg PO BID 07/20/21 07/20/21 History simvastatin 40 mg tablet 40 mg PO DAILY 07/20/21 07/20/21 History sodium bicarbonate 650 mg tablet 650 mg PO BID 07/20/21 07/20/21 History tramadol 50 mg tablet 100 mg PO Q8H PRN Moderate Pain 07/20/21 07/31/21 History (Scale Score 5-6) vitamin B complex-vitamin C-folic 1 tablet PO DAILY 07/20/21 07/20/21 Hi
--- NOTE | 2022-04-10 17:55 | ADMGEN ---
This patient, Tonio Barajas, was admitted to IMU Room 231-01. Patient/family oriented to hospital policies and general routines including ID bracelet, bed and alarms, visiting hours, pain management, procedures, bathroom and other care routines, personal items, smoking policy, room service/diet, and visiting hours. Information on how to activate the Rapid Response Team has been discussed. Patient/Family are encouraged to report perceived risks to care and to ask questions if they do not understand what they are told or what they should do.
--- NOTE | 2022-04-10 18:30 | PC.NURSE ---
Notified Jaylyn Ely NP that home medications were in and updated on patient.
--- NOTE | 2022-04-10 19:06 | PM.CNNEP ---
Assessment and Plan Assessment and plan (1) End-stage renal disease on hemodialysis: Code(s): N18.6 - End stage renal disease; Z99.2 - Dependence on renal dialysis Status: Acute Assessment and Plan: End-stage renal disease With upper abdominal and lower central chest pain Symptoms suggestive of paroxysmal nocturnal dyspnea Rule out obstructive sleep apnea History of hypertensive renal disease Anemia of chronic kidney disease Secondary hyperparathyroidism Edema bilateral lower extremities Bilateral hydronephrosis with a ureteral dilatation Spinal stenosis, may have neurogenic bladder Fluid retention History of cardiac arrest with hyperkalemia in the past Elevated troponin, nonspecific ST-T changes History of grade 1 diastolic heart failure Plan: -plan for fluid removal tomorrow -needs cardiac workup -need to rule out sleep apnea -needs urological workup, recommend Urology consultation -follow-up ESRD related -D/w Hospitalist team, Jaylyn Ely History of Present Illness Reason for Consult Consult date: 04/10/22 Chief Complaint Chief complaint: elevated troponin,left leg wound History of Present Illness Narrative: 56-year-old male with a history of hypertension, ESRD, anemia, secondary hyper parathyroidism, spinal stenosis with poor mobility, obesity. He has never been checked for sleep apnea. Over the last month or so developed some epigastric lower chest wall pain. The tightening like a knot in his belly. He states that he feels like having a high today. He is also more short of breath. Unable to lay flat. He wakes up short of breath at night. He has also lower extremity swelling. He is losing weight. They able to get the fluid off at dialysis though limited to an extended to low blood pressures. No fevers or chills. He feels that he has had reflux and he is using [id number] PPI. He denies any fevers or chills. No nausea vomiting. Appetite has been stable. He has been pretty compliant with dialysis. His intake of sleep apnea. Currently self treating for an abrasion of the right leg Patient does complain of some lower abdominal pain Patient denies any other system complaints Review of Systems Review of Systems: CT scan of the chest in July of 2021 was normal All systems reviewed & are unremarkable except as noted in HPI and below PMFSH Past Medical History Medical History (Updated 04/10/22 @ 17:08 by Jaylyn Ely, APPIAN DEVELOPER) Chronic back pain Dyslipidemia End stage renal disease Hypertension Lower extremity edema Surgical History Surgical History (Updated 04/10/22 @ 17:08 by Jaylyn Ely APRN) AV fistula Left upper extremity Family History Family History (Updated 04/10/22 @ 18:12 by Nicolasa García, GERARD) Father Acute myocardial infarction Chronic obstructive pulmonary disease Cerebrovascular accident Hypertension Mother Acute myocardial infarction Hypertension Breast cancer Daughter No problems noted. Sibling Acute myocardial infarction Hypertension Sibling Heart valve replaced Hypertension Sibling Chronic obstructive pulmonary disease Hypertension Sibling Chronic obstructive pulmonary disease Hypertension Social History Social History Social History: has a daughterStefany Smoking packs per day: 0.5 Smoking cigarettes per day: 10.0 Years smoked: 30 Smoking pack-years: 15.00 Smoking status: Current every day smoker Tobacco type: cigarettes Alcohol intake: never Substance use: current Substance use type: marijuana Spiritual care concerns: No Meds Home Medications and Allergies Home Medications Medication Instructions Recorded Confirmed Type allopurinol 100 mg tablet 100 mg PO DAILY 07/20/21 04/10/22 History gabapentin 100 mg capsule 200 mg PO Q12H 07/20/21 04/10/22 History simvastatin 40
--- NOTE | 2022-04-10 19:19 | PM.CNNEP ---
History of Present Illness Reason for Consult Consult date: 04/10/22 Chief Complaint Chief complaint: elevated troponin,left leg wound PMFSH Past Medical History Medical History (Updated 04/10/22 @ 17:08 by Jaylyn Ely APRN) Chronic back pain Dyslipidemia End stage renal disease Hypertension Lower extremity edema Surgical History Surgical History (Updated 04/10/22 @ 17:08 by Jaylyn Ely APRN) AV fistula Left upper extremity Family History Family History (Updated 04/10/22 @ 18:12 by Nicolasa García RN) Father Acute myocardial infarction Chronic obstructive pulmonary disease Cerebrovascular accident Hypertension Mother Acute myocardial infarction Hypertension Breast cancer Daughter No problems noted. Sibling Acute myocardial infarction Hypertension Sibling Heart valve replaced Hypertension Sibling Chronic obstructive pulmonary disease Hypertension Sibling Chronic obstructive pulmonary disease Hypertension Social History Social History Social History: has a daughterStefany Smoking packs per day: 0.5 Smoking cigarettes per day: 10.0 Years smoked: 30 Smoking pack-years: 15.00 Smoking status: Current every day smoker Tobacco type: cigarettes Alcohol intake: never Substance use: current Substance use type: marijuana Spiritual care concerns: No Meds Home Medications and Allergies Home Medications Medication Instructions Recorded Confirmed Type allopurinol 100 mg tablet 100 mg PO DAILY 07/20/21 04/10/22 History gabapentin 100 mg capsule 200 mg PO Q12H 07/20/21 04/10/22 History simvastatin 40 mg tablet 40 mg PO HS 07/20/21 04/10/22 History tramadol 50 mg tablet 100 mg PO Q12H 07/20/21 04/10/22 History vitamin B complex-vitamin C-folic 1 tablet PO DAILY 07/20/21 04/10/22 History acid 0.8 mg tablet (Hue-Nano) cinacalcet 30 mg tablet (Sensipar) 30 mg PO HS 04/10/22 04/10/22 History metoprolol tartrate 25 mg tablet 25 mg PO Q12H 04/10/22 04/10/22 History sevelamer carbonate 800 mg tablet 800 mg PO TIDWM 04/10/22 04/10/22 History Allergies Allergy/AdvReac Type Severity Reaction Status Date / Time No Known Allergies Allergy Verified 04/10/22 09:17 Vital Signs Vital Signs - 24 hr 04/10/22 08:58 04/10/22 09:10 04/10/22 09:20 Temperature 36.3 C L Pulse Rate 95 94 Respiratory Rate 18 13 Blood Pressure 141/51 H Pulse Oximetry 97 97 96 Oxygen Delivery Room Air 04/10/22 10:19 04/10/22 10:30 04/10/22 10:44 Temperature Pulse Rate Respiratory Rate Blood Pressure 147/59 H Pulse Oximetry 100 99 100 Oxygen Delivery 04/10/22 10:45 04/10/22 11:00 04/10/22 11:22 Temperature Pulse Rate 0 L 89 Respiratory Rate 18 14 Blood Pressure Pulse Oximetry 100 94 Oxygen Delivery 04/10/22 11:36 04/10/22 11:45 04/10/22 11:47 Temperature Pulse Rate 92 92 91 Respiratory Rate 11 L 25 H 19 Blood Pressure 171/80 H Pulse Oximetry 100 Oxygen Delivery 04/10/22 12:00 04/10/22 12:21 04/10/22 12:30 Temperature Pulse Rate 90 95 92 Respiratory Rate 14 12 17 Blood Pressure Pulse Oximetry 99 Oxygen Delivery 04/10/22 12:52 04/10/22 13:05 04/10/22 13:22 Temperature Pulse Rate 95 92 92 Respiratory Rate 24 H 8 L Blood Pressure Pulse Oximetry 97 98 99 Oxygen Delivery 04/10/22 13:40 04/10/22 13:45 04/10/22 14:00 Temperature Pulse Rate 90 91 Respiratory Rate 12 12 Blood Pressure Pulse Oximetry 100 Oxygen Delivery 04/10/22 14:15 04/10/22 14:42 04/10/22 14:51 Temperature Pulse Rate 91 93 Respiratory Rate Blood Pressure Pulse Oximetry 98 100 Oxygen Delivery 04/10/22 15:09 04/10/22 15:15 04/10/22 16:00 Temperature Pulse Rate 90 Respiratory Rate 18 Blood Pressure 137/55 L Pulse Oximetry 100 100 98 Oxygen Delivery 06
[2022-04-10] MEDS: CALCIUM CARBONATE (TUMS) 500 MG (200 MG ELEMENTAL) 400 MG PO (22:38)
[2022-04-10] MEDS: FAMOTIDINE 20 MG TABLET 40 MG PO (22:38)
[2022-04-10] MEDS: HEPARIN SODIUM 5,000 UNITS/ML VIAL 5000 UNITS SUB-Q (22:41)
[2022-04-10] MEDS: GABAPENTIN 100 MG CAPSULE 200 MG PO (23:44)
[2022-04-10] MEDS: METOPROLOL TARTRATE 25 MG TABLET PO (23:44)
[2022-04-10] MEDS: CINACALCET 30 MG TABLET PO (23:45)
[2022-04-10] MEDS: traMADol HCL (*CRX) 50 MG TABLET 100 MG PO (23:45)
[2022-04-10] MEDS: SIMVASTATIN 20 MG TABLET 40 MG PO (23:45)
[2022-04-11] VITALS (13 sets, daily range): BP systolic 132–146; BP diastolic 57–70; PULSE 73–96; RESP 12–20; TEMP 36.2–37.2; O2SAT 96–100
[2022-04-11 05:58] LABS: Basophils Absolute Auto 0.1 K/mm3 (0.0-0.1); Basophils Percent Auto 1.2 % (0.2-1.2); Eosinophils Absolute Auto 0.3 K/mm3 (0-0.3); Eosinophils Percent Auto 3.1 % (0-4.4); Hematocrit 29.5 % (42.0-52.0); Hemoglobin 9.5 g/dL (14.0-18.0); Immature Granulocyte Absolute 0.03 K/mm3 (0.00-0.031); Immature Granulocyte Percent A 0.3 % (0-0.5); Lymphocytes Absolute Auto 2.03 K/mm3 (0.9-3.2); Lymphocytes Percent Auto 22.2 % (18.3-44.2); Mean Corpuscular HGB Conc 32.2 g/dl (32-36); Mean Corpuscular Hemoglobin 33.9 pg (26-34); Mean Corpuscular Volume 105.4 fl (80-100); Mean Platelet Volume 10.2 fl (7.4-10.4); Monocytes Percent Auto 10.9 % (2.6-8.5); Neutrophils Absolute Auto 5.7 K/mm3 (1.3-6.7); Neutrophils Percent Auto 62.3 % (45.5-73.1); Platelet Count Result 258 k/mm3 (150-375); Red Cell Distribution Width 16.3 % (11.5-14.5); White Blood Count 9.2 K/mm3 (4.5-10.0)
[2022-04-11 06:13] LABS: Albumin Level 3.1 g/dL (3.5-5.1); Anion Gap 5 mmol/L (8-16); Blood Urea Nitrogen 26 mg/dL (9-20); Calcium 9.3 mg/dL (8.4-10.2); Carbon Dioxide 35 mmol/L (22-30); Chloride 94 mmol/L (98-107); Estimated CRCL calculation 23 ml/min; Estimated Glomerular Filt Rate 15; Glucose 77 mg/dL (65-110); Sodium 134 mmol/L (137-145)
[2022-04-11 06:54] LABS: Anisocytosis 1+ (NORMAL); Platelet Estimate Adequate (Adequate)
--- NOTE | 2022-04-11 07:00 | WPDURCON ---
Assessment and Plan Assessment and plan (1) Hydronephrosis: Code(s): N13.30 - Unspecified hydronephrosis Status: Acute Assessment and Plan: Incidental finding of bilateral hydronephrosis (moderate left / scant right) in a patient on hemodialysis for 6 years. The etiology of this is unclear and only prior imaging imaging I see dates to 2007, when the hydronephrosis was not apparent. At some point this hydronephrosis should be addressed with cystoscopy, bilateral retrograde pyelography and possible bilateral ureteroscopy. There is certainly no urgency to this and I would favor working through his other medical issues first. These urologic studies can certainly be done as an outpatient. Urology Consult Note HPI Date Seen: 04/11/22 Requesting Physician: Carmel Howard DO Primary Care Provider: Karla JorgeZack Consult Narrative Narrative: Tonio Barajas is a 56 year old male, previously unknown to our practice, who has end-stage renal disease and has been on hemodialysis for 6 years. He is not completely aware as to the cause of his ESRD but believes it is related to hypertension. He was admitted through the ER with chest pain and generalized swelling. His serum troponins are slightly elevated. During the course of evaluation he also complained of a abdominal cramping. CT scan the abdomen pelvis without contrast shows moderate left hydronephrosis with a dilated ureter to near the left ureterovesical junction. There is also, perhaps, scant right hydronephrosis. The patient denies a history of upper urinary tract infections flank pain or hematuria. Only prior imaging of urinary tracts I see is renal u/s in 2007 where no hydronephrosis was detected. Review of Systems Cardiovascular: Cardiovascular: Reports chest pain, Denies lightheadedness, Denies palpitations and Denies dyspnea Respiratory: Respiratory: Denies dyspnea Gastrointestinal: Gastrointestinal: Denies diarrhea, Denies nausea and Denies vomiting Genitourinary: Genitourinary: Denies hematuria and Denies dysuria Endocrine: Endocrine: Denies palpitations [facility] Past Medical History Medical History (Updated 04/11/22 @ 07:04 by Denys Chaudhary MD) Chronic back pain Dyslipidemia End stage renal disease Hypertension Lower extremity edema Surgical History Surgical History (Updated 04/10/22 @ 17:08 by Jaylyn Ely APRN) AV fistula Left upper extremity Family History Family History (Updated 04/10/22 @ 18:12 by Nicolasa García RN) Father Acute myocardial infarction Chronic obstructive pulmonary disease Cerebrovascular accident Hypertension Mother Acute myocardial infarction Hypertension Breast cancer Daughter No problems noted. Sibling Acute myocardial infarction Hypertension Sibling Heart valve replaced Hypertension Sibling Chronic obstructive pulmonary disease Hypertension Sibling Chronic obstructive pulmonary disease Hypertension Social History Social History Social History: has a daughter, Stefany Barajas Smoking packs per day: 0.5 Smoking cigarettes per day: 10.0 Years smoked: 30 Smoking pack-years: 15.00 Smoking status: Current every day smoker Tobacco type: cigarettes Alcohol intake: never Substance use: current Substance use type: marijuana Spiritual care concerns: No Meds Home Medications and Allergies Home Medications Medication Instructions Recorded Confirmed Type allopurinol 100 mg tablet 100 mg PO DAILY 07/20/21 04/10/22 History gabapentin 100 mg capsule 200 mg PO Q12H 07/20/21 04/10/22 History simvastatin 40 mg tablet 40 mg PO HS 07/20/21 04/10/22 History tramadol 50 mg tablet 100 mg PO Q12H 07/20/21 04/10/22 History vitamin B complex-vitamin C-folic 1 tablet PO DAILY 07/20/21 04/10/22 History acid 0.8 mg tablet (Hue-Nano) cinacalcet 30 mg tablet
[2022-04-11] MEDS: HEPARIN SODIUM 5,000 UNITS/ML VIAL 5000 UNITS SUB-Q ×2 (08:24→21:23)
[2022-04-11] MEDS: GABAPENTIN 100 MG CAPSULE 200 MG PO ×2 (08:24→21:22)
[2022-04-11] MEDS: traMADol HCL (*CRX) 50 MG TABLET 100 MG PO ×2 (08:24→21:23)
[2022-04-11] MEDS: SEVELAMER CARBONATE 800 MG TABLET PO ×3 (08:24→17:48)
[2022-04-11] MEDS: FAMOTIDINE 20 MG TABLET 40 MG PO (08:24)
[2022-04-11] MEDS: VITAMIN B CMPLX/VIT C/FOLIC AC 1 CAPSULE 1 CAP PO (08:24)
[2022-04-11] MEDS: METOPROLOL TARTRATE 25 MG TABLET PO ×2 (08:24→21:22)
[2022-04-11] MEDS: allopurinoL 100 MG TABLET PO (08:24)
[2022-04-11] MEDS: ASPIRIN 81 MG CHEWABLE TABLET PO (08:24)
--- NOTE | 2022-04-11 09:06 | ECHO_ITS ---
Patient Info Name: Tonio Barajas Age: 56 years : 1965 Gender: Male Ht: 70 in Wt: 254 lbs BSA: 2.43 m2 HR: 71 bpm BP: 142 / 63 mmHg Heart Rhythm: Sinus Rhythm Exam Date: 04/11/2022 11:03 AM Exam Location: [facility] Pulmonary Patient Status: Inpatient Admit Date: 04/10/2022 Staff Ordering Physician: Tristen Fleming MD Ribbon Inker: Dav Madden RDCS, RT Attending Provider: Carmel Howard DO Referring Physician: Bernadette VELAZQUEZ; Exam Type: CA echo doppler color flow Study Info Indications I50.9 - Heart failure, unspecified Complete two-dimensional, color flow and Doppler transthoracic echocardiogram is performed. Strain analysis performed. Summary 1. Complete two-dimensional, color flow and Doppler transthoracic echocardiogram is performed. 2. Left ventricular chamber dimension is moderately enlarged. 3. Left ventricular systolic function is mildly reduced, estimated at 45-50%. 4. There is moderately increased left ventricular wall thickness. 5. Left ventricular septal wall motion is abnormal with septal motion related to bundle branch block. 6. The left ventricular diastolic function is grade I diastolic dysfunction. 7. Global longitudinal strain is moderately elevated at -12 %. 8. Large, somewhat mobile echogenic aortic valve vegetation measuring 1.8 x 2.7 cm visualized. Recommend transesophageal echocardiogram for further evaluation. 9. There is moderate aortic valve regurgitation. 10. Recommend transesophageal echocardiogram. Recommendations * Recommend transesophageal echocardiogram. Left Ventricle Left ventricular chamber dimension is moderately enlarged. Left ventricular systolic function is mildly reduced, estimated at 45-50%. There is moderately increased left ventricular wall thickness. Left ventricular septal wall motion is abnormal with septal motion related to bundle branch block. The left ventricular diastolic function is grade I diastolic dysfunction. Global longitudinal strain is moderately elevated at -12 %. Right Ventricle Right ventricular chamber dimension is normal. Right ventricular systolic function is normal. Left Atria Left atrial chamber dimension is mildly enlarged. Right Atria Right atrial chamber dimension is mildly enlarged. Aortic Valve The aortic valve is not well visualized. There is moderate aortic valve regurgitation. Large, somewhat mobile echogenic aortic valve vegetation measuring 1.8 x 2.7 cm visualized. Recommend transesophageal echocardiogram for further evaluation. There is moderate aortic valve calcification. Pulmonic Valve The pulmonic valve is not well visualized. Mitral Valve The mitral valve has normal leaflets. There is mild mitral valve regurgitation. The mitral valve annulus is mildly calcified. Tricuspid Valve The tricuspid valve leaflets are normal. There is mild tricuspid valve regurgitation. Mild pulmonary hypertension, estimated pulmonary arterial systolic pressure is 37 mmHg. Pericardium/Pleural The pericardium appears normal. There is small pericardial effusion. Inferior Vena Cava Dilated inferior vena cava with <50% collapse upon inspiration consistent with elevated right atrial pressure, 10 mmHg. Aorta The aortic root size at the sinus of Valsalva is normal. There is mild-moderate aortic atherosclerosis. Left Ventricular Outflow Tract Name V
--- NOTE | 2022-04-11 09:46 | PM.CNCAR ---
Assessment and Plan Assessment and plan (1) Elevated troponin: Code(s): R77.8 - Other specified abnormalities of plasma proteins Status: Acute Assessment and Plan: Mild troponin elevation with fairly flat curve without complaints of chest pain consistent with angina. Patient reports burning indigestion epigastric and lower chest discomfort lying down and after eating meals improved with sitting up and temporarily with antacid and PPI. I do not believe his troponin elevation is consistent with acute coronary syndrome and/or plaque rupture more likely type 2 infarction. However, given his risk factors particularly in light of his abnormal EKG cannot exclude underlying CAD. EKG is quite abnormal but largely unchanged compared to prior tracings. EF 70% without wall motion abnormalities previously in setting of hyperkalemia, sepsis, and transient complete heart block requiring temporary transvenous pacemaker resolved without need for permanent pacemaker. Ischemic evaluation reasonable with Lexiscan nuclear stress test given risk factors prior history but will stabilize further from medical perspective. Repeat 2D echocardiogram to assess LV size/function, wall motion abnormalities or valve pathology pulmonary pressures given troponin elevation and nonsustained VT on telemetry. Recommendation to follow after review. If new or significant LV dysfunction and or social wall motion abnormalities invasive angiography may be advised. Continue telemetry. Add aspirin 81 mg daily. Continue simvastatin. DVT prophylaxis. Furthermore, this patient has been previously followed by Dr. Domingo for whom we are covering at this time as he is out of town. We anticipate returning care back to him upon his return. (2) End-stage renal disease on hemodialysis: Code(s): N18.6 - End stage renal disease; Z99.2 - Dependence on renal dialysis Status: Acute Assessment and Plan: Volume management with hemodialysis per Nephrology. Appreciate their involvement and recommendations. (3) Nonsustained ventricular tachycardia: Code(s): I47.2 - Ventricular tachycardia Status: Acute Assessment and Plan: 10 beat run nonsustained VT on telemetry, asymptomatic. Electrolytes stable. As above, 2D echocardiogram will be obtained and pending review with recommendations ischemic evaluation anticipated. Continue telemetry. Continue metoprolol tartrate for now. (4) Lower extremity edema: Code(s): R60.0 - Localized edema Status: Acute Assessment and Plan: As above. 2D echocardiogram pending. BNP greater than 35,000 presentation of despite edema patient is not appear to be in acute decompensated heart failure. He denies exertional dyspnea or orthopnea. Nonetheless, will observe patient's response to volume managed with hemodialysis. Further recommendations to follow. (5) Abnormal ECG: Code(s): R94.31 - Abnormal electrocardiogram [ECG] [EKG] Status: Acute Assessment and Plan: As above. Further workup warranted particularly in light of mild troponin elevation. (6) GERD (gastroesophageal reflux disease): Code(s): K21.9 - Gastro-esophageal reflux disease without esophagitis Status: Acute Assessment and Plan: PPI, management per primary service. CT suggests stercoral colitis. History of Present Illness History of Present Illness Consult date/time: Date of service: 04/11/22 09:46 Cardiology consultation at the request of Jaylyn Ely of the [facility] service for our opinion regarding edema and elevated troponin. Requesting physician: Jaylyn Ely, [facility] Consult reason: Other (Elevated troponin, edema) Reason For Visit: elevated troponin,left leg wound Narrative: Patient is a 56-year-old male past medical history significant for hypertension, hyperlipidemia, GERD, and end-stage renal disease on hemodialysis history of cardiac arrest with t
--- NOTE | 2022-04-11 15:40 | PM.IMPN ---
Progress Note: A&P Assessment and Plan (1) Elevated troponin: Code(s): R77.8 - Other specified abnormalities of plasma proteins Status: Acute Assessment and Plan: 04/11/2022 interval history patient with elevated tropes and chest pain is more described as epigastric GERD, patient seen by Cardiology to further evaluate ordered cardiac echo and once the patient is clinically as patient end-stage renal disease on hemodialysis and suspect patient has volume overload seen by Nephrology and will have dialysis, will also consult GI further evaluate epigastric, will continue to monitor and further recommendation to follow. (2) End-stage renal disease on hemodialysis: Code(s): N18.6 - End stage renal disease; Z99.2 - Dependence on renal dialysis Status: Acute Assessment and Plan: patient is seen by wrapper stitcher and will have scheduled dialysis (3) Wound, open, knee, lower leg, or ankle with complication: Code(s): S81.009A - Unspecified open wound, unspecified knee, initial encounter; S81.809A - Unspecified open wound, unspecified lower leg, initial encounter; S91.009A - Unspecified open wound, unspecified ankle, initial encounter Status: Acute (4) GERD (gastroesophageal reflux disease): Code(s): K21.9 - Gastro-esophageal reflux disease without esophagitis Status: Acute Assessment and Plan: patient's symptoms are improving with PPI will consult GI and further recommendation to follow Plan patient was given a dose of Ancef in the emergency room will continue with current regimen. Subjective Date/time seen: 04/11/22 15:40 Increasing edema Narrative: HPI: Mr. Barajas is a 56-year-old gentleman who presented emergency room with complaints of increasing edema and heartburn.? Patient was at dialysis today and was speaking with the nurse and stated that he has had increasing edema and over the last few weeks he has had heartburn after eating and at night.? Patient states that he has tried Tums and [id number] Maalox without any relief of his heartburn.? Patient denies any associated shortness of breath, dyspnea exertion, lightheadedness, dizziness, radiation of pain, diaphoresis, nausea, vomiting, or syncope.? Patient states that nothing typically makes the pain worse.? Patient states that when he does get this ?heartburn? pain it is in his midsternal area.? Patient states he has also recently had abdominal cramping with soft stools.? Patient states that he has not had any diarrhea or fever that he is aware of.? Patient states that he will just occasionally have abdominal cramping.? Upon evaluation in emergency room patient was noted to have a mildly elevated troponin at 0.848.? Patient also underwent CT of the abdomen pelvis secondary to his abdominal cramping?Mild wall thickening at the rectum which is filled with a 7 cm stool ball consistent with a distal colitis most likely stercoral colitis with differential including less likely infectious, inflammatory or ischemic colitis. Patient has a known history end-stage renal disease and is on hemodialysis on Friday, Friday, and Friday.? Patient states he also has a known history of lower extremity edema that has worsened over the last month.? Last year patient was admitted to the hospital for a complete heart block and had a transvenous pacemaker placed.? Patient was septic at that time and he did recover and did not need a permanent pacemaker.? At that time patient also did have cardiac arrest.? Patient did undergo echo Doppler during that hospitalization that showed ejection fraction greater than 70% with left ventricular diastolic dysfunction.? Patient states he does have a known history of hypertension, dyslipidemia, and chronic back pain. 04/11/2022 interval history patient with elevated tropes and chest pain is more described as epigastric GERD, patient seen by Cardiology to further evaluate ordered cardiac echo and once the patient is clinical
--- NOTE | 2022-04-11 16:32 | PM.PNNEP ---
Progress Note: A&P Assessment and Plan (1) End-stage renal disease on hemodialysis: Code(s): N18.6 - End stage renal disease; Z99.2 - Dependence on renal dialysis Status: Acute Assessment and Plan: End-stage renal disease With upper abdominal and lower central chest pain Symptoms suggestive of paroxysmal nocturnal dyspnea Rule out obstructive sleep apnea History of hypertensive renal disease Anemia of chronic kidney disease Secondary hyperparathyroidism Edema bilateral lower extremities Bilateral hydronephrosis with a ureteral dilatation Spinal stenosis, may have neurogenic bladder Fluid retention History of cardiac arrest with hyperkalemia in the past Elevated troponin, nonspecific ST-T changes History of grade 1 diastolic heart failure Plan: -plan for hemodialysis and fluid removal tomorrow -cardiac workup in progress -need to rule out sleep apnea -needs urological workup, appreciate urological input, cystoscopy and retrogrades later -follow-up ESRD and related issues -dialysis orders entered Subjective Date/time seen: 04/11/22 16:32 Although end-stage renal disease Review of Systems Review of Systems: Feels better today. Pain is better. Has bilateral lower extremity swelling. Shortness of breath is better. Exam Narrative: Well groomed, well nourished, obese, comfortable with breathing interest, skin turgor normal, redness to the lower extremity on the right side, erythema with warmth feeling to the right lower extremity, skin turgor normal, no pallor, no icterus, moist oral mucosa no JVD negative regular rate rhythm, no gallop, no wounds, equal breath sounds, soft nontender abdomen, edematous legs, disoriented x3, no tremor Objective Data Vital Signs Vital Signs: Vital Signs - 24 hr 04/10/22 17:23 04/10/22 18:08 04/10/22 17:49 Temperature 36.7 C Pulse Rate 90 94 Respiratory Rate 16 16 Blood Pressure 171/80 H 149/61 H Pulse Oximetry 100 100 Oxygen Delivery Room Air 04/10/22 18:00 04/10/22 20:00 04/10/22 20:00 Temperature 36.4 C Pulse Rate 93 93 94 Respiratory Rate 14 Blood Pressure 148/59 H Pulse Oximetry 98 Oxygen Delivery 04/10/22 20:00 04/10/22 22:00 04/10/22 23:44 Temperature Pulse Rate 94 93 98 Respiratory Rate 14 Blood Pressure Pulse Oximetry 98 Oxygen Delivery Room Air 04/11/22 00:00 04/11/22 00:00 04/11/22 00:00 Temperature 36.7 C Pulse Rate 91 96 96 Respiratory Rate 16 16 Blood Pressure 145/61 H Pulse Oximetry 98 98 Oxygen Delivery Room Air 04/11/22 02:00 04/11/22 04:00 04/11/22 04:00 Temperature Pulse Rate 81 84 84 Respiratory Rate 16 Blood Pressure Pulse Oximetry 98 Oxygen Delivery Room Air 04/11/22 06:00 04/11/22 04:00 04/11/22 08:00 Temperature 36.2 C L 37.2 C Pulse Rate 86 88 83 Respiratory Rate 12 16 Blood Pressure 142/63 H 140/61 Pulse Oximetry 100 98 Oxygen Delivery 04/11/22 08:00 04/11/22 12:00 04/11/22 08:00 Temperature 36.9 C Pulse Rate 73 84 Respiratory Rate 14 Blood Pressure 137/57 L Pulse Oximetry 97 Oxygen Delivery Room Air 04/11/22 10:00 04/11/22 12:00 04/11/22 14:00 Temperature Pulse Rate 80 75 75 Respiratory Rate Blood Pressure Pulse Oximetry Oxygen Delivery 04/11/22 12:00 04/11/22 16:00 Temperature 37.1 C Pulse Rate 76 Respiratory Rate 14 Blood Pressure 146/63 H Pulse Oximetry 99 Oxygen Delivery Room Air Intake/Output Intake/Output: Intake & Output 04/08/22 04/09/22 04/10/22 04/11/22 23:59 23:59 23:59 23:59 Intake Total 1070 Balance 1070 Meds/Results Medications: Active Medications Generic Name Dose Route Start Last Admin Trade Name Edin PRN Reason Stop Dose Admin Acetaminophen 650 mg 04/10/22 14:55 Acetaminophen 325 Mg Tablet PO Q4H PRN Mild Pain (1-3) or Fever Allopurinol 100 mg 04/11/22 08:00 04/11/22 08:24 Allopurinol 100 Mg Tablet
[2022-04-11] MEDS: ONDANSETRON INJ 4 MG/2 ML VIAL IV PUSH (19:40)
[2022-04-11] MEDS: CINACALCET 30 MG TABLET PO (21:21)
[2022-04-11] MEDS: SIMVASTATIN 20 MG TABLET 40 MG PO (21:22)
[2022-04-12] VITALS (29 sets, daily range): BP systolic 94–153; BP diastolic 40–74; PULSE 68–86; RESP 15–22; TEMP 35–36.8; O2SAT 95–100
[2022-04-12] MEDS: ONDANSETRON INJ 4 MG/2 ML VIAL IV PUSH (06:38)
--- NOTE | 2022-04-12 09:23 | PM.PNCARD ---
Progress Note: A&P Assessment and Plan (1) Elevated troponin: Code(s): R77.8 - Other specified abnormalities of plasma proteins Status: Acute Assessment and Plan: Mild troponin elevation with fairly flat curve without complaints of chest pain consistent with angina. Troponin elevation not consistent with acute coronary syndrome and/or plaque rupture, more likely type 2 infarction. However, given his risk factors particularly in light of his abnormal EKG cannot exclude underlying CAD. Repeat 2D echocardiogram showed mildly reduced systolic function estimated 45-50%, grade I diastolic dysfunction. There is a large, somewhat mobile echogenic aortic valve vegetation measuring 1.8 x 2.7 cm visualized. Recommend transesophageal echocardiogram for further evaluation. Tthis patient has been previously followed by Dr. Domingo for whom we are covering at this time as he is out of town. We anticipate returning care back to him upon his return. CARLOZ can be arranged by Dr. Domingo. (2) End-stage renal disease on hemodialysis: Code(s): N18.6 - End stage renal disease; Z99.2 - Dependence on renal dialysis Status: Acute Assessment and Plan: Volume management with hemodialysis per Nephrology. Appreciate their involvement and recommendations. (3) Nonsustained ventricular tachycardia: Code(s): I47.2 - Ventricular tachycardia Status: Acute Assessment and Plan: 10 beat run nonsustained VT on telemetry, asymptomatic. Electrolytes stable. As above, 2D echocardiogram will be obtained and pending review with recommendations ischemic evaluation anticipated. Continue telemetry. Continue metoprolol tartrate for now. (4) Lower extremity edema: Code(s): R60.0 - Localized edema Status: Acute Assessment and Plan: Volume management with HD (5) Abnormal ECG: Code(s): R94.31 - Abnormal electrocardiogram [ECG] [EKG] Status: Acute Assessment and Plan: Further workup warranted particularly in light of mild troponin elevation. Will defer to Dr. Domingo. (6) GERD (gastroesophageal reflux disease): Code(s): K21.9 - Gastro-esophageal reflux disease without esophagitis Status: Acute Assessment and Plan: PPI, management per primary service. CT suggests stercoral colitis. Subjective Date/time seen: 04/12/22 09:23 Cardiology follow up for chest pain, elevated troponin Feeling better today. Not having any chest pain, shortness of breath, or palpitations. No complaints of any kind. Review of Systems Review of Systems: All systems reviewed & are unremarkable except as noted in HPI and below Constitutional: Constitutional: Reports as per HPI and Reports no additional constitutional complaints Eyes: Eyes: Reports as per HPI and Reports no additional eye complaints ENT: Reports system reviewed and no additional complaints, except as documented and Reports as per HPI Cardiovascular: Cardiovascular: Reports as per HPI and Reports no additional cardiovascular complaints Respiratory: Respiratory: Reports as per HPI and Reports no additional respiratory complaints Gastrointestinal: Gastrointestinal: Reports as per HPI and Reports no additional gastrointestinal complaints Genitourinary: Genitourinary: Reports no additional male genitourinary complaints and Reports as per HPI Musculoskeletal: Musculoskeletal: Reports no additional musculoskeletal complaints and Reports as per HPI Integumentary/Breasts: Skin/Breast: Reports system reviewed and no additional complaints, except as docu and Reports as per HPI Neurologic: Reports system reviewed and no additional complaints, except as documented and Reports as per HPI Psychiatric: Psychiatric: Reports no additional psychiatric complaints and Reports as per HPI Endocrine: Endocrine: Reports no additional endocrine complaints and Reports as per HPI Hematologic/Lymphatic: Hematologic/Lymphatic: Reports no sujit
[2022-04-12] MEDS: FAMOTIDINE 20 MG TABLET 40 MG PO (09:33)
[2022-04-12] MEDS: METOPROLOL TARTRATE 25 MG TABLET PO ×2 (09:33→21:35)
[2022-04-12] MEDS: ASPIRIN 81 MG CHEWABLE TABLET PO (09:33)
--- NOTE | 2022-04-12 10:34 | WPDANESEPPF ---
Anes - Initial Pre Proc Eval Procedure: Operation Date: 04/12/22 13:15 Proposed Procedures p Esophagogastroduodenoscopy - Wesly Payton MD Date/Time: 04/12/22 10:34 Surgeon: Naun Pre Op Diagnosis: elevated troponin,left leg wound Patient Data Age: 56 Gender: M Height: 1.78 m Weight: 112.7 kg Last Vital Signs Temp 36.7 C 04/12/22 08:00 Pulse 76 04/12/22 09:33 Resp 16 04/12/22 08:00 BP 125/50 L 04/12/22 08:00 Pulse Ox 96 04/12/22 08:00 O2 Del Method Room Air 04/11/22 20:00 Allergies Allergy/AdvReac Type Severity Reaction Status Date / Time No Known Allergies Allergy Verified 04/16/22 07:36 Home Medications Medication Instructions Recorded Confirmed Type allopurinol 100 mg tablet 100 mg PO DAILY 07/20/21 04/10/22 History gabapentin 100 mg capsule 200 mg PO Q12H 07/20/21 04/10/22 History simvastatin 40 mg tablet 40 mg PO HS 07/20/21 04/10/22 History tramadol 50 mg tablet 100 mg PO Q12H 07/20/21 04/10/22 History vitamin B complex-vitamin C-folic 1 tablet PO DAILY 07/20/21 04/10/22 History acid 0.8 mg tablet (Hue-Nano) cinacalcet 30 mg tablet (Sensipar) 30 mg PO HS 04/10/22 04/10/22 History metoprolol tartrate 25 mg tablet 25 mg PO Q12H 04/10/22 04/10/22 History sevelamer carbonate 800 mg tablet 800 mg PO TIDWM 04/10/22 04/10/22 History aspirin 81 mg chewable tablet 81 mg PO DAILY@0800 #30 tabs 04/16/22 Rx (Children's Aspirin) pantoprazole 40 mg tablet,delayed 40 mg PO BID #60 tabs 04/16/22 Rx release (Protonix) Patient hx anesthesia problems: none Family hx anesthesia problems: none Results Review: All pre-operative results and documents have been reviewed as part of the pre-operative evaluation. [facility] Past Medical History Medical History (Updated 04/15/22 @ 12:09 by Daniel Domingo DO) Chronic back pain Dyslipidemia End stage renal disease Epigastric pain Gastric ulcer Hypertension Lower extremity edema Vegetation of heart valve Surgical History Surgical History AV fistula Left upper extremity Family History Family History Father Acute myocardial infarction Chronic obstructive pulmonary disease Cerebrovascular accident Hypertension Mother Acute myocardial infarction Hypertension Breast cancer Daughter No problems noted. Sibling Acute myocardial infarction Hypertension Sibling Heart valve replaced Hypertension Sibling Chronic obstructive pulmonary disease Hypertension Sibling Chronic obstructive pulmonary disease Hypertension Social History Social History Social History: has a daughterStefany Smoking packs per day: 0.5 Smoking cigarettes per day: 10.0 Years smoked: 30 Smoking pack-years: 15.00 Smoking status: Current every day smoker Tobacco type: cigarettes Alcohol intake: never Substance use: current Substance use type: marijuana Spiritual care concerns: No Anes - Eval Final PreProcedure Day of Procedure 04/12/22 10:34 Patient weight: obese Heart: regular rate and rhythm Lungs: clear to auscultation Airway: Mallampati scale class II Neurological: alert and oriented Last oral intake: >/= 8 hours ASA classification: IV Emergent: no Anesthetic plan: proceed Anesthesia type and monitoring: general GIVS and standard monitoring Results Review: All pre-operative results and documents have been reviewed as part of the pre-operative evaluation. Informed Consent: The patient's anesthetic plan and its attendant risks and benefits were discussed with the patient/family/POA. Questions were solicited and answers provided to the satisfaction of the patient/family/POA.
[2022-04-12] MEDS: LACTATED RINGERS 1,000 ML 150 ML IV CONT (10:37)
--- NOTE | 2022-04-12 10:48 | WPDGICN ---
Assessment and Plan Assessment and plan (1) Epigastric pain: Code(s): R10.13 - Epigastric pain Status: Acute Assessment and Plan: will proceed with egd, he has been having worsening chest discomfort associated with reflux sensation after lying down need to assess if ulcer, esophagitis, etc (2) GERD (gastroesophageal reflux disease): Code(s): K21.9 - Gastro-esophageal reflux disease without esophagitis Status: Acute Assessment and Plan: will start ppi for now (3) Nonsustained ventricular tachycardia: Code(s): I47.2 - Ventricular tachycardia Status: Acute (4) Lower extremity edema: Code(s): R60.0 - Localized edema Status: Acute Assessment and Plan: by cardiology (5) Elevated brain natriuretic peptide (BNP) level: Code(s): R79.89 - Other specified abnormal findings of blood chemistry Status: Acute (6) Stercoral colitis: Code(s): K52.89 - Other specified noninfective gastroenteritis and colitis Status: Acute (7) End stage renal disease: Code(s): N18.6 - End stage renal disease Status: Acute Assessment and Plan: on dialysis, by nephrology GI Consult Note Consult date/time: 04/12/22 10:48 Reason for consult: symptomatic heartburn HPI: Tonio Barajas is a 56 year old male with past medical history significant for hypertension, hyperlipidemia, GERD, and end-stage renal disease on hemodialysis, history of cardiac arrest with transient complete heart block in the setting of sepsis last year that only required temporary pacemaker. He came to the hospital because had worsening lower extremity edema for the past several weeks and burning sensation his upper epigastrium lower chest after eating and lying down.? Symptoms would improve with Tums and Prilosec, and sitting up. He does not remember having EGD. He had CT scan a/p reviewed and showed mild wall thickening at the rectum which is filled with a 7 cm stool ball consistent with a distal colitis most likely stercoral colitis. Review of Systems Review of Systems: All systems reviewed & are unremarkable except as noted in HPI and below Constitutional: Constitutional: Reports as per HPI and Reports no additional constitutional complaints Eyes: Eyes: Reports as per HPI and Reports no additional eye complaints ENT: Reports system reviewed and no additional complaints, except as documented and Reports as per HPI Cardiovascular: Cardiovascular: Reports as per HPI and Reports no additional cardiovascular complaints Respiratory: Respiratory: Reports as per HPI and Reports no additional respiratory complaints Gastrointestinal: Gastrointestinal: Reports as per HPI and Reports no additional gastrointestinal complaints Genitourinary: Genitourinary: Reports no additional male genitourinary complaints and Reports as per HPI Musculoskeletal: Musculoskeletal: Reports no additional musculoskeletal complaints and Reports as per HPI Integumentary/Breasts: Skin/Breast: Reports system reviewed and no additional complaints, except as docu and Reports as per HPI Neurologic: Reports system reviewed and no additional complaints, except as documented and Reports as per HPI Psychiatric: Psychiatric: Reports no additional psychiatric complaints and Reports as per HPI Endocrine: Endocrine: Reports no additional endocrine complaints and Reports as per HPI Hematologic/Lymphatic: Hematologic/Lymphatic: Reports no additional hematologic/lymphatic complaints and Reports as per HPI Allergic/Immunologic: Allergic/Immunologic: Reports no additional allergic/immunologic complaints and Reports as per HPI [facility] Past Medical History Medical History (Updated 04/12/22 @ 13:21 by Wesly Payton MD) Chronic back pain Dyslipidemia End stage renal disease Epigastric pain Hypertension Lower extremity edema Surgical History Surgical History (Reviewed 04/11/22 @ 09:49 by Tristen Graham
[2022-04-12] MEDS: SODIUM CHLORIDE 0.9% IV 500 ML 30 ML IV CONT (11:12)
[2022-04-12] MEDS: EPOETIN ALFA-EPBX 3,000 UNITS/ML VIAL 3000 UNITS IV PUSH (15:14)
[2022-04-12] MEDS: EPOETIN ALFA-EPBX 2,000 UNITS/ML VIAL 2000 UNITS IV PUSH (15:14)
--- NOTE | 2022-04-12 16:36 | PM.IMPN ---
Progress Note: A&P Assessment and Plan (1) Elevated troponin: Code(s): R77.8 - Other specified abnormalities of plasma proteins Status: Acute Assessment and Plan: 04/11/2022 interval history patient with elevated tropes and chest pain is more described as epigastric GERD, patient seen by Cardiology to further evaluate ordered cardiac echo and once the patient is clinically as patient end-stage renal disease on hemodialysis and suspect patient has volume overload seen by Nephrology and will have dialysis, will also consult GI further evaluate epigastric, will continue to monitor and further recommendation to follow. 04/12/2022 interval history?patient with elevated tropes and chest pain is more described as epigastric GERD, today patient was seen by GI and had a EGD, showed gastritis and recommended PPI, patient seen by Cardiology to further evaluate ordered cardiac echo was ordered which showed patient hasLarge, somewhat mobile echogenic aortic valve vegetation measuring 1.8 x 2.7 cm visualized.? Recommend transesophageal echocardiogram for further evaluation.which is scheduled for Friday, and once the patient is clinically stable as patient has end-stage renal disease on hemodialysis and suspect patient has volume overload seen by Nephrology and will have dialysis, will continue to monitor and further recommendation to follow. (2) End-stage renal disease on hemodialysis: Code(s): N18.6 - End stage renal disease; Z99.2 - Dependence on renal dialysis Status: Acute Assessment and Plan: patient is seen by fire technician and will have scheduled dialysis (3) Wound, open, knee, lower leg, or ankle with complication: Code(s): S81.009A - Unspecified open wound, unspecified knee, initial encounter; S81.809A - Unspecified open wound, unspecified lower leg, initial encounter; S91.009A - Unspecified open wound, unspecified ankle, initial encounter Status: Acute (4) GERD (gastroesophageal reflux disease): Code(s): K21.9 - Gastro-esophageal reflux disease without esophagitis Status: Acute Assessment and Plan: patient's symptoms are improving with PPI will consult GI and further recommendation to follow Plan patient was given a dose of Ancef in the emergency room will continue with current regimen. Subjective Date/time seen: 04/12/22 16:36 HPI:?Mr. Barajas is a 56-year-old gentleman who presented emergency room with complaints of increasing edema and heartburn.? Patient was at dialysis today and was speaking with the nurse and stated that he has had increasing edema and over the last few weeks he has had heartburn after eating and at night.? Patient states that he has tried Tums and [id number] Maalox without any relief of his heartburn.? Patient denies any associated shortness of breath, dyspnea exertion, lightheadedness, dizziness, radiation of pain, diaphoresis, nausea, vomiting, or syncope.? Patient states that nothing typically makes the pain worse.? Patient states that when he does get this ?heartburn? pain it is in his midsternal area.? Patient states he has also recently had abdominal cramping with soft stools.? Patient states that he has not had any diarrhea or fever that he is aware of.? Patient states that he will just occasionally have abdominal cramping.? Upon evaluation in emergency room patient was noted to have a mildly elevated troponin at 0.848.? Patient also underwent CT of the abdomen pelvis secondary to his abdominal cramping?Mild wall thickening at the rectum which is filled with a 7 cm stool ball consistent with a distal colitis most likely stercoral colitis with differential including less likely infectious, inflammatory or ischemic colitis. Patient has a known history end-stage renal disease and is on hemodialysis on Friday, Friday, and Friday.? Patient states he also has a known history of lower extremity edema that has worsened over the last month.? Last year juan daniel
[2022-04-12] MEDS: VITAMIN B CMPLX/VIT C/FOLIC AC 1 CAPSULE 1 CAP PO (18:19)
[2022-04-12] MEDS: SEVELAMER CARBONATE 800 MG TABLET PO (18:20)
[2022-04-12] MEDS: traMADol HCL (*CRX) 50 MG TABLET 100 MG PO (18:23)
[2022-04-12] MEDS: GABAPENTIN 100 MG CAPSULE 200 MG PO (18:24)
[2022-04-12] MEDS: PANTOPRAZOLE 40 MG TABLET PO (21:35)
[2022-04-12] MEDS: HEPARIN SODIUM 5,000 UNITS/ML VIAL 5000 UNITS SUB-Q (21:35)
[2022-04-12] MEDS: SIMVASTATIN 20 MG TABLET 40 MG PO (21:36)
[2022-04-12] MEDS: CINACALCET 30 MG TABLET PO (21:36)
[2022-04-13] VITALS (10 sets, daily range): BP systolic 111–141; BP diastolic 49–64; PULSE 67–78; RESP 14–20; TEMP 35.8–36.7; O2SAT 95–100
[2022-04-13] MEDS: PANTOPRAZOLE 40 MG TABLET PO ×2 (09:32→20:39)
[2022-04-13] MEDS: traMADol HCL (*CRX) 50 MG TABLET 100 MG PO ×2 (09:33→20:40)
[2022-04-13] MEDS: ASPIRIN 81 MG CHEWABLE TABLET PO (09:33)
[2022-04-13] MEDS: GABAPENTIN 100 MG CAPSULE 200 MG PO ×2 (09:33→20:39)
[2022-04-13] MEDS: allopurinoL 100 MG TABLET PO (09:33)
[2022-04-13] MEDS: SEVELAMER CARBONATE 800 MG TABLET PO ×3 (09:33→16:18)
[2022-04-13] MEDS: HEPARIN SODIUM 5,000 UNITS/ML VIAL 5000 UNITS SUB-Q ×2 (09:34→20:39)
[2022-04-13] MEDS: METOPROLOL TARTRATE 25 MG TABLET PO ×2 (09:34→20:39)
--- NOTE | 2022-04-13 09:34 | WPDANESPN ---
Anes - Prog Note Post-Op Date/Time: 04/13/22 09:34 Cardiovascular status: other (currently followed by cardiology for elevated enzymes, questionalable vegetation. CARLOZ pending.) Respiratory status: normal Airway patency: baseline Mental status: baseline Post-Op hydration status: normal Vital Signs: Last Vital Signs Temp 97.7 F 04/13/22 08:00 Pulse 67 04/13/22 08:00 Resp 16 04/13/22 08:00 BP 119/49 L 04/13/22 08:00 Pulse Ox 100 04/13/22 08:00 O2 Del Method Room Air 04/12/22 20:00 Pain Score (VAS): 0 I/O: Intake & Output 04/12/22 04/13/22 04/13/22 23:59 07:59 15:59 Intake Total 680 150 Output Total 3500 Balance -2820 150 Laboratory Tests 04/11/22 05:22 04/11/22 05:22 Microbiology 04/10/22 11:17 Leg Right Wound Culture - Preliminary Pseudomonas aeruginosa Post-procedural complaints: none Patient Feedback: Patient satisfied with anesthetic care.
--- NOTE | 2022-04-13 10:53 | PC.NURSE ---
This patient, Tonio Barajas, was transferred to [address] [place] [address] Room 312-01 at 1050am. Patient/family oriented to hospital policies and general routines including ID bracelet, bed and alarms, visiting hours, pain management, procedures, bathroom and other care routines, personal items, smoking policy, room service/diet, and visiting hours. Information on how to activate the Rapid Response Team has been discussed. Patient/Family are encouraged to report perceived risks to care and to ask questions if they do not understand what they are told or what they should do.
--- NOTE | 2022-04-13 10:56 | PC.NURSE ---
report received from Deepti imu nurse
--- NOTE | 2022-04-13 13:43 | WPDGIPROGNO ---
Progress Note: A&P Assessment and Plan (1) Gastric ulcer: Code(s): K25.9 - Gastric ulcer, unspecified as acute or chronic, without hemorrhage or perforation Status: Acute Assessment and Plan: non-bleeding will need termite technician protonix or equivalent twice daily, pending biopsies repeat egd in 3 months ok to use low dose of aspirin for now (2) Epigastric pain: Code(s): R10.13 - Epigastric pain Status: Acute Assessment and Plan: better per patient (3) Elevated troponin: Code(s): R77.8 - Other specified abnormalities of plasma proteins Status: Acute (4) End-stage renal disease on hemodialysis: Code(s): N18.6 - End stage renal disease; Z99.2 - Dependence on renal dialysis Status: Acute Assessment and Plan: by nephrologisst (5) 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 Status: Acute Assessment and Plan: cardiology will perform CARLOZ to assess, management by primary team Subjective Date/time seen: 04/13/22 13:43 reflux sensation and chest discomfort better, eating. EGD yesterday with non-bleeding gastric ulcer also had 2d-echo that showed vegetation Review of Systems Constitutional: Constitutional: Reports as per HPI and Reports no additional constitutional complaints Exam Const: General: no acute distress HENMT: General nose exam: Normal nares present Eyes: General: appearance normal, both eyes and all related structures Neck: Neck: supple Resp: Effort & Inspection: normal respiratory effort Cardio: Rate: regular rate GI: Inspection: non-distended GI Palp: No abdominal tenderness and No Guarding due to palpation present (GI) Auscultation: normal bowel sounds Neuro: Speech: normal speech Extrem: General: pedal edema bilaterally Psych: Mental Status: mental status grossly normal Objective Data Vital Signs Vital Signs: Vital Signs - 24 hr 04/12/22 14:20 04/12/22 14:40 04/12/22 14:00 Temperature Pulse Rate 71 69 70 Respiratory Rate Blood Pressure 134/64 139/59 L 136/62 Pulse Oximetry Oxygen Delivery 04/12/22 15:00 04/12/22 16:00 04/12/22 15:20 Temperature Pulse Rate 69 68 69 Respiratory Rate Blood Pressure 147/65 H 131/59 L 136/60 Pulse Oximetry Oxygen Delivery 04/12/22 15:40 04/12/22 16:20 04/12/22 16:53 Temperature 97.8 F Pulse Rate 68 70 69 Respiratory Rate 18 Blood Pressure 137/65 110/58 L 136/60 Pulse Oximetry Oxygen Delivery 04/12/22 16:32 04/12/22 16:00 04/12/22 20:00 Temperature 98.0 F Pulse Rate 69 69 79 Respiratory Rate 20 Blood Pressure 130/65 125/50 L Pulse Oximetry 97 Oxygen Delivery 04/12/22 21:35 04/12/22 20:00 04/12/22 20:00 Temperature Pulse Rate 77 78 Respiratory Rate Blood Pressure Pulse Oximetry Oxygen Delivery Room Air 04/12/22 23:24 04/13/22 00:00 04/13/22 04:00 Temperature 97.8 F 98.0 F Pulse Rate 76 78 72 Respiratory Rate 18 20 Blood Pressure 132/58 L 136/50 L Pulse Oximetry 97 97 Oxygen Delivery 04/13/22 04:00 04/13/22 08:00 04/13/22 08:00 Temperature 97.7 F Pulse Rate 72 70 67 Respiratory Rate 16 Blood Pressure 119/49 L Pulse Oximetry 100 Oxygen Delivery 04/13/22 09:34 04/13/22 08:00 04/13/22 12:00 Temperature 96.4 F L Pulse Rate 77 69 Respiratory Rate 14 Blood Pressure 111/55 L Pulse Oximetry 95 Oxygen Delivery Room Air 04/13/22 12:00 Temperature Pulse Rate 70 Respiratory Rate Blood Pressure Pulse Oximetry Oxygen Delivery Intake/Output Intake/Output: Intake & Output 04/10/22 04/11/22 04/12/22 04/13/22 23:59 23:59 23:59 23:59 Intake Total 1940 930 680 Output Total 3500 Balance 1150 -387 680 Meds/Results Medications: Active Medications Generic Name Dose Route Start Last Admin Trade Name Freq PRN Reason Stop Dose Admin Acetaminophen 650 mg
--- NOTE | 2022-04-13 13:53 | PM.IMPN ---
Progress Note: A&P Assessment and Plan (1) Elevated troponin: Code(s): R77.8 - Other specified abnormalities of plasma proteins Status: Acute Assessment and Plan: 04/11/2022 interval history patient with elevated tropes and chest pain is more described as epigastric GERD, patient seen by Cardiology to further evaluate ordered cardiac echo and once the patient is clinically as patient end-stage renal disease on hemodialysis and suspect patient has volume overload seen by Nephrology and will have dialysis, will also consult GI further evaluate epigastric, will continue to monitor and further recommendation to follow. 04/13/2022 interval history?patient with elevated tropes and chest pain is more described as epigastric GERD, today patient was seen by GI and had a EGD, showed gastritis and recommended PPI, patient seen by Cardiology to further evaluate ordered cardiac echo was ordered which showed patient hasLarge, somewhat mobile echogenic aortic valve vegetation measuring 1.8 x 2.7 cm visualized.? Recommend transesophageal echocardiogram for further evaluation.which is scheduled for Friday, and once the patient is clinically stable as patient has end-stage renal disease on hemodialysis and suspect patient has volume overload seen by Nephrology and will have dialysis, on 04/12 patient wound was growing Pseudomonas organism, discussed with pharmacy id stop the Ancef, and being treated with cefepime, patient has no new complaints, will continue to monitor and further recommendation to follow. (2) End-stage renal disease on hemodialysis: Code(s): N18.6 - End stage renal disease; Z99.2 - Dependence on renal dialysis Status: Acute Assessment and Plan: patient is seen by code clerk and will have scheduled dialysis (3) Wound, open, knee, lower leg, or ankle with complication: Code(s): S81.009A - Unspecified open wound, unspecified knee, initial encounter; S81.809A - Unspecified open wound, unspecified lower leg, initial encounter; S91.009A - Unspecified open wound, unspecified ankle, initial encounter Status: Acute (4) GERD (gastroesophageal reflux disease): Code(s): K21.9 - Gastro-esophageal reflux disease without esophagitis Status: Acute Assessment and Plan: patient's symptoms are improving with PPI will consult GI and further recommendation to follow Plan patient was given a dose of Ancef in the emergency room will continue with current regimen. Subjective Date/time seen: 04/13/22 13:53 04/13/2022 interval history?patient with elevated tropes and chest pain is more described as epigastric GERD, today patient was seen by GI and had a EGD, showed gastritis and recommended PPI, patient seen by Cardiology to further evaluate ordered cardiac echo was ordered which showed patient hasLarge, somewhat mobile echogenic aortic valve vegetation measuring 1.8 x 2.7 cm visualized.? Recommend transesophageal echocardiogram for further evaluation.which is scheduled for Friday, and once the patient is clinically stable as patient has end-stage renal disease on hemodialysis and suspect patient has volume overload seen by Nephrology and will have dialysis, on 04/12 patient wound was growing Pseudomonas organism, discussed with pharmacy id stop the [facility], and being treated with cefepime, patient has no new complaints, will continue to monitor and further recommendation to follow. Review of Systems Constitutional: Constitutional: Reports as per HPI and Reports no additional constitutional complaints Exam Narrative: morbidly obese Patient is comfortable, NAD HEENT: eyes are clear and none icteric LUNGS: normal respiratory effort ABD: distended Lower extremities: no edema SKIN: nonjaundiced Neuro: grossly intact. Objective Data Vital Signs Vital Signs: Vital Signs - 24 hr 04/12/22 14:20 04/12/22 14:40 04/12/22 14:00 Temperature Pulse Rate 71 69 70 Respiratory Rate Blood
[2022-04-13] MEDS: SIMVASTATIN 20 MG TABLET 40 MG PO (20:39)
[2022-04-13] MEDS: CINACALCET 30 MG TABLET PO (20:40)
[2022-04-14] VITALS (11 sets, daily range): BP systolic 113–143; BP diastolic 50–68; PULSE 68–97; RESP 16–18; TEMP 36.6–37.4; O2SAT 92–98
[2022-04-14] MEDS: ONDANSETRON INJ 4 MG/2 ML VIAL IV PUSH (03:12)
[2022-04-14] MEDS: GABAPENTIN 100 MG CAPSULE 200 MG PO ×2 (08:55→20:12)
[2022-04-14] MEDS: ASPIRIN 81 MG CHEWABLE TABLET PO (08:55)
[2022-04-14] MEDS: VITAMIN B CMPLX/VIT C/FOLIC AC 1 CAPSULE 1 CAP PO (08:55)
[2022-04-14] MEDS: allopurinoL 100 MG TABLET PO (08:55)
[2022-04-14] MEDS: SEVELAMER CARBONATE 800 MG TABLET PO ×3 (08:55→16:22)
[2022-04-14] MEDS: PANTOPRAZOLE 40 MG TABLET PO ×2 (08:55→20:14)
[2022-04-14] MEDS: HEPARIN SODIUM 5,000 UNITS/ML VIAL 5000 UNITS SUB-Q ×2 (08:55→20:14)
[2022-04-14] MEDS: traMADol HCL (*CRX) 50 MG TABLET 100 MG PO ×2 (08:57→20:12)
[2022-04-14] MEDS: METOPROLOL TARTRATE 25 MG TABLET PO ×2 (08:58→20:14)
--- NOTE | 2022-04-14 13:25 | PM.IMPN ---
Progress Note: A&P Assessment and Plan (1) Elevated troponin: Code(s): R77.8 - Other specified abnormalities of plasma proteins Status: Acute Assessment and Plan: 04/11/2022 interval history patient with elevated tropes and chest pain is more described as epigastric GERD, patient seen by Cardiology to further evaluate ordered cardiac echo and once the patient is clinically as patient end-stage renal disease on hemodialysis and suspect patient has volume overload seen by Nephrology and will have dialysis, will also consult GI further evaluate epigastric, will continue to monitor and further recommendation to follow. 04/13/2022 interval history?patient with elevated tropes and chest pain is more described as epigastric GERD, today patient was seen by GI and had a EGD, showed gastritis and recommended PPI, patient seen by Cardiology to further evaluate ordered cardiac echo was ordered which showed patient hasLarge, somewhat mobile echogenic aortic valve vegetation measuring 1.8 x 2.7 cm visualized.? Recommend transesophageal echocardiogram for further evaluation.which is scheduled for Friday, and once the patient is clinically stable as patient has end-stage renal disease on hemodialysis and suspect patient has volume overload seen by Nephrology and will have dialysis, on 04/12 patient wound was growing Pseudomonas organism, discussed with pharmacy id stop the Ancef, and being treated with cefepime, patient has no new complaints, will continue to monitor and further recommendation to follow. 04/14/2022 interval history?patient with elevated tropes and chest pain is more described as epigastric GERD, today patient was seen by GI and had a EGD, showed gastritis and recommended PPI, patient seen by Cardiology to further evaluate ordered cardiac echo was ordered which showed patient hasLarge, somewhat mobile echogenic aortic valve vegetation measuring 1.8 x 2.7 cm visualized.? Recommend transesophageal echocardiogram for further evaluation.which is scheduled for Friday, and once the patient is clinically stable as patient has end-stage renal disease on hemodialysis and suspect patient has volume overload seen by Nephrology and will have dialysis, on 04/12 patient wound was growing Pseudomonas organism, discussed with pharmacy id stop the Ancef, and being treated with cefepime, this will also provide coverage patient incidental suspected for cardiac vegetation patient has no new complaints, he is remains cliically stable, has no new complaitns, will continue to monitor and further recommendation to follow.May discharge home after CARLOZ and HD. (2) End-stage renal disease on hemodialysis: Code(s): N18.6 - End stage renal disease; Z99.2 - Dependence on renal dialysis Status: Acute Assessment and Plan: patient is seen by vocational services specialist and will have scheduled dialysis (3) Wound, open, knee, lower leg, or ankle with complication: Code(s): S81.009A - Unspecified open wound, unspecified knee, initial encounter; S81.809A - Unspecified open wound, unspecified lower leg, initial encounter; S91.009A - Unspecified open wound, unspecified ankle, initial encounter Status: Acute (4) GERD (gastroesophageal reflux disease): Code(s): K21.9 - Gastro-esophageal reflux disease without esophagitis Status: Acute Assessment and Plan: patient's symptoms are improving with PPI will consult GI and further recommendation to follow Plan patient was given a dose of Ancef in the emergency room will continue with current regimen. Subjective Date/time seen: 04/14/22 13:25 04/14/2022 interval history?patient with elevated tropes and chest pain is more described as epigastric GERD, today patient was seen by GI and had a EGD, showed gastritis and recommended PPI, patient seen by Cardiology to further evaluate ordered cardiac echo was ordered which showed patient hasLarge, somewhat mobile echogenic aortic valve vegetation me
--- NOTE | 2022-04-14 13:35 | WPDGIPROGNO ---
Progress Note: A&P Assessment and Plan (1) Gastric ulcer: Code(s): K25.9 - Gastric ulcer, unspecified as acute or chronic, without hemorrhage or perforation Status: Acute Assessment and Plan: non-bleeding will need roasterman protonix or equivalent twice daily, pending biopsies repeat egd in 3 months ok to use low dose of aspirin for now will sign off, call if questions (2) Epigastric pain: Code(s): R10.13 - Epigastric pain Status: Acute Assessment and Plan: resolved (3) Elevated troponin: Code(s): R77.8 - Other specified abnormalities of plasma proteins Status: Acute Assessment and Plan: per cardiology (4) End-stage renal disease on hemodialysis: Code(s): N18.6 - End stage renal disease; Z99.2 - Dependence on renal dialysis Status: Acute Assessment and Plan: by nephrologisst (5) 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 Status: Acute Assessment and Plan: cardiology will perform CARLOZ to assess, management by primary team Subjective Date/time seen: 04/14/22 13:35 Interval history: no more abdominal pain and eating ok Review of Systems Constitutional: Constitutional: Reports as per HPI and Reports no additional constitutional complaints Exam Const: General: no acute distress HENMT: General nose exam: Normal nares present Eyes: General: appearance normal, both eyes and all related structures Neck: Neck: supple Resp: Effort & Inspection: normal respiratory effort Cardio: Rate: regular rate GI: Inspection: non-distended GI Palp: No abdominal tenderness and No Guarding due to palpation present (GI) Auscultation: normal bowel sounds Neuro: Speech: normal speech Extrem: General: pedal edema bilaterally Psych: Mental Status: mental status grossly normal Objective Data Vital Signs Vital Signs: Vital Signs - 24 hr 04/13/22 14:00 04/13/22 16:00 04/13/22 20:39 Temperature 97.6 F Pulse Rate 68 67 68 Respiratory Rate 14 Blood Pressure 111/51 L Pulse Oximetry 97 Oxygen Delivery 04/13/22 20:00 04/13/22 22:00 04/13/22 20:00 Temperature 98.1 F Pulse Rate 73 76 Respiratory Rate 16 Blood Pressure 141/64 H Pulse Oximetry 95 Oxygen Delivery Room Air 04/14/22 00:00 04/14/22 04:00 04/14/22 06:00 Temperature 99.3 F Pulse Rate 77 73 97 Respiratory Rate 16 Blood Pressure 135/68 Pulse Oximetry 92 Oxygen Delivery 04/14/22 08:58 04/14/22 08:00 04/14/22 08:00 Temperature Pulse Rate 97 73 97 Respiratory Rate 16 Blood Pressure Pulse Oximetry 92 Oxygen Delivery Room Air Intake/Output Intake/Output: Intake & Output 04/11/22 04/12/22 04/13/22 04/14/22 23:59 23:59 23:59 23:59 Intake Total 2741 063 4602 1280 Output Total 3500 Balance 1940 -2570 1070 1280 Meds/Results Medications: Active Medications Generic Name Dose Route Start Last Admin Trade Name Freq PRN Reason Stop Dose Admin Acetaminophen 650 mg 04/10/22 14:55 Acetaminophen 325 Mg Tablet PO Q4H PRN Mild Pain (1-3) or Fever Allopurinol 100 mg 04/11/22 08:00 04/14/22 08:55 Allopurinol 100 Mg Tablet PO 100 mg DAILY@0800 GRAEME Administration Aspirin 81 mg 04/11/22 08:00 04/14/22 08:55 Aspirin 81 Mg Chewable Tablet PO 81 mg DAILY@0800 GRAEME Administration Cinacalcet 30 mg 04/10/22 23:05 04/13/22 20:40 Cinacalcet 30 Mg Tablet PO 30 mg HS GRAEME Administration Gabapentin 200 mg 04/10/22 23:00 04/14/22 08:55 Gabapentin 100 Mg Capsule PO 200 mg Q12HR GRAEME Administration Heparin Sodium (Porcine) 5,000 units 04/10/22 21:00 04/14/22 08:55 Heparin Sodium 5,000 Units/Ml Vial SUB-Q 5,000 units Q12HR GRAEME Administration Cefepime HCl 1 gm in 50 mls @ 100 mls/hr 04/12/22 15:00 04/14/22 03:30 Maxipime 1 Gm/D5w 50 Ml IVPB Infused Q12H GRAEME Infusion Metoprolol Tart
[2022-04-14] MEDS: CINACALCET 30 MG TABLET PO (20:14)
[2022-04-14] MEDS: SIMVASTATIN 20 MG TABLET 40 MG PO (20:14)
[2022-04-15] VITALS (18 sets, daily range): BP systolic 116–149; BP diastolic 51–78; PULSE 18–79; RESP 12–18; TEMP 35–36.8; O2SAT 97–99
[2022-04-15 06:35] LABS: Hematocrit 28.6 % (42.0-52.0); Hemoglobin 9.3 g/dL (14.0-18.0); Mean Corpuscular HGB Conc 32.5 g/dl (32-36); Mean Corpuscular Hemoglobin 33.7 pg (26-34); Mean Corpuscular Volume 103.6 fl (80-100); Mean Platelet Volume 10.1 fl (7.4-10.4); Platelet Count Result 217 k/mm3 (150-375); Red Blood Count 2.76 M/mm3 (4.6-6.20); Red Cell Distribution Width 15.8 % (11.5-14.5); White Blood Count 10.4 K/mm3 (4.5-10.0)
[2022-04-15 07:04] LABS: Albumin Level 2.5 g/dL (3.5-5.1); Anion Gap 7 mmol/L (8-16); Blood Urea Nitrogen 40 mg/dL (9-20); Calcium 8.7 mg/dL (8.4-10.2); Carbon Dioxide 30 mmol/L (22-30); Chloride 96 mmol/L (98-107); Estimated CRCL calculation 16 ml/min; Estimated Glomerular Filt Rate 10; Glucose 81 mg/dL (65-110); Phosphorus 4.3 mg/dL (2.5-4.5); Potassium 4.1 mmol/L (3.4-5.0); Sodium 133 mmol/L (137-145)
--- NOTE | 2022-04-15 11:03 | PC.NURSE ---
pt refuses meds this AM until his CARLOZ is completed. will attempt to give meds after CARLOZ completed
--- NOTE | 2022-04-15 12:06 | PM.PNCARD ---
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 Plan for CARLOZ tomorrow. Discuss risks/benefits of procedure and he is agreeable. Keep NPO after midnight. (2) Gastric ulcer: Code(s): K25.9 - Gastric ulcer, unspecified as acute or chronic, without hemorrhage or perforation Status: Acute Assessment and Plan: GI following. (3) Systolic dysfunction: Code(s): I51.9 - Heart disease, unspecified Status: Acute Assessment and Plan: Mild. (4) Dyslipidemia: Code(s): E78.5 - Hyperlipidemia, unspecified Status: Acute Assessment and Plan: On Simvastatin. (5) Hypertension: Code(s): I10 - Essential (primary) hypertension Status: Acute Assessment and Plan: Stable. (6) Elevated troponin: Code(s): R77.8 - Other specified abnormalities of plasma proteins Status: Acute Assessment and Plan: Doubt ACS as no apparent symptoms to suggest it. Troponin peaked at 0.848, which with CKD on HD, along with volume overload, and wound with pseudomonas. (7) End-stage renal disease on hemodialysis: Code(s): N18.6 - End stage renal disease; Z99.2 - Dependence on renal dialysis Status: Acute Subjective Date/time seen: 04/15/22 12:06 I saw patient during hospitalization in Jul 2021 but he did not f/u with me. HCG covered for me last week as I was off. Patient gets heart burn intermittently. No chest pain or sob. 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 Exam Const: General: cooperative, healthy appearing and comfortable Nutritional Appearance: obese Resp: Auscultation: clear to auscultation bilaterally, no crackles, no rales, no rhonchi and no wheezes Cardio: Jugular venous distension: no JVD Rate: regular rate Rhythm: regular rhythm Heart sounds: no murmurs Peripheral pulses: dorsalis pedis present GI: GI Palp: No abdominal tenderness and Yes Soft to palpation Neuro: General: oriented to person, oriented to place and oriented to time Extrem: Right lower extremity: edema Left lower extremity: edema Other: Mod edema of both legs Objective Data Vital Signs Vital Signs: Vital Signs - 24 hr 04/14/22 14:00 04/14/22 16:00 04/14/22 20:14 Temperature 98.3 F Pulse Rate 69 70 85 Respiratory Rate 18 Blood Pressure 113/50 L Pulse Oximetry 93 Oxygen Delivery 04/14/22 20:00 04/14/22 22:00 04/15/22 00:00 Temperature 97.8 F Pulse Rate 68 73 70 Respiratory Rate 16 Blood Pressure 143/61 H Pulse Oximetry 98 Oxygen Delivery 04/15/22 04:00 04/15/22 06:00 04/15/22 08:00 Temperature 96.9 F L Pulse Rate 74 79 Respiratory Rate 16 Blood Pressure 146/51 H Pulse Oximetry 99 Oxygen Delivery Room Air Intake/Output Intake/Output: Intake & Output 04/12/22 04/13/22 04/14/22 04/15/22 23:59 23:59 23:59 23:59 Intake Total 930 1070 1810 Output Total 3500 Balance -2570 1070 1810 Meds/Results Medications: Active Medications Generic Name Dose Route Start Last Admin Trade Name Freq PRN Reason Stop Dose Admin Acetaminophen 650 mg 04/10/22 14:55 Acetaminophen 325 Mg Tablet PO Q4H PRN Mild Pain (1-3) or Fever Allopurinol 100 mg 04/11/22 08:00 04/14/22 08:55 Allopurinol 100 Mg Tablet PO 100 mg DAILY@0800 GRAEME Administration Aspirin 81 mg 04/11/22 08:00 04/14/22 08:55 Aspirin 81 Mg Chewable Tablet PO 81 mg DAILY@0800 GRAEME Administration Cinacalcet 30 mg 04/10/22 23:05 04/14/22 20:14 Cinacalcet 30 Mg Tablet PO 30 mg HS GRAEME Administration Gabapentin 200 mg 04/10/22 23:00 04/14/22 20:12 Gabapentin 100 Mg Capsule PO 200 mg Q12HR GRAEME Administration Heparin Sodium (Porcine) 5,000 unit
[2022-04-15] MEDS: ASPIRIN 81 MG CHEWABLE TABLET PO (13:02)
[2022-04-15] MEDS: PANTOPRAZOLE 40 MG TABLET PO ×2 (13:03→20:16)
[2022-04-15] MEDS: allopurinoL 100 MG TABLET PO (13:03)
[2022-04-15] MEDS: VITAMIN B CMPLX/VIT C/FOLIC AC 1 CAPSULE 1 CAP PO (13:03)
[2022-04-15] MEDS: METOPROLOL TARTRATE 25 MG TABLET PO ×2 (13:03→20:17)
[2022-04-15] MEDS: SEVELAMER CARBONATE 800 MG TABLET PO ×2 (13:04→17:33)
[2022-04-15] MEDS: GABAPENTIN 100 MG CAPSULE 200 MG PO ×2 (13:04→20:16)
[2022-04-15] MEDS: traMADol HCL (*CRX) 50 MG TABLET 100 MG PO ×2 (13:07→20:16)
[2022-04-15] MEDS: HEPARIN SODIUM 5,000 UNITS/ML VIAL 5000 UNITS SUB-Q ×2 (13:07→20:17)
--- NOTE | 2022-04-15 13:44 | PM.IMPN ---
Progress Note: A&P Assessment and Plan (1) Elevated troponin: Code(s): R77.8 - Other specified abnormalities of plasma proteins Status: Acute Assessment and Plan: 04/11/2022 interval history patient with elevated tropes and chest pain is more described as epigastric GERD, patient seen by Cardiology to further evaluate ordered cardiac echo and once the patient is clinically as patient end-stage renal disease on hemodialysis and suspect patient has volume overload seen by Nephrology and will have dialysis, will also consult GI further evaluate epigastric, will continue to monitor and further recommendation to follow. 04/13/2022 interval history?patient with elevated tropes and chest pain is more described as epigastric GERD, today patient was seen by GI and had a EGD, showed gastritis and recommended PPI, patient seen by Cardiology to further evaluate ordered cardiac echo was ordered which showed patient hasLarge, somewhat mobile echogenic aortic valve vegetation measuring 1.8 x 2.7 cm visualized.? Recommend transesophageal echocardiogram for further evaluation.which is scheduled for Friday, and once the patient is clinically stable as patient has end-stage renal disease on hemodialysis and suspect patient has volume overload seen by Nephrology and will have dialysis, on 04/12 patient wound was growing Pseudomonas organism, discussed with pharmacy id stop the Ancef, and being treated with cefepime, patient has no new complaints, will continue to monitor and further recommendation to follow. 04/14/2022 interval history?patient with elevated tropes and chest pain is more described as epigastric GERD, today patient was seen by GI and had a EGD, showed gastritis and recommended PPI, patient seen by Cardiology to further evaluate ordered cardiac echo was ordered which showed patient hasLarge, somewhat mobile echogenic aortic valve vegetation measuring 1.8 x 2.7 cm visualized.? Recommend transesophageal echocardiogram for further evaluation.which is scheduled for Friday, and once the patient is clinically stable as patient has end-stage renal disease on hemodialysis and suspect patient has volume overload seen by Nephrology and will have dialysis, on 04/12 patient wound was growing Pseudomonas organism, discussed with pharmacy id stop the Ancef, and being treated with cefepime, this will also provide coverage patient incidental suspected for cardiac vegetation patient has no new complaints, he is remains cliically stable, has no new complaitns, will continue to monitor and further recommendation to follow.May discharge home after CARLOZ and HD. 04/15/2022 interval history?patient with elevated tropes and chest pain is more described as epigastric GERD, today patient was seen by GI and had a EGD, showed gastritis and recommended PPI, patient seen by Cardiology to further evaluate ordered cardiac echo was ordered which showed patient hasLarge, somewhat mobile echogenic aortic valve vegetation measuring 1.8 x 2.7 cm visualized.? Recommend transesophageal echocardiogram for further evaluation.which is scheduled for Friday, and once the patient is clinically stable as patient has end-stage renal disease on hemodialysis and suspect patient has volume overload seen by Nephrology and will have dialysis, on 04/12 patient wound was growing Pseudomonas organism, discussed with pharmacy id stop the [facility], and being treated with cefepime 1g qd, for 4/7 days , this will also provide coverage patient incidental suspected for cardiac vegetation patient has no new complaints, he is remains clinically stable, has no new complains, Plan was to do CARLOZ today however it is now postponed until tomorrow, patient is scheduled to have HD today, will follow up and monitor. (2) End-stage renal disease on hemodialysis: Code(s): N18.6 - End stage renal disease; Z99.2 - Dependence on renal dialysis Status: Acute Assessment and Plan: patient is seen by burnisher
[2022-04-15] MEDS: ONDANSETRON INJ 4 MG/2 ML VIAL IV PUSH (18:07)
[2022-04-15] MEDS: SIMVASTATIN 20 MG TABLET 40 MG PO (20:16)
[2022-04-15] MEDS: CINACALCET 30 MG TABLET PO (20:16)
[2022-04-16] VITALS (15 sets, daily range): BP systolic 94–142; BP diastolic 31–54; PULSE 62–72; RESP 9–18; TEMP 35.9–36.4; O2SAT 95–100
[2022-04-16 06:49] LABS: Hematocrit 27.4 % (42.0-52.0); Hemoglobin 8.9 g/dL (14.0-18.0); Mean Corpuscular HGB Conc 32.5 g/dl (32-36); Mean Corpuscular Hemoglobin 34.6 pg (26-34); Mean Corpuscular Volume 106.6 fl (80-100); Mean Platelet Volume 10.6 fl (7.4-10.4); Platelet Count Result 223 k/mm3 (150-375); Red Blood Count 2.57 M/mm3 (4.6-6.20); White Blood Count 9.4 K/mm3 (4.5-10.0)
[2022-04-16 07:10] LABS: Albumin Level 2.6 g/dL (3.5-5.1); Anion Gap 7 mmol/L (8-16); Blood Urea Nitrogen 37 mg/dL (9-20); Calcium 8.1 mg/dL (8.4-10.2); Carbon Dioxide 31 mmol/L (22-30); Chloride 95 mmol/L (98-107); Estimated CRCL calculation 18 ml/min; Estimated Glomerular Filt Rate 11; Glucose 69 mg/dL (65-110); Potassium 3.8 mmol/L (3.4-5.0); Sodium 133 mmol/L (137-145)
--- NOTE | 2022-04-16 08:00 | ECHO_ITS ---
Patient Info Name: Tonio Barajas Age: 56 years : 1965 Gender: Male Ht: 70 in Wt: 253 lbs BSA: 2.42 m2 HR: 68 bpm BP: 142 / 54 mmHg Heart Rhythm: Sinus Rhythm Technical Quality: Good Exam Date: 04/16/2022 7:51 AM Exam Location: [facility] Pulmonary Patient Status: Inpatient Admit Date: 04/10/2022 Staff Ordering Physician: Daniel Domingo DO Machine Sole Leveler: Janine Martell RDCS Attending Provider: Carmel Howard DO Referring Physician: Jose L MICHAEL; Exam Type: CA echo transesophageal Study Info Indications - vegetation of aortic valve Complete two-dimensional, color flow and Doppler transesophageal study is performed. Procedure Details Risks/benefits/alternative treatment to CARLOZ discuss with patient and he is agreeable for procedure. Monitoring of vitals and electrocardiographic during procedure. HR 65 bpm, BP 120/70, pulse ox >99%. Given cetacaine spray x 2 to posterior oropharynx. Conscious sedation given with Fentanyl 25 mcg and Versed 1 mg IV. CARLOZ probe advanced to posterior oropharynx and he swallowed probe without incident. Images obtained at multiple levels of esophagus. Agitated saline administered. CARLOZ probe withdrawn and no blood noted on CARLOZ probe tip. Patient tolerated procedure well with non complications. Summary 1. Left ventricular chamber dimension is normal. 2. Left ventricular systolic function is normal with an ejection fraction 60-65% by visual estimation. 3. There is mildly increased left ventricular wall thickness. 4. The left ventricular diastolic function is indeterminate. 5. Left atrial chamber dimension is moderately enlarged. 6. Right atrial chamber dimension is mildly enlarged. 7. The aortic valve is probable trileaflet but cannot r/o bicuspid valve given significant calcifications and possibly fused from that. 8. There is severe aortic valve calcifications involving left and non-coronary cusps which are fused as a result. 9. There is mild aortic valve stenosis and by planimetry aortic valve area is 1.7 cm2. 10. There is moderate aortic valve regurgitation. 11. The mitral valve has mildly thickened leaflets. 12. There is moderate mitral valve regurgitation. 13. There is trace tricuspid valve regurgitation. Left Ventricle Left ventricular systolic function is normal with an ejection fraction 60-65% by visual estimation. Left ventricular chamber dimension is normal. There is mildly increased left ventricular wall thickness. The left ventricular diastolic function is indeterminate. Right Ventricle Right ventricular chamber dimension is normal. Right ventricular systolic function is normal. Left Atria Left atrial chamber dimension is moderately enlarged. Right Atria Right atrial chamber dimension is mildly enlarged. Atrial Septum Agitated saline injection opacified right side cardiac chambers without shunt to left side cardiac chambers. Intact interatrial septum visualized by 2D, color flow and agitated saline imaging. Atrial Appendage There is no thrombus visualized in the left atrial appendage. Aortic Valve The aortic valve is probable trileaflet but cannot r/o bicuspid valve given significant calcifications and possibly fused from that. There is severe aortic valve calcifications involving left and non-coronary cusps which are fused as a result. There is mild aortic valve stenosis and by planimetry aortic valve area is 1.7 cm2. There is moderate aortic valve regurgitation. No aortic valve vegetation visualized. Pulmonic Valve Th
--- NOTE | 2022-04-16 08:26 | PM.PNCARD ---
Progress Note: A&P Assessment and Plan (1) 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 Status: Acute Assessment and Plan: I reviewed transthoracic echo recently done, aortic valve is not well seen. CARLOZ completed this morning shows EF improved 60%, diastolic function not assessed, mod LVH, mod LAE, mild MARLENE, AV shows large calcification involving left and non-coronary cusps but with no vegetations, mod AI, mod MR, mild thickening of mitral valve leaflets, trace TR. No further cardiac workup is needed. (2) Gastric ulcer: Code(s): K25.9 - Gastric ulcer, unspecified as acute or chronic, without hemorrhage or perforation Status: Acute Assessment and Plan: GI following. (3) Dyslipidemia: Code(s): E78.5 - Hyperlipidemia, unspecified Status: Acute Assessment and Plan: On Simvastatin. (4) Hypertension: Code(s): I10 - Essential (primary) hypertension Status: Acute Assessment and Plan: Stable. (5) Elevated troponin: Code(s): R77.8 - Other specified abnormalities of plasma proteins Status: Acute Assessment and Plan: Doubt ACS as no apparent symptoms to suggest it. Troponin peaked at 0.848, which with CKD on HD, along with volume overload, and wound with pseudomonas. (6) End-stage renal disease on hemodialysis: Code(s): N18.6 - End stage renal disease; Z99.2 - Dependence on renal dialysis Status: Acute Subjective Date/time seen: 04/16/22 08:26 Denies chest pain or sob. Exam Const: General: cooperative, healthy appearing and comfortable Nutritional Appearance: obese Resp: Auscultation: clear to auscultation bilaterally, no crackles, no rales, no rhonchi and no wheezes Cardio: Jugular venous distension: no JVD Rate: regular rate Rhythm: regular rhythm Heart sounds: no murmurs Peripheral pulses: dorsalis pedis present GI: GI Palp: No abdominal tenderness and Yes Soft to palpation Neuro: General: oriented to person, oriented to place and oriented to time Extrem: Right lower extremity: edema Left lower extremity: edema Other: Mod edema of both legs Objective Data Vital Signs Vital Signs: Vital Signs - 24 hr 04/15/22 13:03 04/15/22 12:00 04/15/22 14:00 Temperature 98.2 F Pulse Rate 76 73 70 Respiratory Rate 12 Blood Pressure 127/64 Pulse Oximetry 97 Oxygen Delivery Oxygen Flow Rate 04/15/22 16:00 04/15/22 13:45 04/15/22 13:50 Temperature 97.7 F Pulse Rate 69 68 69 Respiratory Rate 18 Blood Pressure 127/61 127/54 L Pulse Oximetry Oxygen Delivery Oxygen Flow Rate 04/15/22 16:45 04/15/22 14:30 04/15/22 15:00 Temperature 97.6 F Pulse Rate 18 L 67 70 Respiratory Rate 18 Blood Pressure 143/72 H 123/54 L 146/78 H Pulse Oximetry Oxygen Delivery Oxygen Flow Rate 04/15/22 15:30 04/15/22 16:00 04/15/22 16:30 Temperature Pulse Rate 69 69 70 Respiratory Rate Blood Pressure 139/67 145/75 H 149/69 H Pulse Oximetry Oxygen Delivery Oxygen Flow Rate 04/15/22 20:17 04/15/22 20:00 04/15/22 22:09 Temperature 96.4 F L Pulse Rate 75 72 74 Respiratory Rate 18 Blood Pressure 116/55 L Pulse Oximetry 97 Oxygen Delivery Oxygen Flow Rate 04/16/22 00:00 04/16/22 02:23 04/16/22 04:00 Temperature Pulse Rate 68 68 Respiratory Rate Blood Pressure Pulse Oximetry 97 Oxygen Delivery Room Air Oxygen Flow Rate 04/16/22 06:00 04/16/22 07:33 04/16/22 07:51 Temperature 96.7 F L 97.6 F Pulse Rate 71 70 72 Respiratory Rate 18 14 9 L Blood Pressure 117/51 L 142/54 H 142/54 H Pulse Oximetry 100 100 100 Oxygen Delivery Room Air Nasal Cannula Oxygen Flow Rate 3 04/16/22 07:55 04/16/22 08:05 04/16/22 08:15 Temperature Pulse Rate 66 65 65 Respiratory Rate 9 L 9 L 12 Blood Pressure 111/45 L 108/45 L 104/46 L Pulse Oximetry 100 100 100 Oxygen Delivery Na
[2022-04-16] MEDS: ASPIRIN 81 MG CHEWABLE TABLET PO (09:30)
[2022-04-16] MEDS: GABAPENTIN 100 MG CAPSULE 200 MG PO (09:30)
[2022-04-16] MEDS: allopurinoL 100 MG TABLET PO (09:30)
[2022-04-16] MEDS: PANTOPRAZOLE 40 MG TABLET PO (09:30)
[2022-04-16] MEDS: SEVELAMER CARBONATE 800 MG TABLET PO ×2 (09:30→12:25)
[2022-04-16] MEDS: VITAMIN B CMPLX/VIT C/FOLIC AC 1 CAPSULE 1 CAP PO (09:30)
[2022-04-16] MEDS: METOPROLOL TARTRATE 25 MG TABLET PO (09:30)
[2022-04-16] MEDS: traMADol HCL (*CRX) 50 MG TABLET 100 MG PO (09:37)
[2022-04-16] MEDS: HEPARIN SODIUM 5,000 UNITS/ML VIAL 5000 UNITS SUB-Q (09:37)
--- NOTE | 2022-04-16 13:57 | PM.DS ---
DS: Admitting Diagnosis Discharge Date 04/16/2022 Admitting Diagnosis Increasing edema DS: Discharge Diagnosis Discharge Diagnosis (1) Elevated troponin: Code(s): R77.8 - Other specified abnormalities of plasma proteins Status: Acute Assessment and Plan: 04/11/2022 interval history patient with elevated tropes and chest pain is more described as epigastric GERD, patient seen by Cardiology to further evaluate ordered cardiac echo and once the patient is clinically as patient end-stage renal disease on hemodialysis and suspect patient has volume overload seen by Nephrology and will have dialysis, will also consult GI further evaluate epigastric, will continue to monitor and further recommendation to follow. 04/13/2022 interval history?patient with elevated tropes and chest pain is more described as epigastric GERD, today patient was seen by GI and had a EGD, showed gastritis and recommended PPI, patient seen by Cardiology to further evaluate ordered cardiac echo was ordered which showed patient hasLarge, somewhat mobile echogenic aortic valve vegetation measuring 1.8 x 2.7 cm visualized.? Recommend transesophageal echocardiogram for further evaluation.which is scheduled for Friday, and once the patient is clinically stable as patient has end-stage renal disease on hemodialysis and suspect patient has volume overload seen by Nephrology and will have dialysis, on 04/12 patient wound was growing Pseudomonas organism, discussed with pharmacy id stop the Ancef, and being treated with cefepime, patient has no new complaints, will continue to monitor and further recommendation to follow. 04/14/2022 interval history?patient with elevated tropes and chest pain is more described as epigastric GERD, today patient was seen by GI and had a EGD, showed gastritis and recommended PPI, patient seen by Cardiology to further evaluate ordered cardiac echo was ordered which showed patient hasLarge, somewhat mobile echogenic aortic valve vegetation measuring 1.8 x 2.7 cm visualized.? Recommend transesophageal echocardiogram for further evaluation.which is scheduled for Friday, and once the patient is clinically stable as patient has end-stage renal disease on hemodialysis and suspect patient has volume overload seen by Nephrology and will have dialysis, on 04/12 patient wound was growing Pseudomonas organism, discussed with pharmacy id stop the Ancef, and being treated with cefepime, this will also provide coverage patient incidental suspected for cardiac vegetation patient has no new complaints, he is remains cliically stable, has no new complaitns, will continue to monitor and further recommendation to follow.May discharge home after CARLOZ and HD. 04/15/2022 interval history?patient with elevated tropes and chest pain is more described as epigastric GERD, today patient was seen by GI and had a EGD, showed gastritis and recommended PPI, patient seen by Cardiology to further evaluate ordered cardiac echo was ordered which showed patient hasLarge, somewhat mobile echogenic aortic valve vegetation measuring 1.8 x 2.7 cm visualized.? Recommend transesophageal echocardiogram for further evaluation.which is scheduled for Friday, and once the patient is clinically stable as patient has end-stage renal disease on hemodialysis and suspect patient has volume overload seen by Nephrology and will have dialysis, on 04/12 patient wound was growing Pseudomonas organism, discussed with pharmacy id stop the [facility], and being treated with cefepime 1g qd, for 4/7 days , this will also provide coverage patient incidental suspected for cardiac vegetation patient has no new complaints, he is remains clinically stable, has no new complains, Plan was to do CARLOZ today however it is now postponed until tomorrow, patient is scheduled to have HD today, will follow up and monitor. (2) End-stage renal disease on hemodialysis: Code(s): N18.6 - End stage renal disease; Z99.2 - Dependence o
== END 2022-04-16 15:05 | disposition home or self-care (01) | DRG 291 ==
LOC: ANHED 15:02 → ANHIMU 18:00 → ANH3MEDSUR 04-15 12:34 → ANHIMU 04-17 16:22
PROVIDERS: Internal Medicine Cardiovascular Disease; Internal Medicine Gastroenterology; Nurse Practitioner Adult Health; Admitting Provider Student in an Organized Health Care Education/Training Program; Emergency Provider Emergency Medicine; PCP Internal Medicine Infectious Disease; Visit Provider Family Medicine
PROC: 0DJ08ZZ Inspection of Upper Intestinal Tract, Via Natural or Artificial Opening Endoscopic (ICD-10-PCS; CPT 43235; principal; 2022-04-12 13:15)
PROC: B24BZZ4 Ultrasonography of Heart with Aorta, Transesophageal (ICD-10-PCS; CPT 93312; principal; 2022-04-16 07:30)
DX: I13.2 Hypertensive heart and chronic kidney disease with heart failure and with stage 5 chronic kidney disease, or end stage renal disease (principal); I33.0 Acute and subacute infective endocarditis; N18.6 End stage renal disease; N25.81 Secondary hyperparathyroidism of renal origin; I47.2 Ventricular tachycardia; N13.30 Unspecified hydronephrosis; I50.32 Chronic diastolic (congestive) heart failure; K31.84 Gastroparesis; K25.9 Gastric ulcer, unspecified as acute or chronic, without hemorrhage or perforation; K29.70 Gastritis, unspecified, without bleeding; R77.8 Other specified abnormalities of plasma proteins; Z20.822 Contact with and (suspected) exposure to COVID-19; S81.001A Unspecified open wound, right knee, initial encounter; B96.5 Pseudomonas (aeruginosa) (mallei) (pseudomallei) as the cause of diseases classified elsewhere; X58.XXXA Exposure to other specified factors, initial encounter; K52.89 Other specified noninfective gastroenteritis and colitis; E66.01 Morbid (severe) obesity due to excess calories; Z68.35 Body mass index [BMI] 35.0-35.9, adult; E78.5 Hyperlipidemia, unspecified; F17.210 Nicotine dependence, cigarettes, uncomplicated; D63.1 Anemia in chronic kidney disease; M48.00 Spinal stenosis, site unspecified; K21.9 Gastro-esophageal reflux disease without esophagitis; Z99.2 Dependence on renal dialysis
CPT/HCPCS: 36415; 71046; 74176; 80053; 80069; 83690; 83735; 83880; 84484; 85014; 85018; 85025; 85027; 87070; 87077; 87081; 87186; 87205; 88305; 93005; 93306; 93312; 93320; 93325; 99285; A9270; C1751; C9803; G0257; J0690; J0692; J1644; J2250; J2270; J2405; J2704; J3010; J7030; J7040; J7120; Q5105; U0003; U0005

== ENCOUNTER 2022-05-20 02:42 | Inpatient (IN) | payer MEDICARE, MEDICAID, SELFPAY ==
[2022-05-20] VITALS (31 sets, daily range): BP systolic 82–107; BP diastolic 23–86; PULSE 64–117; RESP 14–20; TEMP 35.7–36.7; O2SAT 87–100; BMI 34.3
--- NOTE | 2022-05-20 | ECHO_ITS ---
Patient Info Name: Tonio Barajas Age: 56 years : 1965 Gender: Male Ht: 70 in Wt: 240 lbs BSA: 2.36 m2 HR: 108 bpm BP: 86 / 46 mmHg Technical Quality: Good Exam Date: 05/20/2022 3:37 PM Exam Location: [facility] Patient Status: Inpatient Admit Date: 05/20/2022 Staff Ordering Physician: Daniel Domingo DO Quantitative Software Engineer: Dav Madden RDCS, RT Attending Provider: Uyen Angelo MD Referring Physician: Jose L MICHAEL; Exam Type: CA echo limited w contrast Study Info Indications I50.9 - Heart failure, unspecified Limited two-dimensional transthoracic echocardiogram is performed with contrast. Summary 1. Limited echocardiogram to assess for wall motion abnormality. 2. Definity contrast administered improved wall motion interpretation. 3. Left ventricular chamber dimension is severely enlarged. 4. Left ventricular systolic function is severely reduced, estimated at 20-25%. 5. The left ventricular diastolic function is indeterminate as it was not assessed.. Left Ventricle The left ventricular diastolic function is indeterminate as it was not assessed.. Limited echocardiogram to assess for wall motion abnormality. Definity contrast administered improved wall motion interpretation. Left ventricular chamber dimension is severely enlarged. Left ventricular systolic function is severely reduced, estimated at 20-25%. Ventricles Name Value Normal LV Dimensions 2D/MM IVS Diastolic Thickness (2D) 1.2 cm 0.6-1.0 LVID Diastole (2D) 6.2 cm 4.2-5.8 LVIW Diastolic Thickness (2D) 1.1 cm 0.6-1.0 LVID Systole (2D) 6.0 cm 2.5-4.0 LV Mass (2D Cubed) 329.87 g 88.00-224.00 LV Mass Index (2D Cubed) 140 g/m2 49-115 Relative Wall Thickness (2D) 0.36 LV Fractional Shortening/Ejection Fraction 2D/MM LV Fractional Shortening (2D) 4 % 25-43 LV EF (2D Teicholz) 9 % 52-72 LV Diastolic Volume (4C MOD) 313 ml LV EF (4C MOD) 22 % LV Diastolic Volume (2C MOD) 297 ml LV EF (2C MOD) 26 % LV Diastolic Volume (BP MOD) 305 ml 62-150 LV Diastolic Volume Index (BP MOD) 129 ml/m2 34-74 LV Systolic Volume (BP MOD) 245 ml 21-61 LV Systolic Volume Index (BP MOD) 104 ml/m2 11-31 LV EF (BP MOD) 20 % 52-72 LV Diastolic Length (4C) 9.9 cm LV Systolic Length (4C) 9.6 cm LV Stroke Volume (4C MOD) 69 ml Report Signatures
--- NOTE | ~2022-05-20 | XR_ITS ---
EXAMINATION: XR chest 1V portable DATE: 05/22/2022 05:52 INDICATION: Shortness of breath. Pleural effusion. TECHNIQUE: A single frontal view of the chest was obtained. COMPARISON: Chest single view 05/21/2022, chest CT 05/20/2022 FINDINGS: There are small right and moderate-sized left pleural effusions. There are airspace opaciti es in the left mid and lower lung zones. There is a diffuse interstitial pattern, consistent with pul monary edema. No pneumothorax. There is left ventricular enlargement of the heart. The endotracheal t ube tip is 4.1 cm above the svitlana. The nasogastric tube tip is beyond the inferior margin of the rad iograph, but at least to the stomach. A vascular stent overlies left scapula. There are old healed ri b fractures. IMPRESSION: 1. Small right and moderate-sized left pleural effusions. 2. Mild pulmonary edema. 3. Stable airspace opacities in left mid and lower lung zones, consistent with atelectasis versus pne umonia. 4. Left ventricular enlargement of the heart. Reviewed, dictated and finalized at location A. IMPRESSION: 1. Small right and moderate-sized left pleural effusions. 2. Mild pulmonary edema. 3. Stable airspace opacities in left mid and lower lung zones, consistent with atelectasis versus pneumonia. 4. Left ventricular enlargement of the heart.
--- NOTE | ~2022-05-20 | XR_ITS ---
EXAMINATION: XR chest 1V portable DATE: 05/20/2022 03:26 INDICATION: Shortness of breath. TECHNIQUE: A single frontal view of the chest was obtained. COMPARISON: Chest 2 views 04/10/2022, chest CT 08/01/2021, CT abdomen and pelvis 04/10/2022 FINDINGS: There is a small loculated left pleural effusion. There are airspace opacities in left mid and lower lung zones. No pneumothorax. The heart size is normal. A vascular stent overlies left scapu la. IMPRESSION: 1. Worsened small loculated left pleural effusion. 2. Worsened airspace opacities in left mid and lower lung zones, consistent with atelectasis versus p neumonia. Reviewed, dictated and finalized at location A. IMPRESSION: 1. Worsened small loculated left pleural effusion. 2. Worsened airspace opacities in left mid and lower lung zones, consistent wit h atelectasis versus pneumonia.
--- NOTE | ~2022-05-20 | XR_ITS ---
EXAMINATION: XR chest 1V portable DATE: 05/21/2022 15:00 INDICATION: Intubation. TECHNIQUE: A single frontal view of the chest was obtained. COMPARISON: Chest single view 05/20/2022, chest CT 05/20/2022 FINDINGS: There is a small loculated left pleural effusion. There is a diffuse interstitial pattern, consistent with mild pulmonary edema. There are airspace opacities in left mid and lower lung zones. No pneumothorax. There is left ventricular enlargement of the heart. The endotracheal tube tip is 3.9 cm above the svitlana. The nasogastric tube tip is beyond the inferior margin of the radiograph, but a t least to the stomach. There is a vascular stent overlying left scapula. There are old healed bilate ral rib fractures. IMPRESSION: 1. Mild pulmonary edema. 2. Stable small loculated left pleural effusion. 3. Stable airspace opacities in left mid and lower lung zones, likely atelectasis. 4. Left ventricular enlargement of the heart. Reviewed, dictated and finalized at location A. IMPRESSION: 1. Mild pulmonary edema. 2. Stable small loculated left pleural effusion. 3. Stable airspace opacities in left mid and lower lung zones, likely atelectas is. 4. Left ventricular enlargement of the heart.
--- NOTE | ~2022-05-20 | CT_ITS ---
EXAMINATION: CT diagnostic chest wo con DATE: 05/20/2022 18:29 INDICATION: ?pneumonia TECHNIQUE: Computed tomography (CT) of the chest was performed without intravenous contrast. Automate d exposure control and iterative reconstruction technique were employed. The dose-length product was 348.59 mGy-cm. COMPARISON: 08/01/2021. FINDINGS: CHEST: Thoracic aorta: Mild arch calcification. Lung parenchyma and airways: Left lower lobe consolidation and volume loss. Scattered areas of pleura l scarring. Right peripheral pleural/pulmonary opacity may reflect scarring from adjacent subacute/ch ronic rib fracture. Thoracic inlet, axillae and chest wall: Bilateral gynecomastia. Normal thyroid. No axillary lymphaden opathy. Mediastinum: No mass or lymphadenopathy. Heart and pericardium: Mild cardiomegaly. Coronary artery, aortic, and mitral calcifications. Small v olume pericardial effusion. Coronary artery calcifications: Moderate. Pleura: Moderate volume left pleural fluid collection. Left lateral pleural scar/plaque. Upper abdomen: Possible cirrhosis. Moderate ascites. Thoracic bones: Multiple acute/subacute bilateral rib fractures. IMPRESSION: Moderate left pleural effusion with left lower lobe atelectasis. Pneumonia is not excluded. Small per icardial effusion. Multiple subacute/chronic bilateral rib fractures, with adjacent pleural parenchym al scarring. Reviewed, dictated and finalized at location K. IMPRESSION: Moderate left pleural effusion with left lower lobe atelectasis. Pneumonia is n ot excluded. Small pericardial effusion. Multiple subacute/chronic bilateral ri b fractures, with adjacent pleural parenchymal scarring.
--- NOTE | ~2022-05-20 | XR_ITS ---
EXAMINATION: XR abdomen NG/feed tube insert DATE: 05/21/2022 15:00 INDICATION: Orogastric tube placement. TECHNIQUE: A supine view of the abdomen was obtained. COMPARISON: CT abdomen and pelvis 04/10/2022 FINDINGS: The lower abdomen is excluded. The orogastric tube tip is in the stomach. IMPRESSION: 1. Orogastric tube tip in the stomach. Reviewed, dictated and finalized at location A.
--- NOTE | ~2022-05-20 | US_ITS ---
EXAMINATION: US venous doppler [facility] DATE: 05/20/2022 17:54 INDICATION: Bilateral lower extremity edema. TECHNIQUE: Grayscale images without and with compression and Doppler images of the bilateral lower ex tremity veins were obtained. COMPARISON: None FINDINGS: The right common femoral vein, profunda (deep) femoral vein, femoral vein, popliteal vein, peroneal v ein, posterior tibial veins, and greater saphenous vein are patent. Calf edema. The left common femoral vein, profunda femoral vein, femoral vein, popliteal vein, peroneal vein, pos terior tibial veins, and greater saphenous vein are patent. Calf edema. IMPRESSION: 1. Somewhat limited visualization of the calf veins bilaterally due to edema. Nonvisualization of th e bilateral gastrocnemius veins. 2. Otherwise patent bilateral lower extremity veins. No evidence of deep venous thrombosis. Reviewed, dictated and finalized at location K. IMPRESSION: 1. Somewhat limited visualization of the calf veins bilaterally due to edema. Nonvisualization of the bilateral gastrocnemius veins. 2. Otherwise patent bilateral lower extremity veins. No evidence of deep venous thrombosis.
--- NOTE | 2022-05-20 02:49 | ECG_ITS ---
Measurements Intervals [place] Rate: 105 P: -12 MO: 118 QRS: -52 QRSD: 214 T: 79 QT: 454 QTc: 600 Interpretive Statements PROBABLE SINUS TACHYCARDIA MARKED LEFT AXIS DEVIATION [QRS AXIS < -30] NONSPECIFIC INTRAVENTRICULAR CONDUCTION DELAY COMPARED TO ECG 04/10/2022 09:09:56 HEART RATE HAS INCREASED Electronically Signed On 05-20-2022 14:05:50 CDT by Tristen Fleming M.D.
--- NOTE | 2022-05-20 02:57 | ED.SOB ---
HPI - SOB/Dyspnea General Chief Complaint: Shortness of Breath/Dyspnea Stated Complaint: WEAKNESS, SOB, FLUID OVERLOAD Time Seen by Provider: 05/20/22 02:54 History of Present Illness HPI Narrative: Patient is a 56-year-old male with a history of end-stage renal disease on dialysis complaining of shortness of breath and increasing lower extremity edema x1 week but worse tonight. Patient states that he gets dialysis Wednesdays and Fridays. Patient denies any chest pain, abdominal pain, nausea, vomiting, diaphoresis, fever or chills. Related Data Home Medications Medication Instructions Recorded Confirmed allopurinol 100 mg tablet 100 mg PO DAILY 07/20/21 04/10/22 gabapentin 100 mg capsule 200 mg PO Q12H 07/20/21 04/10/22 simvastatin 40 mg tablet 40 mg PO HS 07/20/21 04/10/22 tramadol 50 mg tablet 100 mg PO Q12H 07/20/21 04/10/22 vitamin B complex-vitamin C-folic 1 tablet PO DAILY 07/20/21 04/10/22 acid 0.8 mg tablet (Hue-Nano) cinacalcet 30 mg tablet (Sensipar) 30 mg PO HS 04/10/22 04/10/22 metoprolol tartrate 25 mg tablet 25 mg PO Q12H 04/10/22 04/10/22 sevelamer carbonate 800 mg tablet 800 mg PO TIDWM 04/10/22 04/10/22 Allergies Allergy/AdvReac Type Severity Reaction Status Date / Time No Known Allergies Allergy Verified 05/20/22 02:55 Review of Systems Review of Systems: All systems reviewed & are unremarkable except as noted in HPI and below Constitutional: Constitutional: Denies body ache(s), Denies chills, Denies excessive sweating, Denies fatigue, Denies fever(s), Denies headache(s), Denies lethargy, Denies malaise, Denies weakness and Denies weight loss Eyes: Eyes: Denies blurry vision, Denies change in vision and Denies loss of vision ENT: Denies dizziness, Denies ear discharge, Denies headache(s), Denies lip swelling, Denies epistaxis, Denies nasal congestion, Denies neck pain, Denies throat swelling and Denies tongue swelling Cardiovascular: Cardiovascular: Denies chest pain, Denies chest pain at rest, Denies chest pain with activity, Denies diaphoresis, Denies rapid heart rate, Denies edema, Denies irregular heart rhythm, Denies lightheadedness and Denies palpitations Respiratory: Respiratory: Denies chest congestion, Denies cough and Denies hemoptysis Gastrointestinal: Gastrointestinal: Denies abdominal pain, Denies melena, Denies hematochezia, Denies diarrhea, Denies nausea, Denies vomiting and Denies hematemesis Musculoskeletal: Musculoskeletal: Denies abnormal gait, Denies deformity, Denies joint swelling, Denies limited range of motion, Denies neck pain and Denies numbness Neurologic: Denies Abnormal speech present, Denies abnormal gait, Denies confusion, Denies dizziness, Denies headache(s), Denies focal weakness, Denies loss of vision, Denies numbness, Denies Other visual disturbances, Denies Sensory deficit (Neuro) and Denies weakness Psychiatric: Psychiatric: Denies confusion, Denies depression, Denies auditory hallucinations, Denies homicidal ideation and Denies suicidal ideation Endocrine: Endocrine: Denies cold intolerance, Denies excessive sweating, Denies fatigue, Denies heat intolerance and Denies palpitations Hematologic/Lymphatic: Hematologic/Lymphatic: Denies easy bleeding and Denies easy bruising Allergic/Immunologic: Allergic/Immunologic: Denies lip swelling, Denies throat swelling and Denies tongue swelling PMFSH Past Medical History Medical History (Updated 05/20/22 @ 04:40 by Yoel Marroquin MD) Chronic back pain Dyslipidemia End stage renal disease Epigastric pain Gastric ulcer Hypertension Lower extremity edema Vegetation of heart valve Surgical History Surgical History AV fistula Left upper extremity Family History Family History Father Acute myocardial infarction Chronic obstructive pulmonary disease Cerebrovascular accident Hypertension Mot
--- NOTE | 2022-05-20 03:23 | PC.NURSE ---
This RN and Brigid RN attempted x4 for IV access, no success. ED charge notified.
[2022-05-20 03:39] LABS: Base Excess ABG 8.2 mEq/l (+/-2.0); Fractional Inspired Oxygen 28 %; HCO3 ABG 31.9 mEq/l (22.0-26.0); Oxygen Content ABG 13.7 %vol (16.0-22.0); Oxygen Saturation ABG 96.5 % (95.0-100.0); Oxyhemoglobin 93.3 % THb (90.0-100.0); PCO2 ABG 41.1 mmHg (35.0-45.0); PO2 ABG 78.2 mmHg (80.0-100.0); PO2 FiO2 Ratio Arterial Blood 2.79 %; Total Hemoglobin 10.4 g/dL (12.0-18.0)
[2022-05-20 03:40] LABS: Site Drawn RIGHT RADIAL; pH ABG 7.508 (7.350-7.450)
[2022-05-20 03:41] LABS: Device NASAL CANNULA; Modified Allen's Test Pass
--- NOTE | 2022-05-20 03:51 | PC.NURSE ---
Pts HR increased to 150s for approx 20 seconds. Pt currently sinus tachycardia at 106 BPM. EDP notified.
[2022-05-20 03:57] LABS: Basophils Absolute Auto 0.1 K/mm3 (0.0-0.1); Basophils Percent Auto 0.3 % (0.2-1.2); Eosinophils Absolute Auto 0.1 K/mm3 (0-0.3); Eosinophils Percent Auto 0.6 % (0-4.4); Hematocrit 29.2 % (42.0-52.0); Hemoglobin 9.4 g/dL (14.0-18.0); Immature Granulocyte Absolute 0.18 K/mm3 (0.00-0.031); Immature Granulocyte Percent A 0.9 % (0-0.5); Lymphocytes Absolute Auto 1.33 K/mm3 (0.9-3.2); Lymphocytes Percent Auto 6.7 % (18.3-44.2); Mean Corpuscular HGB Conc 32.2 g/dl (32-36); Mean Corpuscular Hemoglobin 34.1 pg (26-34); Mean Corpuscular Volume 105.8 fl (80-100); Mean Platelet Volume 9.9 fl (7.4-10.4); Monocytes Absolute Auto 0.9 K/mm3 (0.1-0.6); Monocytes Percent Auto 4.6 % (2.6-8.5); Neutrophils Absolute Auto 17.4 K/mm3 (1.3-6.7); Neutrophils Percent Auto 86.9 % (45.5-73.1); Platelet Count Result 241 k/mm3 (150-375); Red Blood Count 2.76 M/mm3 (4.6-6.20); Red Cell Distribution Width 15.4 % (11.5-14.5)
[2022-05-20] MEDS: FUROSEMIDE INJ 40 MG/4 ML VIAL 20 MG IV PUSH (03:58)
[2022-05-20 04:12] LABS: Anion Gap 10 mmol/L (8-16); Blood Urea Nitrogen 38 mg/dL (9-20); Calcium 10.4 mg/dL (8.4-10.2); Carbon Dioxide 31 mmol/L (22-30); Chloride 90 mmol/L (98-107); Estimated CRCL calculation 20 ml/min; Estimated Glomerular Filt Rate 13; Glucose 81 mg/dL (65-110); Sodium 131 mmol/L (137-145)
[2022-05-20 04:15] LABS: Platelet Estimate Adequate (Adequate)
[2022-05-20 04:16] LABS: Burr Cells 2+ (NORMAL); Hypochromasia 3+ (NORMAL); Stomatocytes 1+ (NORMAL)
[2022-05-20 04:21] LABS: NT Pro B Type Natriuretic Pept > 35000 pg/mL (5-100)
[2022-05-20] MEDS: POTASSIUM CHLORIDE 20 MEQ PACKET (FOR LIQUID) PO (04:30)
--- NOTE | 2022-05-20 04:41 | PM.IMHP ---
H&P: HPI History of Present Illness Date/Time: 05/20/22 04:41 Chief Complaint: Shortness of breath Narrative: This is a 56-year-old male with past medical history significant for end-stage renal disease on hemodialysis, Friday, patient has been compliant with his dialysis treatment, tobacco dependence, smokes half pack of cigarettes daily, gastric ulcer, hypertension, epigastric pain, chronic back pain, chronic lymphedema. Patient comes in today due to shortness of breath, denies any fevers, chills, rigors, patient has a chronic persistent cough productive of sputum states has had no changes, no chest pain, no nausea, no vomiting, no diarrhea, noted worsening of bilateral lower extremities, poor appetite. Preliminary workup was significant for a white count of 20,000, brain natriuretic peptide 35,000 a chest x-ray showed a left-sided infiltrate lingular. Patient has been admitted for further evaluation management and treatment. Review of Systems Review of Systems: worsening bilateral lower extremity edema, shortness of breath, fatigue. Constitutional: Constitutional: Denies chills, Reports fatigue, Denies fever(s), Denies night sweats and Reports poor appetite Eyes: Eyes: Denies change in vision ENT: Denies dysphagia, Denies vertigo, Denies dizziness and Denies odynophagia Cardiovascular: Cardiovascular: Denies chest pain, Reports pedal edema, Denies irregular heart rhythm, Reports leg edema, Denies lightheadedness, Denies palpitations, Denies dyspnea on exertion and Denies paroxysmal nocturnal dyspnea Respiratory: Respiratory: Reports cough and Reports dyspnea Gastrointestinal: Gastrointestinal: Denies abdominal pain, Denies dyspepsia, Denies heartburn, Denies diarrhea, Denies nausea and Denies vomiting Genitourinary: Genitourinary: Denies dysuria Musculoskeletal: Musculoskeletal: Reports other ( Worsening bilateral lower extremity edema unable to walk) Integumentary/Breasts: Skin/Breast: Denies rash Neurologic: Denies focal weakness and Denies Sensory deficit (Neuro) Psychiatric: Psychiatric: Reports no additional psychiatric complaints and Reports as per HPI Endocrine: Endocrine: Denies cold intolerance, Denies fatigue, Denies flushing, Denies heat intolerance, Denies polyphagia, Denies polydipsia and Denies palpitations Hematologic/Lymphatic: Hematologic/Lymphatic: Reports no additional hematologic/lymphatic complaints and Reports as per HPI Allergic/Immunologic: Allergic/Immunologic: Reports no additional allergic/immunologic complaints and Reports as per HPI [facility] Past Medical History Medical History (Updated 05/20/22 @ 05:29 by Uyen Angelo MD) Chronic back pain Dyslipidemia End stage renal disease Epigastric pain Gastric ulcer Hypertension Lower extremity edema Vegetation of heart valve Surgical History Surgical History AV fistula Left upper extremity Family History Family History Father Acute myocardial infarction Chronic obstructive pulmonary disease Cerebrovascular accident Hypertension Mother Acute myocardial infarction Hypertension Breast cancer Daughter No problems noted. Sibling Acute myocardial infarction Hypertension Sibling Heart valve replaced Hypertension Sibling Chronic obstructive pulmonary disease Hypertension Sibling Chronic obstructive pulmonary disease Hypertension Social History Social History Social History: has a daughter, Stefany Barajas Smoking packs per day: 0.5 Smoking cigarettes per day: 10.0 Years smoked: 30 Smoking pack-years: 15.00 Smoking status: Current every day smoker Tobacco type: cigarettes Alcohol intake: never Substance use: current Substance use type: marijuana Spiritual care concerns: No
[2022-05-20 04:46] LABS: SARS-CoV-2 RNA PCR Negative
--- NOTE | 2022-05-20 05:02 | PC.NURSE ---
Phlebotomy called for lab draw
--- NOTE | 2022-05-20 05:21 | ADMGEN ---
This patient, Tonio Barajas, was admitted to 3 [facility] Surg Room 301-01. Patient/family oriented to hospital policies and general routines including ID bracelet, bed and alarms, visiting hours, pain management, procedures, bathroom and other care routines, personal items, smoking policy, room service/diet, and visiting hours. Information on how to activate the Rapid Response Team has been discussed. Patient/Family are encouraged to report perceived risks to care and to ask questions if they do not understand what they are told or what they should do.
[2022-05-20 08:06] LABS: Lactic Acid Reflex 2.5 mmol/L (0.7-2.0)
--- NOTE | 2022-05-20 09:12 | PC.NURSE ---
pt to dialysis via bed
--- NOTE | 2022-05-20 09:51 | PCPTNOTE ---
Attempted PT evaluation, patient in dialysis. Will follow.
[2022-05-20 10:43] LABS: Reflex Lactic Acid Yes or No Add Lactic
--- NOTE | 2022-05-20 10:45 | PM.IMPN ---
Progress Note: A&P Assessment and Plan (1) Healthcare-associated pneumonia: Code(s): J18.9 - Pneumonia, unspecified organism Status: Acute Assessment and Plan: Chest xray- Worsened small loculated left pleural effusion, opacities in the left mid and lower lung zone patient has been placed on vancomycin, cefepime, Zithromax Supplemental oxygen on board Consult pulm for further help Trend labs WBC elevated at 20.0 cultures in progress Adjust therapy as indicated (2) End-stage renal disease needing dialysis: Code(s): N18.6 - End stage renal disease; Z99.2 - Dependence on renal dialysis Status: Acute Assessment and Plan: continue hemodialysis nephrology consult Current BUN/Cr 38/4.20 Currently in dialysis Trend labs Adjust therapy as indicated Dr. Monson to manage (3) Gastric ulcer: Code(s): K25.9 - Gastric ulcer, unspecified as acute or chronic, without hemorrhage or perforation Status: Acute Assessment and Plan: continue PPI (4) GERD (gastroesophageal reflux disease): Code(s): K21.9 - Gastro-esophageal reflux disease without esophagitis Status: Acute Assessment and Plan: continue PPI (5) Hypotension: Code(s): I95.9 - Hypotension, unspecified Status: Acute Assessment and Plan: Patient appears to be hypotensive with a blood pressure systolic the 80s to 90s current blood pressure 95/23 hold all blood pressure medications from home trend blood pressure adjust therapy as indicated (6) Loculated pleural effusion: Code(s): J90 - Pleural effusion, not elsewhere classified Status: Acute Assessment and Plan: Chest x-ray shows loculated pleural effusion Consult pulmonology Supplement oxygen WBC elevated at 20.0 Continue Cefepime and Vanco from the ED Neb treatments (7) Bilateral lower extremity pain: Code(s): M79.604 - Pain in right leg; M79.605 - Pain in left leg Status: Acute Assessment and Plan: Pain in the lower extremities Dr. Monson Called and requested MRI of the spine MRI of the spine ordered for further evaluation Add morphine and norco for pain control Trend pain score (8) Elevated troponin: Code(s): R77.8 - Other specified abnormalities of plasma proteins Status: Acute Assessment and Plan: Trops elevated at 0.970, 1.150, 1.350 Cardiology consulted thank you for your Transesophageal echo performed in March, EF 60-65% with indeterm[place] [address] Probably Related to fluid overload, dialysis, infection Continue to trend labs (9) Sepsis: Code(s): A41.9 - Sepsis, unspecified organism Status: Acute Assessment and Plan: Patient meets sepsis criteria with leukocytosis, tachycardia, hypotension, lactic acidosis lactic acid 2.5 troponin elevated blood cultures pending patient is hypotensive with blood pressures systolic in the 80s multiple factorial source of infection: Abscess of the left thigh, loculated pleural effusion, pneumonia pulmonary consult thank you for helping cardiology consult thank you for helping general surgery consulted thank you for your help white blood cell count [id number] continue vancomycin and cefepime trend labs trend vital signs (10) Abscess of left thigh: Code(s): L02.416 - Cutaneous abscess of left lower limb Status: Acute Assessment and Plan: general surgery on board debridement and abscess drainage performed yesterday 05/20/22 white blood cell count elevated currently on cefepime and vancomycin trend labs adjust therapy as indicated (11) Decubitus ulcer of right buttock: Code(s): L89.319 - Pressure ulcer of right buttock, unspecified stage Status: Acute
--- NOTE | 2022-05-20 10:45 | P.PNIM_ITS ---
Progress Note: A&P Assessment and Plan (1) Healthcare-associated pneumonia: Code(s): J18.9 - Pneumonia, unspecified organism Status: Acute Assessment and Plan: * Chest xray- Worsened small loculated left pleural effusion, opacities in the left mid and lower lung zone * patient has been placed on vancomycin, cefepime, Zithromax * Supplemental oxygen on board * Consult pulm for further help * Trend labs * WBC elevated at 20.0 * cultures in progress * Adjust therapy as indicated (2) End-stage renal disease needing dialysis: Code(s): N18.6 - End stage renal disease; Z99.2 - Dependence on renal dialysis Status: Acute Assessment and Plan: * continue hemodialysis * nephrology consult * Current BUN/Cr 38/4.20 * Currently in dialysis * Trend labs * Adjust therapy as indicated * Dr. Monson to manage (3) Gastric ulcer: Code(s): K25.9 - Gastric ulcer, unspecified as acute or chronic, without hemorrhage or perforation Status: Acute Assessment and Plan: * continue PPI (4) GERD (gastroesophageal reflux disease): Code(s): K21.9 - Gastro-esophageal reflux disease without esophagitis Status: Acute Assessment and Plan: * continue PPI (5) Hypotension: Code(s): I95.9 - Hypotension, unspecified Status: Acute Assessment and Plan: * Patient appears to be hypotensive with a blood pressure systolic the 80s to 90s * current blood pressure 95/23 * hold all blood pressure medications from home * trend blood pressure * adjust therapy as indicated (6) Loculated pleural effusion: Code(s): J90 - Pleural effusion, not elsewhere classified Status: Acute Assessment and Plan: * Chest x-ray shows loculated pleural effusion * Consult pulmonology * Supplement oxygen * WBC elevated at 20.0 * Continue Cefepime and Vanco from the ED * Neb treatments (7) Bilateral lower extremity pain: Code(s): M79.604 - Pain in right leg; M79.605 - Pain in left leg Status: Acute Assessment and Plan: * Pain in the lower extremities * Dr. Monson Called and requested MRI of the spine * MRI of the spine ordered for further evaluation * Add morphine and norco for pain control * Trend pain score (8) Elevated troponin: Code(s): R77.8 - Other specified abnormalities of plasma proteins Status: Acute Assessment and Plan: * Trops elevated at 0.970, 1.150, 1.350 * Cardiology consulted thank you for your * Transesophageal echo performed in March, EF 60-65% with indeterminable diastolic dysfunction * [place] [id number] * Probably Related to fluid overload, dialysis, infection * Continue to trend labs (9) Sepsis: Code(s): A41.9 - Sepsis, unspecified organism Status: Acute Assessment and Plan: * Patient meets sepsis criteria with leukocytosis, tachycardia, hypotension, lactic acidosis * lactic acid 2.5 * troponin elevated * blood cultures pending * patient is hypotensive with blood pressures systolic in the 80s * multiple factorial source of infection: Abscess of the left thigh, loculated pleural effusion, pneumonia * pulmonary consult thank you for helping * cardiology consult thank you for helping * general surgery consulted thank you for your help * white blood cell count
--- NOTE | 2022-05-20 11:21 | PCOTNOTE ---
Attempted to see pt. for occupational therapy evaluation. Per nursing, pt. is currently in dialysis and should be seen tomorrow, as his troponins are high with additional edema. Will follow.
--- NOTE | 2022-05-20 12:20 | ECG_ITS ---
Measurements Intervals [place] Rate: 105 P: 2 TN: 107 QRS: -61 QRSD: 190 T: 91 QT: 448 QTc: 593 Interpretive Statements SINUS TACHYCARDIA WITH SHORT TN INTERVAL WITH OCCASIONAL SUPRAVENTRICULAR PREMATURE COMPLEXES LEFT AXIS DEVIATION NONSPECIFIC INTRAVENTRICULAR CONDUCTION DELAY ST DEPRESSION, CONSIDER SUBENDOCARDIAL INJURY COMPARED TO ECG 05/20/2022 02:49:03 NO SIGNIFICANT CHANGE EXCEPT PREMATURE ATRIAL CONTRACTIONS NOTED Electronically Signed On 05-20-2022 14:26:32 CDT by Tristen Fleming M.D.
--- NOTE | 2022-05-20 12:37 | PM.CNNEP ---
Assessment and Plan Assessment and plan (1) End-stage renal disease needing dialysis: Code(s): N18.6 - End stage renal disease; Z99.2 - Dependence on renal dialysis Status: Acute Plan End-stage renal disease Fluid retention/CHF Hypertension Anemia of chronic kidney disease Secondary hyperparathyroidism In pneumonia/leukocytosis Lower extremity weakness with decreased sensation Plan: -ESRD: seen and examined on HD and HD supervised = I recommend getting an MRI of the spine this would make sure there is no spinal compression, d/w Aníbal Senior covering Hospitalist team -ACTH stimulation test, r/o adrenal insufficiency -TSH -follow History of Present Illness Reason for Consult Consult date: 05/20/22 Chief Complaint Chief complaint: Pneumonia,End-stage Renal Disease Needs Dialysis History of Present Illness Narrative: 56-year-old white male with a history of ESRD on the basis of hypertension most likely, on a Friday, Friday, Friday dialysis schedule. Presents with lower extremity swelling, weakness, inability to stand up today, weakness worsened there has been going on for few months. Had associated shortness of breath. Chest x-ray does show loculated effusion together with it with some congestive changes. Has been having a dry cough. No fevers or chills associated. He has loss of sensation in lower extremities from neuropathy. States that that is worse as well. He had loss of bowel control apparently today. No falls reported. Has been evaluated in the past for back problems and was deemed an operative candidate at that point. He has progressively been weak in his lower extremities. He has lost weight. He remains persistent acinar exercising and I have arranged for tomorrow on an outpatient basis. He does get short of breath. Review of Systems Review of Systems: Negative of the system review. He is being followed by Cardiology team as well. His blood pressure is borderline. He has neuropathy and pain in his lower extremities. States that his pain is worse as lower extremities now. [facility] Past Medical History Medical History (Updated 05/20/22 @ 05:29 by Uyen Angelo MD) Chronic back pain Dyslipidemia End stage renal disease Epigastric pain Gastric ulcer Hypertension Lower extremity edema Vegetation of heart valve Surgical History Surgical History AV fistula Left upper extremity Family History Family History Father Acute myocardial infarction Chronic obstructive pulmonary disease Cerebrovascular accident Hypertension Mother Acute myocardial infarction Hypertension Breast cancer Daughter No problems noted. Sibling Acute myocardial infarction Hypertension Sibling Heart valve replaced Hypertension Sibling Chronic obstructive pulmonary disease Hypertension Sibling Chronic obstructive pulmonary disease Hypertension Social History Social History Social History: has a daughter, Stefany Barajas Smoking packs per day: 0.25 Smoking cigarettes per day: 5.0 Years smoked: 30 Smoking pack-years: 7.50 Smoking status: Current every day smoker Tobacco type: cigarettes Alcohol intake: never Substance use: never Substance use type: marijuana Last use: 05/18/22 Spiritual care concerns: No Meds Home Medications and Allergies Home Medications Medication Instructions Recorded Confirmed Type allopurinol 100 mg tablet 100 mg PO DAILY 07/20/21 05/20/22 History gabapentin 100 mg capsule 200 mg PO Q12H 07/20/21 05/20/22 History simvastatin 40 mg tablet 40 mg PO HS 07/20/21 05/20/22 History tramadol 50 mg tablet 100 mg PO Q12H 07/20/21 05/20/22 History vitamin B complex-vitamin C-folic 1 tablet PO DAILY 07/20/21 05/20/22 History acid 0.8 mg tablet ([employer]
--- NOTE | 2022-05-20 13:08 | P.CONCA_ITS ---
Assessment and Plan Assessment and plan (1) Elevated troponin: Code(s): R77.8 - Other specified abnormalities of plasma proteins Status: Acute Assessment and Plan: Probably due to ESRD and pneumonia. Doubt ACS as no symptoms to suggest it. Trend troponin to peak. Obtain limited echo to assess for wall motion abnormalities. (2) Healthcare-associated pneumonia: Code(s): J18.9 - Pneumonia, unspecified organism Status: Acute Assessment and Plan: Management as per hospitalist. (3) End-stage renal disease needing dialysis: Code(s): N18.6 - End stage renal disease; Z99.2 - Dependence on renal dialysis Status: Acute Assessment and Plan: On HD. (4) Dyslipidemia: Code(s): E78.5 - Hyperlipidemia, unspecified Status: Acute Assessment and Plan: On Simvastatin. History of Present Illness History of Present Illness Consult date/time: 05/20/22 13:08 Patient is a 56-year-old male past medical history significant for hypertension, hyperlipidemia, GERD, and end-stage renal disease on hemodialysis history of cardiac arrest with transient complete heart block in the setting of sepsis and hyperkalemia requiring temporary transvenous pacemaker but with resolution not requiring permanent pacemaker implantation and preserved EF greater than 70% without wall motion abnormality. Currently receiving hemodialysis. He presented to ER due to worsening sob since yesterday. He is not able to walk for last 6 months due to lower extremity weakness. Denies chest pain. Troponin increased to 1.35, NTproBNP >35,000. EKG sinus tachycardia with LBBB. WBC 20, Hb 9.2. CXR shows worsened small loculated left pleural effusion and worsened airspace opacities in left mid and lower lung zones, c/w pneumonia or atelectasis. Reason For Visit: Pneumonia,End-stage Renal Disease Needs Dialysis Review of Systems Review of Systems: All systems reviewed & are unremarkable except as noted in HPI and below Constitutional: Constitutional: Reports as per HPI, Denies chills, Reports fatigue and Denies fever(s) Respiratory: Respiratory: Reports as per HPI, Reports cough and Reports dyspnea Gastrointestinal: Gastrointestinal: Reports as per HPI and Denies abdominal pain Genitourinary: Genitourinary: Reports as per HPI and Denies dysuria Musculoskeletal: Musculoskeletal: Reports as per HPI Neurologic: Reports as per HPI, Denies dizziness and Denies syncope [facility] Past Medical History Medical History (Updated 05/20/22 @ 13:13 by CONCHITA Crews) Chronic back pain Dyslipidemia End stage renal disease Epigastric pain Gastric ulcer Hypertension Lower extremity edema Vegetation of heart valve Surgical History Surgical History AV fistula Left upper extremity Family History Family History Father Acute myocardial infarction Chronic obstructive pulmonary disease Cerebrovascular accident Hypertension Mother Acute myocardial infarction Hypertension Breast cancer Daughter No problems noted. Sibling Acute myocardial infarction Hypertension Sibling Heart valve replaced Hypertension Sibling Chronic obstructive pulmonary disease Hypertension Sibling Chronic obstructive pulmonary disease Hypertension Social History Social History (Revi
--- NOTE | 2022-05-20 13:19 | PM.CNCAR ---
Assessment and Plan Assessment and plan (1) Elevated troponin: Code(s): R77.8 - Other specified abnormalities of plasma proteins Status: Acute Assessment and Plan: Probably due to ESRD and pneumonia. Doubt ACS as no symptoms to suggest it. Trend troponin to peak. Obtain limited echo to assess for wall motion abnormalities. (2) Healthcare-associated pneumonia: Code(s): J18.9 - Pneumonia, unspecified organism Status: Acute Assessment and Plan: Management as per hospitalist. (3) End-stage renal disease needing dialysis: Code(s): N18.6 - End stage renal disease; Z99.2 - Dependence on renal dialysis Status: Acute Assessment and Plan: On HD. (4) Dyslipidemia: Code(s): E78.5 - Hyperlipidemia, unspecified Status: Acute Assessment and Plan: On Simvastatin. History of Present Illness History of Present Illness Consult date/time: 05/20/22 13:19 Patient is a 56-year-old male past medical history significant for hypertension, hyperlipidemia, GERD, and end-stage renal disease on hemodialysis history of cardiac arrest with transient complete heart block in the setting of sepsis and hyperkalemia requiring temporary transvenous pacemaker but with resolution not requiring permanent pacemaker implantation and preserved EF greater than 70% without wall motion abnormality. Currently receiving hemodialysis. He presented to ER due to worsening sob since yesterday. He is not able to walk for last 6 months due to lower extremity weakness. Denies chest pain. Troponin increased to 1.35, NTproBNP >35,000. EKG sinus tachycardia with LBBB. WBC 20, Hb 9.2. CXR shows worsened small loculated left pleural effusion and worsened airspace opacities in left mid and lower lung zones, c/w pneumonia or atelectasis. Reason For Visit: Pneumonia,End-stage Renal Disease Needs Dialysis Review of Systems Review of Systems: All systems reviewed & are unremarkable except as noted in HPI and below Constitutional: Constitutional: Reports as per HPI, Denies chills, Reports fatigue and Denies fever(s) Respiratory: Respiratory: Reports as per HPI, Reports cough and Reports dyspnea Gastrointestinal: Gastrointestinal: Reports as per HPI and Denies abdominal pain Genitourinary: Genitourinary: Reports as per HPI and Denies dysuria Musculoskeletal: Musculoskeletal: Reports as per HPI Neurologic: Reports as per HPI, Denies dizziness and Denies syncope [facility] Past Medical History Medical History (Updated 05/20/22 @ 13:13 by CONCHITA Crews) Chronic back pain Dyslipidemia End stage renal disease Epigastric pain Gastric ulcer Hypertension Lower extremity edema Vegetation of heart valve Surgical History Surgical History AV fistula Left upper extremity Family History Family History Father Acute myocardial infarction Chronic obstructive pulmonary disease Cerebrovascular accident Hypertension Mother Acute myocardial infarction Hypertension Breast cancer Daughter No problems noted. Sibling Acute myocardial infarction Hypertension Sibling Heart valve replaced Hypertension Sibling Chronic obstructive pulmonary disease Hypertension Sibling Chronic obstructive pulmonary disease Hypertension Social History Social History Social History: has a daughterStefany Smoking packs per day: 0.25 Smoking cigarettes per day: 5.0 Years smoked: 30 Smoking pack-years: 7.50 Smoking status: Current every day smoker Tobacco type: cigarettes Alcohol intake: never Substance use: never Substance use type: marijuana Last use: 05/18/22 Spiritual care concerns: No Meds Home Medications and Allergies Home Medications Medication Instructions Re
[2022-05-20 13:55] LABS: Thyroid Stimulating Hormone Reflex 0.858 uIU/mL (0.465-4.68)
[2022-05-20] MEDS: PANTOPRAZOLE 40 MG TABLET PO ×2 (14:04→20:03)
[2022-05-20] MEDS: GABAPENTIN 100 MG CAPSULE 200 MG PO ×2 (14:04→20:02)
[2022-05-20] MEDS: allopurinoL 100 MG TABLET PO (14:05)
[2022-05-20] MEDS: SEVELAMER CARBONATE 800 MG TABLET PO ×2 (14:05→16:41)
--- NOTE | 2022-05-20 14:12 | PC.NURSE ---
reviewed questionaire with MRI, they will need more information on stent in pt's subclavian prior to doing MRI
--- NOTE | 2022-05-20 14:51 | PM.CNPUL ---
Assessment and Plan Assessment and plan (1) Loculated pleural effusion: Code(s): J90 - Pleural effusion, not elsewhere classified Status: Acute (2) Healthcare-associated pneumonia: Code(s): J18.9 - Pneumonia, unspecified organism Status: Acute Assessment and Plan: this 56-year-old man presented with generalized weakness, shortness of breath of 2 months duration, marked lower extremity edema of several months duration, loculated pleural effusion with probable left lower lobe infiltrate on left, leukocytosis and very elevated BNP. The patient has received antibiotics for possible healthcare associated pneumonia. In particular he received vancomycin 1 dose and is currently receiving cefepime adjusted for end-stage renal disease. Patient has no symptoms such as fever chills or productive cough to suggest acute pneumonia although the elevated WBC in conjunction with the left pleural effusion could be due to healthcare associated pneumonia. Agree with current antibiotic regimen. We will proceed with MRSA screening, chest CT without contrast, lower extremity venous Doppler study. (3) End-stage renal disease needing dialysis: Code(s): N18.6 - End stage renal disease; Z99.2 - Dependence on renal dialysis Status: Acute (4) Elevated brain natriuretic peptide (BNP) level: Code(s): R79.89 - Other specified abnormal findings of blood chemistry Status: Acute History of Present Illness History of Present Illness Consult date: 05/20/22 Chief complaint: Pneumonia,End-stage Renal Disease Needs Dialysis Narrative: this 56-year-old man with end-stage renal disease, on hemodialysis 3 days a week presented with weakness, shortness of breath and lower extremity edema. The patient stated that he has had shortness of breath for approximately 2 months. He also has had some mild dry cough but denied having fevers chills, hemoptysis, sputum production, night sweats or pleuritic chest pain. He has had generalized weakness as well as lower extremity edema for the last 6 months. Approximately 6 weeks ago he had chest imaging studies that showed small pleural effusion on left. Lung parenchyma was unremarkable. Also the patient underwent transesophageal echocardiogram for possible aortic valve vegetation. The transesophageal echocardiogram showed no evidence of aortic valve vegetation, and a normal EF. Upon questioning the patient admitted having some orthopnea for the last month or so. In the past he underwent a sleep study that reportedly showed no evidence of sleep disordered breathing. he has lost significant amount of weight over the last 6 months. The patient has no previous history of lung disease. He is a light smoker for many years. He also smokes marijuana. On admission he was found to have a small to moderate size left pleural effusion most likely loculated. The WBC on admission was elevated at 20,000. cardiac tests showed elevated troponin and very high BNP. The patient was evaluated by Cardiac Services. Review of Systems Review of Systems: All system review is negative except as noted in HPI and below. [facility] Past Medical History Medical History (Updated 05/20/22 @ 13:13 by CONCHITA Crews) Chronic back pain Dyslipidemia End stage renal disease Epigastric pain Gastric ulcer Hypertension Lower extremity edema Vegetation of heart valve Surgical History Surgical History AV fistula Left upper extremity Family History Family History Father Acute myocardial infarction Chronic obstructive pulmonary disease Cerebrovascular accident Hypertension Mother Acute myocardial infarction Hypertension Breast cancer Daughter No problems noted. Sibling Acute myocardial infarction Hypertension Sibling Heart valve replaced Hypertension Ori
[2022-05-20] MEDS: PERFLUTREN LIPID MICROSPHERES 1.5 ML VIAL DILUTED TO 10 ML TOTAL VOLUME IV PUSH (15:18)
--- NOTE | 2022-05-20 15:18 | PM.CNGS ---
Assessment and Plan Assessment and plan (1) Decubitus ulcer of right buttock: Code(s): L89.319 - Pressure ulcer of right buttock, unspecified stage Status: Acute Assessment and Plan: The patient has an unstageable right buttock ulcer with dry, firm necrotic tissue overlying the wound bed. There is no purulent drainage, obvious fluctuance, or crepitus that would suggest a deeper tissue infection. Will initiate local wound care with barrier spray and leaving it otherwise open to air. Avoid pressure to the wound and utilize frequent turning. If he begins to have drainage from this area or his sepsis is not resolving with the current treatment, then we may need to consider excisional debridement of this wound to evaluate this as a potential source of infection. Will continue to evaluate the wound and monitor how he progresses. (2) Abscess of left thigh: Code(s): L02.416 - Cutaneous abscess of left lower limb Status: Acute Assessment and Plan: Left upper posterior thigh abscess just below the crease of the buttock with dark brown purulence drainage. We would recommend to proceed with bedside incision and drainage with local anesthetic. Description of the procedure, risks, benefits, and expected wound care were discussed. Patient agreed to proceed. Will gather supplies and perform this at the bedside this afternoon. (3) Sepsis: Code(s): A41.9 - Sepsis, unspecified organism Status: Acute Assessment and Plan: Sepsis criteria met on admission with leukocytosis, tachycardia, and hypotension. Source could be the pneumonia versus skin versus combination. Blood cultures pending. WBC count 20,000, lactic acid 2.5. Agree with broad-spectrum IV antibiotics. Monitor labs. If he is not responding well to the current treatment, then we may need to consider debridement of the right buttock ulcer to evaluate for a deeper tissue infection. (4) Pneumonia: Code(s): J18.9 - Pneumonia, unspecified organism Status: Acute Assessment and Plan: He is being treated for healthcare acquired pneumonia. Pulmonology is following. (5) End-stage renal disease needing dialysis: Code(s): N18.6 - End stage renal disease; Z99.2 - Dependence on renal dialysis Status: Acute Assessment and Plan: Received hemodialysis today. Nephrology following. (6) Lower extremity edema: Code(s): R60.0 - Localized edema Status: Acute Plan I have discussed the patient's case and plan of care with Dr. Randolph. Thank you for allowing us to see the patient in consultation and we will continue to follow along with you. History of Present Illness Consult details Consult date: 05/20/22 Reason for consult: wound care (Right buttock wound) Requesting physician: Elvis Senior APN-C Narrative: This is a 56-year-old male with a history of hypertension, hyperlipidemia, GERD, and end-stage renal disease on hemodialysis who presented to the emergency department early this morning with complaints of bilateral lower extremity swelling and shortness of breath. His shortness of breath has been worsening since yesterday. He has not been able to walk for at least a few months due to the lower extremity weakness. He spends his entire day in his chair at home. He reportedly has not been able to take a shower or bath for a long time and has no one at home to help him bathe. He typically takes a sponge bath at the sink. When in the ER he was found to be in sinus tachycardia. Chest x-ray showed a small loculated left pleural effusion and worsened airspace opacities in left mid and lower lung zones, consistent with pneumonia or atelectasis. White blood cell count 78041, hemoglobin 9.2, troponins elevated with a slight upward trend to 1.35. ProBNP greater than 35,000. He has been admitted to the hospitalist service. He was found to have a right buttock wound. Our service has been consulted for surg
--- NOTE | 2022-05-20 15:18 | IVDEFINITY ---
Prior to administration of IV Definity the patient was educated on the risks and benefits of the imaging enhancing agent including potential adverse side effects. The patient verbalized understanding. Allergies were verified. No exclusion criteria were identified and at least one of the following inclusion criteria were met: 1) physician request, 2) patient technically difficult to image (per the [place] [employer]chocardi[employer] guidelines of two or more segments not discernable within the apical view), or 3) questionable left ventricular function. ?
[2022-05-20] MEDS: LIDO 1%/EPINEPHRINE 1:100,000 20 ML VIAL INFILTRATE (15:34)
--- NOTE | 2022-05-20 15:36 | PC.NURSE ---
bedside I&D by Joanne Vazquez, wound RN at bedside also
--- NOTE | 2022-05-20 16:16 | P.OP_ITS ---
Procedure Note - Detailed Date of Procedure 05/20/22 Pre-op Diagnosis Left posterior upper thigh abscess Post-op Diagnosis Same Procedure Performed Incision and drainage of simple left upper posterior thigh abscess Surgeon ESTELLE Cespedes Astronautical Engineer [employer] advisor Anesthesia Local (1% lidocaine with epi) Indications Clinical findings of a left upper posterior thigh abscess on exam, presented with sepsis Findings Left posterior upper thigh abscess with very dark brown purulence drainage and an area of tunneling about 6 cm distally down the leg Description of Procedure The patient was placed in the right lateral position in his bed on the medical floor The site of the abscess for required I&D was identified. Following this, the area was prepped with chlorhexidine. Then, local anesthetic was infiltrated directly over the area of fluctuance where the drainage was noted. After allowing the local anesthetic to work, a direct incision was made with an #15 blade scalpel over the fluctuant area of the abscess. Immediate flow of purulent drainage was noted. All purulent drainage was expressed from the abscess. The abscess cavity was probed and all loculation broken up. There was about a 6 cm area of tunneling to a pocket extending distally down the leg. Following this, the area was packed with 1/4 inch iodoform Nu Gauze. The area was then covered with 4x4s and tape. The patient tolerated the procedure well. Estimated Blood Loss 0 Drains No Packing Yes (Quarter-inch iodoform) Pathology None sent Complications No immediate complications Condition Stable Disposition No change
--- NOTE | 2022-05-20 16:25 | PC.NURSE ---
records release sent to [facility] for stent information
[2022-05-20] MEDS: HYDROcodone/acetaminophen (*CRX) 5-325 MG TABLET 1 TAB PO ×2 (16:40→23:22)
[2022-05-20] MEDS: COSYNTROPIN 0.25 MG/ML VIAL IV PUSH (16:41)
[2022-05-20 19:58] LABS: Lactic Acid 1.4 mmol/L (0.7-2.0)
[2022-05-20 20:41] LABS: Vancomycin Trough 10.6 ug/mL (10.0-20.0)
[2022-05-20] MEDS: SIMVASTATIN 20 MG TABLET 40 MG PO (22:43)
[2022-05-21] VITALS (43 sets, daily range): BP systolic 44–129; BP diastolic 22–83; PULSE 56–147; RESP 14–25; TEMP 36–36.4; O2SAT 81–100
[2022-05-21 06:47] LABS: Basophils Percent Auto 0.2 % (0.2-1.2); Eosinophils Absolute Auto 0.1 K/mm3 (0-0.3); Eosinophils Percent Auto 0.4 % (0-4.4); Hemoglobin 9.3 g/dL (14.0-18.0); Immature Granulocyte Absolute 0.16 K/mm3 (0.00-0.031); Immature Granulocyte Percent A 0.9 % (0-0.5); Lymphocytes Absolute Auto 1.62 K/mm3 (0.9-3.2); Mean Corpuscular HGB Conc 32.1 g/dl (32-36); Mean Corpuscular Hemoglobin 34.3 pg (26-34); Mean Platelet Volume 10.4 fl (7.4-10.4); Monocytes Absolute Auto 1.2 K/mm3 (0.1-0.6); Monocytes Percent Auto 6.4 % (2.6-8.5); Neutrophils Absolute Auto 15.1 K/mm3 (1.3-6.7); Neutrophils Percent Auto 83.1 % (45.5-73.1); Platelet Count Result 229 k/mm3 (150-375); Red Blood Count 2.71 M/mm3 (4.6-6.20); Red Cell Distribution Width 15.7 % (11.5-14.5); White Blood Count 18.1 K/mm3 (4.5-10.0)
[2022-05-21 06:59] LABS: Alanine Aminotransferase 13 U/L (6-50); Albumin Level 2.3 g/dL (3.5-5.1); Alkaline Phosphatase 133 U/L (38-126); Anion Gap 6 mmol/L (8-16); Aspartate Amino Transferase 60 U/L (17-59); Bilirubin,Total 0.5 mg/dL (0.2-1.3); Blood Urea Nitrogen 23 mg/dL (9-20); Calcium 9.6 mg/dL (8.4-10.2); Carbon Dioxide 36 mmol/L (22-30); Chloride 92 mmol/L (98-107); Estimated CRCL calculation 30 ml/min; Estimated Glomerular Filt Rate 21; Glucose 101 mg/dL (65-110); Magnesium 1.8 mg/dL (1.6-2.3); Potassium 3.5 mmol/L (3.4-5.0); Sodium 134 mmol/L (137-145)
--- NOTE | 2022-05-21 07:15 | PM.IMPN ---
Progress Note: A&P Assessment and Plan (1) Sepsis: Code(s): A41.9 - Sepsis, unspecified organism Status: Acute Assessment and Plan: Patient meets sepsis criteria with leukocytosis, tachycardia, hypotension, lactic acidosis lactic acid 2.5 troponin elevated and continue to rise blood cultures NGTD patient is hypotensive with blood pressures systolic in the 80s Line will be placed, transfer to ICU for possible pressers multiple factorial source of infection: Abscess of the left thigh, loculated pleural effusion, pneumonia pulmonary consult thank you for helping cardiology consult thank you for helping general surgery consulted thank you for your help white blood cell count 18.1 continue vancomycin and cefepime trend labs trend vital signs This almost is looking like a cardiogenic shock (2) NSTEMI (non-ST elevated myocardial infarction): Code(s): I21.4 - Non-ST elevation (NSTEMI) myocardial infarction Status: Acute Assessment and Plan: Troponin 6.750 Ekg does not show any significant changes Tele monitor continuous Cardiology on board Heparin gtt started Transfer to ICU Life vest ordered Taken to the labor arbitrator (3) Healthcare-associated pneumonia: Code(s): J18.9 - Pneumonia, unspecified organism Status: Acute Assessment and Plan: Chest xray- Worsened small loculated left pleural effusion, opacities in the left mid and lower lung zone patient has been placed on vancomycin, cefepime Supplemental oxygen on board, wean to maintain saturations >90% Consult pulm for further help Trend labs WBC currently 18.1 cultures in progress show no growth to date Adjust therapy as indicated (4) End-stage renal disease needing dialysis: Code(s): N18.6 - End stage renal disease; Z99.2 - Dependence on renal dialysis Status: Acute Assessment and Plan: continue hemodialysis nephrology consult Current BUN/Cr 23/3.10 Trend labs Adjust therapy as indicated Dr. Monson to manage (5) Gastric ulcer: Code(s): K25.9 - Gastric ulcer, unspecified as acute or chronic, without hemorrhage or perforation Status: Acute Assessment and Plan: continue PPI (6) GERD (gastroesophageal reflux disease): Code(s): K21.9 - Gastro-esophageal reflux disease without esophagitis Status: Acute Assessment and Plan: continue PPI (7) Hypotension: Code(s): I95.9 - Hypotension, unspecified Status: Acute Assessment and Plan: Patient appears to be hypotensive with a blood pressure systolic the 80s to 90s current blood pressure 91/55 hold all blood pressure medications from home Line being placed Transfer to ICU for blood pressure support trend blood pressure adjust therapy as indicated (8) Loculated pleural effusion: Code(s): J90 - Pleural effusion, not elsewhere classified Status: Acute Assessment and Plan: Chest x-ray shows loculated pleural effusion Consult pulmonology Supplement oxygen WBC 18.1 Continue Cefepime and Vanco CT indicated loculated pleural effusion moderate on the Left Neb treatments (9) Bilateral lower extremity pain: Code(s): M79.604 - Pain in right leg; M79.605 - Pain in left leg Status: Acute Assessment and Plan: Pain in the lower extremities Dr. Monson Called and requested MRI of the spine MRI of the spine ordered for further evaluation Add morphine and norco for pain control Trend pain score (10) Elevated troponin: Code(s): R77.8 - Other specified abnormalities of plasma proteins Status: Acute Assessment and Plan: Trops elevated at 0.970, 1.150, 1.350 on 05/20/22 Currently continue to rise and is currently at 6.750 Cardiology consulted thank you for your Transesophag
--- NOTE | 2022-05-21 07:15 | P.PNIM_ITS ---
Progress Note: A&P Assessment and Plan (1) Sepsis: Code(s): A41.9 - Sepsis, unspecified organism Status: Acute Assessment and Plan: * Patient meets sepsis criteria with leukocytosis, tachycardia, hypotension, l actic acidosis * lactic acid 2.5 * troponin elevated and continue to rise * blood cultures NGTD * patient is hypotensive with blood pressures systolic in the 80s * Line will be placed, transfer to ICU for possible pressers * multiple factorial source of infection: Abscess of the left thigh, loculated pleural effusion, pneumonia * pulmonary consult thank you for helping * cardiology consult thank you for helping * general surgery consulted thank you for your help * white blood cell count 18.1 * continue vancomycin and cefepime * trend labs * trend vital signs * This almost is looking like a cardiogenic shock (2) NSTEMI (non-ST elevated myocardial infarction): Code(s): I21.4 - Non-ST elevation (NSTEMI) myocardial infarction Status: Acute Assessment and Plan: * Troponin 6.750 * Ekg does not show any significant changes * Tele monitor continuous * Cardiology on board * Heparin gtt started * Transfer to ICU * Life vest ordered * Taken to the phlebotomist medical lab assistant (3) Healthcare-associated pneumonia: Code(s): J18.9 - Pneumonia, unspecified organism Status: Acute Assessment and Plan: * Chest xray- Worsened small loculated left pleural effusion, opacities in the left mid and lower lung zone * patient has been placed on vancomycin, cefepime * Supplemental oxygen on board, wean to maintain saturations >90% * Consult pulm for further help * Trend labs * WBC currently 18.1 * cultures in progress show no growth to date * Adjust therapy as indicated (4) End-stage renal disease needing dialysis: Code(s): N18.6 - End stage renal disease; Z99.2 - Dependence on renal dialysis Status: Acute Assessment and Plan: * continue hemodialysis * nephrology consult * Current BUN/Cr 23/3.10 * Trend labs * Adjust therapy as indicated * Dr. Monson to manage (5) Gastric ulcer: Code(s): K25.9 - Gastric ulcer, unspecified as acute or chronic, without hemorrhage or perforation Status: Acute Assessment and Plan: * continue PPI (6) GERD (gastroesophageal reflux disease): Code(s): K21.9 - Gastro-esophageal reflux disease without esophagitis Status: Acute Assessment and Plan: * continue PPI (7) Hypotension: Code(s): I95.9 - Hypotension, unspecified Status: Acute Assessment and Plan: * Patient appears to be hypotensive with a blood pressure systolic the 80s to 90s * current blood pressure 91/55 * hold all blood pressure medications from home * Line being placed * Transfer to ICU for blood pressure support * trend blood pressure * adjust therapy as indicated (8) Loculated pleural effusion: Code(s): J90 - Pleural effusion, not elsewhere classified Status: Acute Assessment and Plan: * Chest x-ray shows loculated pleural effusion * Consult pulmonology * Supplement oxygen * WBC 18.1 * Continue Cefepime and Vanco * CT indicated loculated pleural effusion moderate on the Left * Neb treatments (9) Bilateral lower extremity pain: Code(s): M79.604 - Pain
[2022-05-21 07:44] LABS: Platelet Estimate Adequate (Adequate)
[2022-05-21 07:46] LABS: Anisocytosis 1+ (NORMAL); Macrocytosis 1+ (NORMAL)
--- NOTE | 2022-05-21 07:50 | ECG_ITS ---
Measurements Intervals [place] Rate: 109 P: 0 W[place]: 114 QRS: -60 QRSD: 192 T: 87 QT: 435 QTc: 586 Interpretive Statements SINUS TACHYCARDIA WITH SHORT [place] INTERVAL LEFT BUNDLE BRANCH BLOCK Electronically Signed On 05-21-2022 11:44:56 CDT by Joe Rhoades M.D.
--- NOTE | 2022-05-21 07:52 | PM.PNCARD ---
Progress Note: A&P Assessment and Plan (1) Acute systolic heart failure: Code(s): I50.21 - Acute systolic (congestive) heart failure Status: Acute Assessment and Plan: Discuss results of echo and troponin elevation which could indicate ischemic cardiomyopathy vs sepsis cardiomyopathy. Discuss risks/benefits/alternative treatment to left heart cath and he is willing to have it. However, he is unable to lie flat due to orthopnea which precludes having left heart cath at this time. Will need to remove more fluid with hemodialysis. Will start heparin drip as his troponin is trending up. Start aspirin 325 mg daily. Due to low BP cannot start heart failure medication including beta minoo, ARB. Order Life Vest as he is interested in it to prevent sudden cardiac arrest. (2) Elevated troponin: Code(s): R77.8 - Other specified abnormalities of plasma proteins Status: Acute Assessment and Plan: Troponin went up to 6.7. Will follow to [facility]. (3) Healthcare-associated pneumonia: Code(s): J18.9 - Pneumonia, unspecified organism Status: Acute Assessment and Plan: On antibiotics as per hospitalist. (4) End-stage renal disease needing dialysis: Code(s): N18.6 - End stage renal disease; Z99.2 - Dependence on renal dialysis Status: Acute (5) Dyslipidemia: Code(s): E78.5 - Hyperlipidemia, unspecified Status: Acute Assessment and Plan: On Simvastatin. Subjective Date/time seen: 05/21/22 07:52 Denies chest pain. He has sob and cannot lie flat. Exam Const: General: cooperative, healthy appearing and comfortable Resp: Auscultation: no crackles, no rales, no rhonchi, no wheezes and diminished lung sounds Cardio: Jugular venous distension: no JVD Rate: regular rate Rhythm: regular rhythm Heart sounds: no murmurs Peripheral pulses: dorsalis pedis present GI: GI Palp: No abdominal tenderness and Yes Soft to palpation Neuro: General: oriented to person, oriented to place and oriented to time Extrem: Right lower extremity: edema Left lower extremity: edema Other: Mod edema of both legs Objective Data Vital Signs Vital Signs: Vital Signs - 24 hr 05/20/22 09:41 05/20/22 09:25 05/20/22 09:45 Temperature Pulse Rate 96 94 Respiratory Rate Blood Pressure 87/44 L 83/39 L Pulse Oximetry 98 Oxygen Delivery Nasal Cannula Oxygen Flow Rate 3 05/20/22 09:15 05/20/22 09:15 05/20/22 10:00 Temperature 97.4 F L Pulse Rate 100 94 Respiratory Rate 16 Blood Pressure 91/40 L 93/36 L Pulse Oximetry Oxygen Delivery Oxygen Flow Rate 3 05/20/22 10:20 05/20/22 10:40 05/20/22 08:00 Temperature Pulse Rate 96 96 96 Respiratory Rate 16 Blood Pressure 94/41 L 85/36 L Pulse Oximetry 98 Oxygen Delivery Nasal Cannula Oxygen Flow Rate 3 05/20/22 11:00 05/20/22 11:20 05/20/22 11:40 Temperature Pulse Rate 97 98 98 Respiratory Rate Blood Pressure 90/41 L 91/42 L 92/45 L Pulse Oximetry Oxygen Delivery Oxygen Flow Rate 05/20/22 12:00 05/20/22 12:20 05/20/22 12:40 Temperature Pulse Rate 99 101 H 100 Respiratory Rate Blood Pressure 87/41 L 99/39 L 95/23 L Pulse Oximetry Oxygen Delivery Oxygen Flow Rate 05/20/22 12:56 05/20/22 13:10 05/20/22 14:00 Temperature 96.5 F L 97.5 F L Pulse Rate 103 H 111 H 107 H Respiratory Rate 18 14 Blood Pressure 102/31 L 82/30 L 88/46 L Pulse Oximetry 97 Oxygen Delivery Oxygen Flow Rate 05/20/22 08:00 05/20/22 12:00 05/20/22 16:00 Temperature Pulse Rate 99 100 100 Respiratory Rate Blood Pressure Pulse Oximetry Oxygen Delivery Oxygen Flow Rate 05/20/22 21:38 05/20/22 20:00 05/20/22 20:00 Temperature 98.1 F Pulse Rate 111 H 117 H 111 H Respiratory Rate 16 16 Blood Pressure 93/79 L Pulse Oximetry 100 100 Oxygen Delivery Nasal Cannula Oxygen Flow Rate 4 05/21/22 00:00 05/21
[2022-05-21] MEDS: SEVELAMER CARBONATE 800 MG TABLET PO ×2 (08:04→13:13)
[2022-05-21] MEDS: allopurinoL 100 MG TABLET PO (08:04)
--- NOTE | 2022-05-21 08:23 | PCOTNOTE ---
Attempted to see pt. for occupational therapy evaluation. Per nurse, pt. is at risk for TX, hold evaluation until after cardiac workup. Will follow.
[2022-05-21 08:29] LABS: Basophils Absolute Auto 0.1 K/mm3 (0.0-0.1); Basophils Percent Auto 0.3 % (0.2-1.2); Eosinophils Absolute Auto 0.2 K/mm3 (0-0.3); Eosinophils Percent Auto 0.9 % (0-4.4); Hematocrit 28.4 % (42.0-52.0); Hemoglobin 8.9 g/dL (14.0-18.0); Immature Granulocyte Absolute 0.13 K/mm3 (0.00-0.031); Immature Granulocyte Percent A 0.7 % (0-0.5); Lymphocytes Absolute Auto 1.55 K/mm3 (0.9-3.2); Lymphocytes Percent Auto 8.4 % (18.3-44.2); Mean Corpuscular HGB Conc 31.3 g/dl (32-36); Mean Corpuscular Hemoglobin 33.5 pg (26-34); Mean Corpuscular Volume 106.8 fl (80-100); Mean Platelet Volume 10.1 fl (7.4-10.4); Monocytes Absolute Auto 1.2 K/mm3 (0.1-0.6); Monocytes Percent Auto 6.4 % (2.6-8.5); Neutrophils Absolute Auto 15.3 K/mm3 (1.3-6.7); Neutrophils Percent Auto 83.3 % (45.5-73.1); Platelet Count Result 211 k/mm3 (150-375); Red Blood Count 2.66 M/mm3 (4.6-6.20); Red Cell Distribution Width 15.7 % (11.5-14.5); White Blood Count 18.4 K/mm3 (4.5-10.0)
[2022-05-21] MEDS: ASPIRIN 325 MG TABLET PO (08:36)
--- NOTE | 2022-05-21 08:40 | PCPTNOTE ---
Attempted to see pt. for PT evaluation. Per nurse, pt. is at risk for OK, hold evaluation until after cardiac workup. Will follow.
[2022-05-21 08:41] LABS: INR 1.1; Prothrombin Time 13.5 Seconds (11.1-14.7)
[2022-05-21 08:42] LABS: Partial Thromboplastin Time 43.7 SECONDS (22.3-36.8)
[2022-05-21 08:59] LABS: Glucose Point of Care 109 mg/dl (65-105)
--- NOTE | 2022-05-21 09:20 | PM.PNPUL ---
Progress Note: A&P Assessment and Plan (1) Acute systolic heart failure: Code(s): I50.21 - Acute systolic (congestive) heart failure Status: Acute (2) End-stage renal disease needing dialysis: Code(s): N18.6 - End stage renal disease; Z99.2 - Dependence on renal dialysis Status: Acute (3) Acute respiratory failure with hypoxia: Code(s): J96.01 - Acute respiratory failure with hypoxia Status: Acute Assessment and Plan: This patient with end-stage renal disease on hemodialysis presented with generalized weakness, shortness of breath, orthopnea, 4+ lower extremity edema, and left pleural effusion. Workup has revealed severe left ventricular systolic failure for which the patient has been under the care of Cardiology Services. The patient underwent chest CT yesterday that showed left pleural effusion of moderate size with associated lower lobe atelectasis and no clear-cut evidence of pneumonia. In view of congestive heart failure, the pleural effusion could be related to cardiac dysfunction. The patient was started on IV heparin for possible ischemic cardiomyopathy. plan: continue with current antibiotic regimen. Will postpone thoracentesis at this point as patient has been on IV heparin. repeat chest x-ray in a.m. (4) End-stage renal disease on hemodialysis: Code(s): N18.6 - End stage renal disease; Z99.2 - Dependence on renal dialysis Status: Acute (5) Pleural effusion: Code(s): J90 - Pleural effusion, not elsewhere classified Status: Acute Subjective Date/time seen: 05/21/22 09:20 Patient has no new respiratory symptoms. Continues to have orthopnea lower extremity edema. patient is still on antibiotic for possible lower respiratory tract infection. Patient had chest CT done last p.m.. Moderate size left pleural effusion with associated atelectasis no clear-cut evidence of pneumonia. Patient denied having recent history of left chest injury. Echocardiogram showed severe systolic failure. patient currently on heparin IV drip. Review of Systems Review of Systems: All system review is negative except as noted in HPI and below. Exam Narrative: GENERAL APPEARANCE: Well developed, well nourished, alert and cooperative, and appears to be in mild respiratory distress while on supplemental oxygen via nasal cannula SKIN: Inspection of the skin reveals no rashes, ulcerations or petechiae. HEENT: Sclerae anicteric and conjunctivae pink and moist. Extraocular movements were intact and pupils were equal, round, and reactive to light. The oral mucosa, hard and soft palate, tongue and posterior pharynx were normal. edentulous. NECK: Supple. There was no thyroid enlargement, and no tenderness, or masses were felt. CHEST: Normal AP diameter and mild thoracic scoliosis. LUNGS: Auscultation of the lungs revealed decreased breath sounds at left base posteriorly no wheezing. CARDIAC: tachycardia, regular rate and rhythm, normal heart sounds. 2/6 systolic ejection murmur ABDOMEN: Soft and nontender with normal bowel sounds. There was no organomegaly. LYMPH NODES: No lymphadenopathy was appreciated in the neck. EXTREMITIES: a 4+ lower extremity edema NEUROLOGIC: Alert and oriented x 3. Normal affect. Objective Data Vital Signs Vital Signs: Vital Signs - 24 hr 05/20/22 09:41 05/20/22 09:25 05/20/22 09:45 Temperature Pulse Rate 96 94 Respiratory Rate Blood Pressure 87/44 L 83/39 L Pulse Oximetry 98 Oxygen Delivery Nasal Cannula Oxygen Flow Rate 3 05/20/22 10:00 05/20/22 10:20 05/20/22 10:40 Temperature Pulse Rate 94 96 96 Respiratory Rate Blood Pressure 93/36 L 94/41 L 85/36 L Pulse Oximetry Oxygen Delivery Oxygen Flow Rate 05/20/22 11:00 05/20/22 11:20 05/20/22 11:40 Temperature Pulse Rate 97 98 98 Respiratory Rate Blood Pressure 90/41 L 91/42 L 92/45 L Pulse Oximetry Oxygen Delivery Oxygen F
[2022-05-21] MEDS: HEPARIN SOD/D5W 100 UNITS/ML 25,000 UNITS/250 ML BAG 10 UNITS IV CONT (09:28)
--- NOTE | 2022-05-21 09:42 | PC.NURSE ---
heparin drip started at 10 ml/hr this shift.
--- NOTE | 2022-05-21 10:20 | PC.NURSE ---
pt missing protonix 40 mg po and gabapentin 200 mg po called pharmacy informed that pt is suppose to transfer to [facility]
--- NOTE | 2022-05-21 10:39 | PC.NURSE ---
called [facility] informed pt being transferred to [facility], report given to MD DO [facility] Galo
--- NOTE | 2022-05-21 10:44 | WPDCNINT ---
Assessment and Plan Assessment and plan (1) NSTEMI (non-ST elevated myocardial infarction): Code(s): I21.4 - Non-ST elevation (NSTEMI) myocardial infarction Status: Acute Assessment and Plan: Patient complained of chest pain, with hypertension, troponins were 0.97, 1.15, 1.35, and increased to 6.750 this morning -etiology started patient on heparin infusion, aspirin -discussed with Dr. Domingo, he [facility] for possible cardiac catheterization which most likely will be done on 05/22/2022 -no beta-blockers this time as patient is hypotensive -EKG shows bundle branch block which is not new, some ST depressions noted. (2) Pleural effusion: Code(s): J90 - Pleural effusion, not elsewhere classified Status: Acute Assessment and Plan: CT scan of the chest on 05/20/2022 showed moderate size left pleural effusion associated with left lower lobe atelectasis, not much infiltrates to show any evidence of pneumonia. Pleural effusion could all be related to cardiomyopathy, NSTEMI. -continue supplemental oxygen -patient has some wheezing will add bronchodilators -continue antibiotics which are being used for left upper posterior thigh abscess (3) Acute systolic heart failure: Code(s): I50.21 - Acute systolic (congestive) heart failure Status: Acute Assessment and Plan: 04/11/2022 echocardiogram: Shows LV moderately enlarged, EF of 45-50%, LV septal wall motion is of normal, grade 1 diastolic dysfunction, lot somewhat mobile echogenic aortic valve vegetation was visualized, moderate aortic valve regurg. 04/16/2022: CARLOZ: EF of 60-65%, aortic valve is probable trileaflet but cannot r/o bicuspid valve given significant calcifications and possibly fused from that.. There is severe aortic valve calcifications involving left and non-coronary cusps which are fused as a result. Mild aortic valve stenosis, moderate mitral valve regurg. No vegetations were noted (4) Abscess of left thigh: Code(s): L02.416 - Cutaneous abscess of left lower limb Status: Acute Assessment and Plan: Left posterior upper thigh abscess status post incision and drainage on 05/20/2022 -continue cefepime and vancomycin (5) End-stage renal disease needing dialysis: Code(s): N18.6 - End stage renal disease; Z99.2 - Dependence on renal dialysis Status: Acute Assessment and Plan: End-stage renal disease, patient on dialysis -discuss with Dr. Monson, patient not in need of emergent dialysis today as his electrolytes and volume status is acceptable -patient is going to be given Hespan and albumin for low blood pressures -continue Renvela (6) Chronic acquired lymphedema: Code(s): I89.0 - Lymphedema, not elsewhere classified Status: Acute Assessment and Plan: Chronic lymphedema which could be related to possible mitral valve regurg, cardiomyopathy -05/20/2022 bilateral lower extremity venous Dopplers: negative for DVT (7) Gastric ulcer: Code(s): K25.9 - Gastric ulcer, unspecified as acute or chronic, without hemorrhage or perforation Status: Acute Assessment and Plan: Patient has a recent history of non bleeding gastric ulcer -continue to monitor hemoglobin as patient is on heparin infusion -EGD on 04/12/2022 showed gastritis, nonbleeding gastric ulcer and gastric retention (8) Severe sepsis: Code(s): A41.9 - Sepsis, unspecified organism; R65.20 - Severe sepsis without septic shock Status: Acute Assessment and Plan: Patient with elevated lactic acid on admission, currently hypotensive, left posterior upper thigh abscess, NSTEMI -will infuse Hespan and albumin as patient is end-stage renal disease on dialysis -low albumin -will recheck lactic acid level -will maintain mean arterial pressures > 65 mmHg, -may need to start Levophed if necessary -right femoral central line was inserted as patient was on heparin infusion Additional
[2022-05-21 10:59] LABS: Hypochromasia 1+ (NORMAL); Macrocytosis 1+ (NORMAL); Platelet Estimate Adequate (Adequate)
[2022-05-21] MEDS: hetaSTARCH 6%/NACL 500 ML 250 ML IV CONT (11:39)
--- NOTE | 2022-05-21 12:34 | P.PCNBED_ITS ---
Procedures Central Line Placement Right Femoral: Central Line Date: 05/21/22 Central Line Time: 11:20 Discussed w/ the patient/family/POA,the placement of a central venous catheter, including its clinical necessity/indication & associated potential risks, benifits and alternatives.: Yes The patient/family/POA understand(s) and acknowledge(s) the need to proceed with central venous catheter insertion as an important element of the patient's clinical management.: Yes Consent: I have discussed with the patient and/or surrogate, the non-emergent placement of a central venous catheter, including its clinical necessity/indication and associated potential risks and complications. The patient and/or surrogate understand(s) and acknowledge(s) the need to proceed with central venous catheter insertion as an important element of the patient's clinical management. Time Out Performed: Yes Patient Position: supine Patient placed on monitor/pulse ox: Yes Provider Prep: mask, sterile gown, sterile gloves, Max. sterile barrier precautions, cap and hand hygiene with conventional soap/water or alcohol based hand rub Central line prep: 2% Chlorhexidine scrub Local anesthesia used: lidocaine 1% Amount of anesthesia used (ml): 3 Sterile US Technique with sterile gel/sterile probe covers: Yes Central line lumen inserted: triple [place]: 12 Length (cm): 16 Depth of Insertion (cm): 16 Post Procedure: sutured in place, good blood return, all ports aspirated, flushed, capped, transparent dressing, hemostatic product, antimicrobial product, securement product and aseptic technique maintained throughout procedure Post procedure x-ray: other (Not applicable) Patient tolerated procedure: well Complications: none Additional comments: Patient was on heparin infusion, therefore placed a right femoral central line for hypotension and venous insufficiency
[2022-05-21 12:38] LABS: Amylase 97 U/L (30-110); Cholesterol 106 mg/dL (0-200); Lactate Dehydrogenase 692 U/L (313-618); Triglycerides 157 mg/dL (<150)
[2022-05-21] MEDS: PANTOPRAZOLE SODIUM IV 40 MG VIAL IV PUSH ×2 (13:12→21:21)
[2022-05-21] MEDS: ALBUMIN HUMAN 25% 25 GM/100 ML 100 ML IVPB ×2 (13:12→18:22)
[2022-05-21] MEDS: CENTRAL LINE FLUSH 10 ML IV PUSH ×2 (13:16→21:22)
--- NOTE | 2022-05-21 13:32 | PC.NURSE ---
This patient, Tonio Barajas, was received from [[facility] ] on 05/21/22 at 1105. Patient/family oriented to unit policies and routines. Patient was not in any distress on arrival to ICU 10. Doctor Galenly notified of patient arrival.
--- NOTE | 2022-05-21 13:34 | PCOTNOTE ---
Spoke with Dr. Lind, agreeable to discharge from therapy services at this time due to medical condition.
[2022-05-21 13:40] LABS: Lactic Acid Reflex 1.1 mmol/L (0.7-2.0)
[2022-05-21] MEDS: NOREPINEPHRINE 8 MG/D5W 250 ML 8 MG/250 ML BAG 9.38 MG IV CONT (14:03)
[2022-05-21] MEDS: AMIODARONE 150 MG/D5W 100 ML 150 MG/100 ML BAG 600 MG IV CONT (14:21)
[2022-05-21] MEDS: AMIODARONE 360 MG/D5W 200 ML 360 MG/200 ML BAG 33.33 MG IV CONT (14:23)
--- NOTE | 2022-05-21 14:25 | ECG_ITS ---
Measurements Intervals [place] Rate: 150 P: [place]: 0 QRS: -57 QRSD: 231 T: 99 QT: 361 QTc: 570 Interpretive Statements ATRIAL FIBRILLATION WITH RAPID VENTRICULAR RESPONSE LEFT BUNDLE BRANCH BLOCK ABNORMAL ECG COMPARED TO ECG 05/21/2022 09:05:56 ATRIAL FIBRILLATION NOW PRESENT Electronically Signed On 05-21-2022 15:40:29 CDT by Tristen Fleming M.D.
--- NOTE | 2022-05-21 14:55 | WPDPROCEDUR ---
Procedures Intubation Intubation Date: 05/21/22 Intubation Time: 14:40 A pre-procedural Time-Out was completed immediately before starting the procedure and confirmed: Patient Identification, Site, Procedure, Patient Position and the Availability of Requisite Equipment: Yes Sedative: etomidate Paralytic: rocuronium Laryngoscope: fiber optic video scope Assist device used: fiber optic device ET tube size: 8 Tube secured depth (cm): 25 Tube secured location: lips Tube placement confirmation: visualized tube passing through cords, equal breath sounds bilaterally, no breath sounds over epigastrium and confirmation by capnometry Patient tolerated procedure: well Intubation complications: none
[2022-05-21] MEDS: IPRATROPIUM BR 0.02% INH SOLN 0.5 MG/2.5 ML VIAL INHALATION ×2 (14:57→20:00)
[2022-05-21] MEDS: MIDAZOLAM 100MG/NS 100ML(*CRX) 100 MG/100 ML BAG IV CONT (15:00)
[2022-05-21] MEDS: FENTANYL 2,500MCG/NS250ML(*CRX 2,500 MCG/250 ML BAG IV CONT (15:00)
--- NOTE | 2022-05-21 15:07 | P.PNCROSS_ITS ---
Event Note Event Note Event Note: Patient went into AFib RVR, with possible narrow complex V-tach, complain of ch est pain, worsening shortness of breath. -patient was started on amiodarone bolus and infusion -patient dropped his systolic pressures in the 40s, currently on Levophed at 30 mcg/min -patient was emergently intubated due to worsening shortness of breath and hypoxia and hemodynamic instability -discussed with Dr. Domingo, Dr Harding. -off note limited echo done on 05/20/2022 showed EF of 20-25% with severely enlarged LV. PLAN: -Pt likely to go for a cardiac cath today, cardiology aware -continue amiodarone -ABGs in 1 hour -stat EKG -continue CMV mode of ventilation, 100% FiO2 and peep of 5.
--- NOTE | 2022-05-21 16:53 | WPDCARDPROC ---
Cardiac Cath Procedure Note Date of procedure:: 05/21/22 Performing physician:: Fuentes Pa MD Indication:: coronary angiography Brief clinical history:: this is a 56-year-old patient who is critically ill with a history of mild aortic valve stenosis, end-stage renal disease with ongoing hemodialysis. And admission to the hospital with picture of sepsis and shock. Patient was emergently intubated earlier today troponin levels have been found to be elevated although not inconsistent with renal failure. The patient earlier was in atrial fib with RVR that was hemodynamically poorly tolerated. In this setting I was asked to perform an angiogram urgently. Patient is intubated and sedated in incapable of providing any history to me at this time Procedure Procedure performed:: coronary angiography Sedation/Medication given:: patient already on sedation from the ICU no additional sedation given in the catheter finisher and inspector Access site:: left femoral artery Estimated blood loss:: 20 cc Procedure note:: patient was brought to the cardiac catheterization lab intubated on ventilator support. There was a central line in the right femoral vein with a sterile dressing for that reason we approached the procedure from the left femoral artery. The left femoral triangle was prepared and draped in the normal fashion. Using the modified Seldinger technique the femoral artery was punctured and a 5 Fijian vascular sheath was placed. After this I used a 5 Fijian FL4 catheter to engage and inject the left coronary artery. The catheter was selectively filling the LAD and I then changed for a 5 Fijian AL1 catheter to for initial angiography to better fill the circumflex. Following this I used a 5 Fijian JR4 catheter to engage and inject the right coronary artery. lastly I used the right coronary artery to traverse the aortic valve and measure left-sided hemodynamics. The patient was unstable hemodynamically on a elected not to perform a left ventriculogram as echocardiography has already been performed earlier today. At this point the sheath was sutured into position the patient was taken back to the ICU where the sheath will be removed with direct manual compression. ACT at the end of the case was 150 which is suitable for sheath removal. Findings:: Hemodynamics: Central aortic pressure 87 over 54 left ventricle 134 over 12 end-diastolic pressure 30. There is a 38 mm systolic gradient on pullback across the aortic valve. The left main coronary artery is large and nicely patent the left anterior descending is a mildly diffusely diseased artery that is somewhat calcified. It is small in caliber but continues down to just before the apex, terminates before the cardiac apex. There is no significant stenosis in the LAD. The major diagonal branch has a discrete stenosis of 80-90% proximally. The circumflex is a very large caliber vessel giving rise to 3 marginal branches and a posterior branch there is no significant stenosis in the trunk of the circumflex there was proximally about 20-30% stenosis. OM2 has a discrete proximal stenosis of 80-90%. There is ANDERSON 3 flow in the vessel. The right coronary artery is codominant terminating in an RPDA and is of medium caliber. There is mild luminal irregularity in the trunk of the RCA with no significant lesions. There is a 90% stenosis in the midportion of the RPDA. Still there is ANDERSON 3 flow in the vessel. Conclusion:: 1. Codominant coronary circulation with multivessel small vessel disease as described above involving the 1st diagonal, 2nd obtuse marginal and mid RPDA. These lesions are not consistent with the shock state with which the patient is presenting. 2. aortic valve stenosis mild by recent transesophageal echo. Patient does however have a systolic peak to peak gradient of 38 mmHg as described above. Fuentes Pa MD [facility]
[2022-05-21 17:11] LABS: Activated Clotting Time 150 SEC (74-137)
[2022-05-21 17:51] LABS: Alveolar/Arterial O2 Gradient 550.1 mmHg; Base Excess ABG 5.7 mEq/l (+/-2.0); Fractional Inspired Oxygen 100 %; HCO3 ABG 30.3 mEq/l (22.0-26.0); Oxygen Content ABG 13.7 %vol (16.0-22.0); Oxygen Saturation ABG 98.4 % (95.0-100.0); Oxyhemoglobin 97.1 % THb (90.0-100.0); PCO2 ABG 44.3 mmHg (35.0-45.0); PO2 ABG 118.6 mmHg (80.0-100.0); PO2 FiO2 Ratio Arterial Blood 1.19 %; Total Hemoglobin 9.9 g/dL (12.0-18.0); pH ABG 7.453 (7.350-7.450)
[2022-05-21] MEDS: NOREPINEPHRINE 8 MG/D5W 250 ML 8 MG/250 ML BAG 84.38 MG IV CONT (18:13)
[2022-05-21] MEDS: SODIUM CHLORIDE 0.9% IV 1,000 ML 125 ML IV CONT (18:21)
[2022-05-21] MEDS: CEFEPIME 0.5 GM in DEXTROSE 5% IN WATER 50 ML 100 ML IVPB (19:26)
[2022-05-21] MEDS: MINERAL OIL/WHITE PETROLATUM OINTMENT 1 APPLIC EACH EYE (21:21)
[2022-05-21] MEDS: SIMVASTATIN 20 MG TABLET 40 MG PO (21:21)
[2022-05-21] MEDS: NOREPINEPHRINE 8 MG/D5W 250 ML 8 MG/250 ML BAG 56.25 MG IV CONT (22:16)
[2022-05-22] VITALS (73 sets, daily range): BP systolic 74–124; BP diastolic 34–84; PULSE 42–116; RESP 15–22; TEMP 36.9–37.7; O2SAT 77–95; BMI 32.8
[2022-05-22] MEDS: ALBUMIN HUMAN 25% 25 GM/100 ML 100 ML IVPB ×4 (00:09→17:04)
[2022-05-22] MEDS: AMIODARONE 360 MG/D5W 200 ML 360 MG/200 ML BAG 16.67 MG IV CONT ×2 (00:54→11:54)
[2022-05-22 00:57] LABS: Partial Thromboplastin Time 102.7 SECONDS (22.3-36.8)
[2022-05-22] MEDS: IPRATROPIUM BR 0.02% INH SOLN 0.5 MG/2.5 ML VIAL INHALATION ×4 (02:02→20:05)
[2022-05-22] MEDS: NOREPINEPHRINE 8 MG/D5W 250 ML 8 MG/250 ML BAG 56.25 MG IV CONT ×3 (02:45→11:37)
[2022-05-22 05:10] LABS: Alveolar/Arterial O2 Gradient 526.2 mmHg; Base Excess ABG 5.6 mEq/l (+/-2.0); Fractional Inspired Oxygen 90 %; HCO3 ABG 29.5 mEq/l (22.0-26.0); Oxygen Content ABG 12.6 %vol (16.0-22.0); Oxygen Saturation ABG 95.8 % (95.0-100.0); Oxyhemoglobin 93.9 % THb (90.0-100.0); PCO2 ABG 40.3 mmHg (35.0-45.0); PO2 ABG 74.2 mmHg (80.0-100.0); PO2 FiO2 Ratio Arterial Blood 0.82 %; Total Hemoglobin 9.5 g/dL (12.0-18.0); pH ABG 7.483 (7.350-7.450)
[2022-05-22 05:11] LABS: Device VENTILATOR; Site Drawn ARTLINE
[2022-05-22 05:12] LABS: Arterial Blood Gas PEEP 5 cmH2O; Arterial Blood Gas Tidal Volume 500 ml; Arterial Blood Gas Vent Mode CMV; Arterial Blood Gas Ventilator rate 18 /MIN
[2022-05-22 05:25] LABS: Appearance Urine Clear (Clear); Bilirubin Urine 1+ (Negative); Glucose Urine UA Negative (Negative); Ketones Urine Negative (Negative); Leukocyte Esterase Ur Negative LEU/UL (NEGATIVE); Nitrate Urine Negative (Negative); Protein Urine 3+ mg/dL (Negative); Urobilinogen Urine 0.2 mg/dL (<2.0); pH Urine 7.5 (5.0-9.0)
[2022-05-22 05:31] LABS: Add Urine Microscopic? YES; Blood Urine Trace (Negative); Color Urine Dark Yellow (Yellow)
[2022-05-22 05:36] LABS: Mucus Urine Rare /lpf; Squamous Epithelial Cell Urine Many /hpf (Few); WBC Urine 16-20 /hpf (0-3)
[2022-05-22 05:43] LABS: Basophils Absolute Auto 0.1 K/mm3 (0.0-0.1); Basophils Percent Auto 0.4 % (0.2-1.2); Eosinophils Absolute Auto 0.2 K/mm3 (0-0.3); Eosinophils Percent Auto 1.5 % (0-4.4); Hematocrit 27.7 % (42.0-52.0); Hemoglobin 8.6 g/dL (14.0-18.0); Immature Granulocyte Absolute 0.19 K/mm3 (0.00-0.031); Immature Granulocyte Percent A 1.2 % (0-0.5); Lymphocytes Absolute Auto 3.07 K/mm3 (0.9-3.2); Lymphocytes Percent Auto 19.4 % (18.3-44.2); Mean Corpuscular Hemoglobin 33.6 pg (26-34); Mean Corpuscular Volume 108.2 fl (80-100); Mean Platelet Volume 10.2 fl (7.4-10.4); Monocytes Percent Auto 6.4 % (2.6-8.5); Neutrophils Absolute Auto 11.3 K/mm3 (1.3-6.7); Neutrophils Percent Auto 71.1 % (45.5-73.1); Nucleated Red Blood Cells Perc 0.1 % (0.0-0.2); Platelet Count Result 236 k/mm3 (150-375); Red Blood Count 2.56 M/mm3 (4.6-6.20); Red Cell Distribution Width 15.5 % (11.5-14.5); White Blood Count 15.8 K/mm3 (4.5-10.0)
[2022-05-22 05:58] LABS: INR 1.1; Prothrombin Time 13.9 Seconds (11.1-14.7)
[2022-05-22 06:01] LABS: Partial Thromboplastin Time 100.4 SECONDS (22.3-36.8)
[2022-05-22 06:10] LABS: Lactic Acid Reflex 1.8 mmol/L (0.7-2.0)
[2022-05-22] MEDS: CENTRAL LINE FLUSH 10 ML IV PUSH ×4 (06:11→21:59)
[2022-05-22 06:28] LABS: Alanine Aminotransferase 14 U/L (6-50); Albumin Level 2.6 g/dL (3.5-5.1); Alkaline Phosphatase 102 U/L (38-126); Anion Gap 8 mmol/L (8-16); Aspartate Amino Transferase 82 U/L (17-59); Bilirubin,Total 0.6 mg/dL (0.2-1.3); Blood Urea Nitrogen 29 mg/dL (9-20); Calcium 10.2 mg/dL (8.4-10.2); Carbon Dioxide 33 mmol/L (22-30); Chloride 92 mmol/L (98-107); Estimated CRCL calculation 26 ml/min; Estimated Glomerular Filt Rate 18; Glucose 120 mg/dL (65-110); Magnesium 1.7 mg/dL (1.6-2.3); Phosphorus 3.7 mg/dL (2.5-4.5); Potassium 3.5 mmol/L (3.4-5.0); Sodium 133 mmol/L (137-145)
[2022-05-22 06:38] LABS: CRP 18.9 mg/dL (<1.0)
[2022-05-22 06:53] LABS: Anisocytosis 1+ (NORMAL); Hypochromasia 1+ (NORMAL); Platelet Estimate Adequate (Adequate)
[2022-05-22] MEDS: VASOPRESSIN INJ 100 UNITS in DEXTROSE 5% 95 ML IV CONT (07:24)
--- NOTE | 2022-05-22 07:43 | PM.PNCARD ---
Progress Note: A&P Assessment and Plan (1) Acute systolic heart failure: Code(s): I50.21 - Acute systolic (congestive) heart failure Status: Acute Assessment and Plan: With troponin elevation and new cardiomyopathy is probably due to sepsis cardiomyopathy. On heparin drip initially for possible NSTEMI and now for maintaining right femoral sheath for arterial line. On aspirin. Due to low BP cannot start heart failure medication including beta minoo, ARB. Ordered Life Vest as he is interested in it to prevent sudden cardiac arrest. (2) Elevated troponin: Code(s): R77.8 - Other specified abnormalities of plasma proteins Status: Acute Assessment and Plan: Troponin went up to 6.7. Will follow to peak. (3) Healthcare-associated pneumonia: Code(s): J18.9 - Pneumonia, unspecified organism Status: Acute Assessment and Plan: On antibiotics as per hospitalist. (4) End-stage renal disease needing dialysis: Code(s): N18.6 - End stage renal disease; Z99.2 - Dependence on renal dialysis Status: Acute (5) Dyslipidemia: Code(s): E78.5 - Hyperlipidemia, unspecified Status: Acute Assessment and Plan: On Simvastatin. (6) CAD (coronary artery disease): Code(s): I25.10 - Atherosclerotic heart disease of [place] coronary artery without angina pectoris Status: Acute Assessment and Plan: 05/21/22 [facility] with Dr. Pa shows small branch vessels disease including OM2, Diag, right PDA with 80-90% stenosis, but would not account for his significant cardiomyopathy. (7) PAF (paroxysmal atrial fibrillation): Code(s): I48.0 - Paroxysmal atrial fibrillation Status: Acute Assessment and Plan: He decompensated yesterday when he went into atrial fibrillation, requiring Levophed drip to maintain BP. On Amiodarone drip now which restored sinus rhythm. (8) Severe sepsis: Code(s): A41.9 - Sepsis, unspecified organism; R65.20 - Severe sepsis without septic shock Status: Acute Assessment and Plan: With hypotension. On Levophed drip and managed by instrumentation engineering technician. Subjective Date/time seen: 05/22/22 07:43 On ventilator and sedated. Exam Const: Other: Sedated and on ventilator Resp: Auscultation: no crackles, no rales, no rhonchi, no wheezes and diminished lung sounds Cardio: Jugular venous distension: no JVD Rate: regular rate Rhythm: regular rhythm Heart sounds: no murmurs Peripheral pulses: dorsalis pedis present GI: GI Palp: No abdominal tenderness and Yes Soft to palpation Neuro: General: oriented to person, oriented to place and oriented to time Extrem: Right lower extremity: edema Left lower extremity: edema Other: Mod edema of both legs Objective Data Vital Signs Vital Signs: Vital Signs - 24 hr 05/21/22 10:50 05/21/22 11:15 05/21/22 12:00 Temperature 96.9 F L Pulse Rate 107 H 106 H 105 H Respiratory Rate 20 19 Blood Pressure 92/64 L 94/58 L Pulse Oximetry 97 98 Oxygen Delivery Oxygen Flow Rate Fraction of Inspired Oxygen 05/21/22 15:00 05/21/22 14:40 05/21/22 14:03 Temperature Pulse Rate 91 95 107 H Respiratory Rate 18 Blood Pressure 76/49 L Pulse Oximetry 100 Oxygen Delivery Mechanical Ventilation Oxygen Flow Rate Fraction of Inspired Oxygen 100 05/21/22 15:00 05/21/22 15:00 05/21/22 08:00 Temperature Pulse Rate 97 98 107 H Respiratory Rate 18 18 Blood Pressure Pulse Oximetry Oxygen Delivery Oxygen Flow Rate Fraction of Inspired Oxygen 05/21/22 11:30 05/21/22 12:00 05/21/22 13:00 Temperature Pulse Rate 108 H 107 H 105 H Respiratory Rate 18 17 14 Blood Pressure 86/49 L 82/51 L 90/59 L Pulse Oximetry 91 100 100 Oxygen Delivery Oxygen Flow Rate Fraction of Inspired Oxygen 05/21/22 14:00 05/21/22 14:15 05/21/22 14:22 Temperature Pulse Rate 106 H 106 H 124 H Respiratory Rate 24 H
[2022-05-22] MEDS: ASPIRIN 325 MG TABLET PO (07:58)
[2022-05-22] MEDS: PANTOPRAZOLE SODIUM IV 40 MG VIAL IV PUSH ×2 (07:59→20:48)
[2022-05-22] MEDS: MINERAL OIL/WHITE PETROLATUM OINTMENT 1 APPLIC EACH EYE ×2 (07:59→20:48)
--- NOTE | 2022-05-22 09:22 | PM.PNNEP ---
Progress Note: A&P Assessment and Plan (1) End-stage renal disease on hemodialysis: Code(s): N18.6 - End stage renal disease; Z99.2 - Dependence on renal dialysis Status: Acute Assessment and Plan: End-stage renal disease Fluid retention/CHF Hypertension Anemia of chronic kidney disease Secondary hyperparathyroidism In pneumonia/leukocytosis, thigh abscess, sepsis Lower extremity weakness with decreased sensation Plan: -ESRD: Hold off on dialysis, current T ABG looks okay with acid-base balance, potassium is at 3.5, today's mild CHF but patient is currently on a ventilator and is oxygenating okay. He is requiring multiple pressors. On x-ray stable V5 21 dialysis. I am going to defer dialysis today probably until tomorrow. CRRT is not available. His cortisol levels have been fine. Continue on with antibiotics of cefepime and vancomycin. Cardiac catheterization noted. Prognosis poor. Continue to follow. -d/w Dr Lind Subjective Date/time seen: 05/22/22 09:22 ESRD follow-up Review of Systems Review of Systems: -intubated yesterday with drop in blood pressure associated with combination of issues including atrial fibrillation with RVR, aortic stenosis, sepsis -status post cardiac catheterization with small-vessel disease -aortic stenosis -patient is intubated and unable to get history from the patient Exam Narrative: Well-developed well-nourished, currently intubated, but dry skin, normal turgor, currently on a ventilator and unable to respond, irregular rhythm, equal breath sounds some coarse lung sounds normal soft abdomen, no peripheral edema some chronic skin wrinkling secondary to loss of edema. Neurologically the patient is sedated medications. Limited exam due to patient condition Objective Data Vital Signs Vital Signs: Vital Signs - 24 hr 05/21/22 10:50 05/21/22 11:15 05/21/22 12:00 Temperature 36.1 C L Pulse Rate 107 H 106 H 105 H Respiratory Rate 20 19 Blood Pressure 92/64 L 94/58 L Pulse Oximetry 97 98 Oxygen Delivery Oxygen Flow Rate Fraction of Inspired Oxygen 05/21/22 15:00 05/21/22 14:40 05/21/22 14:03 Temperature Pulse Rate 91 95 107 H Respiratory Rate 18 Blood Pressure 76/49 L Pulse Oximetry 100 Oxygen Delivery Mechanical Ventilation Oxygen Flow Rate Fraction of Inspired Oxygen 100 05/21/22 15:00 05/21/22 15:00 05/21/22 11:30 Temperature Pulse Rate 97 98 108 H Respiratory Rate 18 18 18 Blood Pressure 86/49 L Pulse Oximetry 91 Oxygen Delivery Oxygen Flow Rate Fraction of Inspired Oxygen 05/21/22 12:00 05/21/22 13:00 05/21/22 14:00 Temperature Pulse Rate 107 H 105 H 106 H Respiratory Rate 17 14 24 H Blood Pressure 82/51 L 90/59 L 76/49 L Pulse Oximetry 100 100 100 Oxygen Delivery Oxygen Flow Rate Fraction of Inspired Oxygen 05/21/22 14:15 05/21/22 14:22 05/21/22 14:23 Temperature Pulse Rate 106 H 124 H 129 H Respiratory Rate 19 20 22 H Blood Pressure 101/69 78/67 L 83/61 L Pulse Oximetry 100 97 92 Oxygen Delivery Oxygen Flow Rate Fraction of Inspired Oxygen 05/21/22 14:28 05/21/22 14:30 05/21/22 14:35 Temperature Pulse Rate 144 H 147 H 98 Respiratory Rate 22 H 24 H 25 H Blood Pressure 44/37 L 83/69 L 92/69 L Pulse Oximetry 81 L 100 Oxygen Delivery Oxygen Flow Rate Fraction of Inspired Oxygen 05/21/22 14:40 05/21/22 14:41 05/21/22 14:45 Temperature Pulse Rate 85 90 86 Respiratory Rate 18 20 18 Blood Pressure 48/22 L 81/59 L 99/58 L Pulse Oximetry 100 98 100 Oxygen Delivery Oxygen Flow Rate Fraction of Inspired Oxygen 05/21/22 15:00 05/21/22 15:15 05/21/22 15:30 Temperature Pulse Rate 89 97 101 H Respiratory Rate 18 18 18 Blood Pressure 96/62 L 129/83 123/77 Pulse Oximetry 100 100 100 Oxygen Delivery Oxygen Flow Rate Fraction of Inspired Oxygen 05/21/22 15:45 05/21/22 15:55 05/21/22 17:45
--- NOTE | 2022-05-22 09:36 | WPDPROCEDUR ---
Procedures Intubation Intubation Date: 05/22/22 Intubation Time: 08:40 Consent: Discussed with patient in details regarding his respiratory status, patient is agreeable for intubation and mechanical ventilation A pre-procedural Time-Out was completed immediately before starting the procedure and confirmed: Patient Identification, Site, Procedure, Patient Position and the Availability of Requisite Equipment: Yes Sedative: etomidate Paralytic: rocuronium Laryngoscope: fiber optic video scope Assist device used: fiber optic device ET tube size: 8 Tube secured depth (cm): 24 Tube secured location: lips Tube placement confirmation: visualized tube passing through cords, equal breath sounds bilaterally, no breath sounds over epigastrium and confirmation by capnometry Patient tolerated procedure: well and no complications Intubation complications: none
[2022-05-22] MEDS: EPINEPHrine INJ 1 MG in DEXTROSE 5% IN WATER 250 ML 15.06 MG IV CONT (11:25)
[2022-05-22] MEDS: HEPARIN SOD/D5W 100 UNITS/ML 25,000 UNITS/250 ML BAG 10 UNITS IV CONT (11:39)
[2022-05-22 11:43] LABS: Glucose Point of Care 114 mg/dl (65-105)
--- NOTE | 2022-05-22 11:43 | PCFNICU ---
ICU Rounding Note: Pt current nutrition is Nepro at 10 ml/hr Last recorded weight is 103.9 kg, down from 108.5 kg on admit. Bowel Motility:No Bm reported. Labs Reviewed: Glu 120, Cr 3.5,GFR 18, BUN 29,Alb 2.6 Meds Noted:Versed, Fentanyl, Protonix, Levophed, Heparin, Cefepime, Vancomycin Skin: left posterior thigh, ulcer Additional Notes: Patient transfer to ICU, intubated. Starting tube feedings of Nepro at 10 ml/hr today. Recommend goal rate of 50 ml/hr, providing 1980 kcals/81 gms protein. Free water flush 30 ml q 4 hours. Agree with diet orders. Following daily in ICU rounds. Reassessing every Friday and Friday.
--- NOTE | 2022-05-22 12:44 | WPDINTPN ---
Progress Note: A&P Assessment and Plan (1) Acute respiratory failure with hypoxia: Code(s): J96.01 - Acute respiratory failure with hypoxia Status: Acute Assessment and Plan: Patient with acute respiratory failure, complain of severe shortness of breath once he went into AFib RVR, with hypertension, shock -patient is intubated emergently on 05/21/2022 in the ICU -lesion CMV mode of ventilation, peep of 5, 95% FiO2 -chest x-ray and ABGs reviewed, ventilator adjusted to increase PEEP to 5 and decreased respiratory rate -sedated with fentanyl and Versed infusion, no sedation vacation as patient is hemodynamically unstable (2) NSTEMI (non-ST elevated myocardial infarction): Code(s): I21.4 - Non-ST elevation (NSTEMI) myocardial infarction Status: Acute Assessment and Plan: NSTEMI with elevated troponins, new onset cardiomyopathy -05/21/2022 Status post cardiac catheterization which showed multivessel small vessel disease, the lesions were not consistent with a shock state. Aortic valve stenosis with a peak gradient 38 mmHg was noticed -cardiology following patient -continue to monitor as patient is on stable on 4 vasopressors (3) Shock: Code(s): R57.9 - Shock, unspecified Status: Acute Assessment and Plan: Significant shock on 4 vasopressors -could be septic, cardiogenic -could be related to severe aortic stenosis -on vancomycin and cefepime (05/21/2022) -05/20/2022 blood cultures: Negative so far -MRSA screen is negative -lactic acid is 1.8 this morning -on stress dose steroids (4) PAF (paroxysmal atrial fibrillation): Code(s): I48.0 - Paroxysmal atrial fibrillation Status: Acute Assessment and Plan: Patient went into AFib RVR on 05/21/2022 with hemodynamic collapse -was started on amiodarone bolus and infusion with improvement in his heart rate -currently in sinus tachycardia -continue heparin infusion -continue amiodarone infusion (5) Pleural effusion: Code(s): J90 - Pleural effusion, not elsewhere classified Status: Acute Assessment and Plan: Left pleural effusion, patient currently too unstable for thoracentesis -appreciate pulmonology following the patient (6) Acute systolic heart failure: Code(s): I50.21 - Acute systolic (congestive) heart failure Status: Acute Assessment and Plan: Acute systolic heart failure of unknown etiology 05/20/2022 limited echocardiogram showed LV systolic function is severely reduced with EF of 20-25%, indeterminate left ventricular diastolic dysfunction, limited echo to assess wall motion abnormality Patient currently unstable for beta-minoo or RENA-inhibitor since he is on full vasopressors -cardiology following the patient 04/11/2022 echocardiogram:? Shows LV moderately enlarged, EF of 45-50%, LV septal wall motion is of normal, grade 1 diastolic dysfunction, lot somewhat mobile echogenic aortic valve vegetation was visualized, moderate aortic valve regurg. 04/16/2022:? CARLOZ:? EF of 60-65%, aortic valve is probable trileaflet but cannot r/o bicuspid valve given significant calcifications and possibly fused from that.. There is severe aortic valve calcifications involving left and non-coronary cusps which are fused as a result.? Mild aortic valve stenosis, moderate mitral valve regurg.? No vegetations were noted (7) Abscess of left thigh: Code(s): L02.416 - Cutaneous abscess of left lower limb Status: Acute Assessment and Plan: Left posterior upper thigh abscess status post incision and drainage on 05/20/2022 -surgery following the patient -continue cefepime and vancomycin (8) End-stage renal disease needing dialysis: Code(s): N18.6 - End stage renal disease; Z99.2 - Dependence on renal dialysis Status: Acute Assessment and Plan: End-stage renal disease, patient on dialysis -patient has received Hespan and albumin -continue Renvela -unable to dialyz
[2022-05-22] MEDS: EPINEPHrine INJ 4 MG in DEXTROSE 5% IN WATER 250 ML 38.1 MG IV CONT (13:43)
[2022-05-22 14:18] LABS: Alveolar/Arterial O2 Gradient 562.4 mmHg; Base Excess ABG 0.5 mEq/l (+/-2.0); Carboxyhemoglobin 0.3 % THb (0-2.0); Fractional Inspired Oxygen 95 %; HCO3 ABG 25.4 mEq/l (22.0-26.0); Methemoglobin ABG 0.3 %THb (0-1.5); Oxygen Content ABG 13.8 %vol (16.0-22.0); Oxygen Saturation ABG 94.6 % (95.0-100.0); Oxyhemoglobin 92.2 % THb (90.0-100.0); PCO2 ABG 41.9 mmHg (35.0-45.0); PO2 ABG 72.5 mmHg (80.0-100.0); PO2 FiO2 Ratio Arterial Blood 0.76 %; Reduced Hemoglobin 7.2 %THb (0-5.0); Total Hemoglobin 10.6 g/dL (12.0-18.0)
[2022-05-22 14:19] LABS: Device VENTILATOR; Site Drawn ARTLINE
[2022-05-22 14:20] LABS: Arterial Blood Gas PEEP 8 cmH2O; Arterial Blood Gas Tidal Volume 500 ml; Arterial Blood Gas Vent Mode CMV; Arterial Blood Gas Ventilator rate 16 /MIN
--- NOTE | 2022-05-22 14:33 | WPDPROCEDUR ---
Procedures Arterial Line Arterial Line Date: 05/22/22 Arterial Line Time: 14:20 Time Out Performed: Yes Patient Position: supine Sap Basis Architect Prep: sterile gown, sterile gloves, mask and hat Site: right and femoral Site Prep: chlorhexidine and sterile drape Technique used: ultrasound-guided Size (Gauge): 14 Length: 12 cm Closure/Dressing: suture, transparent dressing, hemostatic product, antimicrobial product and securement product Patient tolerated procedure: well and no complications Complications: none
[2022-05-22] MEDS: HYDROCORTISONE SODIUM SUCCINATE 100 MG/2 ML VIAL IV PUSH ×2 (14:35→21:58)
[2022-05-22 14:55] LABS: Basophils Absolute Auto 0.1 K/mm3 (0.0-0.1); Basophils Percent Auto 0.6 % (0.2-1.2); Eosinophils Absolute Auto 0.2 K/mm3 (0-0.3); Eosinophils Percent Auto 1.4 % (0-4.4); Hemoglobin 9.1 g/dL (14.0-18.0); Immature Granulocyte Absolute 0.29 K/mm3 (0.00-0.031); Immature Granulocyte Percent A 1.7 % (0-0.5); Lymphocytes Absolute Auto 2.58 K/mm3 (0.9-3.2); Lymphocytes Percent Auto 14.8 % (18.3-44.2); Mean Corpuscular HGB Conc 30.3 g/dl (32-36); Mean Corpuscular Hemoglobin 33.3 pg (26-34); Mean Corpuscular Volume 109.9 fl (80-100); Mean Platelet Volume 10.7 fl (7.4-10.4); Monocytes Absolute Auto 1.1 K/mm3 (0.1-0.6); Monocytes Percent Auto 6.3 % (2.6-8.5); Neutrophils Absolute Auto 13.1 K/mm3 (1.3-6.7); Neutrophils Percent Auto 75.2 % (45.5-73.1); Nucleated Red Blood Cells Perc 0.1 % (0.0-0.2); Platelet Count Result 231 k/mm3 (150-375); Red Blood Count 2.73 M/mm3 (4.6-6.20); Red Cell Distribution Width 15.4 % (11.5-14.5); White Blood Count 17.4 K/mm3 (4.5-10.0)
[2022-05-22 15:15] LABS: Anisocytosis 1+ (NORMAL); Platelet Estimate Adequate (Adequate)
[2022-05-22 15:16] LABS: Lactic Acid Reflex 4.1 mmol/L (0.7-2.0); Ovalocytes 1+ (NORMAL)
[2022-05-22 15:34] LABS: Alanine Aminotransferase 19 U/L (6-50); Albumin Level 2.9 g/dL (3.5-5.1); Alkaline Phosphatase 109 U/L (38-126); Anion Gap 13 mmol/L (8-16); Aspartate Amino Transferase 82 U/L (17-59); Bilirubin,Total 0.6 mg/dL (0.2-1.3); Blood Urea Nitrogen 30 mg/dL (9-20); Calcium 10.2 mg/dL (8.4-10.2); Carbon Dioxide 27 mmol/L (22-30); Chloride 86 mmol/L (98-107); Estimated CRCL calculation 27 ml/min; Estimated Glomerular Filt Rate 19; Glucose 251 mg/dL (65-110); Magnesium 1.8 mg/dL (1.6-2.3); Phosphorus 4.6 mg/dL (2.5-4.5); Potassium 3.4 mmol/L (3.4-5.0); Sodium 126 mmol/L (137-145)
[2022-05-22 15:43] LABS: INR 1.3; Prothrombin Time 15.6 Seconds (11.1-14.7)
[2022-05-22 15:44] LABS: CRP 19.5 mg/dL (<1.0)
--- NOTE | 2022-05-22 15:55 | PM.PNGS ---
Progress Note: A&P Assessment and Plan (1) Decubitus ulcer of right buttock: Code(s): L89.319 - Pressure ulcer of right buttock, unspecified stage Status: Acute Assessment and Plan: Unstageable right buttock wound still appears dry today, with no drainage or obvious fluctuance. This may require surgical debridement at some point, but he is too unstable to tolerate any surgical intervention at this time. He is on a Heparin drip as well. Continue with local wound care. We will continue to follow along for any changes. (2) Abscess of left thigh: Code(s): L02.416 - Cutaneous abscess of left lower limb Status: Acute Assessment and Plan: Left upper posterior thigh abscess s/p bedside I&D on 05/20/22. The abscess appears adequately drained. This is not the source of his septic shock. Continue local wound care with 1/4 iodoform packing dressing changes daily. (3) Shock: Code(s): R57.9 - Shock, unspecified Status: Acute Assessment and Plan: Cardiogenic vs septic shock with new onset cardiomyopathy. Continue with critical care and medical management. He has been requiring up to 4 vasopressors today. Continue IV antibiotics. Blood cx NGTD. (4) End-stage renal disease needing dialysis: Code(s): N18.6 - End stage renal disease; Z99.2 - Dependence on renal dialysis Status: Acute (5) NSTEMI (non-ST elevated myocardial infarction): Code(s): I21.4 - Non-ST elevation (NSTEMI) myocardial infarction Status: Acute Assessment and Plan: Cardiac cath on 05/21/22 revealed multivessel small vessel disease without any lesions that would account for his shock state. Troponin still trending up to 26.9 today. Currently on Heparin drip. Subjective Subjective Date/Time Seen: 05/22/22 15:20 Interval history: Patient seen and examined with the nurse and tech in the room. Yesterday, we were unable to see the patient as he was in cardiac cath technician when rounding. He went into atrial fibrillation and became more hypotensive and unstable. He has since also been intubated, had a central line placement, and been increasing his vasopressor needs. He was at one point on 4 vasopressors today, which one has been titrated off at the time of my exam. Nursing has been unable to turn him due to how unstable he is. He had an art line placed today by the Appliance Technician. Review of Systems Review of Systems: ROS unobtainable: Yes unobtainable due to endotracheal tube Exam Const: General: ill appearing acutely and chronically Orientation/consciousness: patient obtunded (on vent and sedation) Skin: Other: Left posterior upper thigh abscess with erythema and induration improved, packing removed, only scant amount of purulent drainage, abscess repacked Right buttock decubitus ulcer with necrotic tissue overlying the wound bed, slightly softer, but no obvious fluctuance, no crepitus, no purulent drainage, no surrounding erythema Objective Data Vital Signs Vital Signs: Vital Signs - 24 hr 05/21/22 17:45 05/21/22 17:15 05/21/22 17:20 Temperature Pulse Rate 99 99 99 Respiratory Rate 18 Blood Pressure 119/62 123/82 Pulse Oximetry 98 100 Oxygen Delivery Mechanical Ventilation Fraction of Inspired Oxygen 100 05/21/22 17:45 05/21/22 18:00 05/21/22 18:00 Temperature Pulse Rate 99 98 98 Respiratory Rate 18 18 Blood Pressure 119/59 L 109/55 L Pulse Oximetry 98 97 Oxygen Delivery Fraction of Inspired Oxygen 05/21/22 18:15 05/21/22 18:30 05/21/22 18:45 Temperature Pulse Rate 99 97 97 Respiratory Rate 18 18 18 Blood Pressure 116/61 114/60 113/60 Pulse Oximetry 98 97 97 Oxygen Delivery Fraction of Inspired Oxygen 05/21/22 16:00 05/21/22 20:00 05/21/22 20:15 Temperature Pulse Rate 101 H 98 98 Respiratory Rate 18 18 Blood Pressure Pulse Oximetry Oxygen Delivery Fraction of Inspired Oxygen 05/21/22 20:00 05/21/22 20:00 08
[2022-05-22 16:02] LABS: Partial Thromboplastin Time > 200.0 SECONDS (22.3-36.8)
[2022-05-22] MEDS: NOREPINEPHRINE BITARTRATE 16 MG in DEXTROSE 5% IN WATER 234 ML 28.13 ML IV CONT (16:27)
[2022-05-22] MEDS: CEFEPIME 0.5 GM in DEXTROSE 5% IN WATER 50 ML 100 ML IVPB (17:03)
--- NOTE | 2022-05-22 17:22 | PM.IMPN ---
Progress Note: A&P Assessment and Plan (1) Acute respiratory failure with hypoxia: Code(s): J96.01 - Acute respiratory failure with hypoxia Status: Acute Assessment and Plan: Patient with acute respiratory failure, complain of severe shortness of breath once he went into AFib RVR, with hypertension, shock, appreciate critical care management of ventilator (2) NSTEMI (non-ST elevated myocardial infarction): Code(s): I21.4 - Non-ST elevation (NSTEMI) myocardial infarction Status: Acute Assessment and Plan: NSTEMI with elevated troponins, new onset cardiomyopathy, stable on 4 vasopressors, maxed out, appreciate cardiology and Critical Care consultations (3) Shock: Code(s): R57.9 - Shock, unspecified Status: Acute Assessment and Plan: Continue vasopressors, antibiotics, follow-up blood cultures (4) PAF (paroxysmal atrial fibrillation): Code(s): I48.0 - Paroxysmal atrial fibrillation Status: Acute Assessment and Plan: Stable on amiodarone infusion, appreciate Cardiology (5) Pleural effusion: Code(s): J90 - Pleural effusion, not elsewhere classified Status: Acute Assessment and Plan: Left pleural effusion, may need thoracentesis once stable, appreciate pulmonology consultation (6) Acute systolic heart failure: Code(s): I50.21 - Acute systolic (congestive) heart failure Status: Acute Assessment and Plan: Acute onset severe heart failure with an EF around 20%, unsure etiology, appreciate Cardiology (7) Abscess of left thigh: Code(s): L02.416 - Cutaneous abscess of left lower limb Status: Acute Assessment and Plan: Left thigh abscess status post I&D, appreciate surgery consultation, continue antibiotics (8) End-stage renal disease needing dialysis: Code(s): N18.6 - End stage renal disease; Z99.2 - Dependence on renal dialysis Status: Acute Assessment and Plan: Nephrology states patient is unable to receive dialysis at this time, monitor (9) Chronic acquired lymphedema: Code(s): I89.0 - Lymphedema, not elsewhere classified Status: Acute Assessment and Plan: Chronic lymphedema which could be related to possible mitral valve regurg, cardiomyopathy -05/20/2022 bilateral lower extremity venous Dopplers: negative for DVT (10) Gastric ulcer: Code(s): K25.9 - Gastric ulcer, unspecified as acute or chronic, without hemorrhage or perforation Status: Acute Assessment and Plan: Monitor hemoglobin while on heparin Additional Plan DVT prophylaxis: Heparin infusion Stress ulcer prophylaxis: Protonix IV Nutrition: NPO Code status DNR Subjective Date/time seen: 05/22/22 17:22 Interval history: Intubated, sedated. No overnight events noted. Unable to do sedation holidays due to hemodynamic instability. Review of Systems Review of Systems: ROS unobtainable: Yes unobtainable due to endotracheal tube Exam Narrative: General:? Patient intubated, sedated, in no distress HEENT:? ETT in place, pupils are reactive Neck:? Neck is supple Respiratory:? Decreased at bases, good air entry Cardiac:? Sinus tachycardia, S1-S2 Abdomen:? Soft, nondistended Extremities:? Bilateral lower extremity pitting edema from the thigh to the feet Neuro:? Patient is currently sedated, intubated, does not open his eyes to name of follows simple commands, grimaces to pain Skin:? Multiple bruises noted Psych:? Unable to assess at this time Objective Data Vital Signs Vital Signs: Vital Signs - 24 hr 05/21/22 17:45 05/21/22 17:45 05/21/22 18:00 Temperature Pulse Rate 99 99 98 Respiratory Rate 18 Blood Pressure 119/59 L Pulse Oximetry 98 98 Oxygen Delivery Mechanical Ventilation Fraction of Inspired Oxygen 100 05/21/22 18:00 05/21/22 18:15 05/21/22 18:30 Temperature Pulse Rate 98 99 97 Respiratory Rate 18 18 18 Blood Pressure 109/55 L 11
[2022-05-22 17:52] LABS: Reflex Lactic Acid Yes or No Add Lactic
[2022-05-22 18:08] LABS: Vancomycin Random 15.3 ug/mL (10-20)
[2022-05-22] MEDS: SIMVASTATIN 20 MG TABLET 40 MG PO (20:48)
[2022-05-22 22:35] LABS: Partial Thromboplastin Time 86.1 SECONDS (22.3-36.8)
--- NOTE | 2022-05-22 23:53 | PC.NURSE ---
2230 Pt decreased heart rate and BP. Dr. Hassan, scalehouse attendant, charge nurse and daughter notified. Daughter arrived at 2305 and remains at bedside.
--- NOTE | 2022-05-23 00:45 | PC.NURSE ---
Addendum entered by Ary Garrett RN 05/23/22 00:52: Daughter and brother remain at bedside Original Note: 0005 daughter requesting to keep pt comfortable. Charge nurse. mix house operator, and Dr. Tolbert notified and orders received. Vasopressors placed on stand by, tube feeding turned off. Fentenyl and Versed remain on for comfort.
[2022-05-23 09:57] LABS: Device VENTILATOR
[2022-05-23 09:58] LABS: Arterial Blood Gas PEEP 5 cmH2O; Arterial Blood Gas Tidal Volume 500 ml; Arterial Blood Gas Vent Mode CMV; Arterial Blood Gas Ventilator rate 18 /MIN
--- NOTE | 2022-05-28 07:35 | P.DN_ITS ---
Discharge Summary Date and Time Date of : 05/23/22 Time of : 01:05 Provider Pronounced By: Dr. Rdz Probable Cause of Probable Cause of : Cardiopulmonary arrest secondary to NSTEMI with shock Summary Hospital Course: 56-year-old male with past medical history significant for end-stage renal disease on hemodialysis, GERD and hypertension presented with shortness of breath. In the ER, he was found to have pneumonia and started on vancomycin, cefepime and azithromycin. Nephrology was consulted for hemodialysis. Patient was brought to the ICU with significant hypotension requiring pressors. He was found to have a loculated pleural effusion and pulmonology was consulted. Due to patient having bilateral lower extremity pain, Dr. Monson was consulted and requested MRI of the spine which was ordered. Patient did have elevated troponin and Cardiology was consulted. He appeared to be septic with source thought to be secondary to pneumonia versus loculated pleural effusion versus abscess of the left thigh versus all of the above. Patient eventually needed to be intubated due to severe respiratory failure. He ended up on multiple vasopressors, antibiotics, amiodarone infusion required for atrial fibrillation per Cardiology. Due to patient's severe hemodynamic instability secondary to shock, hemodialysis was unable to be performed. Patient became progressively more unstable. Family eventually requested to withdraw care and keep the patient comfortable. Patient May 23, 2022 at 1:05 a.m. and was pronounced by Dr. Rdz. Additional Data Confirmation of as documented by pronouncing clinician: Pupillary Reflex, Palpable Pulses, Response to Stimuli, Heart Tones and Breath Sounds Name of Provider Notified: dr rdz Time Provider Notified: 01:12 Provider Requests Autopsy: No Family Requests Autopsy: No Psychological Tests Sales Agent Notified: Yes Date [facility] Notified of : 05/23/22 Time [facility] Notified of : 01:27
== END 2022-05-23 01:05 | disposition expired | DRG 871 ==
LOC: ANHED 03:13 → ANH3MEDSUR 05:51 → ANHICU 05-21 11:09
PROVIDERS: Internal Medicine; Internal Medicine Cardiovascular Disease; Internal Medicine Nephrology; Nurse Practitioner; Specialist; Student in an Organized Health Care Education/Training Program; Admitting Provider Internal Medicine; Emergency Provider Emergency Medicine; PCP Internal Medicine Infectious Disease; Visit Provider Internal Medicine
PROC: 4A023N7 Measurement of Cardiac Sampling and Pressure, Left Heart, Percutaneous Approach (ICD-10-PCS; CPT 93452; principal; 2022-05-21 16:00)
DX: A41.9 Sepsis, unspecified organism (principal); J18.9 Pneumonia, unspecified organism; N18.6 End stage renal disease; I50.21 Acute systolic (congestive) heart failure; I21.4 Non-ST elevation (NSTEMI) myocardial infarction; J96.01 Acute respiratory failure with hypoxia; L02.415 Cutaneous abscess of right lower limb; I13.2 Hypertensive heart and chronic kidney disease with heart failure and with stage 5 chronic kidney disease, or end stage renal disease; J90 Pleural effusion, not elsewhere classified; E87.2 Acidosis; I47.2 Ventricular tachycardia; I25.5 Ischemic cardiomyopathy; R65.20 Severe sepsis without septic shock; R57.0 Cardiogenic shock; Z20.822 Contact with and (suspected) exposure to COVID-19; K21.9 Gastro-esophageal reflux disease without esophagitis; E87.6 Hypokalemia; I95.9 Hypotension, unspecified; L89.319 Pressure ulcer of right buttock, unspecified stage; D63.1 Anemia in chronic kidney disease; E78.5 Hyperlipidemia, unspecified; F17.210 Nicotine dependence, cigarettes, uncomplicated; Z99.2 Dependence on renal dialysis; I89.0 Lymphedema, not elsewhere classified; I48.0 Paroxysmal atrial fibrillation; I35.0 Nonrheumatic aortic (valve) stenosis; Z66 Do not resuscitate
CPT/HCPCS: 31500; 36415; 36600; 71045; 71250; 80048; 80053; 80202; 81001; 82150; 82375; 82465; 82533; 82805; 82948; 83050; 83605; 83615; 83735; 83880; 84100; 84155; 84311; 84443; 84478; 84484; 85025; 85610; 85730; 86140; 87040; 87070; 87077; 87081; 87186; 87205; 93005; 93308; 93458; 93970; 94002; 94003; 94640; 96374; 99285; C1752; A9270; C1751; C1769; C1887; C1894; C8924; C9113; C9803; G0257; J0171; J0282; J0692; J0834; J1644; J1720; J1940; J2250; J2370; J3010; J3370; J7030; J7040; J7060; P9047; Q9957; U0003; U0005